=== PATIENT | male | born 1945 | race Caucasian/White ===

== ENCOUNTER 2020-09-19 06:24 | Day surgery (SDC) | payer OTHER ==
--- NOTE | 2020-09-18 16:39 | RAD REPORT ---
EXAM DESCRIPTION: Cody Womack (2 Views)09/18/2020 4:24 pm CLINICAL HISTORY: Preop for carotid surgery. Coronary artery disease COMPARISON: 2009 FINDINGS: The lungs appear clear of acute infiltrate. The heart is normal size. Lungs are hyperaera franklin. Pacemaker leads are in place. IMPRESSION: No acute abnormalities displayed
[2020-09-18 17:01] LABS: Protime INR 1.03
[2020-09-18 17:06] LABS: Absolute Lymphocytes (CBC) 1.6 K/uL (0.7-4.9); Basophils % 0.5 % (0-1.3); Hematocrit 44.7 % (39.6-49.0); Lymphocytes % 23.3 % (15.3-44.8); MPV 8.5 fL (7.6-11.3); RBC Red Blood Cell Count 4.91 M/uL (4.33-5.43)
[2020-09-18 17:29] LABS: Potassium 4.5 mmol/L (3.5-5.1)
[2020-09-19] MEDS ORDERED: LIDOCAINE 1% 20 ML MDV ONE (06:55)
[2020-09-19] MEDS ORDERED: HEPA 1000U/500MLS 1,000 UNIT/500 ML BAG IV ONE (06:55)
[2020-09-19] MEDS ORDERED: NA CHLORIDE 0.9% 500 ML ONE (06:58)
[2020-09-19] MEDS ORDERED: ATROPINE SULF 1 MG/10 ML SYR IV ONE (07:28)
[2020-09-19] MEDS ORDERED: MIDAZOLAM HCL 2 MG/2 ML INJ ONE (07:28)
[2020-09-19] MEDS ORDERED: FENTANYL CITR 100 MCG/2 ML ONE (07:28)
[2020-09-19] MEDS ORDERED: NITROGLYCERIN 100 MCG/ML SYR (for cath lab use only) IV ONE (07:29)
[2020-09-19] MEDS ORDERED: NITROGLYCERIN/D5W 0 MG/0 ML BTL IV ONE (07:29)
[2020-09-19] MEDS ORDERED: NA CHLORIDE 0.9% 0 ML ONE (07:29)
[2020-09-19 08:22] VITALS: TEMP 97.7
[2020-09-19 10:26] VITALS: BP 156/83; O2SAT 96
--- NOTE | 2020-09-19 11:27 | OP ---
Date of Procedure: 09/19/2020 Surgeon: Kevin Brantley MD Registered Respiratory Technician: Olivia Graham. StarClose was used to close the right groin site. The patient will remain at bedrest for 2 hours and go home with what we just did and he will follow up with Dr. Naik in the near future. Procedures: Left heart catheterization, selective coronary arteriogram, and selective bilateral crain tid angiograms. Indication: CAD, unstable angina, CVD, and positive carotid Doppler. Description Of Procedure: Mr. Wiggins is a 74-year-old. He was brought to the denture laboratory technician today as an o utpatient because of unstable angina, CAD, positive carotid Doppler, and CVD. He was prepped and dra mora in the routine sterile fashion. He was given Versed for sedation and fentanyl. Using the Seldin kirsty technique, we introduced a 6-Nepali sheath in the right common femoral artery after 10 cc of Xylo simon. A JR4 catheter was introduced and injection of the right coronary artery revealed small right coronary. It was nondominant and free of disease. We then used a JR4 to select the right common ca rotid and the left common carotid. He was found to have a 90% right internal carotid artery stenosis . He had a normal bilateral common carotid, external carotid. The left ICA was normal. A JL4 scot ter was used to cannulate the left main and inject the left main. He had a patent circumflex stent i n the proximal circumflex, had a 60% OM lesion. He had a 99% stenosis in the mid LAD within an old s tent with ADRIANA-2 flow. The patient tolerated the procedure well. There were no complications. Blood Loss: 5 mL. Anesthesia: Total conscious sedation was 45 minutes. Postoperative Diagnoses: Severe cardiovascular disease and severe coronary artery disease, 99% steno sis in the mid LAD within the stent with ADRIANA-2 flow, 90% stenosis of the right internal carotid shawn ry. I contacted Dr. Mamadou Naik, cardiovascular surgeon in [place]. The patient will undergo a ARAUZ to the LAD and a right at the same time. I did not want a stent in that the LAD and put him on Plavix and have the patient wait 6 months before his carotid surgery. I think the combination be ing of LAD and a right carotid endarterectomy is the way to go. BEN/AMITA Voice ID: [id number] Report ID: [id number]
== END 2020-09-19 10:19 | disposition home or self-care (01) ==
LOC: CCL 06:24
DX: I25.110 Atherosclerotic heart disease of native coronary artery with unstable angina pectoris (principal); T82.855A Stenosis of coronary artery stent, initial encounter; I65.21 Occlusion and stenosis of right carotid artery; I10 Essential (primary) hypertension; E78.5 Hyperlipidemia, unspecified; Z87.891 Personal history of nicotine dependence; Z20.828 Contact with and (suspected) exposure to other viral communicable diseases
CPT/HCPCS: 85025; 80048; 36415; 85610; 85730; 71046; 93454; 36222; U0002; C1893; J2250; J3010; J7040; J1644; J0583

== ENCOUNTER 2021-03-13 15:30 | Emergency (ER) | payer OTHER ==
--- OUTSIDE RECORDS SUMMARY | 2021-03-13 15:35 | XMS REPORT | Continuity of Care Document ---
:1945 Author Organization [facility] t Address [address] [place] [address] Care Team Providers Name Role Phone Lasha ALFONSO Attending Clinician James DODSON Attending Clinician Milton Naik MD Attending Clinician Linette Us DO Attending Clinician LINETTE US Attending Clinician Unavailable Jorje GARCIA Attending Clinician Lakhwinder GARCIA Attending Clinician Kaleb Laura MD Attending Clinician [place] Attending Clinician Unavailable MILTON NAIK Admitting Clinician Unavailable Payers Payer Name Policy Type Policy Effective Date Expiration Date Sour ce Number MEDICAREMEDICARE A [id number] LEE ANN Taylor [id number] 2008- 00:00:00 - Medical [facility] [id number] 2018 LEE ANN Mccabe SUPPLEMENT/INDIVIDUALG 00:00:00 - Medical ENERIC MEDICARE Center [id number] 11/2018-PresentMedigap Problems Condition Condition Condition Status Onset Resolution Last Treating Co mments Source Name Details Category Date Date Treatment Clinician Date Chest pain Chest pain Disease Active 2019-[address] [facility] Uncontroll Uncontroll Disease Active 2019-[address] ed ed 0-25 [facility] - hypertensi hypertensi 00:00: Me dical on on 00 [place] Hyperlipid Hyperlipid Disease Active 2019-[address] emia, emia, 0-25 [facility] - unspecifie unspecifie 00:00: Me dical d d 00 [place] hyperlipid hyperlipid emia type emia type ACB x2 ACB x2 Disease Active 2019-11 [facility] ( ( 0-25 [place] - Letsou Letsou 00:00: Medical 09/25) 09/25) 00 [place] Acute Acute Disease Active [facility] respirator respirator Lucie kes - y y Medical insufficie insufficie Ce nter ncy ncy Vasogenic Vasogenic Disease Active [facility] shock [facility] Hypovolemi Hypovolemi Disease Active [facility] c shock c shock 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 Lactic Lactic Disease Active [facility] acidosis acidosis [facility] Allergies, Adverse Reactions, Alerts This patient has no known allergies or adverse reactions. Social History Social Habit Start Date Stop Date Quantity Comments Source History of tobacco Current smoker I [facility] Sex Assigned At [facility] Tobacco use and 2020-10-17 2020-10-17 Former user [facility] - exposure 00:00:00 00:00:00 [facility] Smoking Status Start Date Stop Date Source Former smoker 2020-10-17 00:00:00 2020-10-17 00:00:00 [facility] Medications Ordered Filled Start Stop Current Ordering Indication Dosage Frequency Signature Comments Components Source Medication Medication Date Date Medication? Clinician (SIG) Name Name isosorbide 2019-11 Yes 120mg QD Take [address] mononitrate 1-03 mg by [facility] - (IMDUR) 120 14:46: mouth Medic al mg 24 hr 26 daily. Center tablet clopidogreL 2019-11 Yes 75mg QD Take [address] (PLAVIX) 75 12-02 by mouth Luke s - mg tablet 14:46: daily. Medica l 26 [place] atorvastati 2019-11 Yes 40mg QD Take [address] n (LIPITOR) 12-02 by mouth Luke s - 40 MG 14:46: daily. Medical tablet 26 [place] omeprazole 2019-11 Yes 20mg QD Take [address] (PriLOSEC 12-02 by mouth [facility] - OTC) 20 MG 14:46: daily. Medic al tablet 26 [place] ramipriL 2019-11 No 5mg QD Take [address] (ALTACE) 5 12-02 by mouth Luke s - MG capsule 11:46: 00:00 daily. Medi artem 09 :00 [place] lidocaine 2019-11- No 2{patch Q24H Place [address] (LIDODERM) 12-02 } patches [facility] - 5 % patch 00:00: 23:59 onto the Med ical 00 :00 skin daily Center for 30 days Remove & Discard patch within 12 hours or as directed by . lisinopriL 2019-11 No 2.5mg QD Take [address] (PRINIVIL,Z 12-02 tablet [facility] - ESTRIL) 2.5 00:00: 23:59 (2.5 mg Me dical MG tablet 00 :00 total) by Cente r mouth daily for 30 days. metoprolol 2019-11- No 25mg Q.5D Take [address] succinate 12-02 tablet (25 Gwen es - (TOPROL-XL) 00:00: 23:59 mg total) Medical 25 MG 24 hr 00 :00 by mouth 2 Ce nter tablet (two) times daily for 30 days. aspirin 81 2019-11- No 81mg QD Take [address] MG chewable 12-02 tablet (81 L ukes - tablet 00:00: 23:59 mg total) Medic al 00 :00 by mouth Center daily for 30 days. furosemide 2019-11- No 20mg QD Take [address] (LASIX) 20 12-02 tablet (20 Lucie kes - MG tablet 00:00: 23:59 mg total) Me dical 00 :00 by mouth Center daily for 30 days. HYDROcodone 2019-11- No 1{tbl} Take [address] -acetaminop 12-02 tablet by Lucie rodriguez ([place]endell) 00:00: 23:59 mouth Medi artem 5-325 mg 00 :00 every 6 Center per tablet (six) hours as needed for Pain for up to 10 days. Max Daily Amount: 4 tablets Vital Signs Vital Name Observation Time Observation Value Comments Source Systolic blood 2020-10-17 09:09:00 109 mm[Hg] [facility] Diastolic blood 2020-10-17 09:09:00 76 mm[Hg] [facility] Heart rate 2020-10-17 09:09:00 88 /min [facility] Respiratory rate 2020-10-17 09:09:00 16 /min [facility] Oxygen saturation in 2020-10-17 09:09:00 97 /min [facility] Arterial blood by Medical Ce nter Pulse oximetry Body temperature 2020-10-02 12:17:00 36.89 [place] [facility] Body weight 2020-09-30 04:27:00 79.788 kg [facility] BMI 2020-09-30 04:27:00 26.75 kg/m2 [facility] Body height 2020-09-23 12:10:00 172.7 cm [facility] Procedures Procedure Date / Time Performing Clinician Source Performed ARRYTHMIA IMPLANT REPORT - 2020-10-17 00:00:00 Provider, Shannan [facility] SCAN Scanning [facility] POCT-GLUCOSE METER 2020-10-02 12:17:00 Asa Naik [facility] POCT-GLUCOSE METER 2020-10-02 07:31:00 Asa Naik [facility] APTT 2020-10-02 05:08:00 Shellie Cabello [facility] BASIC METABOLIC PANEL (7) 2020-10-02 05:08:00 Shlelie Cabello [facility] MAGNESIUM 2020-10-02 05:08:00 Shellie Cabello [facility] PHOSPHORUS 2020-10-02 05:08:00 Destiney [facility] CBC W/PLT COUNT & AUTO 2020-10-02 05:08:00 Shellie Cabello [facility] XR CHEST 1 VIEW 2020-10-02 04:31:00 Torrey Lemus [facility] PORTABLE/BEDSIDE [facility] POCT-GLUCOSE METER 2020-10-01 22:42:00 Letsomateo [facility] POCT-GLUCOSE METER 2020-10-01 16:48:00 Heena [facility] XR CHEST 1 VIEW 2020-10-01 13:08:00 Heena [facility]/BEDSIDE [facility] HC EEG DURING NONINTRCRN SURG 2020-10-01 12:27:00 [facility] T[facility]UE EXAM 2020-10-01 11:57:00 [facility] ENDARTERECTOMY,CAROTID 2020-10-01 09:15:00 Heena [facility] APTT 2020-10-01 05:25:00 Destiney [facility] BASIC METABOLIC PANEL (7) 2020-10-01 05:25:00 Shellie Cabello I [facility] MAGNESIUM 2020-10-01 05:25:00 Destiney [facility] PHOSPHORUS 2020-10-01 05:25:00 Destiney [facility] CBC W/PLT COUNT & AUTO 2020-10-01 05:25:00 Shellie Cabello [facility] XR CHEST 1 VIEW 2020-10-01 04:53:00 Destiney [facility] - PORTABLE/BEDSIDE [facility] POCT-GLUCOSE METER 2020-09-30 21:51:00 [facility]SE MET[facility] 2020-09-30 17:16:00 [facility] TYPE AND SCREEN, AUTOMATED 2020-09-30 14:17:00 Torrey Lemus [facility] SARS-COV2/RT-PCR (SL[facility] & REF 2020-09-30 14:12:[address] [facility] POCT-GLUCOSE METER 2020-09-30 12:21:00 [facility] POCT-GLUCOSE METER 2020-09-30 07:43:00 [facility] AP[facility] 2020-09-30 04:22:00 Destiney [facility] BASIC METABOLIC PANEL (7) 2020-09-30 04:22:00 Shellie Cabello [facility] MAGNESIUM 2020-09-30 04:22:00 Shellie Cabello [facility] PHOSPHORUS 2020-09-30 04:22:00 Destiney [facility] CBC W/PLT COUNT & AUTO 2020-09-30 04:22:00 Shellie Cabello [facility] DIFFERENTIAL [facility] XR CHEST 1 VIEW 2020-09-30 03:44:00 Shellie Cabello [facility] - PORTABLE/BEDSIDE [facility] POCT-GLUCOSE METER 2020-09-29 21:35:00 [facility] POCT-GLUCOSE METER 2020-09-29 17:15:00 [facility] POCT-GLUCOSE METER 2020-09-29 12:09:00 [facility] POCT-GLUCOSE METER 2020-09-29 08:09:00 [facility] CHEST 1 VIEW 2020-09-29 04:33:00 Shellie Cabello [facility] - PORTABLE/BEDSIDE [facility] APTT 2020-09-29 04:03:00 Destiney [facility] BASIC METABOLIC PANEL (7) 2020-09-29 04:03:00 Destiney Shellie I [facility] MAGNESIUM 2020-09-29 04:03:00 Destiney [facility] PHOSPHORUS 2020-09-29 04:03:00 Destiney [facility] CBC W/PLT COUNT & AUTO 2020-09-29 04:03:00 Destiney [facility] DIFFERENTIAL [facility] POCT-GLUCOSE METER 2020-09-28 20:58:00 [facility] POCT-GLUCOSE METER 2020-09-28 17:28:00 [facility] XR CHEST 1 VIEW 2020-09-28 04:00:00 Destiney [facility] - PORTABLE/BEDSIDE [facility] APTT 2020-09-28 03:03:00 Destiney [facility] BASIC METABOLIC PANEL (7) 2020-09-28 03:03:00 Shellie Cabello [facility] MAGNESIUM 2020-09-28 03:03:00 Destiney [facility] PHOSPHORUS 2020-09-28 03:03:00 Destiney [facility] CBC W/PLT COUNT & AUTO 2020-09-28 03:03:00 Destiney [facility] S t [facility] DIFFERENTIAL [facility] (CELLAVISION MANUAL DIFF) 2020-09-28 03:03:00 Hayde Leborn [facility] POCT-GLUCOSE METER 2020-09-27 22:54:00 [facility] BASIC METABOLIC PANEL (7) 2020-09-27 14:00:00 Hayde Lebron [facility] CBC W/PLT COUNT & AUTO 2020-09-27 14:00:00 Shellie Cabello [facility] S t [facility] - DIFFERENTIAL [facility] MAGNESIUM 2020-09-27 14:00:00 Natasha Mayes [facility] PHOSPHORUS 2020-09-27 14:00:00 Natasha Mayes [facility] (CELLAVISION MANUAL DIFF) 2020-09-27 14:00:00 Shellie Cabello [facility] 2D ECHO W/ DOPPLER 2020-09-27 09:25:[address] [facility] (CW/PW/COLOR) [facility] POCT-GLUCOSE METER 2020-09-27 07:52:00 Heena [facility] ECG 12-LEAD 2020-09-27 06:07:06 Destiney [facility] CALCIUM, IONIZED 2020-09-27 03:49:[address] [facility] OXYGEN SATURATION, MEASURED 2020-09-27 03:49:[address] [facility] APTT 2020-09-27 03:25:00 Destiney [facility] BASIC METABOLIC PANEL (7) 2020-09-27 03:25:[address] [facility] MAGNESIUM 2020-09-27 03:25:00 Shellie Cabello [facility] PHOSPHORUS 2020-09-27 03:25:00 Bernardino [facility] CBC (HEMOGRAM ONLY) 2020-09-27 03:25:00 Bernardino [facility] XR CHEST 1 VIEW 2020-09-27 02:38:00 Shellie Cabello [facility] - PORTABLE/BEDSIDE [facility] POCT-GLUCOSE METER 2020 16:28:00 Heena [facility] ECG 12-LEAD 2020 10:17:37 Destiney [facility] POCT-GLUCOSE METER 2020 09:33:00 [facility] BLOOD GAS, ARTERIAL 2020 08:21:00 Destiney [facility] POCT-GLUCOSE METER 2020 07:52:00 Heena [facility] LACTIC ACID, ARTERIAL 2020 04:16:00 Destiney [facility] BLOOD GAS, ARTERIAL 2020 04:13:00 Destiney [facility] SODIUM NA-STAT LAB 2020 04:13:00 [facility] POTASSIUM-STAT LAB 2020 04:13:00 [facility] GLUCOSE-STAT LAB 2020 [facility]:13:00 [facility] - STAT LAB 2020 04:13:00 Heena [facility] BASIC METABOLIC PANEL (7) 2020 04:11:00 Shellie Cabello CH, I [facility] MAGNESIUM 2020 04:11:00 Shellie Cabello [facility] PHOSPHORUS 2020 04:11:00 Hayde Lebron [facility] CBC (HEMOGRAM ONLY) 2020 04:11:00 Hayde Lebron [facility] OXYGEN SATURATION, MEASURED 2020 04:11:00 Dawn Buitrago [facility] APTT 2020 04:10:00 Shellie Cabello [facility] PROTHROMBIN TIME/INR 2020 04:10:00 Shellie Cabello [facility] FIBRINOGEN 2020 04:10:00 Destiney [facility] XR CHEST 1 VIEW 2020 02:34:00 Destiney [facility] - PORTABLE/BEDSIDE [facility] POCT-GLUCOSE METER 2020 01:41:00 Heena [facility] OXYGEN SATURATION, MEASURED 2020 00:02:00 Dawn Buitrago [facility] BLOOD GAS, ARTERIAL 2020-09-25 23:36:00 Bernardino [facility] LACTIC ACID, ARTERIAL 2020-09-25 23:36:00 Bernardino [facility] LACTIC ACID, ARTERIAL 2020-09-25 20:15:00 Destiney [facility] BLOOD GAS, ARTERIAL 2020-09-25 20:15:00 Destiney [facility] SODIUM NA-STAT LAB 2020-09-25 20:15:00 [facility] POTASSIUM-STAT LAB 2020-09-25 20:15:00 [facility] GLUCOSE-STAT LAB 2020-09-25 20:15:00 [facility] (H&H) - STAT LAB 2020-09-25 20:15:00 Heena [facility] POCT-GLUCOSE METER 2020-09-25 18:48:00 [facility] BLOOD GAS, ARTERIAL 2020-09-25 18:46:00 Destiney [facility] LACTIC ACID, ARTERIAL 2020-09-25 18:46:00 Destiney [facility] POCT-GLUCOSE METER 2020-09-25 18:04:00 [facility] BLOOD GAS, ARTERIAL 2020-09-25 18:01:00 Destiney [facility] POCT-GLUCOSE METER 2020-09-25 17:31:00 [facility] BLOOD GAS, ARTERIAL 2020-09-25 17:12:00 Destiney [facility] LACTIC ACID, ARTERIAL 2020-09-25 17:12:00 Destiney [facility] HEMOGLOBIN AND HEMATOCRIT 2020-09-25 17:12:00 Errol Rodriguez CH I [facility] CALCIUM, IONIZED 2020-09-25 17:12:00 Destiney [facility] POCT-GLUCOSE METER 2020-09-25 16:00:00 Heena [facility] LACTIC ACID, ARTERIAL 2020-09-25 15:57:00 Destiney [facility] BLOOD GAS, ARTERIAL 2020-09-25 15:57:00 Destiney [facility] ECG 12-LEAD 2020-09-25 15:15:06 Bernardino [facility] XR CHEST 1 VIEW 2020-09-25 14:52:00 Destiney [facility]/BEDSIDE [facility] BASIC METABOLIC PANEL (7) 2020-09-25 14:46:00 Bernardino [facility] MAGNESIUM 2020-09-25 14:46:00 Bernardino [facility] BLOOD GAS, ARTERIAL 2020-09-25 14:46:00 Destiney [facility] CALCIUM, IONIZED 2020-09-25 14:46:00 Destiney [facility] PROTHROMBIN TIME/INR 2020-09-25 14:46:00 Destiney [facility] APTT 2020-09-25 14:46:00 Destiney [facility] FIBRINOGEN 2020-09-25 14:46:00 [facility] OXYGEN SATURATION, MEASURED 2020-09-25 14:46:00 [facility] LACTIC ACID, ARTERIAL 2020-09-25 14:46:00 [facility] CBC W/PLT COUNT & AUTO 2020-09-25 14:46:00 [facility] HEPATIC FUNCTION PANEL 2020-09-25 14:46:00 [facility] SODIUM NA-STAT LAB 2020-09-25 14:46:00 [facility] POTASSIUM-STAT LAB 2020-09-25 14:46:00 [facility] GLUCOSE-STAT LAB 2020-09-25 14:46:00 [facility] HGB/HCT (H&H) - STAT LAB 2020-09-25 14:46:00 [facility] (CELLAVISION MANUAL DIFF) 2020-09-25 14:46:00 eleanor [facility] POCT-ACT 2020-09-25 13:27:00 [facility] BLOOD GAS, ARTERIAL 2020-09-25 13:20:49 Andrea Laura [facility] APTT 2020-09-25 13:20:49 Andrea Laura [facility] FIBRINOGEN 2020-09-25 13:20:49 Andrea Laura [facility] PROTHROMBIN TIME/INR 2020-09-25 13:20:49 Andrea Laura [facility] THROMBOELASTOGRAPH (TEG) 2020-09-25 13:20:49 Andrea Laura [facility] PLATELET COUNT 2020-09-25 13:20:49 Andrea Laura [facility] SODIUM NA-STAT LAB 2020-09-25 13:20:49 Andrea Laura [facility] POTASSIUM-STAT LAB 2020-09-25 13:20:49 Andrea Laura [facility] GLUCOSE-STAT LAB 2020-09-25 13:20:49 Andrea Laura [facility] HGB/HCT (H&H) - STAT LAB 2020-09-25 13:20:49 Andrea Laura Isabel hines [facility] CBC W/PLT COUNT & AUTO 2020-09-25 13:20:00 Hayde Lebron [facility] POCT-ACT 2020-09-25 12:27:00 [facility] BLOOD GAS, ARTERIAL 2020-09-25 12:24:35 Destiney [facility] SODIUM NA-STAT LAB 2020-09-25 12:24:35 [facility] POTASSIUM-STAT LAB 2020-09-25 12:24:35 [facility] GLUCOSE-STAT LAB 2020-09-25 12:24:35 [facility] (H&H) - STAT LAB 2020-09-25 12:24:35 [facility] POCT-ACT 2020-09-25 11:59:00 [facility] BLOOD GAS, ARTERIAL 2020-09-25 11:57:33 Shellie Cabello [facility] SODIUM NA-STAT LAB 2020-09-25 11:57:33 [facility] POTASSIUM-STAT LAB 2020-09-25 11:57:33 [facility] GLUCOSE-STAT LAB 2020-09-25 11:57:33 [facility] - STAT LAB 2020-09-25 11:57:33 [facility] POCT-ACT 2020-09-25 11:32:00 [facility] BLOOD GAS, ARTERIAL 2020-09-25 11:29:09 [facility]IUM NA-STAT LAB 2020-09-25 11:29:09 [facility] POTASSIUM-STAT LAB 2020-09-25 11:29:09 [facility] GLUCOSE-STAT LAB 2020-09-25 11:29:09 [facility]&H) - STAT LAB 2020-09-25 11:29:09 [facility] POCT-ACT 2020-09-25 10:59:00 [facility]emimateoSt[facility] BLOOD GAS, ARTERIAL 2020-09-25 10:56:07 [facility] SODIUM NA-STAT LAB 2020-09-25 10:56:07 [facility] POTASSIUM-STAT LAB 2020-09-25 10:56:07 [facility] GLUCOSE-STAT LAB 2020-09-25 10:56:07 [facility]&H) - STAT LAB 2020-09-25 10:56:07 [facility] POCT-ACT 2020-09-25 10:30:00 [facility] POCT-ACT 2020-09-25 10:17:00 [facility] ANESTHESIA MIKE 2020-09-25 09:02:18 Andrea Laura [facility] BLOOD GAS, ARTERIAL 2020-09-25 08:42:23 Andrea Laura [facility] CALCIUM, IONIZED 2020-09-25 08:42:23 Andrea Laura [facility] SODIUM NA-STAT LAB 2020-09-25 08:42:23 Andrea Laura [facility] POTASSIUM-STAT LAB 2020-09-25 08:42:23 Andrea Laura [facility] GLUCOSE-STAT LAB 2020-09-25 08:42:23 Andrea Laura [facility] HGB/HCT (H&H) - STAT LAB 2020-09-25 08:42:23 Andrea Laura [facility] BYPASS,AORTO CORONARY ANA/SVG 2020-09-25 07:34:00 Heena [facility] ENDOSCOPIC HARVEST,VEIN 2020-09-25 07:34:00 Heena [facility] APTT 2020-09-25 04:34:00 Destiney [facility] BASIC METABOLIC PANEL (7) 2020-09-25 04:34:00 Shellie Cabello CH, I [facility] MAGNESIUM 2020-09-25 04:34:00 Destiney [facility] CBC (HEMOGRAM ONLY) 2020-09-25 04:34:00 Solomon Smith [facility] PHOSPHORUS 2020-09-25 04:34:00 Hayde Lebron [facility] APTT 2020-09-24 19:17:00 Destiney [facility] APTT 2020-09-24 12:47:00 Shellie Cabello [facility] CT BRAIN WITHOUT IV CONTRAST 2020-09-24 12:13:00 Kris Lebron [facility] PLATELET COUNT 2020-09-24 05:58:00 Solomon Smith [facility] APTT 2020-09-24 05:58:00 Luis [facility] LIPID PANEL 2020-09-24 05:58:00 Hayde Lebron [facility] HEMOGLOBIN A1C 2020-09-24 05:58:00 Bernardino [facility] PROTHROMBIN TIME/INR 2020-09-24 05:58:00 Bernardino [facility] BASIC METABOLIC PANEL (7) 2020-09-24 05:58:00 ChiShellie ceron [facility] MAGNESIUM 2020-09-24 05:58:00 Shellie Cabello [facility] CBC (HEMOGRAM ONLY) 2020-09-24 05:58:00 Luis [facility] APTT 2020-09-23 23:16:00 Luis [facility] HC VENOUS DOPPLER EXT WILLIAMS 2020-09-23 15:30:00 Bernardino [facility] ABORH, MANUAL 2020-09-23 13:42:00 Samira Castro [facility] TYPE AND SCREEN, AUTOMATED 2020-09-23 13:18:00 Bernardino [facility] 2D ECHO W/ DOPPLER 2020-09-23 11:00:43 Lebron [facility] (CW/PW/COLOR) [facility] ED ECG INTERPRETATION 2020-09-23 10:54:24 MagenMere [facility] SARS-COV2/RT-PCR (SLHS & REF 2020-09-23 09:20:00 MagenMere [facility] XR CHEST 1 VIEW 2020-09-23 09:15:00 MagenMere [facility] - PORTABLE/BEDSIDE Medical Center ECG 12-LEAD 2020-09-23 09:13:[address] [facility] CBC W/PLT COUNT & AUTO 2020-09-23 09:13:00 MagenMere [facility] BASIC METABOLIC PANEL (7) 2020-09-23 09:13:[address] [facility] B-TYPE NATRIURETIC FACTOR 2020-09-23 09:13:00 MagenMere Shagufta astudillo [facility] HEPATIC FUNCTION PANEL 2020-09-23 09:13:[address] [facility] Center TROPONIN I 2020-09-23 09:13:[address] [facility] PT/APTT 2020-09-23 09:13:00 Asa Naik [facility] [place] [facility] [facility] ARRYTHMIA IMPLANT REPORT - 2020-09-23 00:00:00 Provider, Default [facility] - SCAN Scanning [facility] REPORT OF PROCEDURE - 2020-09-23 00:00:00 Provider, Default [facility] - ENDOSCOPY SCAN Scanning [facility] Plan of Care Planned Activity Planned Date Details Comments Source Future Scheduled 2020-11-[address] [facility] - Test 00:00:00 (12+) [code = Medical Center DEPRESSION SCREENING (12+)] Future Scheduled 2020-07-31 INFLUENZA VACCINE (#1) [facility]00 [code = INFLUENZA Medical Ce nter VACCINE (#1)] Future Scheduled 2010-08-[address] [facility] Test 00:00:00 WELLNESS (YEAR 2 or Medical Center FIRST YEAR if no IPPE) [code = MEDICARE ANNUAL WELLNESS (YEAR 2 or FIRST YEAR if no IPPE)] Future Scheduled 2009 PNEUMOCOCCAL 65+ YRS [facility] - Test 00:00:00 (1 of 1 - Medical Center CXYU96_Bzcixzh PCV13) [code = PNEUMOCOCCAL 65+ YRS (1 of 1 - PTYK64_Axhthnv PCV13)] Future Scheduled 1994 SHINGLES VACCINES ([address] [facility] - Test 00:00:00 of 2) [code = SHINGLES Medic al Center VACCINES (1 of 2)] Future Scheduled 1963 DTAP/TDAP/TD [facility]ACCINES [facility] Test 00:00:00 (1 - Tdap) [code = Medical C enter DTAP/TDAP/TD VACCINES (1 - Tdap)] Future Scheduled 1962 HEPATITIS C [facility]CRE[facility]ING [facility] 00:00:00 [code = HEPATITIS C Medical Center SCREENING] Encounters Start End Encounter Admission Attending Care Care Encounter Source Date/Time Date/Time Type Type Clinicians Facility Department ID 2020-10-17 2020-10-17 Office MIGUEL Ramirez [id number] 10:00:51 10:40:51 Visit Ileana AMBULATOR [id number] Y [id number] Results Test Description Test Time Test Comments Results Result Sourc e Comments ARRYTHMIA IMPLANT 2020-11-02 Ordered by an [facility] REPORT - SCAN 11:48:53 unspecified - Medical provider. Center Tissue Exam 2020-10-08 13:34:00 Test Item Value Reference Range Interpretation Comme nts Case Report (test code = 104) Surgical Pathology Report Case: [id number] Authorizing Provider: Asa Naik, Collected: 10/01/2020 11:57 AM Ordering Location: [facility] Received: 10/01/2020 12:12 PM PERIOPERATIVE SERVICES Pathologist: Lopez Cade MD Specimen: Plaque, RIGHT CAROTID ARTERY PLAQUE DIAGNOSIS (test code = 3220) t6aroUHuKCWbm4aaKCJujQBmTkXpJaVwFjVuQi pc dWMxIHtccnRmMVxlcGljOTIwMFxhbnNpXHNwbHRw K9XgwzdkHEsvEB5vAC6cmFrptHGpmGAbBLKjZsNe y1nyf596bZVja4xiDRZJolzpnEg1rZjcL39yp9G0 UyofA41iwUEiFIppsKRbhzkcawQcZGYLXHCKGFar GslHFSKpQ3FWE7LRMLmiEF2UROLTJBHHP8RPVJg0 KSZsgeDKTOoADEDJQyUMLQdMPo0XZ4kDLe9XMTJw FPzKDDNRJMbeGNN2a7nwnHWxZIJyiZXlZNTlGMly mrBjWVTuYlatkytvSGRsXJG5ooLgYDIeDXzxQACi SUrdHl0wfOJjjMimOlDqXNSdb7owenCVxkjvrPj9 a0jrJDErYbD4nANpFXnzL8npdsLduGSqTRMdRPc5 mK23HBQapX5hdXPrUIesghGwCnG6NUeiDPUuFtM6 FYKkoGBfCEOfZ5ioLQFmPPacUDZxFXavmOBbUEG6 sDsns2K0rJSeiJHccPrzFxUcLcGbSuOQy7QmKXi5 eUhyI9QhRSUnMmD6gKIsLNDzYNveYNNeTUTiuvA2 bP41NRsbclO9vNEfa6Ant14mp996sB6bqAXhTSS5 NQYsMAUudHUsMKZnQNL7LFJmgWQcY8nmRWHlMM0g zdntFCqdERehANAnvLJ6JBQzsZOkD7IjDMKvQKlm UHNkfnq7MpOdOq4llGJxwUpgPCojk0gvf5cyjBEq Mss8ZIEhYrMsTeloMGytx3Uxb4zmOPYxww3iLTW0 cABlbEzwj4P3yPAcJQNsnTZhDBIuAS5bvQEcATKe jL2vyksoBABiRrLpdwsgBXUvuOaizcAvQn8eoBhb FHL4PNiuN0erjY9xNgN6DRlaK5houD7jWEo9DSmm HMFlzLR0klN2BBSriZHlW2QtbA6qWHDoFO8clth9 t5glWVX1BEapHKOcCnG0dfZ1LAIyyBElTOAunJkt PMlld822MNW9YtFcVNQor7GmD4NpiUqcR11wlUdr Q68eMLIgnGsbdH8rkEbziT9qPnOaMjCvDSoowIyg XE7hKMPmL7nlxXCoIHJxLIYhR6idFyBkcD2sqXic LZkoctNgRFQcTyt4VLAsrLBjSUGuYvf2VZYjCYIz N40pqeplQXI8tO6sh5gwm8QrDKmeJNT0DHNgc13k QGtmikN0ASlkUn5nZNGmWXm9BQlbBYE3cP== CPT Code(s) (test code = 3357) p0cxhOScNBEqeZT4PfCeKIWiy7qnx2IfyAZw cGFy TBzbbQZnytBxkr45kSA1uH42FF2vSXKuYwP8YCDj qaT0Obr6GPSyUICpcCHuH652l6fyr8jfbfBvxUX3 jXdgLEXdAGDrQSmiYZDcWfLgEWjfESW5COd2DzWr XHBhcn0= CLINICAL HISTORY (test code = 3356) p9etvWMbNYAhkEP0HeCeYQVcm8seh7M sdHBncGFy GIuhjRQpyzAyks45mVU4sZ83EC2cQFGiUuA3FAWb dcY5Kwz7JSBePWQssDFqT569x5whj1uzjcPpxME7 lWlmOPGxKHNsSRriFJCsEdUgYPHaa8FnNWxpO64y v5xgNsOil0Ofeo7ybFGuo9LjajgqxCCvD0Pwz9Tc ZCBhcnRlcnlccGFyfQ== SPECIMEN SOURCE (test code = 3377) k1cqbVPlERMatSN5YcRxCQCgq2tjl7Sa dHBncGFy CWfnnPKcpqKyye80qQG3jK53UA1yWYVcMbL6SNTw eoY2Aww0QNTnBDNrcZPkL330o6xxb1ceudLnnUB5 nUdiOMCdOIJsMRrnJFEbSwMxFB7hCAeulPWoZZTk cn0= GROSS DESCRIPTION (test code = 3366) o4iaxNBsJWQryDG7GvHzMOQvu9wcj1 BsdHBncGFy RYrkmWPnsxLrxi83cGH3eU28XU6kNYWmCtX1PXGj pwO1Dkx0SEDtFBFydAAbY600n2pee2babgTxiPT5 nJdzGQMoWOBzRCwbXVRqNvNxXhThUYq9PDDnyA7r Es7ptTQzvC2eoGCzJGzrOOL1pKLwGDErDSBhUDVg BF19G3ZqaqDcCDukCHNgKWGtcI6hPE86sWWaueCx zfJwZiRlL8m4XNMphv83yBNfNKX8HMM7IGRuZSO8 FJHrpONmNTKaVeBlZ76yhS8ujBVzX7EfZDjuMT64 GPEzHKfaXVTdVX5mbIKuUCBvdu27EZbvv4glaNOc xXqucvXycIIyGUUcQsLna6XclCr3HSLrjBPdPzpc XRTfzOWmcCVmYCQyNXLgoJFgwK9bzaDfmjHduyWp jdOzaGUncNVuuCE7JYHoyK1xCUElSj2hdO54eQ1z LFZiZ8EdW7vimALtuFdhgj8bGSAftIqvXQZylt0= MICROSCOPIC DESCRIPTION (test code = h6gskFGzRXWquEL7UhPsSBMit1juz5 BsdHBncGFy 3371) ELovqHOknuZpdv97zNV9bQ79LM6fTXXxNjW3XFNa yuC5Wae9LESgKZTbbOXxV855u3vpd8hzwcTauDQ1 mLsfFESqNXGaPHnqKDJoTwRoYRNtRz2gwLXjOVHd cn0= [facility] [id number] 13:34:00Surgical Pathology Report Case: [id number] Authorizing Provider: Asa Naik, Collected: 10/01/2020 11:57 AM OrderingLocation: [facility] Received: 10/01/2020 12:12 PM PERIOPERATIVE SERVICES Pathologist: Lopez Cade MD Specimen: Plaque, RIGHT CAROTID ARTERY PLAQUE ARTERY, RIGHT CAROTID, ENDARTERECTOMY:CALCIFIC ATHEROSCLEROTIC PLAQUE Signing Pathologist Direct Phone Line: [phone] signed by Lopez Cade MD on 10/08/2020 at 1:34 [id number]; [id number] diagnosis: stenosis of right carotid arteryA. PlaqueReceived in formalin labeled with the patient's name, accession number and "right carotid artery plaque" is a 2.5 cm in length x 0.4 cm in diameter nichols-yellow tubular piece of focally calcified plaque. The specimen is entirely submitted in A1 following decalcification. PA/pl PerformedSHORT-LATENCY SPE, ALL [id number] 17:32:00[facility]OM [facility] : 1945 Sex: MINTRAOPERATIVE MONITORING REPORT Patient Name: Gillian Wiggins [facility] Surgery Date: October 01, 2020 [place] [id number] Monitoring began at 09:41 and ended at 12:27 Surgeon: Asa Naik M.D. Examining Neurologist: Jared Rosa M.D. Monitoring Technologist: Aaron Connell, [facility] Procedure: Right Carotid Endarterectomy Stimulation Parameters: Median nerves individually stimulated at the wrist Rate 3.07Hz, Intensity 35-40 mA, Duration 0.3ms Posterior Tibial nerves individually stimulated at the ankle Rate 2.18Hz, Intensity 45 mA, Duration 0.3ms Filters 30-500Hz, Notch Off Motor strip stimulated anterior to C3 and C4 with alternating polarities Intensity 100-500V, Train Number 9, KARL 2-3ms Filters 30-2KHz, Notch Off Recording Parameters: C3 and C4, referenced to FPzFree-running EEG recorded with bipolar derivation, using modified International 10/20 placements: FP1-C3, C3-O1, FP1-T3, T3-O1, FP2-C4, C4-O2, FP2-T4, and T4-V7Oyroeheahxci electrical Motor Evoked Potentials recorded from Abductor Pollicis Brevis muscle groups, Tibialis Anterior referenced to Lateral Gastrocnemius, and the Adductor Hallucis muscle groups. Description: Intraoperative neurophysiological monitoring was performed using free-running EEG to document cortical profusion during the period of Carotid clamping. A real-time connection with the examining neurologist was established and maintained throughout the operative procedure by the monitoring technolog ist. Upper and lower extremity somatosensory evoked potentials were recorded at the subcortical and cortical levels following median nerve stimulation at the wrist and tibial nerve stimulation at the ankle. All SSEPs were well formed at baselines, and consistent with baselines throughout the case andat closing. There were no changes seen on clamping of the left Internal Carotid artery. While the anticipated changes in cortical amplitudes secondary to anesthetic agents were observed, no significantsurgically related changes in amplitude or latency of the median nerve somatosensory evoked potentials were noted throughout the surgical procedure. At closing, free-running EEG remained symmetrical and at baseline frequencies with no focal changes noted to occur throughout the operative procedure. Jared Howell, [facility]PITALttending NeurophysiologistCHI [facility] SHORT LATENCY SEP ALL [id number] 17:32:00Interface, External Ris In - 10/05/2020 5:32 PM CSTINTRAOPERATIVE MONITORING REPORT Patient Name: Gillian Wiggins [facility] Surgery Date: October 01, 2020 [place] Pro [id number] Monitoring began at 09:41 and ended at 12:27 Surgeon: Asa Naik M.D. Examining Neurologist: Jared Rosa M.D. Monitoring Technologist: Aaron Connell, [facility] Procedure: Right Carotid Endarterectomy Stimulation Parameters: Median nerves individually stimulated at the wrist Rate 3.07Hz, Intensity 35-40 mA, Duration 0.3ms Posterior Tibial nerves individually stimulated at the ankle Rate 2.18Hz, Intensity 45 mA, Duration 0.3ms Filters 30- 500Hz, Notch Off Motor strip stimulated anteriorto C3 and C4 with alternating polarities Intensity 100-500V, Train Number 9, KARL 2-3ms Filters 30-2KHz, Notch Off Recording Parameters: C3 and C4, referenced to FPzFree- running EEG recorded with bipolar derivation, using modified International 10/20 placements: FP1-C3, C3-O1, FP1-T3, T3-O1, FP2-C4, C4-O2, FP2-T4, and T4- Z7Gkqqceiopnqg electrical Motor Evoked Potentials recorded from Abductor Pollicis Brevis muscle groups, Tibialis Anterior referenced to Lateral Ga strocnemius, and the Adductor Hallucis muscle groups. Description: Intraoperative neurophysiological monitoring was performed using free-running EEG to document cortical profusion during the period of Carotid clamping. A real-time connection with the examining neurologist was established and maintained throughout the operative procedure by the monitoring technologist. Upper and lower extremity somatosensory evoked potentials were recorded at the subcortical and cortical levels following median nerve stimulation at the wrist and tibial nerve stimulation at the ankle. All SSEPs were well formed at baselines, and consistent with baselines throughout the case and at closing. There were no changes seen on clamping of the left Internal Carotid artery. While the anticipated changes in cortical amplitudes secondary to anesthetic agents were observed, no significant surgically related changes in amplitude or latency of the median nerve somatosensory evoked potentials were noted throughout the surgical procedure. At closing, free-running EEG remained symmetrical and at baseline frequencies with no focal changes noted to occur throughout the operative procedure. Jared Howell, [facility]OSPITALttatrium health university city NeurophysiologistCHI [facility] HospitalEK 12 [id number] 17:30:15Interface, External Ris In - 10/03/2020 5:30 PM CSTVentricular Rate 87 BPMAtrial Rate 87 BPMP-R Interval 142 msQRS Duration 86 msQ-T Interval 370 msQTC Calculation(Abdoulayezett) 445 msP [place] 17 degreesR [place] 18 degreesT [place] 2 degreesSinus rhythm with occasional Premature ventricular complexesimproved anterior t changesAbnormal ECGConfirmed by MD Larson Roberto ([id number]) on 10/03/2020 5:30:12 [facility] HospitalPOC-Glucose [id number] 12:30:00 Test Item Value Reference Range Interpretation Comments POC-Glucose Meter (test 110 mg/dL 70-110 : TE STED AT [facility] code = 1538) [address] [facility], 770 30: [employer]/Techni yessy ID = [id number] for Amber Asencio Lab Interpretation (test Normal code = 41406-9) [facility] HospitalPOMT-GLUCOSE [id number] 12:30:00 Test Item Value Reference Range Interpretation Comments POC-GLUCOSE METER 110 mg/dL 70-110 : TESTED A T [facility] 6720 (BEAKER) (test code = [facility], 1538) [address]: [employer]/Techni yessy ID = [id number] for Amber Ko POCT-GLUCOSE [id number] 07:43:00 Test Item Value Reference Range Interpretation Comments POC-GLUCOSE METER 129 mg/dL 70-110 H : [facility] ([facility] (test code = [facility], 1538) [address]294: [employer]/Techni yessy ID = [id number] for StefaniAmber rodriguez Basic Metabolic [id number] 06:21:00 Test Item Value Reference Range Interpretation Comments Sodium (test code = 138 meq/L 139-724 7769-2) Potassium (test code = 3.7 meq/L 3.5-5.1 2823-3) Chloride (test code = 104 meq/L 98-107 2075-0) CO2 (test code = 25 meq/L 22-29 8-9) BUN (test code = 10 mg/dL 7-21 3094-0) Creatinine (test code 0.73 mg/dL 0.57-1.25 = 2160-0) Glucose (test code = 137 mg/dL 70-105 H 2345-7) Calcium (test code = 7.9 mg/dL 8.4-10.2 L 22622-8) EGFR (test code = 104 mL/min/1.73 [place] [address]-1) NOT ACCURATE CREATININE CLEARANCE IN PREDICTING GLOMERULAR FILTRATION RATE . ESTIMATED GFR I S NOT APPLICABLE FOR DIALYSIS PATIENTS. DEMARCO (test code = DEMARCO) [employer] ID - ADMIN Lab Interpretation Abnormal (test code = 71610-4) [facility] HospitalMagnesium2020-11-03 06:21:00 Test Item Value Reference Range Interpretation Comments Magnesium (test code = 1.7 mg/dL 1.6-2.6 36923-8) DEMARCO (test code = DEMARCO) [employer] ID - ADMIN Lab Interpretation (test Normal code = 41027-2) [facility] HospitalPhosphorus2020-11-03 06:21:00 Test Item Value Reference Range Interpretation Comments Phosphorus (test code = 2.6 mg/dL 2.3-4.7 2777-1) DEMARCO (test code = DEMARCO) [employer] ID - ADMIN Lab Interpretation (test Normal code = 12197-9) [facility] HospitalMAGNESIUM2020-11-03 06:21:00 Test Item Value Reference Range Interpretation Comments MAGNESIUM (BEAKER) (test code = 1.7 mg/dL 1.6-2.6 627) [employer] ID - [id number] 06:21:00 Test Item Value Reference Range Interpretation Comments PHOSPHORUS (BEAKER) (test code = 2.6 mg/dL 2.3-4.7 604) [employer] ID - ADMINBASIC METABOLIC [id number] 06:21:00 Test Item Value Reference Range Interpretation Comments SODIUM (BEAKER) 138 meq/L 136-145 (test code = 381) POTASSIUM (BEAKER) 3.7 meq/L 3.5-5.1 (test code = 379) CHLORIDE (BEAKER) 104 meq/L 98-107 (test code = 382) CO2 (BEAKER) (test 25 meq/L 22-29 code = 355) BLOOD UREA NITROGEN 10 mg/dL 7-21 (BEAKER) (test code = 354) CREATININE (BEAKER) 0.73 mg/dL 0.57-1.25 (test code = 358) GLUCOSE RANDOM 137 mg/dL 70-105 H (BEAKER) (test code = 652) CALCIUM (BEAKER) 7.9 mg/dL 8.4-10.2 L (test code = 697) EGFR (BEAKER) (test 104 mL/min/1.73 ESTIM ATED GFR IS code = 1092) sq m NOT ACCURATE CREATININE CLEARANCE IN PREDICTING GLOMERULAR FILTRATION RATE . ESTIMATED GFR I S NOT APPLICABLE FOR DIALYSIS PATIEN TS. [employer] ID - [id number] 05:42:00 Test Item Value Reference Range Interpretation Comments PTT (test code = 10762-8) 28.9 See_Comment [ Automated message] The system Farfetch generated this result transmitted ref erence range: 22.5 - 3 6.0 seconds. The re ference range was not u sed to interpret this result as normal/abnor mal. Lab Interpretation (test Normal code = 78957-3) [facility] HospitalAPTT2020-11-03 05:42:00 Test Item Value Reference Range Interpretation Comments PARTIAL THROMBOPLASTIN TIME 28.9 seconds 22.5-36.0 (BEAKER) (test code = 760) CBC with platelet count + automated [id number] 05:37:00 Test Item Value Reference Range Interpretation Comments WBC (test code = 6690-2) 8.8 See_Comment [A utomated message] The system Farfetch generated this result transmitted ref erence range: 3.5 - 10 .5 K/L. The refe rence range was not u sed to interpret this result as normal/abnor mal. RBC (test code = 789-8) 2.93 See_Comment L [Au tomated message] The system Farfetch generated this result transmitted ref erence range: 4.63 - 6 .08 M/L. The refe rence range was not u sed to interpret this result as normal/abnor mal. MCHC (test code = 786-4) 33.0 See_Comment L [A utomated message] The system Farfetch generated this result transmitted ref erence range: 32.3 - 3 6.5 GM/DL. The refe rence range was not u sed to interpret this result as normal/abnor mal. Hematocrit (test code = 27.6 % 40.1-51 L 4544-3) MCV (test code = 787-2) 94.2 fL 79-92.2 H MCH (test code = 785-6) 31.1 pg 25.7-32.2 RDW (test code = 788-0) 12.4 % 11.6-14.4 Platelets (test code = 217 See_Comment [Aut omated message] 777-3) The system Farfetch generated this result transmitted ref erence range: 150 - 45 0 K/CU MM. The referen ce range was not u sed to interpret this result as normal/abnor mal. MPV (test code = 11.0 fL 9.4-12.4 77877-9) nRBC (test code = 413) 0 See_Comment [Aut omated message] The system Farfetch generated this result transmitted ref erence range: 0 - 0 /1 00 WBC. The refere nce range was not u sed to interpret this result as normal/abnor mal. % Neutros (test code = 73 % 429) % Lymphs (test code = 10 % 430) % Monos (test code = 15 % 431) % Eos (test code = 432) 1 % % Baso (test code = 437) 0 % # Neutros (test code = 6.43 See_Comment H [Aut omated message] 670) The system Farfetch generated this result transmitted ref erence range: 1.78 - 5 .38 K/L. The refe rence range was not u sed to interpret this result as normal/abnor mal. # Lymphs (test code = 0.89 See_Comment L [Auto mated message] 414) The system Farfetch generated this result transmitted ref erence range: 1.32 - 3 .57 K/L. The refe rence range was not u sed to interpret this result as normal/abnor mal. # Monos (test code = 1.34 See_Comment H [Autom ated message] 415) The system Farfetch generated this result transmitted ref erence range: 0.30 - 0 .82 K/L. The refe rence range was not u sed to interpret this result as normal/abnor mal. # Eos (test code = 416) 0.06 See_Comment [Au tomated message] The system Farfetch generated this result transmitted ref erence range: 0.04 - 0 .54 K/L. The refe rence range was not u sed to interpret this result as normal/abnor mal. # Baso (test code = 417) 0.01 See_Comment [A utomated message] The system Farfetch generated this result transmitted ref erence range: 0.01 - 0 .08 K/L. The refe rence range was not u sed to interpret this result as normal/abnor mal. Immature 1 % 0-1 Granulocytes-Relative (test code = 2801) Lab Interpretation (test Abnormal code = 14456-1) [facility] W/PLT COUNT & AUTO [id number] 05:37:00 Test Item Value Reference Range Interpretation Comments WHITE BLOOD CELL COUNT (BEAKER) 8.8 K/ L 3.5-10.5 (test code = 775) RED BLOOD CELL COUNT (BEAKER) 2.93 M/ L 4.63-6.08 L (test code = 761) HEMOGLOBIN (BEAKER) (test code = 9.1 GM/DL 13.7-17.5 L 410) HEMATOCRIT (BEAKER) (test code = 27.6 % 40.1-51.0 L 411) MEAN CORPUSCULAR VOLUME (BEAKER) 94.2 fL 79.0-92.2 H (test code = 753) MEAN CORPUSCULAR HEMOGLOBIN 31.1 pg 25.7-32.2 (BEAKER) (test code = 751) MEAN CORPUSCULAR HEMOGLOBIN CONC 33.0 GM/DL 32.3-36.5 (BEAKER) (test code = 752) RED CELL DISTRIBUTION WIDTH 12.4 % 11.6-14.4 (BEAKER) (test code = 412) PLATELET COUNT (BEAKER) (test 217 K/CU MM 150-450 code = 756) MEAN PLATELET VOLUME (BEAKER) 11.0 fL 9.4-12.4 (test code = 754) NUCLEATED RED BLOOD CELLS 0 /100 WBC 0-0 (BEAKER) (test code = 413) NEUTROPHILS RELATIVE PERCENT 73 % (BEAKER) (test code = 429) LYMPHOCYTES RELATIVE PERCENT 10 % (BEAKER) (test code = 430) MONOCYTES RELATIVE PERCENT 15 % (BEAKER) (test code = 431) EOSINOPHILS RELATIVE PERCENT 1 % (BEAKER) (test code = 432) BASOPHILS RELATIVE PERCENT 0 % (BEAKER) (test code = 437) NEUTROPHILS ABSOLUTE COUNT 6.43 K/ L 1.78-5.38 H (BEAKER) (test code = 670) LYMPHOCYTES ABSOLUTE COUNT 0.89 K/ L 1.32-3.57 L (BEAKER) (test code = 414) MONOCYTES ABSOLUTE COUNT (BEAKER) 1.34 K/ L 0.30-0.82 H (test code = 415) EOSINOPHILS ABSOLUTE COUNT 0.06 K/ L 0.04-0.54 (BEAKER) (test code = 416) BASOPHILS ABSOLUTE COUNT (BEAKER) 0.01 K/ L 0.01-0.08 (test code = 417) IMMATURE GRANULOCYTES-RELATIVE 1 % 0-1 PERCENT (BEAKER) (test code = 2801) RAD, CHEST, 1 VIEW, NON [id number] 04:40:00Reason for exam:->ptxShould this be performed at the bedside?->Yes [facility] 1945 Sex: MFINAL REPORT CLINICAL INDICATION: Pneumothorax Comparison: 10/01/2020 The cardiomediastinal contours are stable. Bibasilar parenchymal and bilateral pleural opacities are similar within variation of acquisition technique. A trace left apical pneumothorax appears slightly decreased on today's examination. Signed: Matthew Bryan MDReport Verified Date/Time: 10/02/2020 04:40:20 XR chest 1 view portable / [id number] 04:40:00Interface, External Ris In - 10/02/2020 4:42 AM CSTFINAL REPORT CLINICAL INDICATION: Pneumothorax Comparison: 10/01/2020 The cardiomediastinal contours are stable. Bibasilar parenchymal and bilateral pleural opacities are similar within variation of acquisition technique. A trace left apical pneumothorax appears slightly decreased on today's examination. Signed: Matthew Bryanort Verified Date/Time: 10/02/2020 04:40:20 [facility] [id number] 22:56:00 Test Item Value Reference Range Interpretation Comments POC-GLUCOSE METER 173 mg/dL 70-110 H : TESTED A T [facility] 6720 (BEAKER) (test code = [facility], 1538) [address]: [employer]/Techni yessy ID = [id number] for AG U, LING POCT-GLUCOSE [id number] 17:00:00 Test Item Value Reference Range Interpretation Comments POC-GLUCOSE METER 177 mg/dL 70-110 H : TESTED A T [facility] 6720 (BEAKER) (test code = [facility], 1538) 77915: [employer]/Techni yessy ID = [id number] for ROMIoRsaliaADAMSON MICHAEL POCT-GLUCOSE [id number] 14:40:00 Test Item Value Reference Range Interpretation Comments POC-GLUCOSE METER 92 mg/dL 70-110 : TESTED A T [facility] 6720 (BEAKER) (test code = [facility], 1538) 51297: [employer]/Techni yessy ID = [id number] for ARI S, YUMIKO RAD, CHEST, 1 VIEW, NON [id number] 14:04:00Reason for exam:- >PNEUMOTHORACShould this be performed at the bedside?->Yes [facility] : 1945 Sex: MFINAL REPORT CLINICAL HISTORY: PNEUMOTHORAX TECHNIQUE: 1 view of the chest. COMPARISON: 10/01/2020 IMPRESSION: There is a new ETT at the clavicles. The midline chest tube has retracted inferiorly. The left chest tube has been removed. There is new left lower chest wallsubcutaneous emphysema. A trace left apical pneumothorax appears slightly increased. Bilateral lung opacities are otherwise unchanged since earlier today. The cardiomediastinal silhouette is magnified by technique with sternotomy wires. Signed: Venita Quijano MDReport Verified Date/Time: 10/01/202014:04:37 Reading Location: [facility] Radiology Reading Room POCT-GLUCOSE [id number] 08:19:00 Test Item Value Reference Range Interpretation Comments POC-GLUCOSE METER 104 mg/dL 70-110 : TESTED A T [facility] 6720 (BEAKER) (test code = LUZ Tavares [facility], 1538) [address]: [employer]/Techni yessy ID = [id number] for FI TEMERE [id number] 07:08:00 Test Item Value Reference Range Interpretation Comments MAGNESIUM (BEAKER) 1.6 mg/dL 1.6-2.6 Specimen slightly (test code = 627) hemolyzed [employer] ID Rosalia VU [id number] 07:08:00 Test Item Value Reference Range Interpretation Comments PHOSPHORUS (BEAKER) 3.3 mg/dL 2.3-4.7 Specimen slightly (test code = 604) hemolyzed [employer] ID Rosalia VU FBASIC METABOLIC [id number] 07:08:00 Test Item Value Reference Range Interpretation Comments SODIUM (BEAKER) 136 meq/L 136-145 (test code = 381) POTASSIUM (BEAKER) 3.8 meq/L 3.5-5.1 Specimen slightly (test code = 379) hemolyzed CHLORIDE (BEAKER) 103 meq/L 98-107 (test code = 382) CO2 (BEAKER) (test 25 meq/L 22-29 code = 355) BLOOD UREA NITROGEN 9 mg/dL 7-21 (BEAKER) (test code = 354) CREATININE (BEAKER) 0.73 mg/dL 0.57-1.25 Specimen slightly (test code = 358) hemolyzed GLUCOSE RANDOM 100 mg/dL 70-105 (BEAKER) (test code = 652) CALCIUM (BEAKER) 8.2 mg/dL 8.4-10.2 L (test code = 697) EGFR (BEAKER) (test 104 mL/min/1.73 ESTIM ATED GFR IS code = 1092) sq m NOT ACCURATE CREATININE CLEARANCE IN PREDICTING GLOMERULAR FILTRATION RATE . ESTIMATED GFR I S NOT APPLICABLE FOR DIALYSIS PATIEN TS. [employer]ocker ID - MIRELLA FCBC W/PLT COUNT & AUTO [id number] 06:21:00 Test Item Value Reference Range Interpretation Comments WHITE BLOOD CELL COUNT (BEAKER) 7.3 K/ L 3.5-10.5 (test code = 775) RED BLOOD CELL COUNT (BEAKER) 3.27 M/ L 4.63-6.08 L (test code = 761) HEMOGLOBIN (BEAKER) (test code = 10.2 GM/DL 13.7-17.5 L 410) HEMATOCRIT (BEAKER) (test code = 30.4 % 40.1-51.0 L 411) MEAN CORPUSCULAR VOLUME (BEAKER) 93.0 fL 79.0-92.2 H (test code = 753) MEAN CORPUSCULAR HEMOGLOBIN 31.2 pg 25.7-32.2 (BEAKER) (test code = 751) MEAN CORPUSCULAR HEMOGLOBIN CONC 33.6 GM/DL 32.3-36.5 (BEAKER) (test code = 752) RED CELL DISTRIBUTION WIDTH 12.2 % 11.6-14.4 (BEAKER) (test code = 412) PLATELET COUNT (BEAKER) (test 185 K/CU MM 150-450 code = 756) MEAN PLATELET VOLUME (BEAKER) 10.8 fL 9.4-12.4 (test code = 754) NUCLEATED RED BLOOD CELLS 0 /100 WBC 0-0 (BEAKER) (test code = 413) NEUTROPHILS RELATIVE PERCENT 61 % (BEAKER) (test code = 429) LYMPHOCYTES RELATIVE PERCENT 15 % (BEAKER) (test code = 430) MONOCYTES RELATIVE PERCENT 18 % (BEAKER) (test code = 431) EOSINOPHILS RELATIVE PERCENT 5 % (BEAKER) (test code = 432) BASOPHILS RELATIVE PERCENT 0 % (BEAKER) (test code = 437) NEUTROPHILS ABSOLUTE COUNT 4.47 K/ L 1.78-5.38 (BEAKER) (test code = 670) LYMPHOCYTES ABSOLUTE COUNT 1.08 K/ L 1.32-3.57 L (BEAKER) (test code = 414) MONOCYTES ABSOLUTE COUNT (BEAKER) 1.31 K/ L 0.30-0.82 H (test code = 415) EOSINOPHILS ABSOLUTE COUNT 0.39 K/ L 0.04-0.54 (BEAKER) (test code = 416) BASOPHILS ABSOLUTE COUNT (BEAKER) 0.02 K/ L 0.01-0.08 (test code = 417) IMMATURE GRANULOCYTES-RELATIVE 1 % 0-1 PERCENT (BEAKER) (test code = 2801) [id number] 05:56:00 Test Item Value Reference Range Interpretation Comments PARTIAL THROMBOPLASTIN TIME 31.0 seconds 22.5-36.0 (BEAKER) (test code = 760) RAD, CHEST, 1 VIEW, NON [id number] 04:58:00Reason for exam:->chest tubesShould this be performed at the bedside?->Yes [facility] 1945 Sex: MFINAL REPORT Chest one view. Clinical history: chest tubes Comparis on: Chest radiograph 09/30/2020. Technique: A single frontal view of the chest was obtained. Findings: There is a left chest tube unchanged in position. There are mediastinal drains. There is a left-sided AICD with leads unchanged. There are median sternotomy wires. The cardiomediastinal contours are stable. There is a stable tiny left apical pneumothorax. There is a small right pleural effusion withassociated compressive atelectasis. There is pulmonary vascular congestion. Signed: Mikhail Ward MDReport Verified Date/Time: 10/01/2020 04:58:48 POCT- GLUCOSE [id number] 22:03:00 Test Item Value Reference Range Interpretation Comments POC-GLUCOSE METER 108 mg/dL 70-110 : TESTED A T [facility] 6720 (BEAKER) (test code = [place], 1538) [address]: [employer]ocker/Techni yessy ID = [id number] for Re yes, Sairy SARS-CoV2/RT-PCR (Asymptomatic ONLY)2020-09-30 20:08:00 Test Item Value Reference Range Interpretation Comments SARS-COV2/RT-PCR Negative Not Detected, (test code = Negative, See 37466-6) external report for linked test SARS-COV-2 [facility] PERFORMING LAB (test code = 70540-2) DEMARCO (test code = Negative result for this DEMARCO) test determines that SARS-CoV-2 RNA was not present in the specimen above the Limit of Detection (LOD). However, Negative results do not preclude SARS-CoV-2 infection and should not be used as the sole basis for treatment or patient management decisions. Negative results must be combined with clinical observations, patient history, and epidemiological information. A false negative result may occur if a specimen is improperly collected, transported or handled. A false negative result should be considered if patient's recent exposures or clinical presentation indicate that COVID-19 (SARS-CoV-2) is likely and diagnostic tests for other causes of illness are negative. Re-testing should be considered in cases of suspected false negatives. The limit of detection for this assay is 100 copies/mL. This SARS CoV-2 test is a real-time RT-PCR test intended for the qualitative detection of nucleic acid from SARS-CoV-2 in a nasopharyngeal swab specimen collected from individuals suspected of COVID-19 by their healthcare provider. This test has not been Food and Drug Administration (FDA) cleared or approved. This is a modified version of an approved Emergency Use Authorization (EUA) and is in the process of review by the FDA. Once authorized by the FDA, the issued EUA will be effective until the declaration that circumstances exist justifying the authorization of the emergency use of in vitro diagnostic tests for detection and/or diagnosis of COVID-19 is terminated under Section 564(b)(2) of the Act or the EUA is revoked under Section 564(g) of the Act. Testing was performed using the [employer] SARS-CoV-2 assay. Fact Sheet for Healthcare Providers:https://www.Gema Touch/jayda/RT_SA VA-QlM-6_NXK_Vdti_Pyvoz_ 51-671343.pdf Fact Sheet for Healthcare Patients:https://www.[employer] Estate/jayda/RT_SAR N-LuB-2_Mqaslva_Assa_Lst et_EN_51-784708N5.pdf Performing Laboratory:[facility], [place] [address] [place], [place] [address]ARS-COV2/RT-PCR ([facility])2020-09-30 20:08:00 Test Item Value Reference Range Interpretation Comments SARS-COV2/RT-PCR (test Negative Not Detected, Negative, code = 4605783) See external report for linked test SARS-COV-2 PERFORMING LAB [facility] (test code = 3367128) Negative result for this test determines that SARS-CoV-2 RNA was not present in the specimen above the Limit of Detection (LOD). However, Negative results do not preclude SARS-CoV-2 infection and should not be used as the sole basis for treatment or patient management decisions. Negative results mustbe combined with clinical observations, patient history, and epidemiological information. A false negative result may occur if a specimen is improperly collected, transported or handled. A false negative result should be considered if patient's recent exposures or clinical presentation indicate that COVID-19 (SARS-CoV-2) is likely and diagnostic tests for other causes of illness are negative. Re-testing should be considered in cases of suspected false negatives.The limit of detection for this assay is 100 copies/mL.This SARS CoV-2 test is a real-time RT-PCR test intended for the qualitative detection of nucleic acid from SARS-CoV-2 in a nasopharyngeal swab specimen collected from individuals susp ected of COVID-19 by their healthcare provider.This test has not been Food and Drug Administration (FDA) cleared or approved. This is a modified version of an approved Emergency Use Authorization (EUA) and is in the process of review by the FDA. Once authorized by the FDA, the issued EUA will be effective until the declaration that circumstances exist justifying the authorization of the emergency use of in vitro diagnostic tests for detection and/or diagnosis of COVID-19 is terminated under Section 564(b)(2) of the Act or the EUA is revoked under Section 564(g) of the Act.Testing was performed using the [employer] SARS-CoV-2 assay.Fact Sheet for Healthcare Providers:https://www.UXPin.sierra/jayda/ QE_BQXY-VdA-8_JYD_Efpl_Niobk_36-984380.pdfFact Sheet for Healthcare Patients:https://www.UXPin.Parclick.com evaristo/jayda/GS_EAFL-YpJ-3_Vhrhfad_Rvic_Qgdgc_BV_89-701654U6.pdfPerforming Laboratory:[address] [place] [address] POCT-GLUCOSE [id number] 17:28:00 Test Item Value Reference Range Interpretation Comments POC-GLUCOSE METER 109 mg/dL 70-110 : TESTED A T [facility] 6720 (BEAKER) (test code = [facility], 1538) [address]: [employer]ocker/Techni yessy ID = [id number] for MAXIME HN, CASTILLO Type and screen, [id number] 16:15:00 Test Item Value Reference Range Interpretation Comments ABO/RH AUTOMATED (BEAKER) (test A POSITIVE code = 2260) Ab Scrn (test code = 890-4) NEGATIVE [facility] [id number] 12:33:00 Test Item Value Reference Range Interpretation Comments POC-GLUCOSE METER 104 mg/dL 70-110 : TESTED A T [facility] 6720 (BEAKER) (test code = LUZ Tavares [facility], 1538) [address]: [employer]ocker/Techni yessy ID = [id number] for MAXIME HN, CASTILLO POCT-GLUCOSE [id number] 07:55:00 Test Item Value Reference Range Interpretation Comments POC-GLUCOSE METER 111 mg/dL 70-110 H : TESTED A T [facility] 6720 (BEAKER) (test code = LUZ Tavares [place], 1538) [address]: [employer]ocker/Techni yessy ID = [id number] for CASTILLO GUZMAN [id number] 05:36:00 Test Item Value Reference Range Interpretation Comments PARTIAL THROMBOPLASTIN TIME 33.4 seconds 22.5-36.0 (BEAKER) (test code = 760) BASIC METABOLIC [id number] 05:22:00 Test Item Value Reference Range Interpretation Comments SODIUM (BEAKER) 138 meq/L 136-145 (test code = 381) POTASSIUM (BEAKER) 3.3 meq/L 3.5-5.1 L (test code = 379) CHLORIDE (BEAKER) 101 meq/L 98-107 (test code = 382) CO2 (BEAKER) (test 30 meq/L 22-29 H code = 355) BLOOD UREA NITROGEN 11 mg/dL 7-21 (BEAKER) (test code = 354) CREATININE (BEAKER) 0.78 mg/dL 0.57-1.25 (test code = 358) GLUCOSE RANDOM 107 mg/dL 70-105 H (BEAKER) (test code = 652) CALCIUM (BEAKER) 8.2 mg/dL 8.4-10.2 L (test code = 697) EGFR (BEAKER) (test 97 mL/min/1.73 ESTIMA FRANKLIN GFR IS code = 1092) sq m NOT ACCURATE CREATININE CLEARANCE IN PREDICTING GLOMERULAR FILTRATION RATE . ESTIMATED GFR I S NOT APPLICABLE FOR DIALYSIS PATIEN TS. [employer]ocker ID - [id number] 05:22:00 Test Item Value Reference Range Interpretation Comments MAGNESIUM (BEAKER) (test code = 1.8 mg/dL 1.6-2.6 627) [employer] ID - [id number] 05:22:00 Test Item Value Reference Range Interpretation Comments PHOSPHORUS (BEAKER) (test code = 2.2 mg/dL 2.3-4.7 L 604) [employer] ID - DBCBC W/PLT COUNT & AUTO [id number] 04:58:00 Test Item Value Reference Range Interpretation Comments WHITE BLOOD CELL COUNT (BEAKER) 8.1 K/ L 3.5-10.5 (test code = 775) RED BLOOD CELL COUNT (BEAKER) 3.32 M/ L 4.63-6.08 L (test code = 761) HEMOGLOBIN (BEAKER) (test code = 10.2 GM/DL 13.7-17.5 L 410) HEMATOCRIT (BEAKER) (test code = 31.4 % 40.1-51.0 L 411) MEAN CORPUSCULAR VOLUME (BEAKER) 94.6 fL 79.0-92.2 H (test code = 753) MEAN CORPUSCULAR HEMOGLOBIN 30.7 pg 25.7-32.2 (BEAKER) (test code = 751) MEAN CORPUSCULAR HEMOGLOBIN CONC 32.5 GM/DL 32.3-36.5 (BEAKER) (test code = 752) RED CELL DISTRIBUTION WIDTH 12.3 % 11.6-14.4 (BEAKER) (test code = 412) PLATELET COUNT (BEAKER) (test 144 K/CU MM 150-450 L code = 756) MEAN PLATELET VOLUME (BEAKER) 10.7 fL 9.4-12.4 (test code = 754) NUCLEATED RED BLOOD CELLS 0 /100 WBC 0-0 (BEAKER) (test code = 413) NEUTROPHILS RELATIVE PERCENT 68 % (BEAKER) (test code = 429) LYMPHOCYTES RELATIVE PERCENT 14 % (BEAKER) (test code = 430) MONOCYTES RELATIVE PERCENT 15 % (BEAKER) (test code = 431) EOSINOPHILS RELATIVE PERCENT 4 % (BEAKER) (test code = 432) BASOPHILS RELATIVE PERCENT 0 % (BEAKER) (test code = 437) NEUTROPHILS ABSOLUTE COUNT 5.45 K/ L 1.78-5.38 H (BEAKER) (test code = 670) LYMPHOCYTES ABSOLUTE COUNT 1.10 K/ L 1.32-3.57 L (BEAKER) (test code = 414) MONOCYTES ABSOLUTE COUNT (BEAKER) 1.17 K/ L 0.30-0.82 H (test code = 415) EOSINOPHILS ABSOLUTE COUNT 0.28 K/ L 0.04-0.54 (BEAKER) (test code = 416) BASOPHILS ABSOLUTE COUNT (BEAKER) 0.02 K/ L 0.01-0.08 (test code = 417) IMMATURE GRANULOCYTES-RELATIVE 0 % 0-1 PERCENT (BEAKER) (test code = 2801) RAD, CHEST, 1 VIEW, NON [id number] 04:04:00Reason for exam:->chest tubesShould this be performed at the bedside?->Yes [facility] 1945 Sex: MFINAL REPORT CLINICAL INDICATION: Support lines. Comparison: 2019 The cardiomediastinal contours are stable. Central pulmonary vascular prominence and bilateral parenchymal and right pleural opacities are unchanged. A trace left apical pneumothorax is redemonstrated. A left chest tube and mediastinal drain remain in place. Signed: Matthew Bryan Verified Date/Time: 09/30/2020 04:04:28 POCT-GLUCOSE [id number] 18:35:00 Test Item Value Reference Range Interpretation Comments POC-GLUCOSE METER 123 mg/dL 70-110 H : TESTED A T [facility] 6720 ([employer]) (test code = [facility], 1538) [address]: [employer]ocker/Techni yessy ID = [id number] for KIZHAKEKATTIL, NILAM POCT-GLUCOSE [id number] 13:37:00 Test Item Value Reference Range Interpretation Comments POC-GLUCOSE METER 94 mg/dL 70-110 : TESTED A T [facility] 6720 (AmbricAKER) (test code = [facility], 1538) [address]: [employer] Blocker/Techni yessy ID = [id number] for KIZHAKEKATTIL, NILAM POCT-GLUCOSE [id number] 13:36:00 Test Item Value Reference Range Interpretation Comments POC-GLUCOSE METER 91 mg/dL 70-110 : TESTED A T [facility] 6720 (OSVALDOAKER) (test code = [place], 1538) [address]: [employer] Blocker/Techni yessy ID = [id number] for NILAM GILMORE, CHEST, 1 VIEW, NON [id number] 06:57:00Reason for exam:->chest tubesShould this be performed at the bedside?->Yes [facility] 1945 Sex: MFINAL REPORT Chest one view. Clinical history: chest tubes Comparis on: Chest radiograph 09/28/2020. Technique: A single frontal view of the chest was obtained. Findings:The patient is status post median sternotomy. There has been interval removal of left IJ central venous catheter. There is a left chest tube in place. There are mediastinal drains. There is a left-sided AICD with leads unchanged.The cardiomediastinal contours are stable. There is a small right pleural effusion with associated compressive atelectasis. There is mild left lower lobe discoid atelectasis. There is a stable small left apical pneumothorax. Signed: Mikhail Ward MDReport Verified Date/Time: 09/29/2020 06:57:57 [id number] 05:25:00 Test Item Value Reference Range Interpretation Comments PARTIAL THROMBOPLASTIN TIME 36.7 seconds 22.5-36.0 H (BEAKER) (test code = 760) BASIC METABOLIC [id number] 05:12:00 Test Item Value Reference Range Interpretation Comments SODIUM (BEAKER) 137 meq/L 136-145 (test code = 381) POTASSIUM (BEAKER) 3.4 meq/L 3.5-5.1 L (test code = 379) CHLORIDE (BEAKER) 101 meq/L 98-107 (test code = 382) CO2 (BEAKER) (test 29 meq/L 22-29 code = 355) BLOOD UREA NITROGEN 16 mg/dL 7-21 (BEAKER) (test code = 354) CREATININE (BEAKER) 0.72 mg/dL 0.57-1.25 (test code = 358) GLUCOSE RANDOM 98 mg/dL 70-105 (BEAKER) (test code = 652) CALCIUM (BEAKER) 8.2 mg/dL 8.4-10.2 L (test code = 697) EGFR (BEAKER) (test 106 mL/min/1.73 ESTIM ATED GFR IS code = 1092) sq m NOT ACCURATE CREATININE CLEARANCE IN PREDICTING GLOMERULAR FILTRATION RATE . ESTIMATED GFR I S NOT APPLICABLE FOR DIALYSIS PATIEN TS. [employer]ocker ID - FELTON [id number] 05:12:00 Test Item Value Reference Range Interpretation Comments MAGNESIUM (BEAKER) (test code = 1.9 mg/dL 1.6-2.6 627) [employer] ID - FELTON [id number] 05:12:00 Test Item Value Reference Range Interpretation Comments PHOSPHORUS (BEAKER) (test code = 2.1 mg/dL 2.3-4.7 L 604) [employer]ocker ID - FELTON MCBC W/PLT COUNT & AUTO [id number] 04:52:00 Test Item Value Reference Range Interpretation Comments WHITE BLOOD CELL COUNT (BEAKER) 10.1 K/ L 3.5-10.5 (test code = 775) RED BLOOD CELL COUNT (BEAKER) 3.14 M/ L 4.63-6.08 L (test code = 761) HEMOGLOBIN (BEAKER) (test code = 9.8 GM/DL 13.7-17.5 L 410) HEMATOCRIT (BEAKER) (test code = 30.0 % 40.1-51.0 L 411) MEAN CORPUSCULAR VOLUME (BEAKER) 95.5 fL 79.0-92.2 H (test code = 753) MEAN CORPUSCULAR HEMOGLOBIN 31.2 pg 25.7-32.2 (BEAKER) (test code = 751) MEAN CORPUSCULAR HEMOGLOBIN CONC 32.7 GM/DL 32.3-36.5 (BEAKER) (test code = 752) RED CELL DISTRIBUTION WIDTH 12.4 % 11.6-14.4 (BEAKER) (test code = 412) PLATELET COUNT (BEAKER) (test 108 K/CU MM 150-450 L code = 756) MEAN PLATELET VOLUME (BEAKER) 11.0 fL 9.4-12.4 (test code = 754) NUCLEATED RED BLOOD CELLS 0 /100 WBC 0-0 (BEAKER) (test code = 413) NEUTROPHILS RELATIVE PERCENT 74 % (BEAKER) (test code = 429) LYMPHOCYTES RELATIVE PERCENT 11 % (BEAKER) (test code = 430) MONOCYTES RELATIVE PERCENT 13 % (BEAKER) (test code = 431) EOSINOPHILS RELATIVE PERCENT 1 % (BEAKER) (test code = 432) BASOPHILS RELATIVE PERCENT 0 % (BEAKER) (test code = 437) NEUTROPHILS ABSOLUTE COUNT 7.44 K/ L 1.78-5.38 H (BEAKER) (test code = 670) LYMPHOCYTES ABSOLUTE COUNT 1.12 K/ L 1.32-3.57 L (BEAKER) (test code = 414) MONOCYTES ABSOLUTE COUNT (BEAKER) 1.29 K/ L 0.30-0.82 H (test code = 415) EOSINOPHILS ABSOLUTE COUNT 0.14 K/ L 0.04-0.54 (BEAKER) (test code = 416) BASOPHILS ABSOLUTE COUNT (BEAKER) 0.02 K/ L 0.01-0.08 (test code = 417) IMMATURE GRANULOCYTES-RELATIVE 0 % 0-1 PERCENT (BEAKER) (test code = 2801) POCT-GLUCOSE [id number] 17:40:00 Test Item Value Reference Range Interpretation Comments POC-GLUCOSE METER 158 mg/dL 70-110 H : TESTED A [facility] 6720 (BEAKER) (test code = [place]Z [place], 1538) [address]: [employer]ocker/Techni yessy ID = [id number] for Stefani, Amber RAD, CHEST, 1 VIEW, NON [id number] 05:46:00Reason for exam:->chest tubesShould this be performed at the bedside?->Yes [facility] 1945 Sex: MFINAL REPORT Chest one view. Clinical history: chest tubes Comparis on: Chest radiograph 09/27/2020. Technique: A single frontal view of the chest was obtained. Findings: The patient is status post median sternotomy. There is a left-sided AICD with leads unchanged.Support lines and tubes are in satisfactory positions.The cardiomediastinal contours are stable. There are small bilateral pleural effusions. There are bibasilar opacities which may represent atelectasis and/or pneumonia. There is pulmonary vascular congestion. There is a stable small left apical pneumothorax. Signed: Mikhail Ward MDReport Verified Date/Time: 09/28/2020 05:46:22 Manual [id number] 04:52:00 Test Item Value Reference Range Interpretation Comments % Neutros (test code 82 % = 2816) % Lymphs (test code = 13 % 2817) % Monos (test code = 4 % 2818) % Bands (test code = 1 % 0-10 2826) # Neutros (test code 10.74 K/ul 1.78-5.38 H = 2830) # Lymphs (test code = 1.70 K/ul 1.32-3.57 2831) # Monos (test code = 0.52 K/uL 0.3-0.82 2832) # Bands (test code = 0.13 K/uL 0-0.8 2840) Total Counted (test 100 code = 1351) Smudge Cells (test Present code = 1371) Giant Platelet (test Present code = 313) Anisocytosis (test 1+ few code = 961) Microcytes (test code 1+ few = 965) Artifact (test code = Present 3432) Platelet Conc (test Decreased code = 3438) DEMARCO (test code = DEMARCO) [employer]ocker ID - [id number] ID - Bismark EspañaZulmaeliza comments: Slide comments: Lab Interpretation Abnormal (test code = 25067-3) [facility] W/PLT COUNT & AUTO [id number] 04:52:00 Test Item Value Reference Range Interpretation Comments WHITE BLOOD CELL COUNT (BEAKER) 13.1 K/ L 3.5-10.5 H (test code = 775) RED BLOOD CELL COUNT (BEAKER) 3.24 M/ L 4.63-6.08 L (test code = 761) HEMOGLOBIN (BEAKER) (test code = 9.9 GM/DL 13.7-17.5 L 410) HEMATOCRIT (BEAKER) (test code = 31.1 % 40.1-51.0 L 411) MEAN CORPUSCULAR VOLUME (BEAKER) 96.0 fL 79.0-92.2 H (test code = 753) MEAN CORPUSCULAR HEMOGLOBIN 30.6 pg 25.7-32.2 (BEAKER) (test code = 751) MEAN CORPUSCULAR HEMOGLOBIN CONC 31.8 GM/DL 32.3-36.5 L (BEAKER) (test code = 752) RED CELL DISTRIBUTION WIDTH 12.7 % 11.6-14.4 (BEAKER) (test code = 412) PLATELET COUNT (BEAKER) (test code 88 K/CU MM 150-450 L = 756) MEAN PLATELET VOLUME (BEAKER) 11.1 fL 9.4-12.4 (test code = 754) NUCLEATED RED BLOOD CELLS (BEAKER) 0 /100 WBC 0-0 (test code = 413) (CELLAVISION MANUAL DIFF)2020-09-28 04:52:00 Test Item Value Reference Range Interpretation Comments NEUTROPHILS - REL 82 % (CELLAVISION)(BEAKER) (test code = 2816) LYMPHOCYTES - REL 13 % (CELLAVISION)(BEAKER) (test code = 2817) MONOCYTES - REL 4 % (CELLAVISION)(BEAKER) (test code = 2818) BANDS - REL (CELLAVISION)(BEAKER) 1 % 0-10 (test code = 2826) NEUTROPHILS - ABS 10.74 K/ul 1.78-5.38 H (CELLAVISION)(BEAKER) (test code = 2830) LYMPHOCYTES - ABS 1.70 K/ul 1.32-3.57 (CELLAVISION)(BEAKER) (test code = 2831) MONOCYTES - ABS 0.52 K/uL 0.30-0.82 (CELLAVISION)(BEAKER) (test code = 2832) BANDS - ABS (CELLAVISION)(BEAKER) 0.13 K/uL 0.00-0.80 (test code = 2840) TOTAL COUNTED (BEAKER) (test code 100 = 1351) SMUDGE CELLS (BEAKER) (test code = Present 1371) GIANT PLATELETS (BEAKER) (test Present code = 313) ANISOCYTOSIS (BEAKER) (test code = 1+ few 961) MICROCYTES (BEAKER) (test code = 1+ few 965) ARTIFACT (CELLAVISION)(BEAKER) Present (test code = 3432) PLATELET CONCENTRATION Decreased (CELLAVISION)(BEAKER) (test code = 3438) [employer] ID - [id number] ID - Bismark Barba comments: Slide comments:BASIC METABOLIC [id number] 03:50:00 Test Item Value Reference Range Interpretation Comments SODIUM (BEAKER) 139 meq/L 136-145 (test code = 381) POTASSIUM (BEAKER) 4.2 meq/L 3.5-5.1 (test code = 379) CHLORIDE (BEAKER) 105 meq/L 98-107 (test code = 382) CO2 (BEAKER) (test 23 meq/L 22-29 code = 355) BLOOD UREA NITROGEN 17 mg/dL 7-21 (BEAKER) (test code = 354) CREATININE (BEAKER) 0.74 mg/dL 0.57-1.25 (test code = 358) GLUCOSE RANDOM 105 mg/dL 70-105 (BEAKER) (test code = 652) CALCIUM (BEAKER) 8.5 mg/dL 8.4-10.2 (test code = 697) EGFR (BEAKER) (test 103 mL/min/1.73 ESTIM ATED GFR IS code = 1092) sq m NOT ACCURATE CREATININE CLEARANCE IN PREDICTING GLOMERULAR FILTRATION RATE . ESTIMATED GFR I S NOT APPLICABLE FOR DIALYSIS PATIEN TS. [employer] ID - [id number] 03:50:00 Test Item Value Reference Range Interpretation Comments MAGNESIUM (BEAKER) (test code = 2.1 mg/dL 1.6-2.6 627) [employer] ID - [id number] 03:50:00 Test Item Value Reference Range Interpretation Comments PHOSPHORUS (BEAKER) (test code = 2.4 mg/dL 2.3-4.7 604) [employer] ID - [id number] 03:42:00 Test Item Value Reference Range Interpretation Comments PARTIAL THROMBOPLASTIN TIME 34.9 seconds 22.5-36.0 (BEAKER) (test code = 760) POCT-GLUCOSE [id number] 00:07:00 Test Item Value Reference Range Interpretation Comments POC-GLUCOSE METER 102 mg/dL 70-110 : TESTED A T [facility] 6720 (BEAKER) (test code = FELECIADEVIN Tavares [facility], 1538) [address]: [employer]/Techni yessy ID = [id number] for MONICO RAMÓNDAPHNEGWEN CHELE (CELLAVISION MANUAL DIFF)2020-09-27 15:25:00 Test Item Value Reference Range Interpretation Comments NEUTROPHILS - REL 84 % (CELLAVISION)(BEAKER) (test code = 2816) LYMPHOCYTES - REL 12 % (CELLAVISION)(BEAKER) (test code = 2817) MONOCYTES - REL 4 % (CELLAVISION)(BEAKER) (test code = 2818) NEUTROPHILS - ABS 11.17 K/ul 1.78-5.38 H (CELLAVISION)(BEAKER) (test code = 2830) LYMPHOCYTES - ABS 1.60 K/ul 1.32-3.57 (CELLAVISION)(BEAKER) (test code = 2831) MONOCYTES - ABS 0.53 K/uL 0.30-0.82 (CELLAVISION)(BEAKER) (test code = 2832) TOTAL COUNTED (BEAKER) (test code 100 = 1351) RBC MORPHOLOGY (BEAKER) (test code Normal = 762) WBC MORPHOLOGY (BEAKER) (test code Normal = 487) LARGE PLT(BEAKER) (test code = Present 2156) ARTIFACT (CELLAVISION)(BEAKER) Present (test code = 3432) PLATELET CONCENTRATION Decreased (CELLAVISION)(BEAKER) (test code = 3438) [employer] ID - [id number] ID - Vidhya Juan comments: Slide comments: BASIC METABOLIC [id number] 15:07:00 Test Item Value Reference Range Interpretation Comments SODIUM (BEAKER) 139 meq/L 136-145 (test code = 381) POTASSIUM (BEAKER) 4.2 meq/L 3.5-5.1 (test code = 379) CHLORIDE (BEAKER) 107 meq/L 98-107 (test code = 382) CO2 (BEAKER) (test 23 meq/L 22-29 code = 355) BLOOD UREA NITROGEN 15 mg/dL 7-21 (BEAKER) (test code = 354) CREATININE (BEAKER) 0.78 mg/dL 0.57-1.25 (test code = 358) GLUCOSE RANDOM 125 mg/dL 70-105 H (BEAKER) (test code = 652) CALCIUM (BEAKER) 8.4 mg/dL 8.4-10.2 (test code = 697) EGFR (BEAKER) (test 97 mL/min/1.73 ESTIMA FRANKLIN GFR IS code = 1092) sq m NOT ACCURATE CREATININE CLEARANCE IN PREDICTING GLOMERULAR FILTRATION RATE . ESTIMATED GFR I S NOT APPLICABLE FOR DIALYSIS PATIEN TS. [employer] ID - MIRELLA [id number] 15:07:00 Test Item Value Reference Range Interpretation Comments MAGNESIUM (BEAKER) (test code = 2.1 mg/dL 1.6-2.6 627) [employer] ID - MIRELLA [id number] 15:07:00 Test Item Value Reference Range Interpretation Comments PHOSPHORUS (BEAKER) (test code = 2.2 mg/dL 2.3-4.7 L 604) [employer] ID - MIRELLA FCBC W/PLT COUNT & AUTO [id number] 14:56:00 Test Item Value Reference Range Interpretation Comments WHITE BLOOD CELL COUNT (BEAKER) 13.3 K/ L 3.5-10.5 H (test code = 775) RED BLOOD CELL COUNT (BEAKER) 3.04 M/ L 4.63-6.08 L (test code = 761) HEMOGLOBIN (BEAKER) (test code = 9.6 GM/DL 13.7-17.5 L 410) HEMATOCRIT (BEAKER) (test code = 29.4 % 40.1-51.0 L 411) MEAN CORPUSCULAR VOLUME (BEAKER) 96.7 fL 79.0-92.2 H (test code = 753) MEAN CORPUSCULAR HEMOGLOBIN 31.6 pg 25.7-32.2 (BEAKER) (test code = 751) MEAN CORPUSCULAR HEMOGLOBIN CONC 32.7 GM/DL 32.3-36.5 (BEAKER) (test code = 752) RED CELL DISTRIBUTION WIDTH 12.8 % 11.6-14.4 (BEAKER) (test code = 412) PLATELET COUNT (BEAKER) (test code 82 K/CU MM 150-450 L = 756) MEAN PLATELET VOLUME (BEAKER) 10.5 fL 9.4-12.4 (test code = 754) NUCLEATED RED BLOOD CELLS (BEAKER) 0 /100 WBC 0-0 (test code = 413) 2D Echo W/Doppler(CW/PW/Color)2020-09-27 12:18:44Ejection FractionSLEH ECHO HEARTLAB MKCKESSON CPACSInterface, External Ris In - 09/27/2020 12:18 PM C DTTransthoracic Echocardiography Report (TTE) Demographics Patient Name GILLIAN WIGGINS Date of Study 09/27/2020 [place] Gender Male Visit Number [id number] Race Room Number 2C27 Number Date of 1945 Referring Physician asa naik Age 75 year(s) 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 The left ventricle is chamber size (by vol index) is no rmal. No evidence of LV hypertrophy. Septal motion is abnormal, likely related to prior cardiac surgery. Mid-distal septum, apex, apical inferior are akinetic. LVEF by Hernandez's method of disk assessment is mildly reduced (45-49%) .Grade 1 diastolic dysfunction (impaired relaxation and low-normal LA pressure). LA size is normal (16-34 ml/m2) . 2. Global RV systolic function is normal . RV chamber size is normal . RA cavity size is normal .Unable to estimate peak systolic PA pressure; inadequate TR velocity signal. 3. No significant valvular abnormalities. 4. A small pericardial effusion is present. Pericardial tamponade physiology is not evident. Previous Study In comparison with the prior exam on 09/23/2020 there are no significant changes. Signature Findings TechnicalQuality: Technically adequate exam. Left Ventricle LV endocardium is partially visualized with IV ultrasound enhancing agent. The left ventricle ischamber size (by vol index) is normal (male - LVED vol - 34-74ml/m2). No evidence of LV hypertrophy. Septal motion is abnormal, likely related to prior cardiac surgery . The following segment(s) appear akinetic: mid-distal septum, apex, apical inferior . Global LV systolic function mildly reduced . LVEF by Hernandez's method of disk assessment is mildly reduced (45-49%) . The LVEF was measured using Hernandez's bi-plane method of disk . Grade 1 diastolic dysfunction (impaired relaxation and low-normal LA pressure). Left Atrium LA size is normal (16-34 ml/m2) . Right Ventricle Global RV systolic function is normal . RV chamber size is normal . Right Atrium RA pacing wire is visualized . RA cavity size is normal . Atrial Septum Normal interatrial septum by available views. Aortic Valve Mild AoV cusp thickening. Mild AoV cusp calcification. AoV cusp mobility is normal . There is no aortic regurgitation. Mitral Valve Mild MV leaflet thickening. Mild mitral annular calcification. Trace mitral regurgitation.Tricuspid Valve Unable to estimate peak systolic PA pressure; inadequate TR velocity signal. The tricuspid valve is not well visualized. Pulmonic Valve Normal PV structure and function. Aorta Aortic root size (SInus of Valsalva diameter) is normal . Pericardium A small pericardial effusion is present . Pericardial tamponade physiology is not evident . IVC/SVC/PA/PV/Pleural The estimated RA pressure by IVC dynamics 5-10mmHg . Chambers/Structures Left Atrium LA Volume: 48.98 ml LA Area: 18.84 cm^2 LA Vol. Index: 26 ml/m^2 Left Ventricle LVIDd: 3.06 cm LV Septum Diastolic: 1.05 cm LV PW Diastolic: 0.99 cm LVEDV Hernandez's:98.16 ml LVESV Hernandez's:52.26 ml LVEF Hernandez's: 46.8 % LVEDVI: 51 ml/m^2 LVESVI: 27 ml/m^2 LVOT Diameter: 2.19 cm Right Ventricle RVOT VTI: 15.94 cm Aorta Ao Root S of Jody.: 3.09 cm Doppler/Quantitative Measurements Mitral Valve MV Peak E-Wave: 1.01 m/s MV Peak A-Wave: 0.7 m/s P1/2t: 50.6 msec E/A Ratio: 1.43 Peak Gradient: 4.07 mmHg Deceleration Time: 188.2 msec MV Area (PHT): 4.35 cm^2 MV Abner. Peak: Aortic Valve Peak Velocity: 1.52 m/s Mean Velocity: 1.01 m/s Peak Gradient: 9.29 mmHg Mean Gr adient: 4.75 mmHg AV Area (continuity): 3.14 cm^2 AV VTI: 28.09 cm AV DVI: 0.83 LVOT Peak Velocity: 1.29 m/s Peak Gradient: 6.63 mmHg Mean Velocity: 0.83 m/s Mean Gradient: 3.23 mmHg LVOT Diameter: 2.19 cm LVOT VTI: 23.43 cm LVOT Area: 3.77 cm^2 LVOT SV:88.21 ml LVOT CO: 7.32 l/min LVOT CI: 3.83 l/min/m^2 RVOT RVOT VTI (PW): 13.54 [facility] [id number] 08:04:00 Test Item Value Reference Range Interpretation Comments POC-GLUCOSE METER 156 mg/dL 70-110 H : TESTED A T [facility] 6720 (BEAKER) (test code = LUZ [place]NDE[place], 1538) [address]: [employer]/Techni yessy ID = [id number] for MARLY JONES CBC (Hemogram only)2020-09-27 04:34:00 Test Item Value Reference Range Interpretation Comments WBC (test code = 6690-2) 19.0 See_Comment H [A utomated message] The system [employer] generated this result transmitted ref erence range: 3.5 - 10 .5 K/L. The refe rence range was not u sed to interpret this result as normal/abnor mal. RBC (test code = 789-8) 3.04 See_Comment L [Au tomated message] The system [employer] generated this result transmitted ref erence range: 4.63 - 6 .08 M/L. The refe rence range was not u sed to interpret this result as normal/abnor mal. MCHC (test code = 786-4) 32.2 See_Comment L [A utomated message] The system [employer] generated this result transmitted ref erence range: 32.3 - 3 6.5 GM/DL. The refe rence range was not u sed to interpret this result as normal/abnor mal. Hematocrit (test code = 29.5 % 40.1-51 L 4544-3) MCV (test code = 787-2) 97.0 fL 79-92.2 H Disc ordant MCV result compared to pre vious result; clinica l correlation req uired. MCH (test code = 785-6) 31.3 pg 25.7-32.2 RDW (test code = 788-0) 12.6 % 11.6-14.4 Platelets (test code = 98 See_Comment L [Aut omated message] 777-3) The system [employer] generated this result transmitted ref erence range: 150 - 45 0 K/CU MM. The referen ce range was not u sed to interpret this result as normal/abnor mal. MPV (test code = 10.5 fL 9.4-12.4 00634-2) nRBC (test code = 413) 0 See_Comment [Aut omated message] The system [employer] generated this result transmitted ref erence range: 0 - 0 /1 00 WBC. The refere nce range was not u sed to interpret this result as normal/abnor mal. Lab Interpretation (test Abnormal code = 73086-2) [facility] (HEMOGRAM ONLY)2020-09-27 04:34:00 Test Item Value Reference Range Interpretation Comments WHITE BLOOD CELL COUNT 19.0 K/ L 3.5-10.5 H (BEAKER) (test code = 775) RED BLOOD CELL COUNT 3.04 M/ L 4.63-6.08 L (BEAKER) (test code = 761) HEMOGLOBIN (BEAKER) 9.5 GM/DL 13.7-17.5 L Discorda nt HGB result (test code = 410) compared t o previous result; clinica l correlation required.Post s urgery specimen b.no.3 21315 HEMATOCRIT (BEAKER) 29.5 % 40.1-51.0 L (test code = 411) MEAN CORPUSCULAR 97.0 fL 79.0-92.2 H Discordant MCV result VOLUME (BEAKER) (test compar ed to previous code = 753) result; clinica l correlation req uired. MEAN CORPUSCULAR 31.3 pg 25.7-32.2 HEMOGLOBIN (BEAKER) (test code = 751) MEAN CORPUSCULAR 32.2 GM/DL 32.3-36.5 L HEMOGLOBIN CONC (BEAKER) (test code = 752) RED CELL DISTRIBUTION 12.6 % 11.6-14.4 WIDTH (BEAKER) (test code = 412) PLATELET COUNT 98 K/CU MM 150-450 L (BEAKER) (test code = 756) MEAN PLATELET VOLUME 10.5 fL 9.4-12.4 (BEAKER) (test code = 754) NUCLEATED RED BLOOD 0 /100 WBC 0-0 CELLS (BEAKER) (test code = 413) BASIC METABOLIC [id number] 04:19:00 Test Item Value Reference Range Interpretation Comments SODIUM (BEAKER) 140 meq/L 136-145 (test code = 381) POTASSIUM (BEAKER) 4.1 meq/L 3.5-5.1 (test code = 379) CHLORIDE (BEAKER) 110 meq/L 98-107 H (test code = 382) CO2 (BEAKER) (test 21 meq/L 22-29 L code = 355) BLOOD UREA NITROGEN 15 mg/dL 7-21 (BEAKER) (test code = 354) CREATININE (BEAKER) 0.78 mg/dL 0.57-1.25 (test code = 358) GLUCOSE RANDOM 152 mg/dL 70-105 H (BEAKER) (test code = 652) CALCIUM (BEAKER) 8.1 mg/dL 8.4-10.2 L (test code = 697) EGFR (BEAKER) (test 97 mL/min/1.73 ESTIMA FRANKLIN GFR IS code = 1092) sq m NOT ACCURATE CREATININE CLEARANCE IN PREDICTING GLOMERULAR FILTRATION RATE . ESTIMATED GFR I S NOT APPLICABLE FOR DIALYSIS PATIEN TS. [employer] ID - FELTON [id number] 04:19:00 Test Item Value Reference Range Interpretation Comments MAGNESIUM (BEAKER) (test code = 2.0 mg/dL 1.6-2.6 627) [employer] ID - FELTON [id number] 04:19:00 Test Item Value Reference Range Interpretation Comments PHOSPHORUS (BEAKER) (test code = 2.9 mg/dL 2.3-4.7 604) [employer] ID - FELTON MCalcium, [id number] 04:08:00 Test Item Value Reference Range Interpretation Comments Calcium, Ion (test code = 1.10 mmol/L 1.12-1.27 L 1994-01) pH, Blood (test code = 7.36 52411-5) DEMARCO (test code = DEMARCO) Check serum Ionized Calcium level after 4 hours after IV Calcium replacement. Lab Interpretation (test Abnormal code = 19454-3) [facility], [id number] 04:08:00 Test Item Value Reference Range Interpretation Comments CALCIUM IONIZED (BEAKER) (test 1.10 mmol/L 1.12-1.27 L code = 698) PH, BLOOD (BEAKER) (test code = 7.36 1810) Check serum Ionized Calcium level after 4 hours after IV Calcium replacement. Oxygen saturation, [id number] 04:04:00 Test Item Value Reference Range Interpretation Comments O2 Saturation (Measured) (test code = 67.1 % 03928-4) [facility] HospitalOXYGEN SATURATION, [id number] 04:04:00 Test Item Value Reference Range Interpretation Comments O2 SATURATION (MEASURED) (BEAKER) 67.1 % (test code = 1455) [id number] 04:00:00 Test Item Value Reference Range Interpretation Comments PARTIAL THROMBOPLASTIN TIME 35.6 seconds 22.5-36.0 (BEAKER) (test code = 760) RAD, CHEST, 1 VIEW, NON [id number] 03:09:00Reason for exam:->chest tubesShould this be performed at the bedside?->Yes [facility] 1945 Sex: MFINAL REPORT CLINICAL INDICATION: Support lines. Comparison: 2019 The cardiomediastinal contours are stable. The lung volumes are low but grossly stable after extubation. Infrahilar opacities may reflect atelectasis but pneumonitis should be excluded clinically. There is a small left apical pneumothorax. Remaining support lines, including left-sided chest tubes, are stable. Signed: Matthew Bryan MDReport Verified Date/Time: 09/27/2020 03:09:53 POCT- GLUCOSE [id number] 16:40:00 Test Item Value Reference Range Interpretation Comments POC-GLUCOSE METER 142 mg/dL 70-110 H : TESTED A T [facility] 6720 (BEAKER) (test code = [facility], 1538) [address]: [employer]/Techni yessy ID = [id number] for PH ILIP, BLANCA POCT-GLUCOSE [id number] 09:44:00 Test Item Value Reference Range Interpretation Comments POC-GLUCOSE METER 99 mg/dL 70-110 : TESTED A T [facility] 6720 (BEAKER) (test code = [facility] [place] [facility], 1538) [address]: [employer]/Techni yessy ID = [id number] for ARCHIE IP, BLANCA Blood gas, [id number] 08:26:00 Test Item Value Reference Range Interpretation Comments pH, Arterial (test code 7.41 7.35-7.45 = 2744-1) pCO2, Arterial (test 40 See_Comment [Autom ated message] code = 2019-8) The system [employer] generated this result transmit franklin reference range : 35 - 45 mm Hg. The reference range was not used to interpret this result as normal/abnormal . pO2, Arterial (test 118 See_Comment H [Automa franklin message] code = 2703-7) The system [employer] generated this result transmit franklin reference range : 80 - 90 mm Hg. The reference range was not used to interpret this result as normal/abnormal . O2 Sat, Arterial (test 98.2 % 96-97 H code = 2708-6) HCO3, Arterial (test 25 mmol/L 21-29 code = 1960-4) Base Excess, Arterial 0.5 mmol/L -2-3 (test code = 1925-7) Patient Temperature 37.7 (test code = 8310-5) FIO2 (test code = 1819) 40 Lab Interpretation Abnormal (test code = 30927-3) [facility] HospitalBLOOD GAS, [id number] 08:26:00 Test Item Value Reference Range Interpretation Comments PH ARTERIAL (BEAKER) (test code = 7.41 7.35-7.45 383) PCO2 ARTERIAL (BEAKER) (test code 40 mm Hg 35-45 = 384) PO2 ARTERIAL (BEAKER) (test code = 118 mm Hg 80-90 H 385) O2 SATURATION ARTERIAL (BEAKER) 98.2 % 96.0-97.0 H (test code = 386) HCO3 ARTERIAL (BEAKER) (test code 25 mmol/L 21-29 = 388) BASE EXCESS ARTERIAL (BEAKER) 0.5 mmol/L -2.0-3.0 (test code = 387) PATIENT TEMPERATURE (BEAKER) (test 37.7 code = 1818) FIO2 (BEAKER) (test code = 1819) 40.0 POCT-GLUCOSE [id number] 08:04:00 Test Item Value Reference Range Interpretation Comments POC-GLUCOSE METER 73 mg/dL 70-110 : [facility] ([facility]ER) (test code = LUZ Tavares [facility], 1538) [address]: [employer] Blocker/Techni yessy ID = [id number] for BLANCA LANE OXYGEN SATURATION, [id number] 05:03:00 Test Item Value Reference Range Interpretation Comments O2 SATURATION (MEASURED) (BEAKER) 75.7 % (test code = 1455) BASIC METABOLIC [id number] 05:03:00 Test Item Value Reference Range Interpretation Comments SODIUM (BEAKER) 141 meq/L 136-145 (test code = 381) POTASSIUM (BEAKER) 4.4 meq/L 3.5-5.1 (test code = 379) CHLORIDE (BEAKER) 111 meq/L 98-107 H (test code = 382) CO2 (BEAKER) (test 21 meq/L 22-29 L code = 355) BLOOD UREA NITROGEN 13 mg/dL 7-21 (BEAKER) (test code = 354) CREATININE (BEAKER) 0.76 mg/dL 0.57-1.25 (test code = 358) GLUCOSE RANDOM 148 mg/dL 70-105 H (BEAKER) (test code = 652) CALCIUM (BEAKER) 8.0 mg/dL 8.4-10.2 L (test code = 697) EGFR (BEAKER) (test 100 mL/min/1.73 ESTIM ATED GFR IS code = 1092) sq m NOT ACCURATE CREATININE CLEARANCE IN PREDICTING GLOMERULAR FILTRATION RATE . ESTIMATED GFR I S NOT APPLICABLE FOR DIALYSIS PATIEN TS. [employer] ID - [id number] 05:03:00 Test Item Value Reference Range Interpretation Comments MAGNESIUM (BEAKER) (test code = 1.8 mg/dL 1.6-2.6 627) [employer] ID - [id number] 05:03:00 Test Item Value Reference Range Interpretation Comments PHOSPHORUS (BEAKER) (test code = 3.5 mg/dL 2.3-4.7 604) [employer] ID - EDASIHGB/HCT (H&H)-Stat [id number] 05:00:00 Test Item Value Reference Range Interpretation Comments Hemoglobin (test code = 12.7 See_Comment L [Au tomated message] 786-4) The system [employer] generated this result transmitted ref erence range: 13.0 - 1 6.8 GM/DL. The refe rence range was not u sed to interpret this result as normal/abnor mal. Hematocrit (test code = 37.0 % 40-50 L 4544-3) Lab Interpretation (test Abnormal code = 72314-2) [facility] HospitalGlucose-Stat [id number] 05:00:00 Test Item Value Reference Range Interpretation Comments Glucose (test code = 2345-7) 147 mg/dL 70-110 H Lab Interpretation (test code = Abnormal 27160-6) [facility] HospitalBLOOD GAS, [id number] 05:00:00 Test Item Value Reference Range Interpretation Comments PH ARTERIAL (BEAKER) (test code = 7.39 7.35-7.45 383) PCO2 ARTERIAL (BEAKER) (test code 39 mm Hg 35-45 = 384) PO2 ARTERIAL (BEAKER) (test code 114 mm Hg 80-90 H = 385) O2 SATURATION ARTERIAL (BEAKER) 98.1 % 96.0-97.0 H (test code = 386) HCO3 ARTERIAL (BEAKER) (test code 23 mmol/L 21-29 = 388) BASE EXCESS ARTERIAL (BEAKER) -1.8 mmol/L -2.0-3.0 (test code = 387) PATIENT TEMPERATURE (BEAKER) 37.3 (test code = 1818) FIO2 (BEAKER) (test code = 1819) 40.0 GLUCOSE-STAT [id number] 05:00:00 Test Item Value Reference Range Interpretation Comments GLUCOSE RANDOM (BEAKER) (test code 147 mg/dL 70-110 H = 652) HGB/HCT (H&H) - STAT [id number] 05:00:00 Test Item Value Reference Range Interpretation Comments HEMOGLOBIN (BEAKER) (test code = 12.7 GM/DL 13.0-16.8 L 410) HEMATOCRIT (BEAKER) (test code = 37.0 % 40.0-50.0 L 411) Sodium Na-Stat [id number] 04:59:00 Test Item Value Reference Range Interpretation Comments Sodium (test code = 2951-2) 140 meq/L 136-145 Lab Interpretation (test code = Normal 16329-3) [facility]Potassium-Stat [id number] 04:59:00 Test Item Value Reference Range Interpretation Comments Potassium (test code = 2823-3) 4.3 meq/L 3.6-5.5 Lab Interpretation (test code = Normal 04746-9) [facility] [id number] 04:59:00 Test Item Value Reference Range Interpretation Comments SODIUM (BEAKER) (test code = 381) 140 meq/L 136-145 POTASSIUM-STAT [id number] 04:59:00 Test Item Value Reference Range Interpretation Comments POTASSIUM (BEAKER) (test code = 4.3 meq/L 3.6-5.5 379) Lactic Acid, [id number] 04:53:00 Test Item Value Reference Range Interpretation Comments Lactate, Art (test 1.7 mmol/L 0.5-2.2 Specimen code = 2874) slightly hemolyzed DEMARCO (test code = DEMARCO) [employer] ID - EDASI Lab Interpretation Normal (test code = 05955-8) [facility] HospitalLACTIC ACID, [id number] 04:53:00 Test Item Value Reference Range Interpretation Comments LACTATE BLOOD 1.7 mmol/L 0.5-2.2 Specimen sligh tly ARTERIAL (2) (BEAKER) hemoly zed (test code = 2874) [employer] ID - [id number] 04:50:00 Test Item Value Reference Range Interpretation Comments Fibrinogen (test code = 3255-7) 212 mg/dl 225-434 L Lab Interpretation (test code = Abnormal 19175-2) [facility] HospitalPT/[id number] 04:50:00 Test Item Value Reference Interpretation Comments Range Protime (test code = 17.1 See_Comment H [Autom ated 5902-2) message] The system which generated this result transmitted reference range : 11.9 - 14.2 seconds. The reference range was not used to interpret this result as normal/abnormal . INR (test code = 1.43 See_Comment [Automated 1301-6) message] The system which generated this result transmitted reference range : <=5.90. The reference range was not used to interpret this result as normal/abnormal . PTT (test code = 33.9 See_Comment [Automated 66165-3) message] The system which generated this result transmitted reference range : 22.5 - 36.0 seconds. The reference range was not used to interpret this result as normal/abnormal . DEMARCO (test code = Effective 04/27/2019: DEMARCO) PT Reference Range ChangeNew: 11.9-14.2 Previous: 11.7-14.7 RECOMMENDED COUMADIN/WARFARIN INR THERAPY RANGESSTANDARD DOSE: 2.0-3.0 Includes: PROPHYLAXIS for venous thrombosis, systemic embolization; TREATMENT for venous thrombosis and/or pulmonary embolus.HIGH RISK: Target INR is 2.5-3.5 for patients wiht mechanical heart valves. Lab Interpretation Abnormal (test code = 80298-5) [facility] [id number] 04:50:00 Test Item Value Reference Range Interpretation Comments FIBRINOGEN LEVEL (BEAKER) (test 212 mg/dl 225-434 L code = 658) [id number] 04:50:00 Test Item Value Reference Range Interpretation Comments PARTIAL THROMBOPLASTIN TIME 33.9 seconds 22.5-36.0 (BEAKER) (test code = 760) [id number] 04:50:00 Test Item Value Reference Range Interpretation Comments PROTIME (BEAKER) (test code = 17.1 seconds 11.9-14.2 H 759) INR (BEAKER) (test code = 370) 1.43 <=5.90 PARTIAL THROMBOPLASTIN TIME 33.9 seconds 22.5-36.0 (BEAKER) (test code = 760) Effective 04/27/2019: PT Reference Range ChangeNew: 11.9-14.2 Previous: 11.7- 14.7RECOMMENDED COUMADIN/WARFARIN INR THERAPY RANGESSTANDARD DOSE: 2.0-3.0 Includes: PROPHYLAXIS for venous thrombosis, systemic embolization; TREATMENT for venous thrombosis and/or pulmonary embolus.HIGH RISK: Target INR is2.5-3.5 for patients wiht mechanical heart valves.Prothrombin time/[id number] 04:49:00 Test Item Value Reference Interpretation Comments Range Protime (test code = 17.1 See_Comment H [Autom ated 5982-2) message] The system which generated this result transmitted reference range : 11.9 - 14.2 seconds. The reference range was not used to interpret this result as normal/abnormal . INR (test code = 1.43 See_Comment [Automated 7911-6) message] The system which generated this result transmitted reference range : <=5.90. The reference range was not used to interpret this result as normal/abnormal . DEMARCO (test code = Effective 04/27/2019: DEMARCO) PT Reference Range ChangeNew: 11.9-14.2 Previous: 11.7-14.7 RECOMMENDED COUMADIN/WARFARIN INR THERAPY RANGESSTANDARD DOSE: 2.0-3.0 Includes: PROPHYLAXIS for venous thrombosis, systemic embolization; TREATMENT for venous thrombosis and/or pulmonary embolus.HIGH RISK: Target INR is 2.5-3.5 for patients wiht mechanical heart valves. Lab Interpretation Abnormal (test code = 08589-4) [facility] HospitalPROTHROMBIN TIME/[id number] 04:49:00 Test Item Value Reference Range Interpretation Comments PROTIME (BEAKER) (test code = 17.1 seconds 11.9-14.2 H 759) INR (BEAKER) (test code = 370) 1.43 <=5.90 Effective 04/27/2019: PT Reference Range ChangeNew: 11.9-14.2 Previous: 11.7- 14.7RECOMMENDED COUMADIN/WARFARIN INR THERAPY RANGESSTANDARD DOSE: 2.0-3.0 Includes: PROPHYLAXIS for venous thrombosis, systemic embolization; TREATMENT for venous thrombosis and/or pulmonary embolus.HIGH RISK: Target INR is2.5-3.5 for patients wiht mechanical heart valves.CBC (HEMOGRAM ONLY)2020 04:48:00 Test Item Value Reference Range Interpretation Comments WHITE BLOOD CELL COUNT (BEAKER) 17.7 K/ L 3.5-10.5 H (test code = 775) RED BLOOD CELL COUNT (BEAKER) 3.90 M/ L 4.63-6.08 L (test code = 761) HEMOGLOBIN (BEAKER) (test code = 11.9 GM/DL 13.7-17.5 L 410) HEMATOCRIT (BEAKER) (test code = 36.2 % 40.1-51.0 L 411) MEAN CORPUSCULAR VOLUME (BEAKER) 92.8 fL 79.0-92.2 H (test code = 753) MEAN CORPUSCULAR HEMOGLOBIN 30.5 pg 25.7-32.2 (BEAKER) (test code = 751) MEAN CORPUSCULAR HEMOGLOBIN CONC 32.9 GM/DL 32.3-36.5 (BEAKER) (test code = 752) RED CELL DISTRIBUTION WIDTH 11.9 % 11.6-14.4 (BEAKER) (test code = 412) PLATELET COUNT (BEAKER) (test 125 K/CU MM 150-450 L code = 756) MEAN PLATELET VOLUME (BEAKER) 10.4 fL 9.4-12.4 (test code = 754) NUCLEATED RED BLOOD CELLS 0 /100 WBC 0-0 (BEAKER) (test code = 413) RAD, CHEST, 1 VIEW, NON [id number] 02:55:00Reason for exam:->chest tubesShould this be performed at the bedside?->Yes [facility] 1945 Sex: MFINAL REPORT CLINICAL INDICATION: Support lines. Comparison: 2019 The cardiomediastinal contours are stable. The lung volumes remain low. Bilateral parenchymal opacities are unchanged. There is no pneumothorax. Support lines are stable. Signed: Matthew Bryanepjarad Verified Date/Time: 2020 02:55:19 POCT-GLUCOSE [id number] 01:53:00 Test Item Value Reference Range Interpretation Comments POC-GLUCOSE METER 112 mg/dL 70-110 H : TESTED A T [facility] 6720 (BEAKER) (test code = LUZ Tavares FERNANDEZ [place], 1538) [id number]: [employer]/Techni yessy ID = [id number] for Abraham Floyd LACTIC ACID, [id number] 00:13:00 Test Item Value Reference Range Interpretation Comments LACTATE BLOOD ARTERIAL (2) 2.8 mmol/L 0.5-2.2 H (BEAKER) (test code = 2874) [employer] ID - PIAYA LOXYGEN SATURATION, [id number] 00:08:00 Test Item Value Reference Range Interpretation Comments O2 SATURATION (MEASURED) (BEAKER) 77.4 % (test code = 1455) BLOOD GAS, [id number] 00:08:00 Test Item Value Reference Range Interpretation Comments PH ARTERIAL (BEAKER) (test code = 7.42 7.35-7.45 383) PCO2 ARTERIAL (BEAKER) (test code 38 mm Hg 35-45 = 384) PO2 ARTERIAL (BEAKER) (test code 125 mm Hg 80-90 H = 385) O2 SATURATION ARTERIAL (BEAKER) 98.6 % 96.0-97.0 H (test code = 386) HCO3 ARTERIAL (BEAKER) (test code 24 mmol/L 21-29 = 388) BASE EXCESS ARTERIAL (BEAKER) -0.2 mmol/L -2.0-3.0 (test code = 387) PATIENT TEMPERATURE (BEAKER) 36.8 (test code = 1818) FIO2 (BEAKER) (test code = 1819) 40.0 LACTIC ACID, [id number] 21:16:00 Test Item Value Reference Range Interpretation Comments LACTATE BLOOD ARTERIAL (2) 4.2 mmol/L 0.5-2.2 HH (BEAKER) (test code = 2874) [employer] ID - ADMINBLOOD GAS, [id number] 20:45:00 Test Item Value Reference Range Interpretation Comments PH ARTERIAL (BEAKER) (test code = 7.41 7.35-7.45 383) PCO2 ARTERIAL (BEAKER) (test code 37 mm Hg 35-45 = 384) PO2 ARTERIAL (BEAKER) (test code 106 mm Hg 80-90 H = 385) O2 SATURATION ARTERIAL (BEAKER) 98.1 % 96.0-97.0 H (test code = 386) HCO3 ARTERIAL (BEAKER) (test code 23 mmol/L 21-29 = 388) BASE EXCESS ARTERIAL (BEAKER) -1.5 mmol/L -2.0-3.0 (test code = 387) PATIENT TEMPERATURE (BEAKER) 36.2 (test code = 1818) FIO2 (BEAKER) (test code = 1819) 40.0 POTASSIUM-STAT [id number] 20:45:00 Test Item Value Reference Range Interpretation Comments POTASSIUM (BEAKER) (test code = 3.2 meq/L 3.6-5.5 L 379) GLUCOSE-STAT [id number] 20:45:00 Test Item Value Reference Range Interpretation Comments GLUCOSE RANDOM (BEAKER) (test code 127 mg/dL 70-110 H = 652) HGB/HCT (H&H) - STAT [id number] 20:45:00 Test Item Value Reference Range Interpretation Comments HEMOGLOBIN (BEAKER) (test code = 13.0 GM/DL 13.0-16.8 410) HEMATOCRIT (BEAKER) (test code = 38.0 % 40.0-50.0 L 411) SODIUM NA-STAT [id number] 20:39:00 Test Item Value Reference Range Interpretation Comments SODIUM (BEAKER) (test code = 381) 140 meq/L 136-145 LACTIC ACID, [id number] 19:30:00 Test Item Value Reference Range Interpretation Comments LACTATE BLOOD ARTERIAL (2) 5.7 mmol/L 0.5-2.2 HH (BEAKER) (test code = 2874) [employer] ID - BSBLOOD GAS, [id number] 19:05:00 Test Item Value Reference Range Interpretation Comments PH ARTERIAL (BEAKER) (test code = 7.39 7.35-7.45 383) PCO2 ARTERIAL (BEAKER) (test code 37 mm Hg 35-45 = 384) PO2 ARTERIAL (BEAKER) (test code 163 mm Hg 80-90 H = 385) O2 SATURATION ARTERIAL (BEAKER) 99.1 % 96.0-97.0 H (test code = 386) HCO3 ARTERIAL (BEAKER) (test code 22 mmol/L 21-29 = 388) BASE EXCESS ARTERIAL (BEAKER) -3.2 mmol/L -2.0-3.0 L (test code = 387) PATIENT TEMPERATURE (BEAKER) 36.1 (test code = 1818) FIO2 (BEAKER) (test code = 1819) 40.0 POCT-GLUCOSE [id number] 19:02:00 Test Item Value Reference Range Interpretation Comments POC-GLUCOSE METER 156 mg/dL 70-110 H : TESTED A [facility] 6720 (BEAKER) (test code = LUZ F[place]NANDEZ [place], 1538) [id number]: [employer]/Techni yessy ID = [id number] for MIGUEL WALSH BLOOD GAS, [id number] 18:19:00 Test Item Value Reference Range Interpretation Comments PH ARTERIAL (BEAKER) (test code = 7.39 7.35-7.45 383) PCO2 ARTERIAL (BEAKER) (test code 36 mm Hg 35-45 = 384) PO2 ARTERIAL (BEAKER) (test code 195 mm Hg 80-90 H = 385) O2 SATURATION ARTERIAL (BEAKER) 99.4 % 96.0-97.0 H (test code = 386) HCO3 ARTERIAL (BEAKER) (test code 22 mmol/L 21-29 = 388) BASE EXCESS ARTERIAL (BEAKER) -2.9 mmol/L -2.0-3.0 L (test code = 387) PATIENT TEMPERATURE (BEAKER) 36.1 (test code = 1818) FIO2 (BEAKER) (test code = 1819) 60.0 POCT-GLUCOSE [id number] 18:17:00 Test Item Value Reference Range Interpretation Comments POC-GLUCOSE METER 146 mg/dL 70-110 H : TESTED A T [facility] 6720 (BEAKER) (test code = [facility], 1538) 12320: [employer]/Techni yessy ID = [id number] for MIGUEL WALSH LACTIC ACID, [id number] 18:14:00 Test Item Value Reference Range Interpretation Comments LACTATE BLOOD ARTERIAL (2) 7.5 mmol/L 0.5-2.2 HH (BEAKER) (test code = 2874) [employer] ID - BSPOCT-GLUCOSE [id number] 18:12:00 Test Item Value Reference Range Interpretation Comments POC-GLUCOSE METER 152 mg/dL 70-110 H : TESTED A T [facility] 6720 (BEAKER) (test code = [facility], 153) 53545: [employer]/Techni yessy ID = [id number] for RONAL MICHELE, MIGUEL Hemoglobin and [id number] 17:44:00 Test Item Value Reference Range Interpretation Comments Hemoglobin (test code 13.1 See_Comment L [Auto mated = 786-4) message] The system which generated this result transmit franklin reference range : 13.7 - 17.5 GM/ DL. The reference range was not u sed to interpret th is result as normal/abnormal . Hematocrit (test code 39.3 % 40.1-51 L = 4544-3) DEMARCO (test code = DEMARCO) [employer] ID - [id number] Lab Interpretation Abnormal (test code = 22409-4) [facility] HospitalHEMOGLOBIN AND [id number] 17:44:00 Test Item Value Reference Range Interpretation Comments HEMOGLOBIN (BEAKER) (test code = 13.1 GM/DL 13.7-17.5 L 410) HEMATOCRIT (BEAKER) (test code = 39.3 % 40.1-51.0 L 411) [employer] ID - 6000POCT-GLUCOSE [id number] 17:40:00 Test Item Value Reference Range Interpretation Comments POC-GLUCOSE METER 144 mg/dL 70-110 H : TESTED A T [facility] 6720 (BEAKER) (test code = [facility], 1538) 39810: [employer]/Techni yessy ID = [id number] for MIGUEL WALSH BLOOD GAS, [id number] 17:39:00 Test Item Value Reference Range Interpretation Comments PH ARTERIAL (BEAKER) (test code = 7.39 7.35-7.45 383) PCO2 ARTERIAL (BEAKER) (test code 36 mm Hg 35-45 = 384) PO2 ARTERIAL (BEAKER) (test code 145 mm Hg 80-90 H = 385) O2 SATURATION ARTERIAL (BEAKER) 98.9 % 96.0-97.0 H (test code = 386) HCO3 ARTERIAL (BEAKER) (test code 21 mmol/L 21-29 = 388) BASE EXCESS ARTERIAL (BEAKER) -3.6 mmol/L -2.0-3.0 L (test code = 387) PATIENT TEMPERATURE (BEAKER) 36.1 (test code = 1818) FIO2 (BEAKER) (test code = 1819) 60.0 CALCIUM, [id number] 17:39:00 Test Item Value Reference Range Interpretation Comments CALCIUM IONIZED (BEAKER) (test 1.09 mmol/L 1.12-1.27 L code = 698) PH, BLOOD (BEAKER) (test code = 7.37 1810) Check serum Ionized Calcium level after 4 hours after IV Calcium replacement. LACTIC ACID, [id number] 16:36:00 Test Item Value Reference Range Interpretation Comments LACTATE BLOOD 6.1 mmol/L 0.5-2.2 HH Specimen sligh tly ARTERIAL (2) (BEAKER) hemoly zed (test code = 2874) [employer] ID - BSBLOOD GAS, [id number] 16:08:00 Test Item Value Reference Range Interpretation Comments PH ARTERIAL (BEAKER) (test code = 7.38 7.35-7.45 383) PCO2 ARTERIAL (BEAKER) (test code 37 mm Hg 35-45 = 384) PO2 ARTERIAL (BEAKER) (test code 141 mm Hg 80-90 H = 385) O2 SATURATION ARTERIAL (BEAKER) 98.9 % 96.0-97.0 H (test code = 386) HCO3 ARTERIAL (BEAKER) (test code 22 mmol/L 21-29 = 388) BASE EXCESS ARTERIAL (BEAKER) -3.2 mmol/L -2.0-3.0 L (test code = 387) PATIENT TEMPERATURE (BEAKER) 35.6 (test code = 1818) FIO2 (BEAKER) (test code = 1819) 60.0 CBC W/PLT COUNT & AUTO [id number] 15:36:00 Test Item Value Reference Range Interpretation Comments WHITE BLOOD CELL COUNT (BEAKER) 21.3 K/ L 3.5-10.5 H (test code = 775) RED BLOOD CELL COUNT (BEAKER) 3.03 M/ L 4.63-6.08 L (test code = 761) HEMOGLOBIN (BEAKER) (test code = 9.6 GM/DL 13.7-17.5 L 410) HEMATOCRIT (BEAKER) (test code = 29.3 % 40.1-51.0 L 411) MEAN CORPUSCULAR VOLUME (BEAKER) 96.7 fL 79.0-92.2 H (test code = 753) MEAN CORPUSCULAR HEMOGLOBIN 31.7 pg 25.7-32.2 (BEAKER) (test code = 751) MEAN CORPUSCULAR HEMOGLOBIN CONC 32.8 GM/DL 32.3-36.5 (BEAKER) (test code = 752) RED CELL DISTRIBUTION WIDTH 12.2 % 11.6-14.4 (BEAKER) (test code = 412) PLATELET COUNT (BEAKER) (test 139 K/CU MM 150-450 L code = 756) MEAN PLATELET VOLUME (BEAKER) 11.0 fL 9.4-12.4 (test code = 754) NUCLEATED RED BLOOD CELLS 0 /100 WBC 0-0 (BEAKER) (test code = 413) NEUTROPHILS RELATIVE PERCENT 77 % (BEAKER) (test code = 429) LYMPHOCYTES RELATIVE PERCENT 19 % (BEAKER) (test code = 430) MONOCYTES RELATIVE PERCENT 3 % (BEAKER) (test code = 431) EOSINOPHILS RELATIVE PERCENT 0 % (BEAKER) (test code = 432) BASOPHILS RELATIVE PERCENT 0 % (BEAKER) (test code = 437) NEUTROPHILS ABSOLUTE COUNT 16.28 K/ L 1.78-5.38 H (BEAKER) (test code = 670) LYMPHOCYTES ABSOLUTE COUNT 4.05 K/ L 1.32-3.57 H (BEAKER) (test code = 414) MONOCYTES ABSOLUTE COUNT (BEAKER) 0.59 K/ L 0.30-0.82 (test code = 415) EOSINOPHILS ABSOLUTE COUNT 0.09 K/ L 0.04-0.54 (BEAKER) (test code = 416) BASOPHILS ABSOLUTE COUNT (BEAKER) 0.04 K/ L 0.01-0.08 (test code = 417) IMMATURE GRANULOCYTES-RELATIVE 1 % 0-1 PERCENT (BEAKER) (test code = 2801) Hepatic function [id number] 15:33:00 Test Item Value Reference Range Interpretation Comments Protein, Total (test 4.9 See_Comment L Specime n slightly code = 2885-2) hemolyzed [Automated message] The system which generated this result transmit franklin reference range : 6.0 - 8.3 gm/dL . The reference range was not u sed to interpret th is result as normal/abnormal . Albumin (test code = 2.6 g/dL 3.5-5 L Specime n slightly 60989-0) hemolyzed Total Bilirubin (test 1.0 mg/dL 0.2-1.2 Specim en slightly code = 1975-2) hemolyzed Bilirubin, Direct 0.5 mg/dL 0.1-0.5 Specimen s lightly (test code = 1968-7) hemolyz ed Alkaline Phosphatase 36 U/L 40-150 L (test code = 6768-6) AST (test code = 34 U/L 5-34 Specimen sl ightly 1920-8) hemolyzed ALT (test code = 13 U/L 6-55 Specimen sl ightly 1742-6) hemolyzed DEMARCO (test code = DEMARCO) [employer] ID - BS Lab Interpretation Abnormal (test code = 48307-1) [facility] Hospital[facility] MET[facility]OLIC [id number] 15:33:00 Test Item Value Reference Range Interpretation Comments SODIUM (BEAKER) 140 meq/L 136-145 (test code = 381) POTASSIUM (BEAKER) 4.2 meq/L 3.5-5.1 Specimen slightly (test code = 379) hemolyzed CHLORIDE (BEAKER) 115 meq/L 98-107 H (test code = 382) CO2 (BEAKER) (test 20 meq/L 22-29 L code = 355) BLOOD UREA NITROGEN 12 mg/dL 7-21 (BEAKER) (test code = 354) CREATININE (BEAKER) 0.76 mg/dL 0.57-1.25 Specimen slightly (test code = 358) hemolyzed GLUCOSE RANDOM 186 mg/dL 70-105 H (BEAKER) (test code = 652) CALCIUM (BEAKER) 7.2 mg/dL 8.4-10.2 L (test code = 697) EGFR (BEAKER) (test 100 mL/min/1.73 ESTIM ATED GFR IS code = 1092) sq m NOT ACCURATE CREATININE CLEARANCE IN PREDICTING GLOMERULAR FILTRATION RATE . ESTIMATED GFR I S NOT APPLICABLE FOR DIALYSIS PATIEN TS. [employer] ID - BSHEPATIC FUNCTION [id number] 15:33:00 Test Item Value Reference Range Interpretation Comments TOTAL PROTEIN (BEAKER) 4.9 gm/dL 6.0-8.3 L Speci men slightly (test code = 770) hemolyzed ALBUMIN (BEAKER) (test 2.6 g/dL 3.5-5.0 L Speci men slightly code = 1145) hemolyzed BILIRUBIN TOTAL 1.0 mg/dL 0.2-1.2 Specimen sli ghtly (BEAKER) (test code = hemoly zed 377) BILIRUBIN DIRECT 0.5 mg/dL 0.1-0.5 Specimen sl ightly (BEAKER) (test code = hemoly zed 706) ALKALINE PHOSPHATASE 36 U/L 40-150 L (BEAKER) (test code = 346) AST (SGOT) (BEAKER) 34 U/L 5-34 Specimen slightly (test code = 353) hemolyzed ALT (SGPT) (BEAKER) 13 U/L 6-55 Specimen slightly (test code = 347) hemolyzed [employer] ID - [id number] 15:31:00 Test Item Value Reference Range Interpretation Comments MAGNESIUM (BEAKER) 2.2 mg/dL 1.6-2.6 Specimen slightly (test code = 627) hemolyzed [employer] ID - BS(CELLAVISION MANUAL DIFF)2020-09-25 15:30:00 Test Item Value Reference Range Interpretation Comments NEUTROPHILS - REL 80 % (CELLAVISION)(BEAKER) (test code = 2816) LYMPHOCYTES - REL 6 % (CELLAVISION)(BEAKER) (test code = 2817) MONOCYTES - REL 5 % (CELLAVISION)(BEAKER) (test code = 2818) EOSINOPHILS - REL 2 % (CELLAVISION)(BEAKER) (test code = 2819) BASOPHILS - REL 1 % (CELLAVISION)(BEAKER) (test code = 2820) METAMYELOCYTES - REL 1 % 0-0 H (CELLAVISION)(BEAKER) (test code = 2821) BANDS - REL (CELLAVISION)(BEAKER) 4 % 0-10 (test code = 2826) ATYPICAL LYMPHOCYTES - REL 1 % 0-0 H (CELLAVISION)(BEAKER) (test code = 2829) NEUTROPHILS - ABS 25.60 K/ul 1.78-5.38 H (CELLAVISION)(BEAKER) (test code = 2830) LYMPHOCYTES - ABS 1.92 K/ul 1.32-3.57 (CELLAVISION)(BEAKER) (test code = 2831) MONOCYTES - ABS 1.60 K/uL 0.30-0.82 H (CELLAVISION)(BEAKER) (test code = 2832) EOSINOPHILS - ABS 0.64 K/uL 0.04-0.54 H (CELLAVISION)(BEAKER) (test code = 2834) BASOPHILS - ABS 0.32 K/uL 0.01-0.08 H (CELLAVISION)(BEAKER) (test code = 2835) METAMYELOCYTES - ABS 0.32 K/uL 0.00-0.00 H (CELLAVISION)(BEAKER) (test code = 2836) BANDS - ABS (CELLAVISION)(BEAKER) 1.28 K/uL 0.00-0.80 H (test code = 2840) ATYPICAL LYMPHOCYTES - ABS 0.32 K/uL 0.00-0.00 H (CELLAVISION)(BEAKER) (test code = 2858) TOTAL COUNTED (BEAKER) (test code 100 = 1351) WBC MORPHOLOGY (BEAKER) (test code Normal = 487) PLT MORPHOLOGY (BEAKER) (test code Normal = 486) POIKILOCYTES (BEAKER) (test code = 1+ few 966) SPHEROCYTES (BEAKER) (test code = 1+ few 768) ELLIPTOCYTES (BEAKER) (test code = 1+ few 962) ARTIFACT (CELLAVISION)(BEAKER) Present (test code = 3432) PLATELET CONCENTRATION Adequate (CELLAVISION)(BEAKER) (test code = 3438) [employer] ID - [id number] ID - mary Fontanez comments: Slide comments: [id number] 15:20:00 Test Item Value Reference Range Interpretation Comments FIBRINOGEN LEVEL (BEAKER) (test 164 mg/dl 225-434 L code = 658) LACTIC ACID, [id number] 15:12:00 Test Item Value Reference Range Interpretation Comments LACTATE BLOOD 2.6 mmol/L 0.5-2.2 H Specimen sligh tly ARTERIAL (2) (BEAKER) hemoly zed (test code = 2874) [employer] ID - [id number] 15:11:00 Test Item Value Reference Range Interpretation Comments PARTIAL THROMBOPLASTIN TIME 36.0 seconds 22.5-36.0 (BEAKER) (test code = 760) PROTHROMBIN TIME/[id number] 15:10:00 Test Item Value Reference Range Interpretation Comments PROTIME (BEAKER) (test code = 20.7 seconds 11.9-14.2 H 759) INR (BEAKER) (test code = 370) 1.83 <=5.90 Effective 04/27/2019: PT Reference Range ChangeNew: 11.9-14.2 Previous: 11.7- 14.7RECOMMENDED COUMADIN/WARFARIN INR THERAPY RANGESSTANDARD DOSE: 2.0-3.0 Includes: PROPHYLAXIS for venous thrombosis, systemic embolization; TREATMENT for venous thrombosis and/or pulmonary embolus.HIGH RISK: Target INR is2.5-3.5 for patients wiht mechanical heart valves.GLUCOSE-STAT [id number] 15:08:00 Test Item Value Reference Range Interpretation Comments GLUCOSE RANDOM (BEAKER) (test code 156 mg/dL 70-110 H = 652) BLOOD GAS, [id number] 15:08:00 Test Item Value Reference Range Interpretation Comments PH ARTERIAL (BEAKER) (test code = 7.26 7.35-7.45 L 383) PCO2 ARTERIAL (BEAKER) (test code 44 mm Hg 35-45 = 384) PO2 ARTERIAL (BEAKER) (test code 163 mm Hg 80-90 H = 385) O2 SATURATION ARTERIAL (BEAKER) 98.8 % 96.0-97.0 H (test code = 386) HCO3 ARTERIAL (BEAKER) (test code 19 mmol/L 21-29 L = 388) BASE EXCESS ARTERIAL (BEAKER) -7.8 mmol/L -2.0-3.0 L (test code = 387) PATIENT TEMPERATURE (BEAKER) 36.4 (test code = 1818) FIO2 (BEAKER) (test code = 1819) 60.0 CALCIUM, [id number] 15:08:00 Test Item Value Reference Range Interpretation Comments CALCIUM IONIZED (BEAKER) (test 1.07 mmol/L 1.12-1.27 L code = 698) PH, BLOOD (BEAKER) (test code = 7.25 1810) OXYGEN SATURATION, [id number] 15:06:00 Test Item Value Reference Range Interpretation Comments O2 SATURATION (MEASURED) (BEAKER) 72.4 % (test code = 1455) SODIUM NA-STAT [id number] 15:06:00 Test Item Value Reference Range Interpretation Comments SODIUM (BEAKER) (test code = 381) 137 meq/L 136-145 POTASSIUM-STAT [id number] 15:06:00 Test Item Value Reference Range Interpretation Comments POTASSIUM (BEAKER) (test code = 3.9 meq/L 3.6-5.5 379) HGB/HCT (H&H) - STAT [id number] 15:06:00 Test Item Value Reference Range Interpretation Comments HEMOGLOBIN (BEAKER) (test code = 14.8 GM/DL 13.0-16.8 410) HEMATOCRIT (BEAKER) (test code = 44.0 % 40.0-50.0 411) CBC W/PLT COUNT & AUTO [id number] 15:05:00 Test Item Value Reference Range Interpretation Comments WHITE BLOOD CELL COUNT (BEAKER) 32.0 K/ L 3.5-10.5 H (test code = 775) RED BLOOD CELL COUNT (BEAKER) 4.51 M/ L 4.63-6.08 L (test code = 761) HEMOGLOBIN (BEAKER) (test code = 14.0 GM/DL 13.7-17.5 410) HEMATOCRIT (BEAKER) (test code = 42.6 % 40.1-51.0 411) MEAN CORPUSCULAR VOLUME (BEAKER) 94.5 fL 79.0-92.2 H (test code = 753) MEAN CORPUSCULAR HEMOGLOBIN 31.0 pg 25.7-32.2 (BEAKER) (test code = 751) MEAN CORPUSCULAR HEMOGLOBIN CONC 32.9 GM/DL 32.3-36.5 (BEAKER) (test code = 752) RED CELL DISTRIBUTION WIDTH 12.0 % 11.6-14.4 (BEAKER) (test code = 412) PLATELET COUNT (BEAKER) (test 134 K/CU MM 150-450 L code = 756) MEAN PLATELET VOLUME (BEAKER) 9.8 fL 9.4-12.4 (test code = 754) NUCLEATED RED BLOOD CELLS 0 /100 WBC 0-0 (BEAKER) (test code = 413) RAD, CHEST, 1 VIEW, NON [id number] 15:02:00Reason for exam:->post opShould this be performed at the bedside?->Yes [facility] : 1945 Sex: MFINAL REPORT RAD, CHEST, 1 VIEW, NON DEPT INDICATION: post op COMPAR LATANYA: Prior day's exam FINDINGS: Portable frontal view of the chest. IMPRESSION: Support Lines: NG tube descends below the diaphragm. ET tube tip is 3-4 cm superior to the chey. Left-sided chest tube. Lungs and pleura: Unchanged airspace and pleural opacities. No pneumothorax.Heart and mediastinum: Stable contours. Stable surgical changes.Additional findings: None. Signed: Florencia Scott MDReport Verified Date/Time: 09/25/2020 15:02:20 Reading Location: [facility] Radiology Reading Room [id number] 14:50:00 Test Item Value Reference Range Interpretation Comments PHOSPHORUS (BEAKER) (test code = 3.9 mg/dL 2.3-4.7 604) [employer] ID - BSThromboelastograph (TEG)2020-09-25 14:28:00 Test Item Value Reference Range Interpretation Comments TEG Activated Clotting 4.0 See_Comment [Aut omated message] Time (test code = The system which 96905-1) generated this result transmitted ref erence range: 4.0 - 7. 0 minutes. The reference range was not used to int erpret this result as normal/abnormal . TEG Fibrinogen Activity 68.7 See_Comment [Au tomated message] (test code = 71988-5) The sy stem which generated this result transmitted ref erence range: 61.0 - 7 3.0 degrees. The reference range was not used to int erpret this result as normal/abnormal . TEG Platelet Aggregation 58.4 See_Comment [A utomated message] (test code = 26099-0) The sy stem which generated this result transmitted ref erence range: 55.0 - 6 5.0 MM. The referen ce range was not u sed to interpret this result as normal/abnor mal. TEG-H Activated Clotting 3.7 See_Comment L [A utomated message] Time (test code = 1411) The system which generated this result transmitted ref erence range: 4.0 - 7. 0 minutes. The reference range was not used to int erpret this result as normal/abnormal . TEG-H Fibrinogen 68.6 See_Comment [Automated message] Activity (test code = The sy stem which 1412) generated this result transmitted ref erence range: 61.0 - 7 3.0 degrees. The reference range was not used to int erpret this result as normal/abnormal . TEG-H Platelet 59.4 See_Comment [Automated m essage] Aggregation (test code = The system which 1413) generated this result transmitted ref erence range: 55.0 - 6 5.0 MM. The referen ce range was not u sed to interpret this result as normal/abnor mal. Lab Interpretation (test Abnormal code = 05988-6) [facility] HospitalTHROMBOELASTOGRAPH (TEG)2020-09-25 14:28:00 Test Item Value Reference Range Interpretation Comments TEG ACTIVATED CLOTTING TIME 4.0 minutes 4.0-7.0 (BEAKER) (test code = 1407) TEG FIBRINOGEN ACTIVITY (BEAKER) 68.7 degrees 61.0-73.0 (test code = 1408) TEG PLT. AGGREGATION (BEAKER) 58.4 MM 55.0-65.0 (test code = 1409) [facility] ACTIVATED CLOTTING TIME 3.7 minutes 4.0-7.0 L (BEAKER) (test code = 1411) [facility] FIBRINOGEN ACTIVITY (BEAKER) 68.6 degrees 61.0-73.0 (test code = 1412) [facility] PLT. AGGREGATION (BEAKER) 59.4 MM 55.0-65.0 (test code = 1413) Platelet [id number] 14:15:00 Test Item Value Reference Range Interpretation Comments Platelets (test code 134 See_Comment L [Autom ated = 777-3) message] The system which generated this result transmit franklin reference range : 150 - 450 K/CU MM. The reference range was not u sed to interpret th is result as normal/abnormal . DEMARCO (test code = DEMARCO) [employer] ID - [id number] ID - [id number] Lab Interpretation Abnormal (test code = 15528-1) [facility] HospitalPLATELET [id number] 14:15:00 Test Item Value Reference Range Interpretation Comments PLATELET COUNT (BEAKER) (test 134 K/CU MM 150-450 L code = 756) [employer] ID - 6000Operator ID - [id number] 14:14:00 Test Item Value Reference Range Interpretation Comments FIBRINOGEN LEVEL (BEAKER) (test 159 mg/dl 225-434 L code = 658) [id number] 14:10:00 Test Item Value Reference Range Interpretation Comments PARTIAL THROMBOPLASTIN TIME 26.8 seconds 22.5-36.0 (BEAKER) (test code = 760) PROTHROMBIN TIME/[id number] 14:09:00 Test Item Value Reference Range Interpretation Comments PROTIME (BEAKER) (test code = 21.7 seconds 11.9-14.2 H 759) INR (BEAKER) (test code = 370) 1.95 <=5.90 Effective 04/27/2019: PT Reference Range ChangeNew: 11.9-14.2 Previous: 11.7- 14.7RECOMMENDED COUMADIN/WARFARIN INR THERAPY RANGESSTANDARD DOSE: 2.0-3.0 Includes: PROPHYLAXIS for venous thrombosis, systemic embolization; TREATMENT for venous thrombosis and/or pulmonary embolus.HIGH RISK: Target INR is2.5-3.5 for patients wiht mechanical heart valves.POC ACTIVATED CLOTTING [id number] 14:04:00 Test Item Value Reference Range Interpretation Comments Activated Clotting Time 87 sec : 74 -137 seconds, (test code = 441) Baseline: TESTED AT [address], [facility] 30: [employer]/Techni yessy ID = [id number] for HERNANDEZ Y, SAUNDRA [facility]-[id number] 14:04:00 Test Item Value Reference Range Interpretation Comments ACTIVATED CLOTTING TIME 87 sec : 74 -137 seconds, (BEAKER) (test code = Baseli ne: TESTED AT 441) [address], [address]: [employer]/Techni yessy ID = [id number] for HERNANDEZ Y, SAUNDRA [id number] 14:04:00 Test Item Value Reference Range Interpretation Comments ACTIVATED CLOTTING TIME 455 sec : 74 -137 seconds, (BEAKER) (test code = Baseli ne: TESTED AT 441) [address], [address]: [employer]/Techni yessy ID = [id number] for HERNANDEZ Y, SAUNDRA [id number] 14:04:00 Test Item Value Reference Range Interpretation Comments ACTIVATED CLOTTING TIME 439 sec : 74 -137 seconds, (BEAKER) (test code = Baseli ne: TESTED AT 441) [address], [facility] 30: [employer]/Techni yessy ID = [id number] for HERNANDEZ Y, SAUNDRA [id number] 14:04:00 Test Item Value Reference Range Interpretation Comments ACTIVATED CLOTTING TIME 505 sec : 74 -137 seconds, (BEAKER) (test code = Baseli ne: TESTED AT 441) [address], [address]: [employer]/Techni yessy ID = [id number] for HERNANDEZ Y, SAUNDRA [id number] 14:04:00 Test Item Value Reference Range Interpretation Comments ACTIVATED CLOTTING TIME 428 sec : 74 -137 seconds, (BEAKER) (test code = Baseli ne: TESTED AT 441) [facility] [id number] [facility], [address]: [employer]/Techni yessy ID = [id number] for SAUNDRA MARIN [id number] 14:04:00 Test Item Value Reference Range Interpretation Comments ACTIVATED CLOTTING TIME 362 sec : 74 -137 seconds, (BEAKER) (test code = Henny ne: TESTED AT 441) [facility] [address] [facility], [address]: [employer] Blocker/Techni yessy ID = [id number] for DAVID Stewart, SAUNDRA [id number] 14:03:00 Test Item Value Reference Range Interpretation Comments ACTIVATED CLOTTING TIME 543 sec : 74 -137 seconds, (BEAKER) (test code = Henny ne: TESTED AT 441) [facility] [address] [facility], [address]: [employer]ocker/Techni yessy ID = [id number] for SAUNDRA MARIN BLOOD GAS, [id number] 13:42:00 Test Item Value Reference Range Interpretation Comments PH ARTERIAL (BEAKER) (test code = 7.28 7.35-7.45 L 383) PCO2 ARTERIAL (BEAKER) (test code 51 mm Hg 35-45 H = 384) PO2 ARTERIAL (BEAKER) (test code 385 mm Hg 80-90 H = 385) O2 SATURATION ARTERIAL (BEAKER) 99.8 % 96.0-97.0 H (test code = 386) HCO3 ARTERIAL (BEAKER) (test code 23 mmol/L 21-29 = 388) BASE EXCESS ARTERIAL (BEAKER) -4.0 mmol/L -2.0-3.0 L (test code = 387) PATIENT TEMPERATURE (BEAKER) 36.4 (test code = 1818) FIO2 (BEAKER) (test code = 1819) 100.0 GLUCOSE-STAT [id number] 13:42:00 Test Item Value Reference Range Interpretation Comments GLUCOSE RANDOM (BEAKER) (test code 239 mg/dL 70-110 H = 652) HGB/HCT (H&H) - STAT [id number] 13:42:00 Test Item Value Reference Range Interpretation Comments HEMOGLOBIN (BEAKER) (test code = 10.6 GM/DL 13.0-16.8 L 410) HEMATOCRIT (BEAKER) (test code = 31.0 % 40.0-50.0 L 411) SODIUM NA-STAT [id number] 13:41:00 Test Item Value Reference Range Interpretation Comments SODIUM (BEAKER) (test code = 381) 135 meq/L 136-145 L POTASSIUM-STAT [id number] 13:41:00 Test Item Value Reference Range Interpretation Comments POTASSIUM (BEAKER) (test code = 4.4 meq/L 3.6-5.5 379) BLOOD GAS, [id number] 12:43:00 Test Item Value Reference Range Interpretation Comments PH ARTERIAL (BEAKER) (test code = 7.34 7.35-7.45 L 383) PCO2 ARTERIAL (BEAKER) (test code 46 mm Hg 35-45 H = 384) PO2 ARTERIAL (BEAKER) (test code 335 mm Hg 80-90 H = 385) O2 SATURATION ARTERIAL (BEAKER) 99.7 % 96.0-97.0 H (test code = 386) HCO3 ARTERIAL (BEAKER) (test code 24 mmol/L 21-29 = 388) BASE EXCESS ARTERIAL (BEAKER) -1.4 mmol/L -2.0-3.0 (test code = 387) PATIENT TEMPERATURE (BEAKER) 37.1 (test code = 1818) FIO2 (BEAKER) (test code = 1819) 80.0 SODIUM NA-STAT [id number] 12:43:00 Test Item Value Reference Range Interpretation Comments SODIUM (BEAKER) (test code = 381) 134 meq/L 136-145 L GLUCOSE-STAT [id number] 12:43:00 Test Item Value Reference Range Interpretation Comments GLUCOSE RANDOM (BEAKER) (test code 153 mg/dL 70-110 H = 652) HGB/HCT (H&H) - STAT [id number] 12:43:00 Test Item Value Reference Range Interpretation Comments HEMOGLOBIN (BEAKER) (test code = 10.3 GM/DL 13.0-16.8 L 410) HEMATOCRIT (BEAKER) (test code = 30.0 % 40.0-50.0 L 411) POTASSIUM-STAT [id number] 12:43:00 Test Item Value Reference Range Interpretation Comments POTASSIUM (BEAKER) (test code = 6.0 meq/L 3.6-5.5 HH 379) POTASSIUM-STAT [id number] 12:09:00 Test Item Value Reference Range Interpretation Comments POTASSIUM (BEAKER) (test code = 6.3 meq/L 3.6-5.5 HH 379) GLUCOSE-STAT [id number] 12:08:00 Test Item Value Reference Range Interpretation Comments GLUCOSE RANDOM (BEAKER) (test code 156 mg/dL 70-110 H = 652) BLOOD GAS, [id number] 12:08:00 Test Item Value Reference Range Interpretation Comments PH ARTERIAL (BEAKER) (test code = 7.37 7.35-7.45 383) PCO2 ARTERIAL (BEAKER) (test code 44 mm Hg 35-45 = 384) PO2 ARTERIAL (BEAKER) (test code 357 mm Hg 80-90 H = 385) O2 SATURATION ARTERIAL (BEAKER) 99.8 % 96.0-97.0 H (test code = 386) HCO3 ARTERIAL (BEAKER) (test code 25 mmol/L 21-29 = 388) BASE EXCESS ARTERIAL (BEAKER) -0.4 mmol/L -2.0-3.0 (test code = 387) PATIENT TEMPERATURE (BEAKER) 36.1 (test code = 1818) FIO2 (BEAKER) (test code = 1819) 80.0 HGB/HCT (H&H) - STAT [id number] 12:08:00 Test Item Value Reference Range Interpretation Comments HEMOGLOBIN (BEAKER) (test code = 9.9 GM/DL 13.0-16.8 L 410) HEMATOCRIT (BEAKER) (test code = 29.0 % 40.0-50.0 L 411) SODIUM NA-STAT [id number] 12:07:00 Test Item Value Reference Range Interpretation Comments SODIUM (BEAKER) (test code = 381) 135 meq/L 136-145 L BLOOD GAS, [id number] 11:40:00 Test Item Value Reference Range Interpretation Comments PH ARTERIAL (BEAKER) (test code = 7.52 7.35-7.45 H 383) PCO2 ARTERIAL (BEAKER) (test code 29 mm Hg 35-45 L = 384) PO2 ARTERIAL (BEAKER) (test code = 428 mm Hg 80-90 H 385) O2 SATURATION ARTERIAL (BEAKER) 99.9 % 96.0-97.0 H (test code = 386) HCO3 ARTERIAL (BEAKER) (test code 24 mmol/L 21-29 = 388) BASE EXCESS ARTERIAL (BEAKER) 0.0 mmol/L -2.0-3.0 (test code = 387) PATIENT TEMPERATURE (BEAKER) (test 30.5 code = 1818) FIO2 (BEAKER) (test code = 1819) 80.0 SODIUM NA-STAT [id number] 11:40:00 Test Item Value Reference Range Interpretation Comments SODIUM (BEAKER) (test code = 381) 132 meq/L 136-145 L POTASSIUM-STAT [id number] 11:40:00 Test Item Value Reference Range Interpretation Comments POTASSIUM (BEAKER) (test code = 5.8 meq/L 3.6-5.5 H 379) GLUCOSE-STAT [id number] 11:40:00 Test Item Value Reference Range Interpretation Comments GLUCOSE RANDOM (BEAKER) (test code 137 mg/dL 70-110 H = 652) HGB/HCT (H&H) - STAT [id number] 11:40:00 Test Item Value Reference Range Interpretation Comments HEMOGLOBIN (BEAKER) (test code = 9.7 GM/DL 13.0-16.8 L 410) HEMATOCRIT (BEAKER) (test code = 29.0 % 40.0-50.0 L 411) POTASSIUM-STAT [id number] 11:12:00 Test Item Value Reference Range Interpretation Comments POTASSIUM (BEAKER) (test code = 4.2 meq/L 3.6-5.5 379) BLOOD GAS, [id number] 11:12:00 Test Item Value Reference Range Interpretation Comments PH ARTERIAL (BEAKER) (test code = 7.35 7.35-7.45 383) PCO2 ARTERIAL (BEAKER) (test code 42 mm Hg 35-45 = 384) PO2 ARTERIAL (BEAKER) (test code 363 mm Hg 80-90 H = 385) O2 SATURATION ARTERIAL (BEAKER) 99.8 % 96.0-97.0 H (test code = 386) HCO3 ARTERIAL (BEAKER) (test code 23 mmol/L 21-29 = 388) BASE EXCESS ARTERIAL (BEAKER) -2.9 mmol/L -2.0-3.0 L (test code = 387) PATIENT TEMPERATURE (BEAKER) 35.0 (test code = 1818) FIO2 (BEAKER) (test code = 1819) 80.0 SODIUM NA-STAT [id number] 11:12:00 Test Item Value Reference Range Interpretation Comments SODIUM (BEAKER) (test code = 381) 134 meq/L 136-145 L GLUCOSE-STAT [id number] 11:12:00 Test Item Value Reference Range Interpretation Comments GLUCOSE RANDOM (BEAKER) (test code 141 mg/dL 70-110 H = 652) HGB/HCT (H&H) - STAT [id number] 11:12:00 Test Item Value Reference Range Interpretation Comments HEMOGLOBIN (BEAKER) (test code = 10.6 GM/DL 13.0-16.8 L 410) HEMATOCRIT (BEAKER) (test code = 31.0 % 40.0-50.0 L 411) [id number] 09:02:18Andrea Laura MD 09/25/2020 2:11 PMTEE Date: 09/25/2020 9:02 AM Examiner: Andrea Laura MDKwass, William Kyle Intubated Sedated Insertion: easy Pre Intervention Summary: Aorta: No aneurysm, no dissection, no mobile plaquesAV: trileaflet morphology, no aortic stenosis,no aortic regurgitationLV: normal chamber size, no LVH, reduced global systolic function (EF 52% by Hernandez's assessment, 30-35% w/ full volume), hypokinesis of inferior septal and septal galeas, dyskinesis of anterior septal wall, no thrombusMV: normal morphology, trace mitral regurgitation, no mitral stenosisLA: no DECLAN thrombus, normal size and functionPV: limited visualizationRV: normal sized chamber, normal function, no thrombusTV: normal morphology, no tricuspid regurgitationRA: no thrombus no PFO by color dopper flow All findings communicated to surgical team. Post Intervention Summary: S/p ACB x 2 epi @ 4, milrinone @ 0.5 Aorta: No aneurysm, no dissection, no mobile plaquesAV: trileaflet morphology, no aortic stenosis, no aortic regurgitationLV: normal chamber size, no LVH, improved systolic function (EF 50% by Hernandez's assessment), hypokinesis of inferior septal and septal galeas im proved, hypokinesis of anterior septal wall unchanged from pre-opMV: normal morphology, trace mitralregurgitation, no mitral stenosis, no ML RV: normal sized chamber, normal function, no thrombusTV: normal morphology, no tricuspid regurgitationRA: no thrombus All findings communicated to surgical team.[facility] HospitalGLUCOSE-STAT [id number] 08:51:00 Test Item Value Reference Range Interpretation Comments GLUCOSE RANDOM (BEAKER) (test code 105 mg/dL 70-110 = 652) SODIUM NA-STAT [id number] 08:51:00 Test Item Value Reference Range Interpretation Comments SODIUM (BEAKER) (test code = 381) 138 meq/L 136-145 POTASSIUM-STAT [id number] 08:51:00 Test Item Value Reference Range Interpretation Comments POTASSIUM (BEAKER) (test code = 3.5 meq/L 3.6-5.5 L 379) HGB/HCT (H&H) - STAT [id number] 08:51:00 Test Item Value Reference Range Interpretation Comments HEMOGLOBIN (BEAKER) (test code = 13.7 GM/DL 13.0-16.8 410) HEMATOCRIT (BEAKER) (test code = 40.0 % 40.0-50.0 411) BLOOD GAS, [id number] 08:51:00 Test Item Value Reference Range Interpretation Comments PH ARTERIAL (BEAKER) (test code = 7.40 7.35-7.45 383) PCO2 ARTERIAL (BEAKER) (test code 42 mm Hg 35-45 = 384) PO2 ARTERIAL (BEAKER) (test code = 424 mm Hg 80-90 H 385) O2 SATURATION ARTERIAL (BEAKER) 99.8 % 96.0-97.0 H (test code = 386) HCO3 ARTERIAL (BEAKER) (test code 26 mmol/L 21-29 = 388) BASE EXCESS ARTERIAL (BEAKER) 0.5 mmol/L -2.0-3.0 (test code = 387) PATIENT TEMPERATURE (BEAKER) (test 35.4 code = 1818) FIO2 (BEAKER) (test code = 1819) 100.0 CALCIUM, [id number] 08:51:00 Test Item Value Reference Range Interpretation Comments CALCIUM IONIZED (BEAKER) (test 1.17 mmol/L 1.12-1.27 code = 698) PH, BLOOD (BEAKER) (test code = 7.38 1810) BASIC METABOLIC [id number] 05:24:00 Test Item Value Reference Range Interpretation Comments SODIUM (BEAKER) 140 meq/L 136-145 (test code = 381) POTASSIUM (BEAKER) 3.6 meq/L 3.5-5.1 (test code = 379) CHLORIDE (BEAKER) 106 meq/L 98-107 (test code = 382) CO2 (BEAKER) (test 27 meq/L 22-29 code = 355) BLOOD UREA NITROGEN 15 mg/dL 7-21 (BEAKER) (test code = 354) CREATININE (BEAKER) 0.80 mg/dL 0.57-1.25 (test code = 358) GLUCOSE RANDOM 98 mg/dL 70-105 (BEAKER) (test code = 652) CALCIUM (BEAKER) 8.9 mg/dL 8.4-10.2 (test code = 697) EGFR (BEAKER) (test 94 mL/min/1.73 ESTIMA FRANKLIN GFR IS code = 1092) sq m NOT ACCURATE CREATININE CLEARANCE IN PREDICTING GLOMERULAR FILTRATION RATE . ESTIMATED GFR I S NOT APPLICABLE FOR DIALYSIS PATIEN TS. [employer] ID - [id number] 05:24:00 Test Item Value Reference Range Interpretation Comments MAGNESIUM (BEAKER) (test code = 1.8 mg/dL 1.6-2.6 627) [employer] ID - [id number] 05:06:00 Test Item Value Reference Range Interpretation Comments PARTIAL THROMBOPLASTIN TIME 83.1 seconds 22.5-36.0 H (BEAKER) (test code = 760) CBC (HEMOGRAM ONLY)2020-09-25 04:53:00 Test Item Value Reference Range Interpretation Comments WHITE BLOOD CELL COUNT (BEAKER) 5.4 K/ L 3.5-10.5 (test code = 775) RED BLOOD CELL COUNT (BEAKER) 4.30 M/ L 4.63-6.08 L (test code = 761) HEMOGLOBIN (BEAKER) (test code = 13.4 GM/DL 13.7-17.5 L 410) HEMATOCRIT (BEAKER) (test code = 40.2 % 40.1-51.0 411) MEAN CORPUSCULAR VOLUME (BEAKER) 93.5 fL 79.0-92.2 H (test code = 753) MEAN CORPUSCULAR HEMOGLOBIN 31.2 pg 25.7-32.2 (BEAKER) (test code = 751) MEAN CORPUSCULAR HEMOGLOBIN CONC 33.3 GM/DL 32.3-36.5 (BEAKER) (test code = 752) RED CELL DISTRIBUTION WIDTH 12.2 % 11.6-14.4 (BEAKER) (test code = 412) PLATELET COUNT (BEAKER) (test 167 K/CU MM 150-450 code = 756) MEAN PLATELET VOLUME (BEAKER) 9.8 fL 9.4-12.4 (test code = 754) NUCLEATED RED BLOOD CELLS 0 /100 WBC 0-0 (BEAKER) (test code = 413) [id number] 19:35:00 Test Item Value Reference Range Interpretation Comments PARTIAL THROMBOPLASTIN TIME 72.9 seconds 22.5-36.0 H (BEAKER) (test code = 760) CT, BRAIN, WITHOUT [id number] 13:16:00Unlisted Reason for Exam - Click Yes and Enter Reason Below->YesUnlisted Reason for Exam->Ruleout CVA, R carotid stenosisLOS ANGELES COUNTY H[facility]ITALName: [facility] : 1945 Sex: MFINAL REPORT CT, BRAIN, WITHOUT CONTRAST INDICATION: Unlisted Reason for ExamRule out CVA, R carotid stenosis TECHNIQUE: Noncontrast axial imaging was obtained from thevertex to the skull base. Axial images were reconstructed using a bone algorithm. DOSE REDUCTION: Dose modulation, iterative reconstruction, and/or weight-based adjustment of the mA/kV was utilized to r educe the radiation dose to as low as reasonably achievable. COMPARISON: None. FINDINGS: Cerebral parenchyma: Diffuse parenchymal volume loss. Appearance of the white matter suggests chronic microvascular disease.Midline structures: Normally positioned.Cerebellum and brainstem: Commensurate volume loss .Ventricles: Normal volume.Extra-axial spaces: Unremarkable. Calvarium and skull base: Intact.Paranasal sinuses and mastoid air cells: Visible chambers are clear.Orbital contents: Included portions unremarkable. Additional findings: None. IMPRESSION: Chronic involutional changes without acute intracranial abnormality. If there is persistent clinical concern for intracranial pathology, MR examination is recommended for further characterization. Signed: JR Parra Robert MDReport Verified Date/Time: 09/24/2020 13:16:36 Reading Location: [address] Neuro Reading Room CT brain without IV contrast 2020-09-24 13:16:00Interface, External Ris In - 09/24/2020 1:[address], BRAIN, WITHOUT CONTRAST INDICATION: Unlisted Reason for ExamRule out CVA, R carotid stenosis TECHNIQUE: Noncontrast axial imaging was obtained from the vertex to the skull base. Axial images were reconstructed using a bone algorithm. DOSE REDUCTION: Dose modulation, iterative reconstruction, and/or weight-based adjustment of the mA/kV was utilized to reduce the radiation dose to as low as reasonably achievable. COMPARISON: None. FINDINGS: Cerebral parenchyma: Diffuse parenchymal volume loss. Appearance of the white matter suggests chronic microvascular disease.Midline structures: Normally positioned.Cerebellum and brainstem: Commensurate volume loss.Ventricles: Normal volume.Extra-axial spaces: Unremarkable. Calvarium and skull base: Intact.Paranasal sinuses and mastoid air cells: Visible chambers are clear.Orbital contents: Included portions unremarkable. Additional findings: None. IMPRESSION: Chronicinvolutional changes without acute intracranial abnormality. If there is persistent clinical concernfor intracranial pathology, MR examination is recommended for further characterization. Signed: Kallie leonard JR, Robert MDReport Verified Date/Time: 09/24/2020 13:16:36 Reading Location: [facility] [id number] Reading Room [facility] 13:11:00 Test Item Value Reference Range Interpretation Comments PARTIAL THROMBOPLASTIN TIME 71.8 seconds 22.5-36.0 H (BEAKER) (test code = 760) Hemoglobin [id number] 08:50:00 Test Item Value Reference Range Interpretation Comments Hemoglobin A1C (test code = 4548-4) 5.6 % 4.3-6.1 Lab Interpretation (test code = Normal 51237-9) [facility] HospitalHEMOGLOBIN [id number] 08:50:00 Test Item Value Reference Range Interpretation Comments HEMOGLOBIN A1C (BEAKER) (test code = 5.6 % 4.3-6.1 368) [id number] 07:00:00 Test Item Value Reference Range Interpretation Comments PARTIAL THROMBOPLASTIN TIME 63.8 seconds 22.5-36.0 H (BEAKER) (test code = 760) Prior to initiating heparinPROTHROMBIN TIME/[id number] 06:59:00 Test Item Value Reference Range Interpretation Comments PROTIME (BEAKER) (test code = 14.8 seconds 11.9-14.2 H 759) INR (BEAKER) (test code = 370) 1.19 <=5.90 Effective 04/27/2019: PT Reference Range ChangeNew: 11.9-14.2 Previous: 11.7- 14.7RECOMMENDED COUMADIN/WARFARIN INR THERAPY RANGESSTANDARD DOSE: 2.0-3.0 Includes: PROPHYLAXIS for venous thrombosis, systemic embolization; TREATMENT for venous thrombosis and/or pulmonary embolus.HIGH RISK: Target INR is2.5-3.5 for patients wiht mechanical heart valves.Prior to initiating heparinLipid panel 2020-09-24 06:43:00 Test Item Value Reference Range Interpretation Comments Triglycerides (test 83 mg/dL code = 2571-8) Cholesterol (test code 120 mg/dL = 2093-3) HDL (test code = 43 mg/dL 5-9) LDL Calculated (test 60 mg/dL code = 15833-0) DEMARCO (test code = DEMARCO) Triglyceride Reference Range: Low Risk <150 Borderline 150-199 High Risk 200-499 Very High Risk >=500 Cholesterol Reference Range: Low Risk <200 Borderline 200-239 High Risk >240 HDL Cholesterol Reference Range: Low Risk >=60 High Risk <40 LDL Cholesterol Reference Range: Optimal <100 Near Optimal 100-129 Borderline 130-159 High 160-189 Very High >=190 [employer] ID - SAMMY Hines [facility] METABOLIC [id number] 06:43:00 Test Item Value Reference Range Interpretation Comments SODIUM (BEAKER) 141 meq/L 136-145 (test code = 381) POTASSIUM (BEAKER) 3.6 meq/L 3.5-5.1 (test code = 379) CHLORIDE (BEAKER) 106 meq/L 98-107 (test code = 382) CO2 (BEAKER) (test 28 meq/L 22-29 code = 355) BLOOD UREA NITROGEN 14 mg/dL 7-21 (BEAKER) (test code = 354) CREATININE (BEAKER) 0.82 mg/dL 0.57-1.25 (test code = 358) GLUCOSE RANDOM 97 mg/dL 70-105 (BEAKER) (test code = 652) CALCIUM (BEAKER) 9.0 mg/dL 8.4-10.2 (test code = 697) EGFR (BEAKER) (test 92 mL/min/1.73 ESTIMA FRANKLIN GFR IS code = 1092) sq m NOT ACCURATE CREATININE CLEARANCE IN PREDICTING GLOMERULAR FILTRATION RATE . ESTIMATED GFR I S NOT APPLICABLE FOR DIALYSIS PATIEN TS. [employer] ID - SAMMY [id number] 06:43:00 Test Item Value Reference Range Interpretation Comments MAGNESIUM (BEAKER) (test code = 1.7 mg/dL 1.6-2.6 627) [employer] ID Rosalia CHRISTIANSON LLIPID [id number] 06:43:00 Test Item Value Reference Range Interpretation Comments TRIGLYCERIDES (BEAKER) (test code = 83 mg/dL 540) CHOLESTEROL (BEAKER) (test code = 120 mg/dL 631) HDL CHOLESTEROL (BEAKER) (test code 43 mg/dL = 976) LDL CHOLESTEROL CALCULATED (BEAKER) 60 mg/dL (test code = 633) Triglyceride Reference Range: Low Risk <150 Borderline 150-199 High Risk 200-499 Very High Risk >=500Cholesterol Reference Range: Low Risk <200 Borderline 200-239 High Risk >240HDL Cholesterol Reference Range: Low Risk >=60 High Risk <40LDL Cholesterol Reference Range: Optimal <100 Near Optimal 100-129 Borderline 130-159 High 160-189 Very High >=190 [employer] ID - [id number] (HEMOGRAM ONLY)2020-09-24 06:26:00 Test Item Value Reference Range Interpretation Comments WHITE BLOOD CELL COUNT (BEAKER) 5.6 K/ L 3.5-10.5 (test code = 775) RED BLOOD CELL COUNT (BEAKER) 4.51 M/ L 4.63-6.08 L (test code = 761) HEMOGLOBIN (BEAKER) (test code = 13.7 GM/DL 13.7-17.5 410) HEMATOCRIT (BEAKER) (test code = 42.0 % 40.1-51.0 411) MEAN CORPUSCULAR VOLUME (BEAKER) 93.1 fL 79.0-92.2 H (test code = 753) MEAN CORPUSCULAR HEMOGLOBIN 30.4 pg 25.7-32.2 (BEAKER) (test code = 751) MEAN CORPUSCULAR HEMOGLOBIN CONC 32.6 GM/DL 32.3-36.5 (BEAKER) (test code = 752) RED CELL DISTRIBUTION WIDTH 12.1 % 11.6-14.4 (BEAKER) (test code = 412) PLATELET COUNT (BEAKER) (test 165 K/CU MM 150-450 code = 756) MEAN PLATELET VOLUME (BEAKER) 9.9 fL 9.4-12.4 (test code = 754) NUCLEATED RED BLOOD CELLS 0 /100 WBC 0-0 (BEAKER) (test code = 413) PLATELET [id number] 06:26:00 Test Item Value Reference Range Interpretation Comments PLATELET COUNT (BEAKER) (test 165 K/CU MM 150-450 code = 756) [id number] 23:33:00 Test Item Value Reference Range Interpretation Comments PARTIAL THROMBOPLASTIN TIME 72.8 seconds 22.5-36.0 H (BEAKER) (test code = 760) Vein Mapping Legs [id number] 18:09:55Ejection FractionSLEH ECHO HEARTLAB MKCKESSON CPACSRight Impression1. There is no deep venous venous obstruction in the common femoral,profunda femoral, femoral, popliteal, posterior tibial or peronealveins.2. There is no superficial venous obstruction in the great saphenous vein.Left Impression1. There is no deep venous obstruction in the common femoral, profundafemoral, femoral, popliteal, posterio r tibial or peroneal veins.2. There is no superficial venous obstruction in the great saphenous vein. Conclusions Summary Venous duplex imaging and compression of the bilateral lower extremities wasperformed. The veins were adequately visualized. The bilateral venous systems were patent and compressible with no evidence of thrombus. Superficial venous measurements are documented below. Signature Velocities are measured in cm/s ; Diameters are measured in cm LE Vein MappingSuperficial - Great Saphenous Vein Right Left + + + + + + + + !Location ! !Diameter !Depth ! !Diameter !Depth ! + + + + + + + + !GSV High Thigh ! !0.51 ! ! !0.55 ! ! + + + + + + + +!GSV Mid Thigh ! !0.45 ! ! !0.48 ! ! + + + + + + + + !GSV Low Thigh ! !0.44 ! ! !0.47 ! ! + + + + + + + + !GSV High Calf ! !0.32 ! ! !0.34 ! ! + + + + + +----- + + !GSV Mid Calf ! !0.31 ! ! !0.28 ! ! + + + + + + + + !GSV Low Calf ! !0.4 ! ! + + + + + Interface, External Ris In - 09/23/2020 6:10 PM CDTPV LAB - Lower Extremities Vein Mapping Demographics Patient Name GILLIAN WIGGINS Date of Study 09/23/2020 VALENTINO Age 74 Visit Number [id number] Gender Male Accession Number [id number] Date of 1945 Referring Hayde Lebron Room Number 1147 Physician Veterinary Technologist Perfecto Boyce Interpreting Ileana Parks, T Physician ProcedureType of Study: Veins: Lower Extremity Vein Mapping, VEIN MAPPING, LOWER EXTREMITY, BILATERAL. Indications for Study:Pre ACB Evaluation.Patient Status:TODAY.Study Location:Portable.Technical Quality:Adequ ate visualization.ImpressionsRight Impression1. There is no deep venous venous obstruction in the common femoral,profunda femoral, femoral, popliteal, posterior tibial or peroneal veins.2. There is no superficial venous obstruction in the great saphenous vein.Left Impression1. There is no deep venous o bstruction in the common femoral, profundafemoral, femoral, popliteal, posterior tibial or peroneal veins.2. There is no superficial venous obstruction in the great saphenous vein. Conclusions Summary Venous duplex imaging and compression of the bilateral lower extremities was performed. The veins were adequately visualized. The bilateral venous systems were patent and compressible with no evidenceof thrombus. Superficial venous measurements are documented below. Signature Velocities are measured in cm/s ; Diameters are measured in cmLE Vein Mapping Superficial - Great Saphenous Vein Right Left + + + + + + + + !Location ! !Diameter!Depth ! !Diameter !Depth ! +--- + + + + + + + !GSV High Thigh ! !0.51 ! ! !0.55 ! ! + + + + + + + + !GSV Mid Thigh ! !0.45 ! ! !0.48 ! ! + + + + + +-- + + !GSV Low Thigh ! !0.44 ! ! !0.47 ! ! + + + + + + + + !GSV High Calf ! !0.32 ! ! !0.34 ! ! + + + + + + + + !GSV Mid Calf ! !0.31 ! ! !0.28 ! ! + + + + + + + + !GSV Low Calf ! !0.4 ! ! 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 The left ventricle is chamber size (by vol index) is normal. Mild septal hypertrophy is present. The following segment(s) appear akinetic: mid-distal septum, apex, apical inferior . LVEF by Hernandez's method of disk assessment is mildly reduced (45-49%). Grade 1 diastolic dysfunction (impaired relaxation and low-normal LA pressure). LA size is mildly enlarged (35-41 ml/m2) . 2. Global RV systolic function is normal. RV chamber size is normal. Unable to estimate peak systolic PA pressure; inadequate TR velocity signal. 3. No significant valvular abnormalities. Previous Study No prior exam available for comparison. Signature Findings Technical Quality: Technically difficult exam. Left Ventricle The left ventricle is chamber size (by vol index) is normal (male - LVED vol - 34-74ml/m2). Mild septal hypertrophy is present. The following segment(s) appear akinetic: mid-distal septum, apex, apical inferior . Global LV systolic function mildly reduced . LVEF by Hernandez's method of disk assessment is mildly reduced (45-49%) . The LVEF was measured using Hernandez's bi-plane method of disk . Grade 1 diastolic dysfunction (impaired relaxation and low-normal LA pressure). Left Atrium LA size is mildly enlarged (35-41 ml/m2) . Right Ventricle RV pacing wire is visualized . Global RV systolic function is normal . RV chamber size isnormal . Right Atrium RA pacing wire is visualized . RA cavity size is normal . Aortic Valve Mild AoV cusp thickening. Mild AoV cusp calcification. AoV cusp mobility is normal . There is no aortic regurgitation. Mitral Valve Mild MV leaflet thickening. Mild mitral annular calcification. Trace mitral regurgitation. Tricuspid Valve Unable to estimate peak systolic PA pressure; inadequate TR velocity signal. The tricuspid valve is not well visualized. Pulmonic Valve Normal PV structure and function. Aorta Aortic root size (SInus of Valsalva diameter) is normal . Proximal ascending aorta size is normal . Pericardium No significant pericardial effusion is visualized. IVC/SVC/PA/PV/Pleural The right upper pulmonary vein (RUPV) is normal . The estimated RA pressure by IVC dynamics 5-10mmHg . Chambers/Structures Left Atrium LA Volume: 69.83 ml LA Area: 16.79 cm^2 LA Vol. Index: 37 ml/m^2 Left Ventricle LVIDd: 3.94 cm LV Septum Diastolic: 1.26 cm LV PW Diastolic: 0.87 cm LVEDV Hernandez's:96.87 ml LVESV Hernandez's:50.7 ml LVEF Hernandez's: 47.7 % LVEDVI: 51 ml/m^2 LVESVI: 27 ml/m^2 LVOT Diameter: 2 cm Right Ventricle TAPSE: 1.91 cm Aorta Ao Root S of Jody.: 3.14 cm Ascending Aorta: 2.96 cm Doppler/Quantitative Measurements Mitral Valve MV Peak E-Wave: 0.79 m/s MV Peak A-Wave: 1.1 m/s E/A Ratio: 0.72 Peak Gradient: 2.49 mmHg Deceleration Time: 251.2msec MV Abner. Peak: Tissue Doppler E' Septal Velocity: 0.06 m/s E' Lateral Velocity: 0.07 m/s Aortic Valve Peak Velocity: 1.21 m/s Mean Velocity: 0.86 m/s Peak Gradient: 5.89 mmHg Mean Gradient: 3.32 mmHg AV Area (continuity): 2.77 cm^2 AV VTI: 26.96 cm AV DVI: 0.88 LVOT Peak Velocity: 1.11 m/s Peak Gradient: 4.93 mmHg Mean Velocity: 0.75 m/s Mean Gradient: 2.55 mmHg LVOT Diameter: 2 cm LVOT VTI: 23.75 cm LVOT Area: 3.14cm^2 LVOT SV:74.58 ml LVOT CO: 4.92 l/min LVOT CI: 2.58 l/min/m^2[facility])2020-09-23 15:40:00 Test Item Value Reference Range Interpretation Comments SARS-COV2/RT-PCR (test Negative Not Detected, Negative, code = 9425773) See external report for linked test SARS-COV-2 PERFORMING LAB [facility] (test code = 4548157) Negative result for this test determines that SARS-CoV-2 RNA was not present in the specimen above the Limit of Detection (LOD). However, Negative results do not preclude SARS-CoV-2 infection and should not be used as the sole basis for treatment or patient management decisions. Negative results mustbe combined with clinical observations, patient history, and epidemiological information. A false negative result may occur if a specimen is improperly collected, transported or handled. A false negative result should be considered if patient's recent exposures or clinical presentation indicate that COVID-19 (SARS-CoV-2) is likely and diagnostic tests for other causes of illness are negative. Re-testing should be considered in cases of suspected false negatives.The limit of detection for this assay is 800 copies/mL.This SARS CoV-2 test is a real-time RT-PCR test intended for the qualitative detection of nucleic acid from SARS-CoV-2 in a nasopharyngeal swab specimen collected from individuals susp ected of COVID-19 by their healthcare provider.This test has not been Food and Drug Administration (FDA) cleared or approved. This is a modified version of an approved Emergency Use Authorization (EUA) and is in the process of review by the FDA. Once authorized by the FDA, the issued EUA will be effective until the declaration that circumstances exist justifying the authorization of the emergency use of in vitro diagnostic tests for detection and/or diagnosis of COVID-19 is terminated under Section 564(b)(2) of the Act or the EUA is revoked under Section 564(g) of the Act.Fact Sheet for Healthcare Providers:https://www.[employer]/sites/default/files/product/documents/Fact_Shee s_LS_Lapnpmjsc_Cxjt_PMJF-VbT-0.pdfFact Sheet for Healthcare Patients:https://www.[employer]/sites/default/files/product/ documents/Szpi_Iuekx_Ngbaklhi_Zsbe_BKMO-QaA-7.pdfPerforming Laboratory:[facility], [place] [address]DOFZQ, manual 2020-09-23 14:06:00 Test Item Value Reference Range Interpretation Comments ABO Grouping (test code = 2588) A Rh Factor (test code = 2589) [facility] HospitalEC[facility]/EKG [id number] 10:54:24Mere Us DO 09/23/2020 11:03 AMECG/EKG Interpretation Date/Time: 09/23/2020 11:03 AMPerformed by: Mere Us DOAuthorized by: Asa Naik MD The ECG was interpreted by ED physician. This ECG was not compared with previous ECG(s).The ECG is interpreted as sinus rhythm. Rate is normal rate. Conduction: conduction normal. ST segments abnormal. T waves abnormal. [place] is normal. Other findings: no other findings. Right sided lead use: right-sided leads not used. Left sided lead use: Posterior leads were not used. Clinical Impression: non-specific ECGECG reviewed and does not meet STEMI criteria.[facility] HospitalRAD, CHEST, 1 VIEW, NON [id number] 09:56:00Reason for exam:->aobShould this be performed at the bedside?->Yes [facility] : 1945 Sex: MFINAL REPORT TECHNIQUE: Frontal view of the chest. INDICATION: 74-ye ar-old man with shortness of breath. COMPARISON: None. FINDINGS: LINES/TUBES/DEVICES: Implanted cardiac device projects over the left chest with intact leads which project over the expected regions ofthe right atrium and right ventricle. LUNGS: Lungs are well inflated. No consolidation or pulmonary e ramez. Mild curvilinear opacities in both lung bases, likely atelectasis/scarring. Apparent 5 mm nodular density projects over the lateral right lower lung zone and the right anterior sixth rib. PLEURA:No pneumothorax or significant pleural effusion. HEART AND MEDIASTINUM: Cardiac silhouette is mildlyprominent. BONES AND SOFT TISSUES: Unremarkable. IMPRESSION:No acute cardiopulmonary abnormalities.Apparent 5 mm nodular density projects over the right lower lung zone. Differential considerations include overlapping vessels, pulmonary nodule, and bone island in the overlying rib. Follow-up chest ra diographs may be obtained in 6 months for reassessment; alternatively, nonemergent chest CT may be obtained. Signed: Marry Mercado MDReport Verified Date/Time: 09/23/2020 09:56:24 Reading Location: [facility] C013Y CT Body Reading Room 09:56 AM B-type Natriuretic Factor (BNP)2020-09-23 09:55:00 Test Item Value Reference Range Interpretation Comments BNP (test code = 80200-7) 88 pg/mL 0-100 DEMARCO (test code = DEMARCO) [employer] ID - YANIQUE C Lab Interpretation (test Normal code = 13471-8) [facility] [id number] 09:55:00 Test Item Value Reference Range Interpretation Comments Troponin I (test code = 0.02 ng/mL 0-0.03 52399-6) DEMARCO (test code = DEMARCO) Troponin I (TnI) levels must be interpreted in the context of the presenting symptoms and the clinical findings. Elevated TnI levels indicate myocardial damage, but are not specific for ischemic heart disease. Elevated TnI levels are seen in patients with other cardiac conditions (including myocarditis and congestive heart failure), and slight TnI elevations occur in patients with other conditions, including sepsis, renal failure, acidosis, acute neurological disease, and persistent tachyarrhythmia.Opera tor ID - YANIQUE C Lab Interpretation (test Normal code = 71873-1) [facility] [id number] 09:55:00 Test Item Value Reference Range Interpretation Comments TROPONIN I (BEAKER) (test code = 0.02 ng/mL 0.00-0.03 397) Troponin I (TnI) levels must be interpreted in the context of the presenting symptoms and the clinical findings. Elevated TnI levels indicate myocardial damage, but are not specific for ischemic heart disease. Elevated TnI levels are seen in patients with other cardiac conditions (including myocarditis and congestive heart failure), and slight TnI elevations occur in patients with other conditions, including sepsis, renal failure, acidosis, acute neurological disease, and persistent tachyarrhythmia.[employer] ID - YANIQUE CB-TYPE NATRIURETIC FACTOR (BNP)2020-09-23 09:55:00 Test Item Value Reference Range Interpretation Comments B-TYPE NATRIURETIC PEPTIDE (BEAKER) 88 pg/mL 0-100 (test code = 700) [employer] ID - YANIQUE CPT/[id number] 09:52:00 Test Item Value Reference Range Interpretation Comments PROTIME (BEAKER) (test code = 14.4 seconds 11.9-14.2 H 759) INR (BEAKER) (test code = 370) 1.15 <=5.90 PARTIAL THROMBOPLASTIN TIME 26.9 seconds 22.5-36.0 (BEAKER) (test code = 760) Effective 04/27/2019: PT Reference Range ChangeNew: 11.9-14.2 Previous: 11.7- 14.7RECOMMENDED COUMADIN/WARFARIN INR THERAPY RANGESSTANDARD DOSE: 2.0-3.0 Includes: PROPHYLAXIS for venous thrombosis, systemic embolization; TREATMENT for venous thrombosis and/or pulmonary embolus.HIGH RISK: Target INR is2.5-3.5 for patients wiht mechanical heart valves.BASIC METABOLIC [id number] 09:49:00 Test Item Value Reference Range Interpretation Comments SODIUM (BEAKER) 139 meq/L 136-145 (test code = 381) POTASSIUM (BEAKER) 3.9 meq/L 3.5-5.1 (test code = 379) CHLORIDE (BEAKER) 104 meq/L 98-107 (test code = 382) CO2 (BEAKER) (test 26 meq/L 22-29 code = 355) BLOOD UREA NITROGEN 13 mg/dL 7-21 (BEAKER) (test code = 354) CREATININE (BEAKER) 0.87 mg/dL 0.57-1.25 (test code = 358) GLUCOSE RANDOM 98 mg/dL 70-105 (BEAKER) (test code = 652) CALCIUM (BEAKER) 9.1 mg/dL 8.4-10.2 (test code = 697) EGFR (BEAKER) (test 86 mL/min/1.73 ESTIMA FRANKLIN GFR IS code = 1092) sq m NOT ACCURATE CREATININE CLEARANCE IN PREDICTING GLOMERULAR FILTRATION RATE . ESTIMATED GFR I S NOT APPLICABLE FOR DIALYSIS PATIEN TS. [employer] ID - [facility]CTION [id number] 09:49:00 Test Item Value Reference Range Interpretation Comments TOTAL PROTEIN (BEAKER) (test code = 7.4 gm/dL 6.0-8.3 770) ALBUMIN (BEAKER) (test code = 1145) 3.9 g/dL 3.5-5.0 BILIRUBIN TOTAL (BEAKER) (test code 0.9 mg/dL 0.2-1.2 = 377) BILIRUBIN DIRECT (BEAKER) (test 0.4 mg/dL 0.1-0.5 code = 706) ALKALINE PHOSPHATASE (BEAKER) (test 52 U/L 40-150 code = 346) AST (SGOT) (BEAKER) (test code = 20 U/L 5-34 353) ALT (SGPT) (BEAKER) (test code = 14 U/L 6-55 347) [employer] ID - YANIQUE CCBC W/PLT COUNT & AUTO [id number] 09:22:00 Test Item Value Reference Range Interpretation Comments WHITE BLOOD CELL COUNT (BEAKER) 5.5 K/ L 3.5-10.5 (test code = 775) RED BLOOD CELL COUNT (BEAKER) 4.61 M/ L 4.63-6.08 L (test code = 761) HEMOGLOBIN (BEAKER) (test code = 14.2 GM/DL 13.7-17.5 410) HEMATOCRIT (BEAKER) (test code = 42.7 % 40.1-51.0 411) MEAN CORPUSCULAR VOLUME (BEAKER) 92.6 fL 79.0-92.2 H (test code = 753) MEAN CORPUSCULAR HEMOGLOBIN 30.8 pg 25.7-32.2 (BEAKER) (test code = 751) MEAN CORPUSCULAR HEMOGLOBIN CONC 33.3 GM/DL 32.3-36.5 (BEAKER) (test code = 752) RED CELL DISTRIBUTION WIDTH 12.0 % 11.6-14.4 (BEAKER) (test code = 412) PLATELET COUNT (BEAKER) (test 185 K/CU MM 150-450 code = 756) MEAN PLATELET VOLUME (BEAKER) 9.6 fL 9.4-12.4 (test code = 754) NUCLEATED RED BLOOD CELLS 0 /100 WBC 0-0 (BEAKER) (test code = 413) NEUTROPHILS RELATIVE PERCENT 59 % (BEAKER) (test code = 429) LYMPHOCYTES RELATIVE PERCENT 25 % (BEAKER) (test code = 430) MONOCYTES RELATIVE PERCENT 13 % (BEAKER) (test code = 431) EOSINOPHILS RELATIVE PERCENT 3 % (BEAKER) (test code = 432) BASOPHILS RELATIVE PERCENT 1 % (BEAKER) (test code = 437) NEUTROPHILS ABSOLUTE COUNT 3.23 K/ L 1.78-5.38 (BEAKER) (test code = 670) LYMPHOCYTES ABSOLUTE COUNT 1.35 K/ L 1.32-3.57 (BEAKER) (test code = 414) MONOCYTES ABSOLUTE COUNT (BEAKER) 0.68 K/ L 0.30-0.82 (test code = 415) EOSINOPHILS ABSOLUTE COUNT 0.15 K/ L 0.04-0.54 (BEAKER) (test code = 416) BASOPHILS ABSOLUTE COUNT (BEAKER) 0.03 K/ L 0.01-0.08 (test code = 417) IMMATURE GRANULOCYTES-RELATIVE 0 % 0-1 PERCENT (BEAKER) (test code = 2801) [id number] 00:00:00Ordered by an unspecified provider.[facility]
[2021-03-13 19:13] LABS: Absolute Lymphocytes (CBC) 0.7 K/uL (0.7-4.9); Basophils % 0.3 % (0-1.3); Hematocrit 42.5 % (39.6-49.0); Lymphocytes % 15.5 % (15.3-44.8); MPV 8.7 fL (7.6-11.3)
--- NOTE | 2021-03-13 20:31 | EDPHYS ---
Physician Documentation [facility] Name: Sharath Wiggins Age: 75 yrs Sex: Male : 1945 Arrival Date: 03/13/2021 Time: 15:33 Bed 18 Private MD: [facility] ED Physician David Madden HPI: 03/13 20:01 This 75 yrs old Male presents to ER via Wheelchair with complaints of kb Pneumonia. 20:01 The patient or guardian reports cough, difficulty breathing, flu symptoms. Onset: The kb symptoms/episode began/occurred 10 day(s) ago. Severity of symptoms: At their worst the symptoms were moderate, in the emergency department the symptoms have improved, mildly. Modifying factors: The symptoms are alleviated by nothing, the symptoms are aggravated by nothing. Associated signs and symptoms: Pertinent positives: fever. The patient has not experienced similar symptoms in the past. The patient has been recently seen by a physician:. Pt reports he was exposed to covid at the beginning of the month so he got tested on the and was negative. They suggested he get the J\\T\\J vaccine so he did on the . That evening he started having severe flu-like symptoms. States those lasted for a few days then went away, but pt was still having fever and cough so he followed up with Dr Lebron. Dr Lebron ordered a CXR and covid test. CXR showed pneumonia and covid test was positive so pt was sent to ER for eval. Historical: - Allergies: 16:00 No Known Allergies; ll1 - PMHx: 16:00 Hypertension; High Cholesterol; heart disease; ll1 - PSHx: 16:00 CABG; open heart sx/carotid sx-August; Pacemaker with stent placement; ll1 - Immunization history:: Client reports receiving the 1st dose of the Covid vaccine, J\\T\\J 03/04/21 Flu vaccine is up to date. - Social history:: Smoking status: Patient/guardian denies using tobacco, the patient reports quitting approximately 25 years ago. ROS: 20:00 Cardiovascular: Negative for chest pain, palpitations, and edema, Abdomen/GI: Negative kb for abdominal pain, nausea, vomiting, diarrhea, and constipation, MS/Extremity: Negative for injury and deformity, Skin: Negative for injury, rash, and discoloration, Neuro: Negative for headache, weakness, numbness, tingling, and seizure. 20:00 Constitutional: Positive for body aches, chills, fatigue, fever, malaise. 20:00 Respiratory: Positive for cough. Exam: 20:00 Constitutional: This is a well developed, well nourished patient who is awake, alert, kb and in no acute distress. Head/Face: Normocephalic, atraumatic. Chest/axilla: Normal chest wall appearance and motion. Cardiovascular: Regular rate and rhythm with a normal S1 and S2. No gallops, murmurs, or rubs. No pulse deficits. Respiratory: Respirations even and unlabored. No increased work of breathing, no retractions or nasal flaring. Abdomen/GI: Soft, non-tender. No distention Skin: Warm, dry with normal turgor. Normal color. MS/ Extremity: Pulses equal, no cyanosis. Neurovascular intact. Full, normal range of motion. Neuro: Awake and alert, GCS 15, oriented to person, place, time, and situation. Moves all extremities. Normal gait. Vital Signs: 15:57 BP 129 / 73; Pulse 98; Resp 18; Temp 99.1; Pulse Ox 95% on R/A; Weight 74.84 kg; Height ll1 5 ft. 8 in. (172.72 cm); Pain 2/10; 21:14 BP 131 / 74; Pulse 83; Resp 17; Pulse Ox 96% on R/A; ll1 15:57 Body Mass Index 25.09 (74.84 kg, 172.72 cm) ll1 MDM: 18:43 Patient medically screened. kb 19:59 Data reviewed: vital signs, nurses notes. Data interpreted: Pulse oximetry: on room air kb is 95 %. Interpretation: normal. Counseling: I had a detailed discussion with the patient and/or guardian regarding: the historical points, exam findings, and any diagnostic results supporting the discharge/admit diagnosis, lab results, radiology results, the need for outpatient follow up, a family practitioner, to return to the emergency department if symptoms worsen or persist or if there are any questions or concerns that arise at home. 20:43 ED course: Pt upset about being discharged. Pt states Dr Lebron sent him here to be kb admitted for antibiotics and steroids. Informed pt there was no indication for admission at this time. x-ray shows mild viral pneumonia, oxygen sat 97-98% on room air, no elevation in wbc, positive COVID test. Pt educated that his symptoms should get better with time, but if they get worse or he feels like he needs oxygen he should return. "I've spent most of the day here and now I'm being told that I have COVID and can go home. I guess I will just go." Pt again states he is supposed to get steroids and antibiotics. Prescriptions written for both and pt educated that they may not help his symptoms at all. Educated that there is no treatment for COVID. Pt upset that there isn't a medication to get rid of virus. Pt nontoxic appearing, no resp distress. . 03/13 18:47 Order name: CBC with Diff kb 03/13 18:47 Order name: Basic Metabolic Panel kb 03/13 18:47 Order name: Lactate kb 03/13 18:47 Order name: Procalcitonin kb 03/13 18:47 Order name: Blood Culture Adult (2) kb 03/13 18:47 Order name: CBC with Automated Diff; Complete Time: 21:08 EDMS 03/13 18:47 Order name: Basic Metabolic Panel; Complete Time: 19:44 EDMS 03/13 18:47 Order name: Lactate; Complete Time: 20:05 EDMS 03/13 18:47 Order name: Procalcitonin; Complete Time: 21:08 EDMS 03/13 20:53 Order name: CBC Smear Scan; Complete Time: 21:08 EDMS 03/13 18:47 Order name: IV Start; Complete Time: 19:09 kb Administered Medications: 20:30 Drug: NS 0.9% 500 ml Route: IV; Rate: bolus; Site: right antecubital; ll1 21:15 Follow up: Response: No adverse reaction; RASS: Alert and Calm (0); IV Status: ll1 Completed infusion; IV Intake: 500ml 21:02 Drug: Zithromax (azithromycin) 500 mg Route: PO; ll1 21:16 Follow up: Response: No adverse reaction; RASS: Alert and Calm (0) ll1 21:03 Drug: predniSONE 40 mg Route: PO; ll1 21:16 Follow up: Response: No adverse reaction; RASS: Alert and Calm (0) ll1 Disposition: 03/14 07:26 Co-signature as Attending Physician, David Madden MD I agree with the assessment and kdr plan of care. Disposition: 03/13/21 20:31 Discharged to Home. Impression: Coronavirus infection, unspecified, Viral pneumonia, not elsewhere classified. - Condition is Stable. - Discharge Instructions: Viral Respiratory Infection, Bwzq-Gz-Tbnl, COVID-19. - Prescriptions for Prednisone 20 mg Oral Tablet - take 1 tablet by ORAL route once daily for 5 days; 5 tablet. Albuterol Sulfate 90 mcg/actuation - inhale 1-2 puff by INHALATION route every 4-6 hours; 1 Inhaler. Zithromax 500 mg Oral Tablet - take 1 tablet by ORAL route once daily for 5 days; 5 tablet. Zofran 4 mg Oral Tablet - take 1 tablet by ORAL route every 6 hours As needed; 20 tablet. - Medication Reconciliation Form, Thank You Letter, Antibiotic Education, Prescription Opioid Use form. - Follow up: Emergency Department; When: As needed; Reason: Worsening of condition. Follow up: Private Physician; When: 2 - 3 days; Reason: Recheck today's complaints, Continuance of care, Re-evaluation by your physician. Signatures: Dispatcher [employer] [facility] Dulce Rivero, TRANSCRIPTION TYPIST-C TRANSCRIPTION TYPIST-David Warner MD MD kdr Brett Kemp RN RN ll1 Corrections: (The following items were deleted from the chart) 03/13 18:03 17:04 Chest Pa And Lat (2 Views)+[email or web address] ordered. [facility] 20:49 20:43 ED course: Pt upset about being discharged. Pt states Dr Lebron sent him here to kb be admitted for antibiotics and steroids. Informed pt there was no indication for admission at this time. x-ray shows mild viral pneumonia, oxygen sat 97-98% on room air, no elevation in wbc, positive COVID test. Pt educated that his symptoms should get better with time, but if they get worse or he feels like he needs oxygen he should return. "I've spent most of the day here and now I'm being told that I have COVID and can go home. I guess I will just go." Pt again states he is supposed to get steroids and antibiotics. Prescriptions written for both and pt educated that they may not help his symptoms at all. Educated that there is no treatment for COVID. Pt upset that there isn't a medication to get rid of virus. . kb 21:16 20:31 03/13/2021 20:31 Discharged to Home. Impression: Coronavirus infection, ll1 unspecified; Viral pneumonia, not elsewhere classified. Condition is Stable. Forms are Medication Reconciliation Form, Thank You Letter, Antibiotic Education, Prescription Opioid Use. Follow up: Emergency Department; When: As needed; Reason: Worsening of condition. Follow up: Private Physician; When: 2 - 3 days; Reason: Recheck today's complaints, Continuance of care, Re-evaluation by your physician. kb
--- NOTE | 2021-03-13 20:31 | ER ---
Nurse's Notes [facility] Name: Sharath Wiggins Age: 75 yrs Sex: Male : 1945 Arrival Date: 03/13/2021 Time: 15:33 Bed 18 Private MD: Yassine Lebron Diagnosis: Coronavirus infection, unspecified;Viral pneumonia, not elsewhere classified Presentation: 03/13 15:57 Chief complaint: Patient states: Diagnosed with pneumonia today. Sent by Dr. Bill Lebron ll1 for eval. + SOB, cough, weak, fatigue since 03/04, the day he got his J\T\J covid vaccine. Covid Positive. Coronavirus screen: Client denies travel out of the [place] in the last 14 days. congestion, cough unrelated to allergies, difficulty breathing, fatigue, shortness of breath, Client presents with at least one sign or symptom that may indicate coronavirus-19. Standard/surgical mask placed on the client. Ebola Screen: Patient denies travel to an Ebola-affected area in the 21 days before illness onset. Initial Sepsis Screen: Does the patient meet any 2 criteria? HR > 90 bpm. No. Patient's initial sepsis screen is negative. Does the patient have a suspected source of infection? Yes: Productive cough/pneumonia. Risk Assessment: Do you want to hurt yourself or someone else? Patient reports no desire to harm self or others. Onset of symptoms was March 04, 2021. 15:57 Method Of Arrival: Wheelchair 1 15:57 Acuity: LEANDER 3 ll1 Historical: - Allergies: 16:00 No Known Allergies; ll1 - PMHx: 16:00 Hypertension; High Cholesterol; heart disease; ll1 - PSHx: 16:00 CABG; open heart sx/carotid sx-August; Pacemaker with stent placement; ll1 - Immunization history:: Client reports receiving the 1st dose of the Covid vaccine, J\T\J 03/04/21 Flu vaccine is up to date. - Social history:: Smoking status: Patient/guardian denies using tobacco, the patient reports quitting approximately 25 years ago. Screenin:21 Abuse screen: Denies threats or abuse. Nutritional screening: No deficits noted. ll1 Tuberculosis screening: No symptoms or risk factors identified. Fall Risk None identified. IV access (20 points). Total Small Fall Scale indicates No Risk (0-24 pts). Assessment: 19:19 General: Appears ill, Behavior is calm, cooperative, appropriate for age. Pain: ll1 Complains of pain in chest Quality of pain is described as aching, Aggravated by cough/deep breath. Neuro: No deficits noted. Cardiovascular: Reports chest pain, fatigue, shortness of breath, Heart tones S1 S2 Capillary refill < 3 seconds Clubbing of nail beds is absent JVD is absent Patient's skin is warm and dry. Respiratory: Reports shortness of breath cough that is pain with cough Airway is patent Trachea midline Respiratory effort is even, unlabored, Respiratory pattern is regular, symmetrical, Breath sounds are coarse bilaterally. Onset: The symptoms/episode began/occurred 4/5, the patient has mild shortness of breath. GI: No deficits noted. Vital Signs: 15:57 BP 129 / 73; Pulse 98; Resp 18; Temp 99.1; Pulse Ox 95% on R/A; Weight 74.84 kg; Height ll1 5 ft. 8 in. (172.72 cm); Pain 2/10; 21:14 BP 131 / 74; Pulse 83; Resp 17; Pulse Ox 96% on R/A; ll1 15:57 Body Mass Index 25.09 (74.84 kg, 172.72 cm) ll1 ED Course: 15:33 Patient arrived in ED. mr 15:34 Yassine Lebron DO is Private Physician. mr 15:59 Triage completed. ll1 16:01 Arm band placed on. ll1 18:43 Dulce Rivero FNP-C is [facility]. kb 18:43 David Madden MD is Attending Physician. kb 18:44 Genny Emmanuel, NATY is Primary Nurse. ca1 19:06 Inserted saline lock: 20 gauge in right antecubital area, using aseptic technique. ca1 Blood collected. 19:11 Report given to NATY Jameson. ca1 19:21 Patient has correct armband on for positive identification. Bed in low position. Call ll1 light in reach. Side rails up X 1. Pulse ox on. NIBP on. 21:15 No provider procedures requiring assistance completed. IV discontinued, intact, ll1 bleeding controlled, No redness/swelling at site. Pressure dressing applied. Administered Medications: 20:30 Drug: NS 0.9% 500 ml Route: IV; Rate: bolus; Site: right antecubital; 1 21:15 Follow up: Response: No adverse reaction; RASS: Alert and Calm (0); IV Status: ll1 Completed infusion; IV Intake: 500ml 21:02 Drug: Zithromax (azithromycin) 500 mg Route: PO; ll1 21:16 Follow up: Response: No adverse reaction; RASS: Alert and Calm (0) ll1 21:03 Drug: predniSONE 40 mg Route: PO; ll1 21:16 Follow up: Response: No adverse reaction; RASS: Alert and Calm (0) [facility] Intake: 21:15 IV: 500ml; Total: 500ml. [facility] Outcome: 20:31 Discharge ordered by . flores 21:15 Discharged to home via wheelchair. ll1 21:15 Condition: stable 21:15 Discharge instructions given to patient, Instructed on discharge instructions, follow up and referral plans. medication usage, Demonstrated understanding of instructions, follow-up care, medications, Prescriptions given X 4. 21:16 Patient left the ED. [facility] Signatures: Dulce Rivero, YARN SPINNER-C YARN SPINNER-Ckb Quin Chaparro mr Genny Emmanuel, RN RN ca1 Brett Kemp RN RN [facility] Corrections: (The following items were deleted from the chart) 17:18 15:57 Chief complaint: Patient states: Diagnosed with pneumonia today. Sent by Dr. Khan [facility] [place] for eval. + SOB, cough, weak, fatigue since 03/04, the day he got his J\T\J covid vaccine. [facility]
[2021-03-13] MEDS ORDERED: NA CHLORIDE 0.9% 500 ML ONE (20:47)
[2021-03-13 20:53] LABS: White Blood Cell Scan OK (OK)
[2021-03-13 20:54] LABS: Blood Morphology Comment NOT SEEN (NOT SEEN); Platelet Estimate ADEQ
[2021-03-13] MEDS ORDERED: predniSONE 20 MG TAB ONE (21:18)
[2021-03-13] MEDS ORDERED: AZITHROMYCIN 250 MG TAB ONE (21:18)
[2021-03-13 21:43] VITALS: TEMP 99.1
[2021-03-13 21:45] VITALS: BP 131/74; O2SAT 96
== END 2021-03-13 21:16 | disposition home or self-care (01) ==
LOC: ER 15:30
DX: U07.1 COVID-19 (principal); J12.9 Viral pneumonia, unspecified; I10 Essential (primary) hypertension; I51.9 Heart disease, unspecified; Z95.1 Presence of aortocoronary bypass graft; Z95.0 Presence of cardiac pacemaker
CPT/HCPCS: 87040 ×2; 85025; 80048; 36415; 83605; 84145; 96360; 99284; J7040; J7512

== ENCOUNTER 2022-02-10 07:40 | Day surgery (SDC) | payer OTHER ==
[2022-02-06 10:15] VITALS: BMI 27.0
--- NOTE | 2022-02-06 10:45 | RAD REPORT ---
EXAM DESCRIPTION: RAD - Chest Pa And Lat (2 Views) - 02/06/2022 10:27 am CLINICAL HISTORY: PRE PROCEDURE Chest pain. COMPARISON: Chest Pa And Lat (2 Views) dated 03/13/2021; Chest Pa And Lat (2 Views) dated 09/18/2020; CHEST PA AND LAT 2 VIEW dated 06/25/2010; CHEST SINGLE VIEW dated 06/24/2010 TECHNIQUE: PA and lateral views of the chest were obtained. FINDINGS: The lungs are hyperexpanded compatible with COPD. The heart is upper limit of normal in si ze. No fracture or aggressive bony process. Dual lead pacer/defibrillator device. Sternotomy wires pr esent. IMPRESSION: COPD without acute process identified. The USPSTF recommends annual screening for lung cancer with low-dose CT (LDCT) in adults aged 50 to 8 0 years who have a 20 pack-year smoking history and currently smoke or have quit within the past 15 y ears.
[2022-02-06 11:08] LABS: Absolute Lymphocytes (CBC) 2.1 K/uL (0.7-4.9); Hematocrit 42.5 % (39.6-49.0); Lymphocytes % 28.6 % (15.3-44.8); MPV 7.7 fL (7.6-11.3); RBC Red Blood Cell Count 4.97 M/uL (4.33-5.43)
[2022-02-06 11:09] LABS: Protime INR 1.05
[2022-02-06 11:23] LABS: Potassium 4.2 mmol/L (3.5-5.1)
[2022-02-10] MEDS ORDERED: NA CHLORIDE 0.9% 500 ML ONE (08:00)
[2022-02-10] MEDS ORDERED: FENTANYL CITR 100 MCG/2 ML ONE (08:11)
[2022-02-10] MEDS ORDERED: HEPA 1000U/500MLS 2,000 UNIT/1,000 ML BAG IV ONE (08:11)
[2022-02-10] MEDS ORDERED: NA CHLORIDE 0.9% 0 ML ONE (08:12)
[2022-02-10] MEDS ORDERED: MIDAZOLAM HCL 2 MG/2 ML INJ ONE (08:12)
[2022-02-10] MEDS ORDERED: ATROPINE SULF 1 MG/10 ML SYR IV ONE (08:12)
[2022-02-10 14:45] VITALS: BP 111/68; O2SAT 96
--- NOTE | 2022-02-10 20:09 | OP ---
Surgeon: Kevin Brantley MD Title One Reading Teacher: Ms. Florencia Gray. Reason For Admission: For him to undergo left heart catheterization, selective coronary arteriogram, and vein graft, injection to the diagonal and the ARAUZ injection. Indication: Unstable angina, chest pain, coronary artery disease. History Of Present Illness: Mr. Wiggins was brought to the livestock laborer as an outpatient, prepped and hu ped in the routine sterile fashion. Given Versed and fentanyl for sedation. A 6-Scottish sheath intro duced in the right common femoral artery successfully. Angiography there was not done. We held pres sure for hemostasis. Kamar catheter left and right were used to cannulate the coronaries. The lef t main was normal. He had a patent circumflex stent. He had 100% occlusion of the proximal LAD. Th e JR4 catheter cannulated the RCA, which had a 90% ostial stenosis, but it was small, nondominant ves laurie. The JR4 was then used to cannulate the vein graft to the diagonal which was patent. A very lar ge vessel with slow flow, but no stenosis. We then went up to subclavian artery and cannulated the L ANA and ARAUZ injection showed a patent mammary to the LAD. A 6-Scottish sheath and catheters were used . The patient tolerated the procedure well. There were no complications. Blood Loss: 5 mL. Postoperative Diagnosis: Severe coronary artery disease, patent ARAUZ to the LAD, patent circumflex s tent, nondominant RCA. Plan: To continue medical therapy . Anesthesia: Total conscious sedation was 45 minutes. BEN/AMITA Voice ID: [id number] Report ID: [id number]
== END 2022-02-10 15:20 | disposition home or self-care (01) ==
LOC: CCL 07:40
DX: I25.110 Atherosclerotic heart disease of native coronary artery with unstable angina pectoris (principal); I25.82 Chronic total occlusion of coronary artery; I11.0 Hypertensive heart disease with heart failure; I50.22 Chronic systolic (congestive) heart failure; I47.2 Ventricular tachycardia; I70.213 Atherosclerosis of native arteries of extremities with intermittent claudication, bilateral legs; I65.23 Occlusion and stenosis of bilateral carotid arteries; E78.2 Mixed hyperlipidemia; Z95.1 Presence of aortocoronary bypass graft; Z95.5 Presence of coronary angioplasty implant and graft; Z95.0 Presence of cardiac pacemaker; Z87.891 Personal history of nicotine dependence; Z20.822 Contact with and (suspected) exposure to COVID-19
CPT/HCPCS: 85025; 80048; 36415; 85610; 85730; 71046; 93459; U0003; C1893; J2250; J3010; J7040; J1644; J0583

== ENCOUNTER 2022-02-10 16:06 | Emergency (ER) | payer OTHER ==
--- OUTSIDE RECORDS SUMMARY | 2022-02-10 16:12 | XMS REPORT | Continuity of Care Document ---
:1945 Author Organization [facility] t Address [address] [place] [address] Care Team Providers Name Role Phone WYATT MCKEON Attending Clinician Unavailable James DODSON Attending Clinician SANJUANITA DIEGO Attending Clinician Unavailable WYATT MCKEON Admitting Clinician Unavailable Payers Payer Name Policy Type Policy Number Effective Date Expiration Date Lea brock MEDICARE A B [id number] 2009 00:00:00 GENERIC MEDICARE [id number] 2020 SUPPLEMENT 00:00:00 Problems Condition Condition Condition Status Onset Resolution Last Treating Co mments Source Name Details Category Date Date Treatment Clinician Date HTN HTN Disease Active 2019-11 [facility] (hypertens (hypertens 1-18 Co llege ion) ion) 00:00: of 00 Medicin e HLD HLD Disease Active 2019-11 [facility] (hyperlipi (hyperlipi 1-18 Co llege demia) demia) 00:00: of 00 Medicin e 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 [facility] r cardiomyop cardiomyop -18 Co llege athy athy 00:00: of 00 Medicin e CAD CAD Disease Active 2019-11 [facility] (coronary (coronary 12-17 [facility] artery artery 00:00: of disease) disease) 00 Medici n e Stenosis Stenosis Disease Active 2019-11 [facility] r of right of right 12-17 Colleg e carotid carotid 00:00: of artery s/p artery s/p 00 Me dicin CEA CEA e Pacemaker Pacemaker Disease Active 2019-11 [facility] 12-17 College 00:00: of 00 Medicin e Allergies, Adverse Reactions, Alerts Allergy Allergy Status Severity Reaction(s) Onset Inactive Treating Comm ents Source Name Type Date Date Clinician NO KNOWN Allergy Active [facility] ALL[facility] S Social History Social Habit Start Date Stop Date Quantity Comments Source Tobacco use and 2020-10-17 2020-10-17 Never used Prieto Co llege exposure 00:00:00 00:00:00 of Medicine Alcohol intake 2020-10-17 2020-10-17 Current drinker [facility] 00:00:00 00:00:00 of alcohol of Medicine (finding) Sex Ass[birth year] [facility] Co llege 00:00:00 00:00:00 of Medicine Smoking Status Start Date Stop Date Source Former smoker 2020-10-17 00:00:00 2020-10-17 00:00:00 [facility] ollege of Medicine Medications Ordered Filled Start Stop Current Ordering Indication Dosage Frequency Signature Comments Components Source Medication Medication Date Date Medication? Clinician (SIG) Name Name atorvastati 2019-11 Yes 40mg Take 40 mg [facility] n (LIPITOR) 1-18 by mouth [facility] 40 MG 16:12: daily. of tablet 25 Medicin e clopidogrel 2019-11 Yes 75mg Take 75 mg [facility] (PLAVIX) 75 18 by mouth [facility] MG Tablet 16:12: daily. of 25 Medicin e isosorbide 2019-11 Yes 120mg Take 120 [facility] mononitrate 1-18 mg by [place] (IMDUR) 120 16:12: mouth of MG CR 25 daily. Medicin tablet e omeprazole 2019-11 Yes 20mg Take 20 mg [facility] (PRILOSEC 1-18 by mouth Colleg e OTC) 20 MG 16:12: daily. of tablet 25 Medicin e ketoconazol 2019-11 Yes APPLY [facility] r e (NIZORAL) 12-10 CREAM [place] 2 % cream 00:00: TOPICALLY of 00 TO Medicin AFFECTED e AREA TWICE DAILY FOR RASH FOR FACE AND EARS IF NEEDED FOR FLAKY RASH SAFE TO USE DAILY IF NEEDED hydrocodone 2019-11 Yes as needed. Prieto -acetaminop 12-02 [place] hen (NORCO) 00:00: of 5-325 mg 00 Medicin tablet e aspirin EC 2019-11 2020- No 81mg Take 81 mg Prieto 81 MG 12-02 by mouth College tablet 00:00: 05:59 daily. of 00 :00 Medicin e furosemide 2019-11- No 20mg Take 20 mg [facility] (LASIX) 20 12-02 by mouth [facility] MG tablet 00:00: 05:59 daily. of 00 :00 Medicin e metoprolol 2019-11- No 25mg Take 25 mg [facility] (TOPROL-XL) 12-02 by mouth Col lege 25 MG XL 00:00: 05:59 two times of tablet 00 :00 daily. Medicin e lisinopril 2019-11- No 2.5mg Take 2.5 [facility] (PRINIVIL, 12-02 mg by [place] ZESTRIL) 00:00: 05:59 mouth of 2.5 MG 00 :00 daily. Medicin tablet e lidocaine 2019-11 No 2{patch Place 2 [facility] (LIDODERM) 12-02 } Patches [facility] 5 % patch 00:00: 00:00 onto the of 00 :00 skin. Medicin e Vital Signs Vital Name Observation Time Observation Value Comments Source Systolic blood 2020-10-17 16:10:00 128 mm[Hg] [facility] pressure Medicine Diastolic blood 2020-10-17 16:10:00 81 mm[Hg] [facility] pressure Medicine Heart rate 2020-10-17 16:10:00 83 /min [facility] Respiratory rate 2020-10-17 16:10:00 16 /min [facility] Body height 2020-10-17 16:10:00 172.7 cm [facility] Body weight 2020-10-17 16:10:00 73.483 kg [facility] BMI 2020-10-17 16:10:00 24.63 kg/m2 [facility] Oxygen saturation in 2020-10-17 16:10:00 98 /min [facility] Arterial blood by [facility] Pulse oximetry Systolic blood 2020-10-17 16:10:00 128 mm[Hg] [facility] pressure Medicine Diastolic blood 2020-10-17 16:10:00 81 mm[Hg] [facility] pressure Medicine Heart rate 2020-10-17 16:10:00 83 /min [facility] Respiratory rate 2020-10-17 16:10:00 16 /min [facility] Body height 2020-10-17 16:10:00 172.7 cm [facility] Body weight 2020-10-17 16:10:00 73.483 kg [facility] BMI 2020-10-17 16:10:00 24.63 kg/m2 [facility] Oxygen saturation in 2020-10-17 16:10:00 98 /min [facility] Arterial blood by [facility] Pulse oximetry WEIGHT 2020-09-30 04:27:00 79.788 kg WEIGHT 2020-09-29 04:00:00 81.874 kg WEIGHT 2020-09-25 04:04:00 75.524 kg HEIGHT 2020-09-23 12:10:00 172.7 cm WEIGHT 2020-09-23 12:10:00 78.518 kg HEIGHT 2020-09-23 08:42:00 172.7 cm WEIGHT 2020-09-23 08:42:00 77.111 kg WEIGHT 2020-09-30 04:27:00 79.788 kg WEIGHT 2020-09-29 04:00:00 81.874 kg WEIGHT 2020-09-25 04:04:00 75.524 kg HEIGHT 2020-09-23 12:10:00 172.7 cm WEIGHT 2020-09-23 12:10:00 78.518 kg HEIGHT 2020-09-23 08:42:00 172.7 cm WEIGHT 2020-09-23 08:42:00 77.111 kg Procedures This patient has no known procedures. Plan of Care Planned Activity Planned Date Details Comments Source Future Scheduled Test TETANUS SHOT (ADULT) [facility] [code = TETANUS SHOT Medicin e (ADULT)] Future Scheduled Test HEPATITIS C SCREENING [facility] [code = HEPATITIS C Medicine SCREENING] Future Scheduled Test ZOSTER VACCINE (1 of [facility] 2) [code = ZOSTER Medicine VACCINE (1 of 2)] Future Scheduled Test MEDICARE AWV [facility] (Initial) [code = Medicine MEDICARE AWV (Initial)] Future Scheduled Test FALL SCREEN [code = [facility] FALL SCREEN] Medicine Future Scheduled Test PNEUMOVAX >=65 [facility] (PPSV23) [code = Medicine PNEUMOVAX >=65 (PPSV23)] Future Scheduled Test FLU VACCINE > 6 [facility] of MONTHS [code = FLU Medicine VACCINE > 6 MONTHS] Encounters Start End Encounter Admission Attending Care Care Encounter Source Date/Time Date/Time Type Type Clinicians Facility Department ID 2021-09-04 Inpatient [facility] [id number] [facility] 11:47:01 [facility] 2020-10-17 2020-10-17 Office James, RAO [id number] [facility] 10:00:51 10:40:51 Visit Ileana AMBULATOR [id number] Y [id number] 2020-10-17 2020-10-17 Office James, [facility] [id number] [facility] 10:00:51 10:40:51 Visit Ileana AMBULATOR [id number] College Y [id number] of [id number] [facility] 370 e 2020-10-17 2020-10-17 Outpatient [facility] [id number] [facility] 00:00:00 00:00:00 KATELYN 2020-09-23 2020-09-23 Emergency ER [facility] Emergency [id number] [facility] 08:23:00 08:23:00 Results Test Description Test Time Test Comments Results Result [facility] e Comments TISSUE EXAM 2020-10-08 Surgical Pathology Report 13:34:00 Case: [id number] Authorizing Provider: Katelyn Mckeon, Collected: 10/01/2020 11:57 AM Ordering Location: [facility] Received: 10/01/2020 12:12 PM PERIOPERATIVE SERVICES Pathologist: Lopez Cade MD Specimen: Plaque, RIGHT CAROTID ARTERY PLAQUE ARTERY, RIGHT CAROTID, ENDARTERECTOMY:CALCIFIC ATHEROSCLEROTIC PLAQUE Signing Pathologist Direct Phone Line: [phone] y signed by Lopez Cade MD on 10/08/2020 at 1:34 [id number]; [id number] diagnosis: stenosis of right carotid arteryA. PlaqueReceived in formalin labeled with the patient's name, accession number and "right carotid artery plaque" is a 2.5 cm in length x 0.4 cm in diameter nichols-yellow tubular piece of focally calcified plaque. The specimen is entirely submitted in A1 following decalcification. PA/pl Performed SHORT-LATENCY 2020-10-05 IOM SPE, ALL LIMBS 17:32:00 [facility] 1945 Sex: M INTRAOPERATIVE MONITORING REPORT Patient Name: Gillian Segal [facility] Surgery Date: October 01, 2020 [facility] [id number] Monitoring began at 09:41 and ended at 12:27 Surgeon: Katelyn Mckeon M.D. Examining Neurologist: Jared Rosa M.D. Monitoring Technologist: Aaron Connell, [facility] Procedure: Right Carotid Endarterectomy Stimulation Parameters: Median [...] C3-O1, FP1-T3, T3-O1, FP2-C4, C4-O2, FP2-T4, and T4-G7Ymkyvpemuacl electrical Motor Evoked Potentials recorded from Abductor [...] to occur throughout the operative procedure. Jared Howell [facility] [place] [facility] 2020-10-02 12:30:00 Test Item Value Reference Range Interpretation Comme nts POC-GLUCOSE METER (BEAKER) 110 mg/dL 70-110 : TESTED AT [address] (test code = 1538) [facility], [address]: Dry End Operator/Techni yessy ID = [id number] for Luis MAmber dawson POCT-GLUCOSE [id number] 07:43:00 Test Item Value Reference Range Interpretation Comments POC-GLUCOSE METER 129 mg/dL 70-110 H : [facility]ER[facility] (test code = LUZ Tavares [facility], 1538) [address]: Dry End Operator/Techni yessy ID = [id number] for StefaniAmber [id number] 06:21:00 Test Item Value Reference Range Interpretation Comments MAGNESIUM (BEAKER) (test code = 1.7 mg/dL 1.6-2.6 627) Dry End Operator ID - [id number] 06:21:00 Test Item Value Reference Range Interpretation Comments PHOSPHORUS (BEAKER) (test code = 2.6 mg/dL 2.3-4.7 604) Dry End Operator ID - ADMINBASIC METABOLIC [id number] 06:21:00 Test Item Value Reference Range Interpretation [...] S NOT APPLICABLE FOR DIALYSIS PATIEN TS. Dry End Operator ID - [id number] 05:42:00 Test Item Value Reference Range Interpretation Comments PARTIAL THROMBOPLASTIN TIME 28.9 seconds 22.5-36.0 (BEAKER) (test code = 760) CBC W/PLT COUNT & AUTO [id number] 05:37:00 Test Item Value Reference Range Interpretation [...] = 2801) RAD, CHEST, 1 VIEW, NON [id number] 04:40:00Reason for exam:->ptxShould this be performed at the bedside?->Yes [facility] 1945 Sex: MFINAL REPORT CLINICAL INDICATION: Pneumothorax Comparison: 10/01/2020 The cardiomediastinal contours are stable. Bibasilar parenchymal and bilateral pleural opacities are similar within variation of acquisition technique. A trace left apical pneumothorax appears slightly decreased on today's examination. Signed: Matthew Bryan Verified Date/Time: 10/02/2020 04:40:20 POCT- GLUCOSE [id number] 22:56:00 Test Item Value Reference Range Interpretation Comments POC-GLUCOSE METER 173 mg/dL 70-110 H : TESTED A T [facility] 6720 (xAd) (test code = [facility], 1538) [address]: Dry End Operator/Techni yessy ID = [id number] for AG U, LING POCT-GLUCOSE [id number] 17:00:00 Test Item Value Reference Range Interpretation Comments POC-GLUCOSE METER 177 mg/dL 70-110 H : TESTED A T [facility] 6720 (BEAKER) (test code = [facility], 1538) 572[address]: Dry End Operator/Techni yessy ID = [id number] for MICHAEL AMAYA POCT-GLUCOSE [id number] 14:40:00 Test Item Value Reference Range Interpretation Comments POC-GLUCOSE METER 92 mg/dL 70-110 : TESTED A T [facility] 6720 (xAd) (test code = [facility], 1538) [address]: Dry End Operator/Techni yessy ID = [id number] for ARI SFRANKLINYUMIKO RAD, CHEST, 1 VIEW, NON [id number] 14:04:00Reason for exam:- >PNEUMOTHORACShould this be performed at the bedside?->Yes [facility] 1945 Sex: MFINAL REPORT CLINICAL HISTORY: [...] by technique with sternotomy wires. Signed: Venita Hicks MDReport Verified Date/Time: 10/01/202014:04:37 Reading Location: [facility] Radiology Reading Room POCT-GLUCOSE [id number] 08:19:00 Test Item Value Reference Range Interpretation Comments POC-GLUCOSE METER 104 mg/dL 70-110 : TESTED A T [facility] 6720 (BEAKER) (test code = [facility] T[facility], 1538) [address]: Dry End Operator/Techni yessy ID = [id number] for ELÍAS KAUR [id number] 07:08:00 Test Item Value Reference Range Interpretation Comments MAGNESIUM (BEAKER) 1.6 mg/dL 1.6-2.6 Specimen slightly (test code = 627) hemolyzed Dry End Operator ID Rosalia MIRELLA [id number] 07:08:00 Test Item Value Reference Range Interpretation Comments PHOSPHORUS (BEAKER) 3.3 mg/dL 2.3-4.7 Specimen slightly (test code = 604) hemolyzed Dry End Operator ID Rosalia MIRELLA FBASIC METABOLIC [id number] 07:08:00 Test Item Value Reference Range Interpretation [...] S NOT APPLICABLE FOR DIALYSIS PATIEN TS. Dry End Operator ID - [place] FCBC W/PLT COUNT & AUTO [id number] 06:21:00 Test Item Value Reference Range Interpretation [...] 0-1 PERCENT (BEAKER) (test code = 2801) [id number] 05:56:00 Test Item Value Reference Range Interpretation Comments PARTIAL THROMBOPLASTIN TIME 31.0 seconds 22.5-36.0 (BEAKER) (test code = 760) RAD, CHEST, 1 VIEW, NON [id number] 04:58:00Reason for exam:->chest tubesShould this be performed at the bedside?->Yes [facility] 1945 Sex: MFINAL REPORT Chest one [...] There is pulmonary vascular congestion. Signed: Mikhail Keeneport Verified Date/Time: 10/01/2020 04:58:48 POCT- GLUCOSE [id number] 22:03:00 Test Item Value Reference Range Interpretation Comments POC-GLUCOSE METER 108 mg/dL 70-110 : TESTED A T [facility] 6720 (GRIS) (test code = [place] [place], 1538) [address]: Dry End Operator/Techni yessy ID = [id number] for Re yes, Sairy SARS-COV2/RT-PCR ([facility])2020-09-30 20:08:00 Test Item Value Reference Range Interpretation Comments SARS-COV2/RT-PCR (test Negative Not Detected, Negative, code = 2704237) See external report for linked test SARS-COV-2 PERFORMING LAB [facility] (test code = 7468566) Negative result for this test determines that [...] the Sierra SARS-CoV-2 assay.Fact Sheet for Healthcare Providers:https://www.[employer].sierra/jayda/ YG_ANVG-KhX-3_QTC_Zuot_Fpuai_45-264705.pdfFact Sheet for Healthcare Patients:https://www.[employer].Mercantec evaristo/jayda/PO_IZLG-FpO-5_Hxmlcxv_Migl_Vorut_KB_71-094681P3.pdfPerforming Laboratory:[address] [place] [address] POCT-GLUCOSE [id number] 17:28:00 Test Item Value Reference Range Interpretation Comments POC-GLUCOSE METER 109 mg/dL 70-110 : TESTED A T [facility] 6720 (BEAKER) (test code = [facility], 1538) [address]: Dry End Operator/Techni yessy ID = [id number] for MAXIME MASON, CASTILLO POCT-GLUCOSE [id number] 12:33:00 Test Item Value Reference Range Interpretation Comments POC-GLUCOSE METER 104 mg/dL 70-110 : TESTED A T [facility] 6720 (BEAKER) (test code = [facility], 1538) [address]: Dry End Operator/Techni yessy ID = [id number] for MAXIME HN, CASTILLO POCT-GLUCOSE [id number] 07:55:00 Test Item Value Reference Range Interpretation Comments POC-GLUCOSE METER 111 mg/dL 70-110 H : TESTED A T [facility] 6720 (BEAKER) (test code = [facility], 1538) [address]18[address]: Dry End Operator/Techni yessy ID = [id number] for MAXIME HN, CASTILLO [id number] 05:36:00 Test Item Value Reference Range Interpretation Comments PARTIAL THROMBOPLASTIN TIME 33.4 seconds 22.5-36.0 (BEAKER) (test code = 760) BASIC METABOLIC [id number] 05:22:00 Test Item Value Reference Range Interpretation [...] 697) EGFR (BEAKER) (test 97 mL/min/1.73 ESTIMA JEF GFR IS code = 1092) sq m NOT ACCURATE CREATININE CLEARANCE IN PREDICTING GLOMERULAR FILTRATION RATE . ESTIMATED GFR I S NOT APPLICABLE FOR DIALYSIS PATIEN TS. Dry End Operator ID - [id number] 05:22:00 Test Item Value Reference Range Interpretation Comments MAGNESIUM (BEAKER) (test code = 1.8 mg/dL 1.6-2.6 627) Dry End Operator ID - [id number] 05:22:00 Test Item Value Reference Range Interpretation Comments PHOSPHORUS (BEAKER) (test code = 2.2 mg/dL 2.3-4.7 L 604) Dry End Operator ID - DBCBC W/PLT COUNT & AUTO [id number] 04:58:00 Test Item Value Reference Range Interpretation [...] = 2801) RAD, CHEST, 1 VIEW, NON [id number] 04:04:00Reason for exam:->chest tubesShould this be performed at the bedside?->Yes [facility] 1945 Sex: MFINAL REPORT CLINICAL INDICATION: Support lines. Comparison: 2019 The cardiomediastinal contours are stable. Central pulmonary vascular prominence and bilateral parenchymal and right pleural opacities are unchanged. A trace left apical pneumothorax is redemonstrated. A left chest tube and mediastinal drain remain in place. Signed: Matthew Bryan Verified Date/Time: 09/30/2020 04:04:28 POCT-GLUCOSE [id number] 18:35:00 Test Item Value Reference Range Interpretation Comments POC-GLUCOSE METER 123 mg/dL 70-110 H : TESTED A T [facility] 6720 (BEAKER) (test code = [facility], 153) [address]: Dry End Operator/Techni yessy ID = [id number] for KIZHAKEKATTIL, NILAM POCT-GLUCOSE [id number] 13:37:00 Test Item Value Reference Range Interpretation Comments POC-GLUCOSE METER 94 mg/dL 70-110 : TESTED A T [facility] 6720 (BEAKER) (test code = [facility], 1538) 52360: Dry End Operator/Techni yessy ID = [id number] for KIZHAKEKATTIL, NILAM POCT-GLUCOSE [id number] 13:36:00 Test Item Value Reference Range Interpretation Comments POC-GLUCOSE METER 91 mg/dL 70-110 : TESTED A T [facility] 6720 (BEAKER) (test code = [facility], 153) 73447: Dry End Operator/Techni yessy ID = [id number] for KIZHAKEKATTIL, NILAM RAD, CHEST, 1 VIEW, NON [id number] 06:57:00Reason for exam:->chest tubesShould this be performed at the bedside?->Yes [facility] : 1945 Sex: MFINAL REPORT Chest one [...] stable small left apical pneumothorax. Signed: Mikhail Keen MDReport Verified Date/Time: 09/29/2020 06:57:57 [id number] 05:25:00 Test Item Value Reference Range Interpretation Comments PARTIAL THROMBOPLASTIN TIME 36.7 seconds 22.5-36.0 H (BEAKER) (test code = 760) BASIC METABOLIC [id number] 05:12:00 Test Item Value Reference Range Interpretation [...] S NOT APPLICABLE FOR DIALYSIS PATIEN TS. Dry End Operator ID - FELTON [id number] 05:12:00 Test Item Value Reference Range Interpretation Comments MAGNESIUM (BEAKER) (test code = 1.9 mg/dL 1.6-2.6 627) Dry End Operator ID - FELTON [id number] 05:12:00 Test Item Value Reference Range Interpretation Comments PHOSPHORUS (BEAKER) (test code = 2.1 mg/dL 2.3-4.7 L 604) Dry End Operator ID - FELTON MCBC W/PLT COUNT & AUTO [id number] 04:52:00 Test Item Value Reference Range Interpretation [...] PERCENT (BEAKER) (test code = 2801) POCT-GLUCOSE [id number] 17:40:00 Test Item Value Reference Range Interpretation Comments POC-GLUCOSE METER 158 mg/dL 70-110 H : TESTED A T [facility] 6720 (BEAKER) (test code = [place] [place] [place], 1538) [address]: Dry End Operator/Techni yessy ID = [id number] for Stefani, Amber RAD, CHEST, 1 VIEW, NON [id number] 05:46:00Reason for exam:->chest tubesShould this be performed at the bedside?->Yes [facility] 1945 Sex: MFINAL REPORT Chest one [...] stable small left apical pneumothorax. Signed: Mikhail Keen MDRepnorth [facility] city hospital Verified Date/Time: 09/28/2020 05:46:22 CBC W/PLT COUNT & AUTO DIFFERENTIAL 2020-09-28 04:52:00 Test Item Value Reference Range Interpretation [...] CONCENTRATION Decreased (CELLAVISION)(BEAKER) (test code = 3438) Dry End Operator ID - [id number] ID - Bismark Barba comments: Slide comments:BASIC METABOLIC [id number] 03:50:00 Test Item Value Reference Range Interpretation [...] S NOT APPLICABLE FOR DIALYSIS PATIEN TS. Dry End Operator ID - [id number] 03:50:00 Test Item Value Reference Range Interpretation Comments MAGNESIUM (BEAKER) (test code = 2.1 mg/dL 1.6-2.6 627) Dry End Operator ID - [id number] 03:50:00 Test Item Value Reference Range Interpretation Comments PHOSPHORUS (BEAKER) (test code = 2.4 mg/dL 2.3-4.7 604) Dry End Operator ID - [id number] 03:42:00 Test Item Value Reference Range Interpretation Comments PARTIAL THROMBOPLASTIN TIME 34.9 seconds 22.5-36.0 (BEAKER) (test code = 760) POCT-GLUCOSE [id number] 00:07:00 Test Item Value Reference Range Interpretation Comments POC-GLUCOSE METER 102 mg/dL 70-110 : TESTED A T [facility] 6720 (BEAKER) (test code = [place], 1538) [address]: Dry End Operator/Techni yessy ID = [id number] for CHELE MEYER (CELLAVISION MANUAL DIFF)2020-09-27 15:25:00 Test Item Value [...] CONCENTRATION Decreased (CELLAVISION)(BEAKER) (test code = 3438) Dry End Operator ID - ShaylaOperator ID - Vidhya Martinez comments: Slide comments: BASIC METABOLIC [id number] 15:07:00 Test Item Value Reference Range Interpretation [...] 697) EGFR (BEAKER) (test 97 mL/min/1.73 ESTIMA JEF GFR IS code = 1092) sq m NOT ACCURATE CREATININE CLEARANCE IN PREDICTING GLOMERULAR FILTRATION RATE . ESTIMATED GFR I S NOT APPLICABLE FOR DIALYSIS PATIEN TS. Dry End Operator ID - MIRELLA [id number] 15:07:00 Test Item Value Reference Range Interpretation Comments MAGNESIUM (BEAKER) (test code = 2.1 mg/dL 1.6-2.6 627) Dry End Operator ID - MIRELLA [id number] 15:07:00 Test Item Value Reference Range Interpretation Comments PHOSPHORUS (BEAKER) (test code = 2.2 mg/dL 2.3-4.7 L 604) Dry End Operator ID - MIRELLA FCBC W/PLT COUNT & AUTO [id number] 14:56:00 Test Item Value Reference Range Interpretation [...] /100 WBC 0-0 (test code = 413) POCT-GLUCOSE [id number] 08:04:00 Test Item Value Reference Range Interpretation Comments POC-GLUCOSE METER 156 mg/dL 70-110 H : TESTED A T [facility] 6720 (BEAKER) (test code = [facility] [place] [place], 1538) [address]: Dry End Operator/Techni yessy ID = [id number] for MARLY JONES CBC (HEMOGRAM ONLY)2020-09-27 04:34:00 Test Item Value Reference [...] l correlation required.Post s urgery specimen b.no.3 72827 HEMATOCRIT (BEAKER) 29.5 % 40.1-51.0 L (test [...] (BEAKER) (test code = 413) BASIC METABOLIC [id number] 04:19:00 Test Item Value Reference Range Interpretation [...] 697) EGFR (BEAKER) (test 97 mL/min/1.73 ESTIMA JEF GFR IS code = 1092) sq m NOT ACCURATE CREATININE CLEARANCE IN PREDICTING GLOMERULAR FILTRATION RATE . ESTIMATED GFR I S NOT APPLICABLE FOR DIALYSIS PATIEN TS. Dry End Operator ID - FELTON [id number] 04:19:00 Test Item Value Reference Range Interpretation Comments MAGNESIUM (BEAKER) (test code = 2.0 mg/dL 1.6-2.6 627) Dry End Operator ID - FELTON [id number] 04:19:00 Test Item Value Reference Range Interpretation Comments PHOSPHORUS (BEAKER) (test code = 2.9 mg/dL 2.3-4.7 604) Dry End Operator ID - FELTON MCALCIUM, [id number] 04:08:00 Test Item Value Reference Range Interpretation Comments CALCIUM IONIZED (BEAKER) (test 1.10 mmol/L 1.12-1.27 L code = 698) PH, BLOOD (BEAKER) (test code = 7.36 1810) Check serum Ionized Calcium level after 4 hours after IV Calcium replacement. OXYGEN SATURATION, [id number] 04:04:00 Test Item Value Reference Range Interpretation Comments O2 SATURATION (MEASURED) (BEAKER) 67.1 % (test code = 1455) [id number] 04:00:00 Test Item Value Reference Range Interpretation Comments PARTIAL THROMBOPLASTIN TIME 35.6 seconds 22.5-36.0 (BEAKER) (test code = 760) RAD, CHEST, 1 VIEW, NON [id number] 03:09:00Reason for exam:->chest tubesShould this be performed at the bedside?->Yes [facility] 1945 Sex: MFINAL REPORT CLINICAL INDICATION: Support lines. Comparison: 2019 The cardiomediastinal contours are stable. The lung volumes are low but grossly stable after extubation. Infrahilar opacities may reflect atelectasis but pneumonitis should be excluded clinically. There is a small left apical pneumothorax. Remaining support lines, including left-sided chest tubes, are stable. Signed: Matthew Bryanort Verified Date/Time: 09/27/2020 03:09:53 POCT- GLUCOSE [id number] 16:40:00 Test Item Value Reference Range Interpretation Comments POC-GLUCOSE METER 142 mg/dL 70-110 H : TESTED A T [facility] 6720 (BEAKER) (test code = [facility], 1538) [address]: Dry End Operator/Techni yessy ID = [id number] for PH ILIP, BLANCA POCT-GLUCOSE [id number] 09:44:00 Test Item Value Reference Range Interpretation Comments POC-GLUCOSE METER 99 mg/dL 70-110 : TESTED A T [facility] 6720 (BEAKER) (test code = [facility], 1538) 318[address]: Dry End Operator/Techni yessy ID = [id number] for ARCHIE IP, BLANCA BLOOD GAS, [id number] 08:26:00 Test Item Value Reference Range Interpretation [...] (BEAKER) (test code = 1819) 40.0 POCT-GLUCOSE [id number] 08:04:00 Test Item Value Reference Range Interpretation Comments POC-GLUCOSE METER 73 mg/dL 70-110 : TESTED A T [facility] 6720 (BEAKER) (test code = [place], 1538) [address]: Dry End Operator/Techni yessy ID = [id number] for BLANCA LANE OXYGEN SATURATION, [id number] 05:03:00 Test Item Value Reference Range Interpretation Comments O2 SATURATION (MEASURED) (BEAKER) 75.7 % (test code = 1455) BASIC METABOLIC [id number] 05:03:00 Test Item Value Reference Range Interpretation [...] S NOT APPLICABLE FOR DIALYSIS PATIEN TS. Dry End Operator ID - [id number] 05:03:00 Test Item Value Reference Range Interpretation Comments MAGNESIUM (BEAKER) (test code = 1.8 mg/dL 1.6-2.6 627) Dry End Operator ID - [id number] 05:03:00 Test Item Value Reference Range Interpretation Comments PHOSPHORUS (BEAKER) (test code = 3.5 mg/dL 2.3-4.7 604) Dry End Operator ID - EDASIBLOOD GAS, [id number] 05:00:00 Test Item Value Reference Range Interpretation [...] (BEAKER) (test code = 1819) 40.0 GLUCOSE-STAT [id number] 05:00:00 Test Item Value Reference Range Interpretation Comments GLUCOSE RANDOM (BEAKER) (test code 147 mg/dL 70-110 H = 652) HGB/HCT (H&H) - STAT [id number] 05:00:00 Test Item Value Reference Range Interpretation Comments HEMOGLOBIN (BEAKER) (test code = 12.7 GM/DL 13.0-16.8 L 410) HEMATOCRIT (BEAKER) (test code = 37.0 % 40.0-50.0 L 411) SODIUM NA-STAT [id number] 04:59:00 Test Item Value Reference Range Interpretation Comments SODIUM (BEAKER) (test code = 381) 140 meq/L 136-145 POTASSIUM-STAT [id number] 04:59:00 Test Item Value Reference Range Interpretation Comments POTASSIUM (BEAKER) (test code = 4.3 meq/L 3.6-5.5 379) LACTIC ACID, [id number] 04:53:00 Test Item Value Reference Range Interpretation Comments LACTATE BLOOD 1.7 mmol/L 0.5-2.2 Specimen sligh tly ARTERIAL (2) (BEAKER) hemoly zed (test code = 2874) Dry End Operator ID - [id number] 04:50:00 Test Item Value Reference Range Interpretation Comments FIBRINOGEN LEVEL (BEAKER) (test 212 mg/dl 225-434 L code = 658) [id number] 04:50:00 Test Item Value Reference Range Interpretation Comments PARTIAL THROMBOPLASTIN TIME 33.9 seconds 22.5-36.0 (BEAKER) (test code = 760) [id number] 04:50:00 Test Item Value Reference Range Interpretation [...] INR is2.5-3.5 for patients wiht mechanical heart valves.PROTHROMBIN TIME/[id number] 04:49:00 Test Item Value Reference Range Interpretation [...] = 413) RAD, CHEST, 1 VIEW, NON [id number] 02:55:00Reason for exam:->chest tubesShould this be performed at the bedside?->Yes [facility] 1945 Sex: MFINAL REPORT CLINICAL INDICATION: Support lines. Comparison: 2019 The cardiomediastinal contours are stable. The lung volumes remain low. Bilateral parenchymal opacities are unchanged. There is no pneumothorax. Support lines are stable. Signed: Matthew Bryan MDReport Verified Date/Time: 2020 02:55:19 POCT-GLUCOSE [id number] 01:53:00 Test Item Value Reference Range Interpretation Comments POC-GLUCOSE METER 112 mg/dL 70-110 H : TESTED A T [facility] 6720 (BEAKER) (test code = [place], 1538) [address]: Dry End Operator/Techni yessy ID = [id number] for Abraham Floyd LACTIC ACID, [id number] 00:13:00 Test Item Value Reference Range Interpretation Comments LACTATE BLOOD ARTERIAL (2) 2.8 mmol/L 0.5-2.2 H (BEAKER) (test code = 2874) Dry End Operator ID - YANELYFAUZIA LOXYGEN SATURATION, [id number] 00:08:00 Test Item Value Reference Range Interpretation Comments O2 SATURATION (MEASURED) (BEAKER) 77.4 % (test code = 1455) BLOOD GAS, [id number] 00:08:00 Test Item Value Reference Range Interpretation [...] (test code = 1819) 40.0 LACTIC ACID, [id number] 21:16:00 Test Item Value Reference Range Interpretation Comments LACTATE BLOOD ARTERIAL (2) 4.2 mmol/L 0.5-2.2 HH (BEAKER) (test code = 2874) Dry End Operator ID - ADMINBLOOD GAS, [id number] 20:45:00 Test Item Value Reference Range Interpretation [...] (BEAKER) (test code = 1819) 40.0 POTASSIUM-STAT [id number] 20:45:00 Test Item Value Reference Range Interpretation Comments POTASSIUM (BEAKER) (test code = 3.2 meq/L 3.6-5.5 L 379) GLUCOSE-STAT [id number] 20:45:00 Test Item Value Reference Range Interpretation Comments GLUCOSE RANDOM (BEAKER) (test code 127 mg/dL 70-110 H = 652) HGB/HCT (H&H) - STAT [id number] 20:45:00 Test Item Value Reference Range Interpretation Comments HEMOGLOBIN (BEAKER) (test code = 13.0 GM/DL 13.0-16.8 410) HEMATOCRIT (BEAKER) (test code = 38.0 % 40.0-50.0 L 411) SODIUM NA-STAT [id number] 20:39:00 Test Item Value Reference Range Interpretation Comments SODIUM (BEAKER) (test code = 381) 140 meq/L 136-145 LACTIC ACID, [id number] 19:30:00 Test Item Value Reference Range Interpretation Comments LACTATE BLOOD ARTERIAL (2) 5.7 mmol/L 0.5-2.2 HH (BEAKER) (test code = 2874) Dry End Operator ID - BSBLOOD GAS, [id number] 19:05:00 Test Item Value Reference Range Interpretation [...] (BEAKER) (test code = 1819) 40.0 POCT-GLUCOSE [id number] 19:02:00 Test Item Value Reference Range Interpretation Comments POC-GLUCOSE METER 156 mg/dL 70-110 H : TESTED A T [facility] 6720 (BEAKER) (test code = [facility], 1538) 249[address]: Dry End Operator/Techni yessy ID = [id number] for MIGUEL WALSH BLOOD GAS, [id number] 18:19:00 Test Item Value Reference Range Interpretation [...] (BEAKER) (test code = 1819) 60.0 POCT-GLUCOSE [id number] 18:17:00 Test Item Value Reference Range Interpretation Comments POC-GLUCOSE METER 146 mg/dL 70-110 H : TESTED A T [facility] 6720 (BEAKER) (test code = [facility], 1538) 67547: Dry End Operator/Techni yessy ID = [id number] for RONAL LDROP, MIGUEL LACTIC ACID, [id number] 18:14:00 Test Item Value Reference Range Interpretation Comments LACTATE BLOOD ARTERIAL (2) 7.5 mmol/L 0.5-2.2 HH (BEAKER) (test code = 2874) Dry End Operator ID - BSPOCT-GLUCOSE [id number] 18:12:00 Test Item Value Reference Range Interpretation Comments POC-GLUCOSE METER 152 mg/dL 70-110 H : TESTED A T [facility] 6720 (BEAKER) (test code = [facility], 1538) 422[address]: Dry End Operator/Techni yessy ID = [id number] for MIGUEL WALSH HEMOGLOBIN AND [id number] 17:44:00 Test Item Value Reference Range Interpretation Comments HEMOGLOBIN (BEAKER) (test code = 13.1 GM/DL 13.7-17.5 L 410) HEMATOCRIT (BEAKER) (test code = 39.3 % 40.1-51.0 L 411) Dry End Operator ID - [id number]-GLUCOSE [id number] 17:40:00 Test Item Value Reference Range Interpretation Comments POC-GLUCOSE METER 144 mg/dL 70-110 H : TESTED A T [facility] 6720 (BEAKER) (test code = [facility], 1538) 844[address]: Dry End Operator/Techni yessy ID = [id number] for MIGUEL WALSH BLOOD GAS, [id number] 17:39:00 Test Item Value Reference Range Interpretation [...] (BEAKER) (test code = 1819) 60.0 CALCIUM, [id number] 17:39:00 Test Item Value Reference Range Interpretation Comments CALCIUM IONIZED (BEAKER) (test 1.09 mmol/L 1.12-1.27 L code = 698) PH, BLOOD (BEAKER) (test code = 7.37 1810) Check serum Ionized Calcium level after 4 hours after IV Calcium replacement. LACTIC ACID, [id number] 16:36:00 Test Item Value Reference Range Interpretation Comments LACTATE BLOOD 6.1 mmol/L 0.5-2.2 HH Specimen sligh tly ARTERIAL (2) (BEAKER) hemoly zed (test code = 2874) Dry End Operator ID - BSBLOOD GAS, [id number] 16:08:00 Test Item Value Reference Range Interpretation [...] 1819) 60.0 CBC W/PLT COUNT & AUTO [id number] 15:36:00 Test Item Value Reference Range Interpretation [...] 0-1 PERCENT (BEAKER) (test code = 2801) BASIC METABOLIC [id number] 15:33:00 Test Item Value Reference Range Interpretation [...] S NOT APPLICABLE FOR DIALYSIS PATIEN TS. Dry End Operator ID - BSHEPATIC FUNCTION [id number] 15:33:00 Test Item Value Reference Range Interpretation [...] Specimen slightly (test code = 347) hemolyzed Dry End Operator ID - [id number] 15:31:00 Test Item Value Reference Range Interpretation Comments MAGNESIUM (BEAKER) 2.2 mg/dL 1.6-2.6 Specimen slightly (test code = 627) hemolyzed Dry End Operator ID - BS(CELLAVISION MANUAL DIFF)2020-09-25 15:30:00 Test [...] CONCENTRATION Adequate (CELLAVISION)(BEAKER) (test code = 3438) Dry End Operator ID - [id number] ID - mary Fontanez comments: Slide comments: [id number] 15:20:00 Test Item Value Reference Range Interpretation Comments FIBRINOGEN LEVEL (BEAKER) (test 164 mg/dl 225-434 L code = 658) LACTIC ACID, [id number] 15:12:00 Test Item Value Reference Range Interpretation Comments LACTATE BLOOD 2.6 mmol/L 0.5-2.2 H Specimen sligh tly ARTERIAL (2) (BEAKER) hemoly zed (test code = 2874) Dry End Operator ID - [id number] 15:11:00 Test Item Value Reference Range Interpretation Comments PARTIAL THROMBOPLASTIN TIME 36.0 seconds 22.5-36.0 (BEAKER) (test code = 760) PROTHROMBIN TIME/[id number] 15:10:00 Test Item Value Reference Range Interpretation [...] is2.5-3.5 for patients wiht mechanical heart valves.GLUCOSE-STAT [id number] 15:08:00 Test Item Value Reference Range Interpretation Comments GLUCOSE RANDOM (BEAKER) (test code 156 mg/dL 70-110 H = 652) BLOOD GAS, [id number] 15:08:00 Test Item Value Reference Range Interpretation [...] (BEAKER) (test code = 1819) 60.0 CALCIUM, [id number] 15:08:00 Test Item Value Reference Range Interpretation Comments CALCIUM IONIZED (BEAKER) (test 1.07 mmol/L 1.12-1.27 L code = 698) PH, BLOOD (BEAKER) (test code = 7.25 1810) OXYGEN SATURATION, [id number] 15:06:00 Test Item Value Reference Range Interpretation Comments O2 SATURATION (MEASURED) (BEAKER) 72.4 % (test code = 1455) SODIUM NA-STAT [id number] 15:06:00 Test Item Value Reference Range Interpretation Comments SODIUM (BEAKER) (test code = 381) 137 meq/L 136-145 POTASSIUM-STAT [id number] 15:06:00 Test Item Value Reference Range Interpretation Comments POTASSIUM (BEAKER) (test code = 3.9 meq/L 3.6-5.5 379) HGB/HCT (H&H) - STAT [id number] 15:06:00 Test Item Value Reference Range Interpretation Comments HEMOGLOBIN (BEAKER) (test code = 14.8 GM/DL 13.0-16.8 410) HEMATOCRIT (BEAKER) (test code = 44.0 % 40.0-50.0 411) CBC W/PLT COUNT & AUTO [id number] 15:05:00 Test Item Value Reference Range Interpretation [...] = 413) RAD, CHEST, 1 VIEW, NON [id number] 15:02:00Reason for exam:->post opShould this be performed at the bedside?->Yes [facility] 1945 Sex: MFINAL REPORT RAD, CHEST, [...] Stable surgical changes.Additional findings: None. Signed: Florencia Gtz MDReport Verified Date/Time: 09/25/2020 15:02:20 Reading Location: [facility] Radiology Reading Room [id number] 14:50:00 Test Item Value Reference Range Interpretation Comments PHOSPHORUS (BEAKER) (test code = 3.9 mg/dL 2.3-4.7 604) Dry End Operator ID - BSTHROMBOELASTOGRAPH (TEG)2020-09-25 14:28:00 Test Item Value Reference Range [...] 59.4 MM 55.0-65.0 (test code = 1413) PLATELET [id number] 14:15:00 Test Item Value Reference Range Interpretation Comments PLATELET COUNT (BEAKER) (test 134 K/CU MM 150-450 L code = 756) Dry End Operator ID - [id number] ID - [id number] 14:14:00 Test Item Value Reference Range Interpretation Comments FIBRINOGEN LEVEL (BEAKER) (test 159 mg/dl 225-434 L code = 658) [id number] 14:10:00 Test Item Value Reference Range Interpretation Comments PARTIAL THROMBOPLASTIN TIME 26.8 seconds 22.5-36.0 (BEAKER) (test code = 760) PROTHROMBIN TIME/[id number] 14:09:00 Test Item Value Reference Range Interpretation [...] INR is2.5-3.5 for patients wiht mechanical heart valves.[id number] 14:04:00 Test Item Value Reference Range Interpretation Comments ACTIVATED CLOTTING TIME 87 sec : 74 -137 seconds, (BEAKER) (test code = Baseli ne: TESTED AT 441) [address], [facility] 30: Dry End Operator/Techni yessy ID = [id number] for HERNANDEZ Y, SAUNDRA [id number] 14:04:00 Test Item Value Reference Range Interpretation Comments ACTIVATED CLOTTING TIME 455 sec : 74 -137 seconds, (BEAKER) (test code = Baseli ne: TESTED AT 441) [address], [facility] 30: Dry End Operator/Techni yessy ID = [id number] for HERNANDEZ Y, SAUNDRA [id number] 14:04:00 Test Item Value Reference Range Interpretation Comments ACTIVATED CLOTTING TIME 439 sec : 74 -137 seconds, (BEAKER) (test code = Baseli ne: TESTED AT [facility]) [address], [facility] 30: Dry End Operator/Techni yessy ID = [id number] for HERNANDEZ Y, SAUNDRA [id number] 14:04:00 Test Item Value Reference Range Interpretation Comments ACTIVATED CLOTTING TIME 505 sec : 74 -137 seconds, (BEAKER) (test code = Baseli ne: TESTED AT [facility]) [address], [facility] 30: Dry End Operator/Techni yessy ID = [id number] for HERNANDEZ Y, SAUNDRA [id number] 14:04:00 Test Item Value Reference Range Interpretation Comments ACTIVATED CLOTTING TIME 428 sec : 74 -137 seconds, (BEAKER) (test code = Baseli ne: TESTED AT [facility]) [address], [facility] 30: Dry End Operator/Techni yessy ID = [id number] for HERNANDEZ Y, SAUNDRA [id number] 14:04:00 Test Item Value Reference Range Interpretation Comments ACTIVATED CLOTTING TIME 362 sec : 74 -137 seconds, (BEAKER) (test code = Baseli ne: TESTED AT [facility]) [address], [facility] 30: Dry End Operator/Techni yessy ID = [id number] for HERNANDEZ Y, SAUNDRA [id number] 14:03:00 Test Item Value Reference Range Interpretation Comments ACTIVATED CLOTTING TIME 543 sec : 74 -137 seconds, (BEAKER) (test code = Baseli ne: TESTED AT 441) [facility] [address] [place], [address] 30: Dry End Operator/Techni yessy ID = [id number] for SAUNDRA MARIN BLOOD GAS, [id number] 13:42:00 Test Item Value Reference Range Interpretation [...] (BEAKER) (test code = 1819) 100.0 GLUCOSE-STAT [id number] 13:42:00 Test Item Value Reference Range Interpretation Comments GLUCOSE RANDOM (BEAKER) (test code 239 mg/dL 70-110 H = 652) HGB/HCT (H&H) - STAT [id number] 13:42:00 Test Item Value Reference Range Interpretation Comments HEMOGLOBIN (BEAKER) (test code = 10.6 GM/DL 13.0-16.8 L 410) HEMATOCRIT (BEAKER) (test code = 31.0 % 40.0-50.0 L 411) SODIUM NA-STAT [id number] 13:41:00 Test Item Value Reference Range Interpretation Comments SODIUM (BEAKER) (test code = 381) 135 meq/L 136-145 L POTASSIUM-STAT [id number] 13:41:00 Test Item Value Reference Range Interpretation Comments POTASSIUM (BEAKER) (test code = 4.4 meq/L 3.6-5.5 379) BLOOD GAS, [id number] 12:43:00 Test Item Value Reference Range Interpretation [...] (test code = 1819) 80.0 SODIUM NA-STAT [id number] 12:43:00 Test Item Value Reference Range Interpretation Comments SODIUM (BEAKER) (test code = 381) 134 meq/L 136-145 L GLUCOSE-STAT [id number] 12:43:00 Test Item Value Reference Range Interpretation Comments GLUCOSE RANDOM (BEAKER) (test code 153 mg/dL 70-110 H = 652) HGB/HCT (H&H) - STAT [id number] 12:43:00 Test Item Value Reference Range Interpretation Comments HEMOGLOBIN (BEAKER) (test code = 10.3 GM/DL 13.0-16.8 L 410) HEMATOCRIT (BEAKER) (test code = 30.0 % 40.0-50.0 L 411) POTASSIUM-STAT [id number] 12:43:00 Test Item Value Reference Range Interpretation Comments POTASSIUM (BEAKER) (test code = 6.0 meq/L 3.6-5.5 HH 379) POTASSIUM-STAT [id number] 12:09:00 Test Item Value Reference Range Interpretation Comments POTASSIUM (BEAKER) (test code = 6.3 meq/L 3.6-5.5 HH 379) GLUCOSE-STAT [id number] 12:08:00 Test Item Value Reference Range Interpretation Comments GLUCOSE RANDOM (BEAKER) (test code 156 mg/dL 70-110 H = 652) BLOOD GAS, [id number] 12:08:00 Test Item Value Reference Range Interpretation [...] = 1819) 80.0 HGB/HCT (H&H) - STAT [id number] 12:08:00 Test Item Value Reference Range Interpretation Comments HEMOGLOBIN (BEAKER) (test code = 9.9 GM/DL 13.0-16.8 L 410) HEMATOCRIT (BEAKER) (test code = 29.0 % 40.0-50.0 L 411) SODIUM NA-STAT [id number] 12:07:00 Test Item Value Reference Range Interpretation Comments SODIUM (BEAKER) (test code = 381) 135 meq/L 136-145 L BLOOD GAS, [id number] 11:40:00 Test Item Value Reference Range Interpretation [...] (test code = 1819) 80.0 SODIUM NA-STAT [id number] 11:40:00 Test Item Value Reference Range Interpretation Comments SODIUM (BEAKER) (test code = 381) 132 meq/L 136-145 L POTASSIUM-STAT [id number] 11:40:00 Test Item Value Reference Range Interpretation Comments POTASSIUM (BEAKER) (test code = 5.8 meq/L 3.6-5.5 H 379) GLUCOSE-STAT [id number] 11:40:00 Test Item Value Reference Range Interpretation Comments GLUCOSE RANDOM (BEAKER) (test code 137 mg/dL 70-110 H = 652) HGB/HCT (H&H) - STAT [id number] 11:40:00 Test Item Value Reference Range Interpretation Comments HEMOGLOBIN (BEAKER) (test code = 9.7 GM/DL 13.0-16.8 L 410) HEMATOCRIT (BEAKER) (test code = 29.0 % 40.0-50.0 L 411) BLOOD GAS, [id number] 11:12:00 Test Item Value Reference Range Interpretation [...] (test code = 1819) 80.0 SODIUM NA-STAT [id number] 11:12:00 Test Item Value Reference Range Interpretation Comments SODIUM (BEAKER) (test code = 381) 134 meq/L 136-145 L GLUCOSE-STAT [id number] 11:12:00 Test Item Value Reference Range Interpretation Comments GLUCOSE RANDOM (BEAKER) (test code 141 mg/dL 70-110 H = 652) HGB/HCT (H&H) - STAT [id number] 11:12:00 Test Item Value Reference Range Interpretation Comments HEMOGLOBIN (BEAKER) (test code = 10.6 GM/DL 13.0-16.8 L 410) HEMATOCRIT (BEAKER) (test code = 31.0 % 40.0-50.0 L 411) POTASSIUM-STAT [id number] 11:12:00 Test Item Value Reference Range Interpretation Comments POTASSIUM (BEAKER) (test code = 4.2 meq/L 3.6-5.5 379) GLUCOSE-STAT [id number] 08:51:00 Test Item Value Reference Range Interpretation Comments GLUCOSE RANDOM (BEAKER) (test code 105 mg/dL 70-110 = 652) SODIUM NA-STAT [id number] 08:51:00 Test Item Value Reference Range Interpretation Comments SODIUM (BEAKER) (test code = 381) 138 meq/L 136-145 POTASSIUM-STAT [id number] 08:51:00 Test Item Value Reference Range Interpretation Comments POTASSIUM (BEAKER) (test code = 3.5 meq/L 3.6-5.5 L 379) HGB/HCT (H&H) - STAT [id number] 08:51:00 Test Item Value Reference Range Interpretation Comments HEMOGLOBIN (BEAKER) (test code = 13.7 GM/DL 13.0-16.8 410) HEMATOCRIT (BEAKER) (test code = 40.0 % 40.0-50.0 411) BLOOD GAS, [id number] 08:51:00 Test Item Value Reference Range Interpretation [...] (BEAKER) (test code = 1819) 100.0 CALCIUM, [id number] 08:51:00 Test Item Value Reference Range Interpretation Comments CALCIUM IONIZED (BEAKER) (test 1.17 mmol/L 1.12-1.27 code = 698) PH, BLOOD (BEAKER) (test code = 7.38 1810) BASIC METABOLIC [id number] 05:24:00 Test Item Value Reference Range Interpretation [...] 697) EGFR (BEAKER) (test 94 mL/min/1.73 ESTIMA JEF GFR IS code = 1092) sq m NOT ACCURATE CREATININE CLEARANCE IN PREDICTING GLOMERULAR FILTRATION RATE . ESTIMATED GFR I S NOT APPLICABLE FOR DIALYSIS PATIEN TS. Dry End Operator ID - [id number] 05:24:00 Test Item Value Reference Range Interpretation Comments MAGNESIUM (BEAKER) (test code = 1.8 mg/dL 1.6-2.6 627) Dry End Operator ID - [id number] 05:06:00 Test Item Value Reference Range Interpretation [...] WBC 0-0 (BEAKER) (test code = 413) [id number] 19:35:00 Test Item Value Reference Range Interpretation Comments PARTIAL THROMBOPLASTIN TIME 72.9 seconds 22.5-36.0 H (BEAKER) (test code = 760) CT, BRAIN, WITHOUT [id number] 13:16:00Unlisted Reason for Exam - Click Yes and Enter Reason Below->YesUnlisted Reason for Exam->Ruleout CVA, R carotid stenosisMISSION BAY [facility]Name: [facility] : 1945 Sex: MFINAL REPORT CT, BRAIN, [...] MDReport Verified Date/Time: 09/24/2020 13:16:36 Reading Location: [facility] C013V Neuro Reading Room [id number] 13:11:00 Test Item Value Reference Range Interpretation Comments PARTIAL THROMBOPLASTIN TIME 71.8 seconds 22.5-36.0 H (BEAKER) (test code = 760) HEMOGLOBIN [id number] 08:50:00 Test Item Value Reference Range Interpretation Comments HEMOGLOBIN A1C (BEAKER) (test code = 5.6 % 4.3-6.1 368) [id number] 07:00:00 Test Item Value Reference Range Interpretation Comments PARTIAL THROMBOPLASTIN TIME 63.8 seconds 22.5-36.0 H (BEAKER) (test code = 760) Prior to initiating heparinPROTHROMBIN TIME/[id number] 06:59:00 Test Item Value Reference Range Interpretation [...] patients wiht mechanical heart valves.Prior to initiating heparinBASIC METABOLIC [id number] 06:43:00 Test Item Value Reference Range Interpretation [...] 697) EGFR (BEAKER) (test 92 mL/min/1.73 ESTIMA JEF GFR IS code = 1092) sq m NOT ACCURATE CREATININE CLEARANCE IN PREDICTING GLOMERULAR FILTRATION RATE . ESTIMATED GFR I S NOT APPLICABLE FOR DIALYSIS PATIEN TS. Dry End Operator ID - SAMMY [id number] 06:43:00 Test Item Value Reference Range Interpretation Comments MAGNESIUM (BEAKER) (test code = 1.7 mg/dL 1.6-2.6 627) Dry End Operator ID - SAMMY LLIPID [id number] 06:43:00 Test Item Value Reference Range Interpretation [...] Borderline 130-159 High 160-189 Very High >=190 Dry End Operator ID Rosalia CHRISTIANSONLCBC (HEMOGRAM ONLY)2020-09-24 06:26:00 Test Item Value Reference [...] 0-0 (BEAKER) (test code = 413) PLATELET [id number] 06:26:00 Test Item Value Reference Range Interpretation Comments PLATELET COUNT (BEAKER) (test 165 K/CU MM 150-450 code = 756) [id number] 23:33:00 Test Item Value Reference Range Interpretation Comments PARTIAL THROMBOPLASTIN TIME 72.8 seconds 22.5-36.0 H (BEAKER) (test code = 760) SARS-COV2/RT-PCR ([facility])2020-09-23 15:40:00 Test Item Value Reference Range Interpretation Comments SARS-COV2/RT-PCR (test Negative Not Detected, Negative, code = 5862409) See external report for linked test SARS-COV-2 PERFORMING LAB [facility] (test code = 5653910) Negative result for this test determines that [...] 564(g) of the Act.Fact Sheet for Healthcare Providers:https://www.[employer].OptTown/sites/default/files/product/documents/Fact_Shee n_BM_Gzeaqvedi_Lyih_ZEJB-KdD-9.pdfFact Sheet for Healthcare Patients:https://www.[employer].com/sites/default/files/product/ documents/Fsiz_Batfv_Gwqetnyy_Cuzy_WPZI-AdN-2.pdfPerforming Laboratory:[facility], [place] [address]XEG, CHEST, 1 VIEW, NON [id number] 09:56:00Reason for exam:->aobShould this be performed at the bedside?->Yes [facility] 1945 Sex: MFINAL REPORT TECHNIQUE: Frontal [...] MDReport Verified Date/Time: 09/23/2020 09:56:24 Reading Location: [address] Body Reading Room 09:56 AM TROPONIN [id number] 09:55:00 Test Item Value Reference Range Interpretation [...] failure, acidosis, acute neurological disease, and persistent tachyarrhythmia.Dry End Operator ID - NOV CB-TYPE NATRIURETIC FACTOR (BNP)2020-09-23 09:55:00 Test Item Value Reference Range Interpretation Comments B-TYPE NATRIURETIC PEPTIDE (BEAKER) 88 pg/mL 0-100 (test code = 700) Dry End Operator ID - YANIQUE CPT/[id number] 09:52:00 Test Item Value Reference Range Interpretation [...] for patients wiht mechanical heart valves.BASIC METABOLIC [id number] 09:49:00 Test Item Value Reference Range Interpretation [...] 697) EGFR (BEAKER) (test 86 mL/min/1.73 ESTIMA JEF GFR IS code = 1092) sq m NOT ACCURATE CREATININE CLEARANCE IN PREDICTING GLOMERULAR FILTRATION RATE . ESTIMATED GFR I S NOT APPLICABLE FOR DIALYSIS PATIEN TS. Dry End Operator ID - YANIQUE CHEPATIC FUNCTION [id number] 09:49:00 Test Item Value Reference Range Interpretation [...] (test code = 14 U/L 6-55 347) Dry End Operator - YANIQUE CCBC W/PLT COUNT & AUTO [id number] 09:22:00 Test Item Value Reference Range Interpretation [...] % 0-1 PERCENT (BEAKER) (test code = 4036)
[2022-02-10 17:21] LABS: Absolute Lymphocytes (CBC) 1.3 K/uL (0.7-4.9); Hematocrit 41.4 % (39.6-49.0); Lymphocytes % 17.8 % (15.3-44.8); MPV 7.9 fL (7.6-11.3); RBC Red Blood Cell Count 4.81 M/uL (4.33-5.43)
[2022-02-10 17:31] LABS: Protime INR 1.09
[2022-02-10 17:36] LABS: Potassium 3.8 mmol/L (3.5-5.1)
--- NOTE | 2022-02-10 18:09 | RAD REPORT ---
EXAM DESCRIPTION: US - Extremity Nonvascular Limited - 02/10/2022 6:00 pm CLINICAL HISTORY: Right groin hematoma COMPARISON: None FINDINGS: Right groin hematoma is not seen No pseudoaneurysm. Right common femoral vein is patent IMPRESSION: Right groin hematoma is not seen
--- NOTE | 2022-02-10 18:20 | ER ---
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 ap3 Patient reports being released from the facility at approx 1515. When the patient arrived home, he states that he felt "moisture between his legs", and looked down and saw blood at the catheter insertion site. Patient then drove himself to the ED for further evaluation. Coronavirus screen: At this time, the client does not indicate any symptoms associated with coronavirus-19. Ebola Screen: No symptoms or risks identified at this time. Initial Sepsis Screen: Does the patient meet any 2 criteria? No. Patient's initial sepsis screen is negative. Does the patient have a suspected source of infection? No. Patient's initial sepsis screen is negative. Risk Assessment: Do you want to hurt yourself or someone else? Patient reports no desire to harm self or others. Onset of symptoms was February 10, 2022. 16:16 Method Of Arrival: Ambulatory ap3 16:16 Acuity: LEANDER 3 ap3 Triage Assessment: 16:18 General: Appears in no apparent distress. comfortable, Behavior is calm, cooperative. ap3 Pain: Denies pain. Neuro: Level of Consciousness is awake, alert, obeys commands, Oriented to person, place, time, situation, Speech is normal. Respiratory: Airway is patent Respiratory effort is even, unlabored. Derm: Wound noted right inner thigh with blood soaked gauze with Tegaderm noted. Historical: - Allergies: 16:18 No Known Allergies; ap3 - Home Meds: 16:18 Imdur Oral [Active]; Altace Oral [Active]; Lipitor Oral [Active]; Plavix Oral [Active]; ap3 - PMHx: 16:18 heart disease; High Cholesterol; Hypertension; Myocardial infarction; ap3 - Immunization history:: Client reports receiving the 2nd dose of the Covid vaccine, Pneumococcal vaccine is up to date, Flu vaccine is up to date. - Social history:: Smoking status: Patient denies any tobacco usage or history of. Screenin:21 Abuse screen: Denies threats or abuse. Nutritional screening: No deficits noted. ap3 Tuberculosis screening: No symptoms or risk factors identified. 16:30 Fall Risk None identified. jg9 Assessment: 16:21 Reassessment: biology laboratory assistant nurse, Radha RN came to evaluated insertion site from the heart ap3 cath this morning. Radha reports feeling no hematoma at this time. Vital Signs: 16:16 BP 115 / 68; Pulse 87; Resp 17; Temp 98.7; Pulse Ox 98% ; Weight 79.38 kg; Height 5 ft. ap3 8 in. (172.72 cm); 16:30 BP 117 / 64; Pulse 82; Resp 16 S; Pulse Ox 98% on R/A; jg9 17:55 BP 96 / 57; Pulse 81; Resp 16; Pulse Ox 98% on R/A; ab2 18:00 BP 113 / 78; Pulse 85; Resp 14 S; Pulse Ox 98% on R/A; jg9 16:16 Body Mass Index 26.61 (79.38 kg, 172.72 cm) ap3 ED Course: 16:10 Patient arrived in ED. ja2 16:18 Triage completed. ap3 16:21 Arm band placed on left wrist. ap3 16:27 David Madden MD is Attending Physician. kdr 16:30 Patient has correct armband on for positive identification. Bed in low position. Call jg9 light in reach. 18:00 Extrmty Nonvasular Limited In Process Unspecified. EDMS 18:24 No provider procedures requiring assistance completed. jg9 18:24 IV discontinued. jg9 18:26 Ileana Huizar, RN is Primary Nurse. jg9 Administered Medications: No medications were administered Outcome: 18:20 Discharge ordered by . kdr 18:24 Discharged to home ambulatory. jg9 18:24 Condition: stable 18:24 Discharge instructions given to patient, Instructed on discharge instructions, follow up and referral plans. Demonstrated understanding of instructions, follow-up care. 18:32 Patient left the ED. jg9 Signatures: Dispatcher [employer] EDMS David Madden MD MD kdr Luly Jacobson RN RN ap3 Angelica Hernandez ja Ileana Huizar, RN RN jg9 Vince Maloney ab2
--- NOTE | 2022-02-10 18:21 | EDPHYS ---
Physician Documentation [facility] Name: Sharath Wiggins Age: 76 yrs Sex: Male : 1945 Arrival Date: 02/10/2022 Time: 16:10 Bed 8 Private MD: ED Physician David Madden HPI: 02/10 19:34 This 76 yrs old Male presents to ER via Ambulatory with complaints of Post Surgical kdr Bleeding. 19:34 Patient had a coronary angiogram this morning. The procedure was uneventful. After kdr discharge, the patient noted that there was some bleeding in his right groin and return to the hospital for evaluation.. Onset: The symptoms/episode began/occurred suddenly, just prior to arrival. Severity of symptoms: At their worst the symptoms were very mild in the emergency department the symptoms have resolved. The patient has not experienced similar symptoms in the past. The patient has been recently seen by a physician: Dr. Jennings performed a coronary angiogram earlier today . Historical: - Allergies: 16:18 No Known Allergies; ap3 - Home Meds: 16:18 Imdur Oral [Active]; Altace Oral [Active]; Lipitor Oral [Active]; Plavix Oral [Active]; ap3 - PMHx: 16:18 heart disease; High Cholesterol; Hypertension; Myocardial infarction; ap3 - Immunization history:: Client reports receiving the 2nd dose of the Covid vaccine, Pneumococcal vaccine is up to date, Flu vaccine is up to date. - Social history:: Smoking status: Patient denies any tobacco usage or history of. ROS: 19:34 Constitutional: Negative for fever, chills, and weight loss, Eyes: Negative for injury, kdr pain, redness, and discharge. 19:34 Skin: Positive for Is a dressing on a puncture wound to the right groin. There is no bleeding at this time. The original dressing has been removed and so I was unable to ascertain the amount of blood that had been expressed. Patient did not have any pain in the right groin. Exam: 19:34 Constitutional: This is a well developed, well nourished patient who is awake, alert, kdr and in no acute distress. 19:34 Skin: Single puncture wound to the right groin. There is not any active bleeding at this time. There is no palpable hematoma or thrill in the groin.. Vital Signs: 16:16 BP 115 / 68; Pulse 87; Resp 17; Temp 98.7; Pulse Ox 98% ; Weight 79.38 kg; Height 5 ft. ap3 8 in. (172.72 cm); 16:30 BP 117 / 64; Pulse 82; Resp 16 S; Pulse Ox 98% on R/A; jg9 17:55 BP 96 / 57; Pulse 81; Resp 16; Pulse Ox 98% on R/A; ab2 18:00 BP 113 / 78; Pulse 85; Resp 14 S; Pulse Ox 98% on R/A; jg9 16:16 Body Mass Index 26.61 (79.38 kg, 172.72 cm) ap3 MDM: 18:20 Patient medically screened. kdr 19:34 Data reviewed: vital signs, nurses notes, lab test result(s), radiologic studies. kdr Counseling: I had a detailed discussion with the patient and/or guardian regarding: the historical points, exam findings, and any diagnostic results supporting the discharge/admit diagnosis, lab results, radiology results, the need for outpatient follow up. 02/10 16:46 Order name: CBC with Diff; Complete Time: 17:41 kdr 02/10 16:46 Order name: Chem 7; Complete Time: 17:41 kdr 02/10 16:29 Order name: US Extrmty Nonvasular Limited; Complete Time: 18:14 jl7 02/10 16:46 Order name: Type And Screen kdr 02/10 16:46 Order name: PT-INR; Complete Time: 17:41 kdr 02/10 18:20 Order name: Misc. Order: Redress right groin wound; Complete Time: 18:25 kdr Administered Medications: No medications were administered Disposition Summary: 02/10/22 18:20 Discharge Ordered Location: Home kdr Problem: new kdr Symptoms: are resolved kdr Condition: Stable kdr Diagnosis - Right groin bleeding s/p heart cath today kdr Followup: kdr - With: Private Physician - When: 2 - 3 days - Reason: If symptoms return, Further diagnostic work-up, Recheck today's complaints, Continuance of care, Re-evaluation by your physician Discharge Instructions: - Discharge Summary Sheet kdr - Coronary Angiogram kdr - Coronary Angiogram, Care After kdr Forms: - Medication Reconciliation Form kdr - Thank You Letter kdr Signatures: Dispatcher [employer] EDMS Rittger, David, MD MD kdr Luly Jacobson, RN RN ap3
[2022-02-10 18:48] VITALS: TEMP 98.7; O2SAT 98
[2022-02-10 18:52] VITALS: BP 113/78
== END 2022-02-10 18:32 | disposition home or self-care (01) ==
LOC: ER 16:06
DX: I97.610 Postprocedural hemorrhage of a circulatory system organ or structure following a cardiac catheterization (principal); I10 Essential (primary) hypertension; I25.2 Old myocardial infarction; I51.9 Heart disease, unspecified; E78.00 Pure hypercholesterolemia, unspecified
CPT/HCPCS: 36415; 76882; 80048; 85025; 85610; 86850; 86900; 86901; 99283

== ENCOUNTER 2023-04-19 17:03 | Emergency (ER) | payer OTHER ==
--- OUTSIDE RECORDS SUMMARY | 2023-04-19 17:09 | XMS REPORT | Continuity of Care Document ---
:1945 Author Organization [facility] t Address [address] [place] [address] [place] [id number] Care Team Providers Name Role Phone Brooke Erwin Attending Clinician Unavailable KATELYN MCKEON Attending Clinician Unavailable Ileana Gann Attending Clinician [phone] ELÍAS ALEJO Attending Clinician Unavailable KATELYN MCKEON Admitting Clinician Unavailable Payers Payer Name Policy Type Policy Number Effective Date Expiration Date Lea brock MEDICARE A B [id number] 2009 00:00:00 GENERIC MEDICARE [id number] 2020 SUPPLEMENT 00:00:00 Problems Condition Condition Condition Status Onset Resolution Last Treating Co mments Source Name Details Category Date Date Treatment Clinician Date HLD HLD Disease Active 2019-11 [facility] (hyperlipi (hyperlipi 1-18 Co llege demia) demia) 00:00: of 00 Medicin e 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 [facility] r cardiomyop cardiomyop 1-18 Co llege athy athy 00:00: of 00 Medicin e Pacemaker Pacemaker Disease Active 2019-11 [facility] 1-18 College 00:00: of 00 Medicin e Chest pain Chest pain Disease Active 2019-[address] [facility] Uncontroll Uncontroll Disease Active 2019-[address] ed ed [facility] hypertensi hypertensi 00:00: Me dical on on Center Hyperlipid Hyperlipid Disease Active 2019-[address] emia, emia, 0-25 [facility] unspecifie unspecifie 00:00: Me dical d d 00 Center hyperlipid hyperlipid emia type emia type ACB x2 ACB x2 Disease Recurre 2019-11 [facility] ( (Dr. lezama 0-25 [facility] Letsou Letsou 00:00: Medical 09/25) 09/25) 00 Center Mixed Mixed Problem Active Common hyperlipid hyperlipid Sp sussy emia emia - [facility] Stented Stented Problem Active Common coronary coronary Spirit artery artery - [facility] Malignant Melanoma Problem Active Comm on melanoma Spirit of skin - [facility] Hypovolemi Hypovolemi Disease Recurre [facility] St c shock c shock [facility] Coronary Coronary Disease Recurre [facility] artery artery [facility] disease of disease of [place] dical [facility] artery of artery of [place] heart 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 Thrombocyt Thrombocyt Disease Recurre [facility] St openia openia [facility] Acute Acute Disease Active [facility] respirator respirator Lucie kes y y Medical insufficie insufficie Ce nter wiy [facility] Acute Acute Disease Active [facility] St post-opera post-opera Lucie kes tive pain tive pain [facility] Stenosis Stenosis Disease Active [facility] S t of right of right [facility] carotid carotid Medical artery artery [place] Acute Acute Disease Active [facility] St blood loss blood loss Lucie kes anemia anemia [facility] Lactic Lactic Disease Active [facility] acidosis acidosis [facility] Vasogenic Vasogenic Disease Recurre [facility] shock shock [facility] Allergies, Adverse Reactions, Alerts Allergy Allergy Status Severity Reaction(s) Onset Inactive Treating Comm ents Source Name Type Date Date Clinician NO KNOWN Allergy Active [facility] Social History Social Habit Start Date Stop Date Quantity Comments Source History of [facility] - Tobacco Use [facility] Tobacco use and 2020-10-17 2020-10-17 Never used [employer] llege exposure 00:00:00 00:00:00 of Medicine Alcohol intake 2020-10-17 2020-10-17 Current drinker [facility] 00:00:00 00:00:00 of alcohol of Medicine (finding) Sex Assigned At [address] [facility] 00[facility] Smoking Status Start Date Stop Date Source Former Smoker 2022-06-16 00:00:00 2022-06-16 00:00:00 Common S [facility] - [facility] Never Smoker [facility] Medications Ordered Filled Start Stop Current Ordering Indication Dosage Frequency Signature Comments Components Source Medication Medication Date Date Medication? Clinician (SIG) Name Name atorvastati 2019-11 Yes 40mg Take 40 mg Prieto n (LIPITOR) 1-18 by mouth Pauly ege 40 MG 16:12: daily. of tablet 25 Medicin e clopidogrel 2019-11 Yes 75mg Take 75 mg Prieto (PLAVIX) 75 1-18 by mouth Pauly ege MG Tablet 16:12: daily. of 25 Medicin e isosorbide 2019-11 Yes 120mg Take 120 [facility] mononitrate 1-18 mg by [place] (IMDUR) 120 16:12: mouth of MG CR 25 daily. Medicin tablet e omeprazole 2019-11 Yes 20mg Take 20 mg [facility] (PRILOSEC 1-18 by mouth Colleg e OTC) 20 MG 16:12: daily. of tablet 25 Medicin e ketoconazol 2019-11 Yes APPLY [facility] (NIZORAL) -11 CREAM [place] 2 % cream 00:00: TOPICALLY of 00 TO Medicin AFFECTED e AREA TWICE DAILY FOR RASH FOR FACE AND EARS IF NEEDED FOR FLAKY RASH SAFE TO USE DAILY IF NEEDED isosorbide 2019-11 Yes 120mg QD Take [address] mononitrate 1-03 mg by [facility] (IMDUR) 120 14:46: mouth Medic al mg 24 hr 26 daily. Center tablet clopidogreL 2019-11 Yes 75mg QD Take [address] (PLAVIX) 75 1-03 by mouth Luke s mg tablet 14:46: daily. Medica l 26 [place] atorvastati 2019-11 Yes 40mg QD Take [address] n (LIPITOR) 1-03 by mouth Luke s 40 MG 14:46: daily. Medical tablet 26 [place] omeprazole 2019-11 Yes 20mg QD Take [address] (PriLOSEC 1-03 by mouth [facility] OTC) 20 MG 14:46: daily. Medic al tablet 26 Center hydrocodone 2019-11 Yes as needed. [facility] -acetaminop 12-02 College hen (NORCO) 00:00: of 5-325 mg 00 Medicin tablet e aspirin EC 2019-11- No 81mg Take 81 mg [facility] 81 MG 12-02 by mouth College tablet 00:00: 05:59 daily. of 00 :00 Medicin e furosemide 2019-11- No 20mg Take 20 mg Prieto (LASIX) 20 12-02 by mouth Pauly ege MG tablet 00:00: 05:59 daily. of 00 :00 Medicin e metoprolol 2019-11- No 25mg Take 25 mg [facility] (TOPROL-XL) 12-02 by mouth Col lege 25 MG XL 00:00: 05:59 two times of tablet 00 :00 daily. Medicin e lisinopril 2019-11- No 2.5mg Take 2.5 [facility] (PRINIVIL, 12-02 mg by [place] ZESTRIL) 00:00: 05:59 mouth of 2.5 MG 00 :00 daily. Medicin tablet e lidocaine 2019-11- No 2{patch Place 2 [facility] (LIDODERM) 12-02 } Patches Colle ge 5 % patch 00:00: 00:00 onto the of 00 :00 skin. Medicin e Isosorbide Isosorbide No 1{table QD Isosorbide Mononitrate Mononitrate t_in_th Mononitrat ER 120 MG ER 120 MG e_morni e ER 120 ng} MG Clopidogrel Clopidogrel No 1{table QD Clopidogre Bisulfate Bisulfate t} l 75 MG 75 MG Bisulfate 75 MG Atorvastati Atorvastati No 1{table QD Atorvastat n Calcium n Calcium t} in Calcium 40 MG 40 MG 40 MG Ramipril 5 Ramipril 5 No 1{capsu QD Ramipril 5 MG MG le} MG Clopidogrel Clopidogrel No 1{table QD Clopidogre Bisulfate Bisulfate t} l 75 MG 75 MG Bisulfate 75 MG Ramipril 5 Ramipril 5 No 1{capsu QD Ramipril 5 MG MG le} MG Isosorbide Isosorbide No 1{table QD Isosorbide Mononitrate Mononitrate t_in_th Mononitrat ER 120 MG ER 120 MG e_morni e ER 120 ng} MG Atorvastati Atorvastati No 1{table QD Atorvastat n Calcium n Calcium t} in Calcium 40 MG 40 MG 40 MG Clopidogrel Clopidogrel No 1{table QD Clopidogre Bisulfate Bisulfate t} l 75 MG 75 MG Bisulfate 75 MG Ramipril 5 Ramipril 5 No 1{capsu QD Ramipril 5 MG MG le} MG Isosorbide Isosorbide No 1{table QD Isosorbide Mononitrate Mononitrate t_in_th Mononitrat ER 120 MG ER 120 MG e_morni e ER 120 ng} MG Atorvastati Atorvastati No 1{table QD Atorvastat n Calcium n Calcium t} in Calcium 40 MG 40 MG 40 MG Clopidogrel Clopidogrel No 1{table QD Clopidogre Bisulfate Bisulfate t} l 75 MG 75 MG Bisulfate 75 MG Ramipril 5 Ramipril 5 No 1{capsu QD Ramipril 5 MG MG le} MG Isosorbide Isosorbide No 1{table QD Isosorbide Mononitrate Mononitrate t_in_th Mononitrat ER 120 MG ER 120 MG e_morni e ER 120 ng} MG Atorvastati Atorvastati No 1{table QD Atorvastat n Calcium n Calcium t} in Calcium 40 MG 40 MG 40 MG Immunizations Ordered Immunization Filled Immunization Date Status Commen ts Source Name Name FLUZONE HIGH DOSE FLUZONE HIGH DOSE 2021-03-13 Completed [facility] OVER 65 OVER 65 09:04:00 - [facility] FLUZONE HIGH DOSE FLUZONE HIGH DOSE 2021-03-13 Completed [facility] OVER 65 OVER 65 09:04:00 - [facility] FLUZONE HIGH DOSE FLUZONE HIGH DOSE 2021-03-13 Completed [facility] OVER 65 OVER 65 09:04:00 - [facility] FLUZONE HIGH DOSE FLUZONE HIGH DOSE 2021-03-13 Completed [facility] OVER 65 OVER 65 09:04:00 - [facility] Prevnar 13 (PCV13) Prevnar 13 (PCV13) 2018-11-29 Completed [facility] 09:05:00 - [facility] Prevnar 13 (PCV13) Prevnar 13 (PCV13) 2018-11-29 Completed [facility] 09:05:00 - [facility] Prevnar 13 (PCV13) Prevnar 13 (PCV13) 2018-11-29 Completed [facility] 09:05:00 - [facility] Prevnar 13 (PCV13) Prevnar 13 (PCV13) 2018-11-29 Completed [facility] 09:05:00 [facility] Vital Signs Vital Name Observation Time Observation Value Comments Source oximetry 2022-05-16 10:00:00 95 % [facility] respiratory rate 2022-05-16 10:00:00 16 /min Comm on [facility] blood pressure 2022-05-16 10:00:00 121 mm[Hg] [facility] systolic [facility] blood pressure 2022-05-16 10:00:00 63 mm[Hg] [facility] diastolic [facility] height 2022-05-16 10:00:00 70 [in_i] [facility] weight 2022-05-16 10:00:00 173.8 [lb_av] [facility] temperature 2022-05-16 10:00:00 97.6 [degF] [facility] bmi 2022-05-16 10:00:00 24.93 kg/m2 [facility] height 2022-05-16 10:00:00 70 [in_i] [facility] weight 2022-05-16 10:00:00 173.8 [lb_av] [facility] temperature 2022-05-16 10:00:00 97.6 [degF] [facility] bmi 2022-05-16 10:00:00 24.93 kg/m2 [facility] oximetry 2022-05-16 10:00:00 95 % [facility] respiratory rate 2022-05-16 10:00:00 16 /min Comm on [facility] blood pressure 2022-05-16 10:00:00 121 mm[Hg] Common [facility] - systolic [facility] blood pressure 2022-05-16 10:00:00 63 mm[Hg] Common [facility] - diastolic [facility] height 2022-04-15 11:20:00 70 [in_i] [facility] weight 2022-04-15 11:20:00 174.6 [lb_av] Common [facility] temperature 2022-04-15 11:20:00 97.9 [degF] [facility] bmi 2022-04-15 11:20:00 25.05 kg/m2 [facility] oximetry 2022-04-15 11:20:00 98 % [facility] respiratory rate 2022-04-15 11:20:00 16 /min Comm on [facility] blood pressure 2022-04-15 11:20:00 138 mm[Hg] Common [facility] - systolic [facility] blood pressure 2022-04-15 11:20:00 84 mm[Hg] Common [facility] - diastolic [facility] Systolic blood 2020-10-17 16:10:00 128 mm[Hg] [facility] pressure Medicine Diastolic blood 2020-10-17 16:10:00 81 mm[Hg] [facility] Medicine Heart rate 2020-10-17 16:10:00 83 /min [facility] Respiratory rate 2020-10-17 16:10:00 16 /min [facility] Body height 2020-10-17 16:10:00 172.7 cm [facility] Body weight 2020-10-17 16:10:00 73.483 kg [facility] BMI 2020-10-17 16:10:00 24.63 kg/m2 [facility] Oxygen saturation in 2020-10-17 16:10:00 98 /min [facility] blood by Medicine Pulse oximetry Systolic blood 2020-10-17 16:10:00 128 mm[Hg] [facility] pressure Medicine Diastolic blood 2020-10-17 16:10:00 81 mm[Hg] [facility] pressure Medicine Heart rate 2020-10-17 16:10:00 83 /min [facility] Respiratory rate 2020-10-17 16:10:00 16 /min [facility] Body height 2020-10-17 16:10:00 172.7 cm [facility] Body weight 2020-10-17 16:10:00 73.483 kg [facility] BMI 2020-10-17 16:10:00 24.63 kg/m2 [facility] Oxygen saturation in 2020-10-17 16:10:00 98 /min [facility] Arterial blood by [facility] Pulse oximetry WEIGHT 2020-09-30 04:27:00 79.788 kg [...] Planned Date Details Comments Source Future Scheduled 2023-07-[address] [facility] Test 00:00:00 (Season Ended) [code = [facility] INFLUENZA VACCINE (Season Ended)] Future Scheduled 2022-11-[address] [facility] Test 00:00:00 (12+) [code = Medical Center DEPRESSION SCREENING (12+)] Future Scheduled 2022-11-30 FALLS RISK SCREENING [facility] Test 00:00:00 [code = FALLS RISK Medical C enter SCREENING] Future Scheduled 2021-10-[address] [facility] Test 00:00:00 Counseling and Medical Cente r Screening (12+) [code = Tobacco Cessation Counseling and Screening (12+)] Future Scheduled 2010-08-[address] [facility] Test 00:00:00 WELLNESS (YEAR 2 or Medical Center FIRST YEAR if no IPPE) [code = MEDICARE ANNUAL WELLNESS (YEAR 2 or FIRST YEAR if no IPPE)] Future Scheduled 1994 SHINGLES VACCINES ([address] [facility] Test 00:00:00 of 2) [code = SHINGLES Medic al Center VACCINES (1 of 2)] Future Scheduled 1963 DTAP/TDAP/TD VACCINES [facility] 00:00:00 (1 - Tdap) [code = Medical C enter DTAP/TDAP/TD VACCINES (1 - Tdap)] Future Scheduled 1962 HEPATITIS C SCREENING [facility] 00:00:00 [code = HEPATITIS C Medical Center SCREENING] Future Scheduled 1950 PNEUMOCOCCAL 65+ YRS [facility] Test 00:00:00 (1 - PCV) [code = Medical Ce nter PNEUMOCOCCAL 65+ YRS (1 - PCV)] Future Scheduled 1945-03-27 COVID-19 VACCINE (#1) [facility] 00:00:00 [code = COVID-[address] VACCINE (#1)] Future Scheduled TETANUS SHOT (ADULT) [facility] Test [code = TETANUS SHOT Medicin e (ADULT)] Future Scheduled HEPATITIS C SCREENING [facility] Test [code = HEPATITIS C Medicine SCREENING] Future Scheduled ZOSTER VACCINE (1 of [facility] Test 2) [code = ZOSTER Medicine VACCINE (1 of 2)] Future Scheduled MEDICARE AWV (Initial) [facility] Test [code = MEDICARE AWV Medicin e (Initial)] Future Scheduled FALL SCREEN [code = [facility] Test FALL SCREEN] Medicine Future Scheduled PNEUMOVAX >=65 [facility] llege of Test (PPSV23) [code = Medicine PNEUMOVAX >=65 (PPSV23)] Future Scheduled FLU VACCINE > 6 MONTHS [facility] Test [code = FLU VACCINE > Medici ne 6 MONTHS] Encounters Start End Encounter Admission Attending Care Care Encounter Source Date/Time Date/Time Type Type Clinicians Facility Department ID 2022-05-16 Outpatient Rip STJOSE STLC [id number] Common 10:44:03 Avnee [facility] - [facility] 2022-04-15 Outpatient Rip STJOSE STLMLC [id number] Common 11:02:[address] [facility] 2021-09-04 Inpatient MIKE, [facility] Surgery [id number] [facility] 11[facility] 2022-06-19 2022-06-19 (TEL) STLMLC STLC [id number] Co mmon 00:00:00 00:00:00 Spirit - [facility] 2022-05-16 2022-05-16 SUB ANNUAL STLC STLC [id number] Common 00:00:00 00:00:00 MCR Spirit WELLNESS - [facility] VISIT [facility] 2022-05-16 2022-05-16 OFFICE STLC STLC [id number] Co mmon 00:00:00 00:00:00 VISIT EST Spir it PT LEVEL 3 - [facility] 2022-04-15 2022-04-15 OFFICE STLC STLC [id number] Co mmon 00:00:00 00:00:00 VISIT Spirit ESTAB PT - CHI LEVEL 4 [facility] 2020-10-17 2020-10-17 Office Ramirez, RAO [id number] [facility] 10:00:51 10:40:51 Visit Ileana AMBULATOR [id number] Y [id number] 2020-10-17 2020-10-17 Office Ramirez, BC [id number] [facility] 10:00:51 10:40:51 Visit Ileana AMBULATOR [id number] College Y [id number] of [id number] Medi ruby 370 e 2020-10-17 2020-10-17 Outpatient EL ОЛЬГАU, SLE SLE [id number] [facility] 00:00:00 00:00:00 KATELYN 2020-09-23 2020-09-23 Emergency ER [facility] Emergency [id number] [facility] 08:23:00 08:23:00 Results Test Description Test Time Test Comments Results Result Alma Delia e Comments Jp 2022-06-12 result 00:00:00 TISSUE EXAM 2020-10-08 Surgical Pathology Report 13:34:00 Case: [id number] Authorizing Provider: Katelyn Mckeon, Collected: 10/01/2020 11:57 AM Ordering Location: [facility] Received: 10/01/2020 12:12 PM PERIOPERATIVE SERVICES Pathologist: Lopez Cade MD Specimen: Plaque, RIGHT CAROTID ARTERY PLAQUE ARTERY, RIGHT CAROTID, ENDARTERECTOMY:CALCIFIC ATHEROSCLEROTIC PLAQUE Signing Pathologist Direct Phone Line: [phone] y signed by Lopez Cade MD on 10/08/2020 at 1:34 [id number]; [id number] diagnosis: stenosis of right carotid arteryA. PlaqueReceived in formalin labeled with the patient's name, accession number and "right carotid artery plaque" is a 2.5 cm in length x 0.4 cm in diameter nichols-yellow tubular piece of focally calcified plaque. The specimen is entirely submitted in A1 following decalcification. PA/pl Performed SHORT-LATENCY 2020-10-05 IOM SPE, ALL LIMBS 17:32:00 [facility] 1945 Sex: M INTRAOPERATIVE MONITORING REPORT Patient Name: Gillian Segal [facility] Surgery Date: October 01, 2020 [place] [id number] Monitoring began at 09:41 and ended at 12:27 Surgeon: Katelyn Mckeon M.D. Examining Neurologist: Jared Rosa M.D. Monitoring Technologist: Aaron Connell, [facility] Procedure: Right Carotid Endarterectomy Stimulation [...] C3-O1, FP1-T3, T3-O1, FP2-C4, C4-O2, FP2-T4, and T4-G7Zsjdqjglygwx electrical Motor Evoked Potentials recorded from Abductor [...] occur throughout the operative procedure. Jared Howell, [facility] NeurophysiologistCHI [facility] -GLUCOSE METER 2020-10-02 12:30:00 Test Item Value Reference Range Interpretation Comme nts POC-GLUCOSE METER (GRIS) 110 mg/dL 70-110 : TESTED AT [facility] [address] [facility] (test code = 1538) [place]ER[place]NDEZ T X, [address]: Grape Crusher/Techni yessy ID = [id number] for Amber Asencio POCT-GLUCOSE [id number] 07:43:00 Test Item Value Reference Range Interpretation Comments POC-GLUCOSE METER 129 mg/dL 70-110 H : TESTED A T [facility] 6720 (BEAKER) (test code = LUZ FERNANDEZ [place], 1538) 38626: Grape Crusher/Techni yessy ID = [id number] for Amber Ko [id number] 06:21:00 Test Item Value Reference Range Interpretation Comments MAGNESIUM (BEAKER) (test code = 1.7 mg/dL 1.6-2.6 627) Grape Crusher ID - [id number] 06:21:00 Test Item Value Reference Range Interpretation Comments PHOSPHORUS (BEAKER) (test code = 2.6 mg/dL 2.3-4.7 604) Grape Crusher ID - ADMINBASIC METABOLIC [id number] 06:21:00 Test Item Value Reference Range Interpretation [...] S NOT APPLICABLE FOR DIALYSIS PATIEN TS. Grape Crusher ID - [id number] 05:42:00 Test Item Value Reference Range Interpretation Comments PARTIAL THROMBOPLASTIN TIME 28.9 seconds 22.5-36.0 (BEAKER) (test code = 760) CBC W/PLT COUNT & AUTO [id number] 05:37:00 Test Item Value Reference Range Interpretation [...] = 2801) RAD, CHEST, 1 VIEW, NON [id number] 04:40:00Reason for exam:->ptxShould this be performed at the bedside?->Yes [facility] 1945 Sex: MFINAL REPORT CLINICAL INDICATION: Pneumothorax Comparison: 10/01/2020 The cardiomediastinal contours are stable. Bibasilar parenchymal and bilateral pleural opacities are similar within variation of acquisition technique. A trace left apical pneumothorax appears slightly decreased on today's examination. Signed: Matthew Bryan Verified Date/Time: 10/02/2020 04:40:20 POCT- GLUCOSE [id number] 22:56:00 Test Item Value Reference Range Interpretation Comments POC-GLUCOSE METER 173 mg/dL 70-110 H : TESTED A T [facility] 6720 ([employer]) (test code = LUZ FERNANDEZ [place], 1538) 92247: Grape Crusher/Techni yessy ID = [id number] for AG U, LING POCT-GLUCOSE [id number] 17:00:00 Test Item Value Reference Range Interpretation Comments POC-GLUCOSE METER 177 mg/dL 70-110 H : TESTED A T [facility] 6720 (GRIS) (test code = LUZ Tavares [facility], 1538) 12338: Grape Crusher/Techni yessy ID = [id number] for MICHAEL AMAYA POCT-GLUCOSE [id number] 14:40:00 Test Item Value Reference Range Interpretation Comments POC-GLUCOSE METER 92 mg/dL 70-110 : TESTED A T [facility] 6720 (GRIS) (test code = LUZ Tavares [facility], 1538) [id number]: Grape Crusher/Techni yessy ID = [id number] for ARI SYUMIKO RAD, CHEST, 1 VIEW, NON [id number] 14:04:00Reason for exam:- >PNEUMOTHORACShould this be performed at the bedside?->Yes [facility] : 1945 Sex: MFINAL REPORT CLINICAL HISTORY: PNEUMOTHORAX TECHNIQUE: 1 view of the chest. COMPARISON: 10/01/2020 IMPRESSION: There is a new ETT at the clavicles. The midline chest tube has retracted inferiorly. The left chest tube has been removed. There is new left lower chest wall subcutaneous emphysema. A trace left apical pneumothorax appears slightly increased. Bilateral lung opacities are otherwise unchanged since earlier today. The cardiomediastinal silhouette is magnified by technique withsternotomy wires. Signed: Venita Hicks Verified Date/Time: 10/01/2020 14:04:37 Reading Location: [facility] Radiology Reading Room POCT-GLUCOSE [id number] 08:19:00 Test Item Value Reference Range Interpretation Comments POC-GLUCOSE METER 104 mg/dL 70-110 : TESTED A T [facility] 6720 (BEAKER) (test code = LUZ Tavares [place], 1538) 12766: Grape Crusher/Techni yessy ID = [id number] for ELÍAS KAUR [id number] 07:08:00 Test Item Value Reference Range Interpretation Comments MAGNESIUM (BEAKER) 1.6 mg/dL 1.6-2.6 Specimen slightly (test code = 627) hemolyzed Grape Crusher ID Rosalia VU [id number] 07:08:00 Test Item Value Reference Range Interpretation Comments PHOSPHORUS (BEAKER) 3.3 mg/dL 2.3-4.7 Specimen slightly (test code = 604) hemolyzed Grape Crusher ID Rosalia VU FBASIC METABOLIC [id number] 07:08:00 Test Item Value Reference Range Interpretation [...] S NOT APPLICABLE FOR DIALYSIS PATIEN TS. Grape Crusher ID Rosalia VU FCBC W/PLT COUNT & AUTO [id number] 06:21:00 Test Item Value Reference Range Interpretation [...] 0-1 PERCENT (BEAKER) (test code = 2801) [id number] 05:56:00 Test Item Value Reference Range Interpretation Comments PARTIAL THROMBOPLASTIN TIME 31.0 seconds 22.5-36.0 (GRIS) (test code = 760) RAD, CHEST, 1 VIEW, NON [id number] 04:58:00Reason for exam:->chest tubesShould this be performed at the bedside?->Yes [facility] 1945 Sex: MFINAL REPORT Chest one view. Clinical history: chest tubes Comparison: Chest radiograph 09/30/2020. Technique: A single frontal view of the chest was obtained. Findings: There is a leftchest tube unchanged in position. There are mediastinal drains. There is a left-sided AICD with leads unchanged. There are median sternotomy wires. The cardiomediastinal contours are stable. There is a stable tiny left apical pneumothorax. There is a small right pleural effusion with associated compressive atelectasis. There is pulmonary vascular congestion. Signed: Mikhail Keen [facility] Verified Date/Time: 10/01/2020 04:58:48 POCT- GLUCOSE [id number] 22:03:00 Test Item Value Reference Range Interpretation Comments POC-GLUCOSE METER 108 mg/dL 70-110 : TESTED A T [facility] 6720 (GRIS) (test code = LUZ Tavares [place], 1538) 65382: Grape Crusher/Techni yessy ID = [id number] for Re yes, Sairy SARS-COV2/RT-PCR ([facility])2020-09-30 20:08:00 Test Item Value Reference Range Interpretation Comments SARS-COV2/RT-PCR (test Negative Not Detected, Negative, code = 5094773) See external report for linked test SARS-COV-2 PERFORMING LAB [facility] SONU (test code = 1407380) Negative result for this test determines that [...] individuals suspected of COVID-19 by their healthcare provider.This test [...] justifying the authorization of the emergency use ofin vitro diagnostic tests for detection and/or diagnosis of COVID-19 is terminated under Section 564(b)(2) of the Act or the EUA is revoked under Section 564(g) of the Act.Testing was performed using the Sierra SARS-CoV-2 assay.Fact Sheet for Healthcare Providers:https://www.molecular.sierra/jayda/RT_SAR F-BjO-0_KHT_Mgnb_Xmbkt_11-512443.pdfFact Sheet for Healthcare Patients:https://www.molecular.sierra/s al/DM_LMAS-CeD-5_Ntqccry_Mqiw_Iukvt_GT_67-245062F7.pdfPerforming Laboratory:[place] [address] [place] [address] POCT-GLUCOSE [id number] 17:28:00 Test Item Value Reference Range Interpretation Comments POC-GLUCOSE METER 109 mg/dL 70-110 : TESTED A T [facility] 6720 (BEAKER) (test code = [facility], 1538) 17321: Grape Crusher/Techni yessy ID = [id number] for CASTILLO GUZMAN POCT-GLUCOSE [id number] 12:33:00 Test Item Value Reference Range Interpretation Comments POC-GLUCOSE METER 104 mg/dL 70-110 : TESTED A T [facility] 6720 (BEAKER) (test code = [facility], 1538) 16879: Grape Crusher/Techni yessy ID = [id number] for CASTILLO GUZMAN POCT-GLUCOSE [id number] 07:55:00 Test Item Value Reference Range Interpretation Comments POC-GLUCOSE METER 111 mg/dL 70-110 H : TESTED A T [facility] 6720 (BEAKER) (test code = [facility], 1538) 11366: Grape Crusher/Techni yessy ID = [id number] for CASTILLO GUZMAN [id number] 05:36:00 Test Item Value Reference Range Interpretation Comments PARTIAL THROMBOPLASTIN TIME 33.4 seconds 22.5-36.0 (BEAKER) (test code = 760) BASIC METABOLIC [id number] 05:22:00 Test Item Value Reference Range Interpretation [...] S NOT APPLICABLE FOR DIALYSIS PATIEN TS. Grape Crusher ID - [id number] 05:22:00 Test Item Value Reference Range Interpretation Comments MAGNESIUM (BEAKER) (test code = 1.8 mg/dL 1.6-2.6 627) Grape Crusher ID - [id number] 05:22:00 Test Item Value Reference Range Interpretation Comments PHOSPHORUS (BEAKER) (test code = 2.2 mg/dL 2.3-4.7 L 604) Grape Crusher ID - DBCBC W/PLT COUNT & AUTO [id number] 04:58:00 Test Item Value Reference Range Interpretation [...] = 2801) RAD, CHEST, 1 VIEW, NON [id number] 04:04:00Reason for exam:->chest tubesShould this be performed at the bedside?->Yes [facility] 1945 Sex: MFINAL REPORT CLINICAL INDICATION: Support lines. Comparison: 09/29/2020 The cardiomediastinal contours are stable. Central pulmonary vascular prominence and bilateral parenchymal and right pleural opacities are unchanged. A trace left apical pneumothorax is redemonstrated. A left chest tube and mediastinal drain remain in place. Signed: Matthew Bryan MDReport Verified Date/Time: 09/30 04:04:28 POCT-GLUCOSE [id number] 18:35:00 Test Item Value Reference Range Interpretation Comments POC-GLUCOSE METER 123 mg/dL 70-110 H : TESTED A T [facility] 6720 (BEAKER) (test code = [facility], 1538) 30851: Grape Crusher/Techni yessy ID = [id number] for NILAM GILMORE POCT-GLUCOSE [id number] 13:37:00 Test Item Value Reference Range Interpretation Comments POC-GLUCOSE METER 94 mg/dL 70-110 : TESTED A T [facility] 6720 (BEAKER) (test code = [facility] Anusha [facility], 1538) 99881: Grape Crusher/Techni yessy ID = [id number] for NILAM GILMORE POCT-GLUCOSE [id number] 13:36:00 Test Item Value Reference Range Interpretation Comments POC-GLUCOSE METER 91 mg/dL 70-110 : TESTED A T [facility] 6720 (BEAKER) (test code = [facility] Anusha [facility], 1538) 90556: Grape Crusher/Techni yessy ID = [id number] for NILAM GILMORE RAD, CHEST, 1 VIEW, NON [id number] 06:57:00Reason for exam:->chest tubesShould this be performed at the bedside?->Yes [facility] : 1945 Sex: MFINAL REPORT Chest one view. Clinical history: chest tubes Comparison: Chest radiograph 09/28/2020. Technique: A single frontal view of the chest was obtained. Findings:The patient isstatus post median sternotomy. There has been interval [...] Signed: Mikhail Keen MDReport Verified Date/Time: 09/29/2020 06:5 7:57 [id number] 05:25:00 Test Item Value Reference Range Interpretation Comments PARTIAL THROMBOPLASTIN TIME 36.7 seconds 22.5-36.0 H (BEAKER) (test code = 760) BASIC METABOLIC [id number] 05:12:00 Test Item Value Reference Range Interpretation [...] S NOT APPLICABLE FOR DIALYSIS PATIEN TS. Grape Crusher ID - FELTON [id number] 05:12:00 Test Item Value Reference Range Interpretation Comments MAGNESIUM (BEAKER) (test code = 1.9 mg/dL 1.6-2.6 627) Grape Crusher ID - FELTON [id number] 05:12:00 Test Item Value Reference Range Interpretation Comments PHOSPHORUS (BEAKER) (test code = 2.1 mg/dL 2.3-4.7 L 604) Grape Crusher ID - FELTON MCBC W/PLT COUNT & AUTO [id number] 04:52:00 Test Item Value Reference Range Interpretation [...] PERCENT (BEAKER) (test code = 2801) POCT-GLUCOSE [id number] 17:40:00 Test Item Value Reference Range Interpretation Comments POC-GLUCOSE METER 158 mg/dL 70-110 H : TESTED A T [facility] 6720 (GRIS) (test code = LUZ Tavares [facility], 1538) 65372: Grape Crusher/Techni yessy ID = [id number] for Amber Ko RAD, CHEST, 1 VIEW, NON [id number] 05:46:00Reason for exam:->chest tubesShould this be performed at the bedside?->Yes [facility] : 1945 Sex: MFINAL REPORT Chest one view. Clinical history: chest tubes Comparison: Chest radiograph 09/27/2020. Technique: A single frontal view of the chest was obtained. Findings: The patient isstatus post median sternotomy. There is a left-sided AICD with leads unchanged.Support lines and tubes are in satisfactory positions.The cardiomediastinal contours are stable. There are small bilateral pleural effusions. There are bibasilar opacities which may represent atelectasis and/or pneumonia. There is pulmonary vascular congestion. There is a stable small left apical pneumothorax. Signed: Mikhail Keen MDReport Verified Date/Time: 09/28/2020 05:46:22 CBC W/PLT COUNT & AUTO [id number] 04:52:00 Test Item Value Reference Range Interpretation [...] CONCENTRATION Decreased (CELLAVISION)(BEAKER) (test code = 3438) Grape Crusher ID - [id number] ID - Bismark Barba comments: Slide comments:BASIC METABOLIC [id number] 03:50:00 Test Item Value Reference Range Interpretation [...] S NOT APPLICABLE FOR DIALYSIS PATIEN TS. Grape Crusher ID - [id number] 03:50:00 Test Item Value Reference Range Interpretation Comments MAGNESIUM (BEAKER) (test code = 2.1 mg/dL 1.6-2.6 627) Grape Crusher ID - [id number] 03:50:00 Test Item Value Reference Range Interpretation Comments PHOSPHORUS (BEAKER) (test code = 2.4 mg/dL 2.3-4.7 604) Grape Crusher ID - [id number] 03:42:00 Test Item Value Reference Range Interpretation Comments PARTIAL THROMBOPLASTIN TIME 34.9 seconds 22.5-36.0 (BEAKER) (test code = 760) POCT-GLUCOSE [id number] 00:07:00 Test Item Value Reference Range Interpretation Comments POC-GLUCOSE METER 102 mg/dL 70-110 : TESTED A T [facility] 6720 (BEAKER) (test code = LUZ FERNANDEZ [place], 1538) 17297: Grape Crusher/Techni yessy ID = [id number] for CHELE MEYER (CELLAVISION MANUAL DIFF)2020-09-27 15:25:00 [...] CONCENTRATION Decreased (CELLAVISION)(BEAKER) (test code = 3438) Grape Crusher ID - [id number] ID - Vidhya Martinez comments: Slide comments: BASIC METABOLIC [id number] 15:07:00 Test Item Value Reference Range Interpretation [...] S NOT APPLICABLE FOR DIALYSIS PATIEN TS. Grape Crusher ID Rosalia VU [id number] 15:07:00 Test Item Value Reference Range Interpretation Comments MAGNESIUM (BEAKER) (test code = 2.1 mg/dL 1.6-2.6 627) Grape Crusher ID Rosalia VU [id number] 15:07:00 Test Item Value Reference Range Interpretation Comments PHOSPHORUS (BEAKER) (test code = 2.2 mg/dL 2.3-4.7 L 604) Grape Crusher ID Rosalia VU FCBC W/PLT COUNT & AUTO [id number] 14:56:00 Test Item Value Reference Range Interpretation [...] WBC 0-0 (test code = 413) POCT-GLUCOSE [id number] 08:04:00 Test Item Value Reference Range Interpretation Comments POC-GLUCOSE METER 156 mg/dL 70-110 H : TESTED A T [facility] 6720 (BEAKER) (test code = [facility] [place], 1538) 59982: Grape Crusher/Techni yessy ID = [id number] for MARLY JONES CBC (HEMOGRAM ONLY)2020-09-27 04:34:00 [...] l correlation required.Post s urgery specimen b.no.3 26596 HEMATOCRIT (BEAKER) 29.5 % 40.1-51.0 L (test [...] (BEAKER) (test code = 413) BASIC METABOLIC [id number] 04:19:00 Test Item Value Reference Range Interpretation [...] S NOT APPLICABLE FOR DIALYSIS PATIEN TS. Grape Crusher ID - FELTON [id number] 04:19:00 Test Item Value Reference Range Interpretation Comments MAGNESIUM (BEAKER) (test code = 2.0 mg/dL 1.6-2.6 627) Grape Crusher ID - FELTON [id number] 04:19:00 Test Item Value Reference Range Interpretation Comments PHOSPHORUS (BEAKER) (test code = 2.9 mg/dL 2.3-4.7 604) Grape Crusher ID - FELTON MCALCIUM, [id number] 04:08:00 Test Item Value Reference Range Interpretation Comments CALCIUM IONIZED (BEAKER) (test 1.10 mmol/L 1.12-1.27 L code = 698) PH, BLOOD (BEAKER) (test code = 7.36 1810) Check serum Ionized Calcium level after 4 hours after IV Calcium replacement. OXYGEN SATURATION, [id number] 04:04:00 Test Item Value Reference Range Interpretation Comments O2 SATURATION (MEASURED) (BEAKER) 67.1 % (test code = 1455) [id number] 04:00:00 Test Item Value Reference Range Interpretation Comments PARTIAL THROMBOPLASTIN TIME 35.6 seconds 22.5-36.0 (BEAKER) (test code = 760) RAD, CHEST, 1 VIEW, NON [id number] 03:09:00Reason for exam:->chest tubesShould this be performed at the bedside?->Yes [facility] 1945 Sex: MFINAL REPORT CLINICAL INDICATION: Support lines. Comparison: 2020 The cardiomediastinal contours are stable. The lung volumes are low but grossly stable after extubation. Infrahilar opacities may reflect atelectasis but pneumonitis should be excluded clinically. There is a smallleft apical pneumothorax. Remaining support lines, including left-sided chest tubes, are stable. Signed: Matthew Bryan Verified Date/Time: 09/27/2020 03:09:53 POCT- GLUCOSE [id number] 16:40:00 Test Item Value Reference Range Interpretation Comments POC-GLUCOSE METER 142 mg/dL 70-110 H : TESTED A T [facility] 6720 ([employer]) (test code = [facility], 1538) 27895: Grape Crusher/Techni yessy ID = [id number] for PH ILIP, BLANCA POCT-GLUCOSE [id number] 09:44:00 Test Item Value Reference Range Interpretation Comments POC-GLUCOSE METER 99 mg/dL 70-110 : TESTED A T [facility] 6720 (BEAKER) (test code = [facility], 1538) 41425: Grape Crusher/Techni yessy ID = [id number] for ARCHIE IP, BLANCA BLOOD GAS, [id number] 08:26:00 Test Item Value Reference Range Interpretation [...] (BEAKER) (test code = 1819) 40.0 POCT-GLUCOSE [id number] 08:04:00 Test Item Value Reference Range Interpretation Comments POC-GLUCOSE METER 73 mg/dL 70-110 : TESTED A T [facility] 6720 (BEAKER) (test code = [facility], 1538) 70692: Grape Crusher/Techni yessy ID = [id number] for ARCHIE JON COLONA OXYGEN SATURATION, [id number] 05:03:00 Test Item Value Reference Range Interpretation Comments O2 SATURATION (MEASURED) (BEAKER) 75.7 % (test code = 1455) BASIC METABOLIC [id number] 05:03:00 Test Item Value Reference Range Interpretation [...] S NOT APPLICABLE FOR DIALYSIS PATIEN TS. Grape Crusher ID - [id number] 05:03:00 Test Item Value Reference Range Interpretation Comments MAGNESIUM (BEAKER) (test code = 1.8 mg/dL 1.6-2.6 627) Grape Crusher ID - [id number] 05:03:00 Test Item Value Reference Range Interpretation Comments PHOSPHORUS (BEAKER) (test code = 3.5 mg/dL 2.3-4.7 604) Grape Crusher ID - EDASIBLOOD GAS, [id number] 05:00:00 Test Item Value Reference Range Interpretation [...] (BEAKER) (test code = 1819) 40.0 GLUCOSE-STAT [id number] 05:00:00 Test Item Value Reference Range Interpretation Comments GLUCOSE RANDOM (BEAKER) (test code 147 mg/dL 70-110 H = 652) HGB/HCT (H&H) - STAT [id number] 05:00:00 Test Item Value Reference Range Interpretation Comments HEMOGLOBIN (BEAKER) (test code = 12.7 GM/DL 13.0-16.8 L 410) HEMATOCRIT (BEAKER) (test code = 37.0 % 40.0-50.0 L 411) SODIUM NA-STAT [id number] 04:59:00 Test Item Value Reference Range Interpretation Comments SODIUM (BEAKER) (test code = 381) 140 meq/L 136-145 POTASSIUM-STAT [id number] 04:59:00 Test Item Value Reference Range Interpretation Comments POTASSIUM (BEAKER) (test code = 4.3 meq/L 3.6-5.5 379) LACTIC ACID, [id number] 04:53:00 Test Item Value Reference Range Interpretation Comments LACTATE BLOOD 1.7 mmol/L 0.5-2.2 Specimen sligh tly ARTERIAL (2) (BEAKER) hemoly zed (test code = 2874) Grape Crusher ID - [id number] 04:50:00 Test Item Value Reference Range Interpretation Comments FIBRINOGEN LEVEL (BEAKER) (test 212 mg/dl 225-434 L code = 658) [id number] 04:50:00 Test Item Value Reference Range Interpretation Comments PARTIAL THROMBOPLASTIN TIME 33.9 seconds 22.5-36.0 (BEAKER) (test code = 760) [id number] 04:50:00 Test Item Value Reference Range Interpretation [...] is 2.5-3.5 for patients wiht mechanical heart valves.PROTHROMBIN TIME/[id number] 04:49:00 Test Item Value Reference Range Interpretation [...] is 2.5-3.5 for patients wiht mechanical heart valves.CBC (HEMOGRAM [...] = 413) RAD, CHEST, 1 VIEW, NON [id number] 02:55:00Reason for exam:->chest tubesShould this be performed at the bedside?->Yes [facility] 1945 Sex: MFINAL REPORT CLINICAL INDICATION: Support lines. Comparison: 09/25/2020 The cardiomediastinal contours are stable. The lung volumes remain low. Bilateral parenchymal opacities are unchanged. There is no pneumothorax. Support lines are stable. Signed: Matthew [facility]connecticut [facility] Verified Date/Time: 2020 02:55:19 -GLUCOSE [id number] 01:53:00 Test Item Value Reference Range Interpretation Comments POC-GLUCOSE METER 112 mg/dL 70-110 H : TESTED A T [facility] 6720 (BEAKER) (test code = LUZ Tavares [facility], 1538) 85548: Grape Crusher/Techni yessy ID = [id number] for Abraham Floyd LACTIC ACID, [id number] 00:13:00 Test Item Value Reference Range Interpretation Comments LACTATE BLOOD ARTERIAL (2) 2.8 mmol/L 0.5-2.2 H (BEAKER) (test code = 2874) Grape Crusher ID - PIAYA LOXYGEN SATURATION, [id number] 00:08:00 Test Item Value Reference Range Interpretation Comments O2 SATURATION (MEASURED) (BEAKER) 77.4 % (test code = 1455) BLOOD GAS, [id number] 00:08:00 Test Item Value Reference Range Interpretation [...] (test code = 1819) 40.0 LACTIC ACID, [id number] 21:16:00 Test Item Value Reference Range Interpretation Comments LACTATE BLOOD ARTERIAL (2) 4.2 mmol/L 0.5-2.2 HH (BEAKER) (test code = 2874) Grape Crusher ID - ADMINBLOOD GAS, [id number] 20:45:00 Test Item Value Reference Range Interpretation [...] (BEAKER) (test code = 1819) 40.0 POTASSIUM-STAT [id number] 20:45:00 Test Item Value Reference Range Interpretation Comments POTASSIUM (BEAKER) (test code = 3.2 meq/L 3.6-5.5 L 379) GLUCOSE-STAT [id number] 20:45:00 Test Item Value Reference Range Interpretation Comments GLUCOSE RANDOM (BEAKER) (test code 127 mg/dL 70-110 H = 652) HGB/HCT (H&H) - STAT [id number] 20:45:00 Test Item Value Reference Range Interpretation Comments HEMOGLOBIN (BEAKER) (test code = 13.0 GM/DL 13.0-16.8 410) HEMATOCRIT (BEAKER) (test code = 38.0 % 40.0-50.0 L 411) SODIUM NA-STAT [id number] 20:39:00 Test Item Value Reference Range Interpretation Comments SODIUM (BEAKER) (test code = 381) 140 meq/L 136-145 LACTIC ACID, [id number] 19:30:00 Test Item Value Reference Range Interpretation Comments LACTATE BLOOD ARTERIAL (2) 5.7 mmol/L 0.5-2.2 HH (BEAKER) (test code = 2874) Grape Crusher ID - BSBLOOD GAS, [id number] 19:05:00 Test Item Value Reference Range Interpretation [...] (BEAKER) (test code = 1819) 40.0 POCT-GLUCOSE [id number] 19:02:00 Test Item Value Reference Range Interpretation Comments POC-GLUCOSE METER 156 mg/dL 70-110 H : TESTED A T [facility] 6720 (BEAKER) (test code = LUZ Tavares [facility], 1538) 83388: Grape Crusher/Techni yessy ID = [id number] for MIGUEL WALSH BLOOD GAS, [id number] 18:19:00 Test Item Value Reference Range Interpretation [...] (BEAKER) (test code = 1819) 60.0 POCT-GLUCOSE [id number] 18:17:00 Test Item Value Reference Range Interpretation Comments POC-GLUCOSE METER 146 mg/dL 70-110 H : TESTED A T [facility] 6720 (BEAKER) (test code = [facility], 1538) 69885: Grape Crusher/Techni yessy ID = [id number] for RONAL LDROP, MIGUEL LACTIC ACID, [id number] 18:14:00 Test Item Value Reference Range Interpretation Comments LACTATE BLOOD ARTERIAL (2) 7.5 mmol/L 0.5-2.2 HH (BEAKER) (test code = 2874) Grape Crusher ID - BSPOCT-GLUCOSE [id number] 18:12:00 Test Item Value Reference Range Interpretation Comments POC-GLUCOSE METER 152 mg/dL 70-110 H : TESTED A T [facility] 6720 (BEAKER) (test code = [facility], 1538) 86713: Grape Crusher/Techni yessy ID = [id number] for [place] LDROP, MIGUEL HEMOGLOBIN AND [id number] 17:44:00 Test Item Value Reference Range Interpretation Comments HEMOGLOBIN (BEAKER) (test code = 13.1 GM/DL 13.7-17.5 L 410) HEMATOCRIT (BEAKER) (test code = 39.3 % 40.1-51.0 L 411) Grape Crusher ID - [id number]-GLUCOSE [id number] 17:40:00 Test Item Value Reference Range Interpretation Comments POC-GLUCOSE METER 144 mg/dL 70-110 H : TESTED A T [facility] 6720 (BEAKER) (test code = [facility], 1538) 27654: Grape Crusher/Techni yessy ID = [id number] for RONAL LDROP, MIGUEL BLOOD GAS, [id number] 17:39:00 Test Item Value Reference Range Interpretation [...] (BEAKER) (test code = 1819) 60.0 CALCIUM, [id number] 17:39:00 Test Item Value Reference Range Interpretation Comments CALCIUM IONIZED (BEAKER) (test 1.09 mmol/L 1.12-1.27 L code = 698) PH, BLOOD (BEAKER) (test code = 7.37 1810) Check serum Ionized Calcium level after 4 hours after IV Calcium replacement. LACTIC ACID, [id number] 16:36:00 Test Item Value Reference Range Interpretation Comments LACTATE BLOOD 6.1 mmol/L 0.5-2.2 HH Specimen sligh tly ARTERIAL (2) (BEAKER) hemoly zed (test code = 2874) Grape Crusher ID - BSBLOOD GAS, [id number] 16:08:00 Test Item Value Reference Range Interpretation [...] 1819) 60.0 CBC W/PLT COUNT & AUTO [id number] 15:36:00 Test Item Value Reference Range Interpretation [...] (BEAKER) (test code = 2801) BASIC METABOLIC [id number] 15:33:00 Test Item Value Reference Range Interpretation [...] S NOT APPLICABLE FOR DIALYSIS PATIEN TS. Grape Crusher ID - BSHEPATIC FUNCTION [id number] 15:33:00 Test Item Value Reference Range Interpretation [...] Specimen slightly (test code = 347) hemolyzed Grape Crusher ID - [id number] 15:31:00 Test Item Value Reference Range Interpretation Comments MAGNESIUM (BEAKER) 2.2 mg/dL 1.6-2.6 Specimen slightly (test code = 627) hemolyzed Grape Crusher ID - BS(CELLAVISION MANUAL DIFF)2020-09-25 15:30:00 Test [...] CONCENTRATION Adequate (CELLAVISION)(BEAKER) (test code = 3438) Grape Crusher ID - [id number] ID - mary Fontanez comments: Slide comments: [id number] 15:20:00 Test Item Value Reference Range Interpretation Comments FIBRINOGEN LEVEL (BEAKER) (test 164 mg/dl 225-434 L code = 658) LACTIC ACID, [id number] 15:12:00 Test Item Value Reference Range Interpretation Comments LACTATE BLOOD 2.6 mmol/L 0.5-2.2 H Specimen sligh tly ARTERIAL (2) (BEAKER) hemoly zed (test code = 2874) Grape Crusher ID - [id number] 15:11:00 Test Item Value Reference Range Interpretation Comments PARTIAL THROMBOPLASTIN TIME 36.0 seconds 22.5-36.0 (BEAKER) (test code = 760) PROTHROMBIN [id number] 15:10:00 Test Item Value Reference Range Interpretation [...] is 2.5-3.5 for patients wiht mechanical heart valves.GLUCOSE-STAT [id number] 15:08:00 Test Item Value Reference Range Interpretation Comments GLUCOSE RANDOM (BEAKER) (test code 156 mg/dL 70-110 H = 652) BLOOD GAS, [id number] 15:08:00 Test Item Value Reference Range Interpretation [...] (BEAKER) (test code = 1819) 60.0 CALCIUM, [id number] 15:08:00 Test Item Value Reference Range Interpretation Comments CALCIUM IONIZED (BEAKER) (test 1.07 mmol/L 1.12-1.27 L code = 698) PH, BLOOD (BEAKER) (test code = 7.25 1810) OXYGEN SATURATION, [id number] 15:06:00 Test Item Value Reference Range Interpretation Comments O2 SATURATION (MEASURED) (BEAKER) 72.4 % (test code = 1455) SODIUM NA-STAT [id number] 15:06:00 Test Item Value Reference Range Interpretation Comments SODIUM (BEAKER) (test code = 381) 137 meq/L 136-145 POTASSIUM-STAT [id number] 15:06:00 Test Item Value Reference Range Interpretation Comments POTASSIUM (BEAKER) (test code = 3.9 meq/L 3.6-5.5 379) HGB/HCT (H&H) - STAT [id number] 15:06:00 Test Item Value Reference Range Interpretation Comments HEMOGLOBIN (BEAKER) (test code = 14.8 GM/DL 13.0-16.8 410) HEMATOCRIT (BEAKER) (test code = 44.0 % 40.0-50.0 411) CBC W/PLT COUNT & AUTO [id number] 15:05:00 Test Item Value Reference Range Interpretation [...] = 413) RAD, CHEST, 1 VIEW, NON [id number] 15:02:00Reason for exam:->post opShould this be performed at the bedside?->Yes [facility] 1945 Sex: MFINAL REPORT RAD, CHEST, 1 VIEW, NON DEPT INDICATION: post op COMPARISON: Prior day's exam FINDINGS: Portable frontal view of the chest. IMPRESSION: Support Lines: NG tube descends below the diaphragm. ET tube tip is 3-4 cm superior to the chey. Left-sided chest tube. Lungs and pleura: Unchanged airspace and pleural opacities. No pneumothorax.Heart and mediastinum: Stable contours.Stable surgical changes.Additional findings: None. Signed: Florencia Gtz MDReport Verified Date/Time: 09/25/2020 15:02:20 Reading Location: [facility] Radiology Reading Room [id number] 14:50:00 Test Item Value Reference Range Interpretation Comments PHOSPHORUS (BEAKER) (test code = 3.9 mg/dL 2.3-4.7 604) Grape Crusher ID - BSTHROMBOELASTOGRAPH (TEG)2020-09-25 14:28:00 Test Item [...] MM 55.0-65.0 (test code = 1413) PLATELET [id number] 14:15:00 Test Item Value Reference Range Interpretation Comments PLATELET COUNT (BEAKER) (test 134 K/CU MM 150-450 L code = 756) Grape Crusher ID - [id number] ID - [id number] 14:14:00 Test Item Value Reference Range Interpretation Comments FIBRINOGEN LEVEL (BEAKER) (test 159 mg/dl 225-434 L code = 658) [id number] 14:10:00 Test Item Value Reference Range Interpretation Comments PARTIAL THROMBOPLASTIN TIME 26.8 seconds 22.5-36.0 (BEAKER) (test code = 760) PROTHROMBIN TIME/[id number] 14:09:00 Test Item Value Reference Range Interpretation [...] is 2.5-3.5 for patients wiht mechanical heart valves.[id number] 14:04:00 Test Item Value Reference Range Interpretation Comments ACTIVATED CLOTTING TIME 87 sec : 74 -137 seconds, (BEAKER) (test code = Baseli ne: TESTED AT 441) [address], [facility] 30: Grape Crusher/Techni yessy ID = [id number] for HERNANDEZ Y, SAUNDRA [id number] 14:04:00 Test Item Value Reference Range Interpretation Comments ACTIVATED CLOTTING TIME 455 sec : 74 -137 seconds, (BEAKER) (test code = Baseli ne: TESTED AT 441) [address], [facility] 30: Grape Crusher/Techni yessy ID = [id number] for HERNANDEZ Y, SAUNDRA [id number] 14:04:00 Test Item Value Reference Range Interpretation Comments ACTIVATED CLOTTING TIME 439 sec : 74 -137 seconds, (BEAKER) (test code = Baseli ne: TESTED AT 441) [address], [facility] 30: Grape Crusher/Techni yessy ID = [id number] for HERNANDEZ Y, SAUNDRA [id number] 14:04:00 Test Item Value Reference Range Interpretation Comments ACTIVATED CLOTTING TIME 505 sec : 74 -137 seconds, (BEAKER) (test code = Baseli ne: TESTED AT 441) [address], [facility] 30: Grape Crusher/Techni yessy ID = [id number] for HERNANDEZ Y, SAUNDRA [id number] 14:04:00 Test Item Value Reference Range Interpretation Comments ACTIVATED CLOTTING TIME 428 sec : 74 -137 seconds, (BEAKER) (test code = Baseli ne: TESTED AT 441) [address], 770 30: Grape Crusher/Techni yessy ID = [id number] for HERNANDEZ Y, SAUNDRA [id number] 14:04:00 Test Item Value Reference Range Interpretation Comments ACTIVATED CLOTTING TIME 362 sec : 74 -137 seconds, (BEAKER) (test code = Baseli ne: TESTED AT 441) [address], [facility] 30: Grape Crusher/Techni yessy ID = [id number] for HERNANDEZ Y, SAUNDRA [id number] 14:03:00 Test Item Value Reference Range Interpretation Comments ACTIVATED CLOTTING TIME 543 sec : 74 -137 seconds, (BEAKER) (test code = Tobyi ne: TESTED AT [facility]) [address], [facility] 30: Grape Crusher/Techni yessy ID = [id number] for HERNANDEZ Y, SAUNDRA BLOOD GAS, [id number] 13:42:00 Test Item Value Reference Range Interpretation [...] (BEAKER) (test code = 1819) 100.0 GLUCOSE-STAT [id number] 13:42:00 Test Item Value Reference Range Interpretation Comments GLUCOSE RANDOM (BEAKER) (test code 239 mg/dL 70-110 H = 652) HGB/HCT (H&H) - STAT [id number] 13:42:00 Test Item Value Reference Range Interpretation Comments HEMOGLOBIN (BEAKER) (test code = 10.6 GM/DL 13.0-16.8 L 410) HEMATOCRIT (BEAKER) (test code = 31.0 % 40.0-50.0 L 411) SODIUM NA-STAT [id number] 13:41:00 Test Item Value Reference Range Interpretation Comments SODIUM (BEAKER) (test code = 381) 135 meq/L 136-145 L POTASSIUM-STAT [id number] 13:41:00 Test Item Value Reference Range Interpretation Comments POTASSIUM (BEAKER) (test code = 4.4 meq/L 3.6-5.5 379) BLOOD GAS, [id number] 12:43:00 Test Item Value Reference Range Interpretation [...] (test code = 1819) 80.0 SODIUM NA-STAT [id number] 12:43:00 Test Item Value Reference Range Interpretation Comments SODIUM (BEAKER) (test code = 381) 134 meq/L 136-145 L GLUCOSE-STAT [id number] 12:43:00 Test Item Value Reference Range Interpretation Comments GLUCOSE RANDOM (BEAKER) (test code 153 mg/dL 70-110 H = 652) HGB/HCT (H&H) - STAT [id number] 12:43:00 Test Item Value Reference Range Interpretation Comments HEMOGLOBIN (BEAKER) (test code = 10.3 GM/DL 13.0-16.8 L 410) HEMATOCRIT (BEAKER) (test code = 30.0 % 40.0-50.0 L 411) POTASSIUM-STAT [id number] 12:43:00 Test Item Value Reference Range Interpretation Comments POTASSIUM (BEAKER) (test code = 6.0 meq/L 3.6-5.5 HH 379) POTASSIUM-STAT [id number] 12:09:00 Test Item Value Reference Range Interpretation Comments POTASSIUM (BEAKER) (test code = 6.3 meq/L 3.6-5.5 HH 379) GLUCOSE-STAT [id number] 12:08:00 Test Item Value Reference Range Interpretation Comments GLUCOSE RANDOM (BEAKER) (test code 156 mg/dL 70-110 H = 652) BLOOD GAS, [id number] 12:08:00 Test Item Value Reference Range Interpretation [...] = 1819) 80.0 HGB/HCT (H&H) - STAT [id number] 12:08:00 Test Item Value Reference Range Interpretation Comments HEMOGLOBIN (BEAKER) (test code = 9.9 GM/DL 13.0-16.8 L 410) HEMATOCRIT (BEAKER) (test code = 29.0 % 40.0-50.0 L 411) SODIUM NA-STAT [id number] 12:07:00 Test Item Value Reference Range Interpretation Comments SODIUM (BEAKER) (test code = 381) 135 meq/L 136-145 L BLOOD GAS, [id number] 11:40:00 Test Item Value Reference Range Interpretation [...] (test code = 1819) 80.0 SODIUM NA-STAT [id number] 11:40:00 Test Item Value Reference Range Interpretation Comments SODIUM (BEAKER) (test code = 381) 132 meq/L 136-145 L POTASSIUM-STAT [id number] 11:40:00 Test Item Value Reference Range Interpretation Comments POTASSIUM (BEAKER) (test code = 5.8 meq/L 3.6-5.5 H 379) GLUCOSE-STAT [id number] 11:40:00 Test Item Value Reference Range Interpretation Comments GLUCOSE RANDOM (BEAKER) (test code 137 mg/dL 70-110 H = 652) HGB/HCT (H&H) - STAT [id number] 11:40:00 Test Item Value Reference Range Interpretation Comments HEMOGLOBIN (BEAKER) (test code = 9.7 GM/DL 13.0-16.8 L 410) HEMATOCRIT (BEAKER) (test code = 29.0 % 40.0-50.0 L 411) POTASSIUM-STAT [id number] 11:12:00 Test Item Value Reference Range Interpretation Comments POTASSIUM (BEAKER) (test code = 4.2 meq/L 3.6-5.5 379) BLOOD GAS, [id number] 11:12:00 Test Item Value Reference Range Interpretation [...] (test code = 1819) 80.0 SODIUM NA-STAT [id number] 11:12:00 Test Item Value Reference Range Interpretation Comments SODIUM (BEAKER) (test code = 381) 134 meq/L 136-145 L GLUCOSE-STAT [id number] 11:12:00 Test Item Value Reference Range Interpretation Comments GLUCOSE RANDOM (BEAKER) (test code 141 mg/dL 70-110 H = 652) HGB/HCT (H&H) - STAT [id number] 11:12:00 Test Item Value Reference Range Interpretation Comments HEMOGLOBIN (BEAKER) (test code = 10.6 GM/DL 13.0-16.8 L 410) HEMATOCRIT (BEAKER) (test code = 31.0 % 40.0-50.0 L 411) GLUCOSE-STAT [id number] 08:51:00 Test Item Value Reference Range Interpretation Comments GLUCOSE RANDOM (BEAKER) (test code 105 mg/dL 70-110 = 652) SODIUM NA-STAT [id number] 08:51:00 Test Item Value Reference Range Interpretation Comments SODIUM (BEAKER) (test code = 381) 138 meq/L 136-145 POTASSIUM-STAT [id number] 08:51:00 Test Item Value Reference Range Interpretation Comments POTASSIUM (BEAKER) (test code = 3.5 meq/L 3.6-5.5 L 379) HGB/HCT (H&H) - STAT [id number] 08:51:00 Test Item Value Reference Range Interpretation Comments HEMOGLOBIN (BEAKER) (test code = 13.7 GM/DL 13.0-16.8 410) HEMATOCRIT (BEAKER) (test code = 40.0 % 40.0-50.0 411) BLOOD GAS, [id number] 08:51:00 Test Item Value Reference Range Interpretation [...] (BEAKER) (test code = 1819) 100.0 CALCIUM, [id number] 08:51:00 Test Item Value Reference Range Interpretation Comments CALCIUM IONIZED (BEAKER) (test 1.17 mmol/L 1.12-1.27 code = 698) PH, BLOOD (BEAKER) (test code = 7.38 1810) BASIC METABOLIC [id number] 05:24:00 Test Item Value Reference Range Interpretation [...] S NOT APPLICABLE FOR DIALYSIS PATIEN TS. Grape Crusher ID - [id number] 05:24:00 Test Item Value Reference Range Interpretation Comments MAGNESIUM (BEAKER) (test code = 1.8 mg/dL 1.6-2.6 627) Grape Crusher ID - [id number] 05:06:00 Test Item Value Reference Range Interpretation [...] WBC 0-0 (BEAKER) (test code = 413) [id number] 19:35:00 Test Item Value Reference Range Interpretation Comments PARTIAL THROMBOPLASTIN TIME 72.9 seconds 22.5-36.0 H (BEAKER) (test code = 760) CT, BRAIN, WITHOUT [id number] 13:16:00Unlisted Reason for Exam - Click Yes and Enter Reason Below->YesUnlisted Reason for Exam->Ruleout CVA, R carotid stenosisCOMMUNITY REGIONAL MEDICAL CENTERName: GILLIAN SEGAL : 1945 Sex: [...] Signed: JR Parra Robert MDReport Verified Date/Time: 09/24/202013:16:36 Reading Location: [address] Neuro Reading Room [id number] 13:11:00 Test Item Value Reference Range Interpretation Comments PARTIAL THROMBOPLASTIN TIME 71.8 seconds 22.5-36.0 H (BEAKER) (test code = 760) HEMOGLOBIN [id number] 08:50:00 Test Item Value Reference Range Interpretation Comments HEMOGLOBIN A1C (BEAKER) (test code = 5.6 % 4.3-6.1 368) [id number] 07:00:00 Test Item Value Reference Range Interpretation Comments PARTIAL THROMBOPLASTIN TIME 63.8 seconds 22.5-36.0 H (BEAKER) (test code = 760) Prior to initiating heparinPROTHROMBIN TIME/[id number] 06:59:00 Test Item Value Reference Range Interpretation [...] is 2.5-3.5 for patients wiht mechanical heart valves.Prior to initiating heparinBASIC METABOLIC [id number] 06:43:00 Test Item Value Reference Range Interpretation [...] S NOT APPLICABLE FOR DIALYSIS PATIEN TS. Grape Crusher ID Rosalia CHRISTIANSON [id number] 06:43:00 Test Item Value Reference Range Interpretation Comments MAGNESIUM (BEAKER) (test code = 1.7 mg/dL 1.6-2.6 627) Grape Crusher JENNA CHRISTIANSON LLIPID [id number] 06:43:00 Test Item Value Reference Range Interpretation Comments TRIGLYCERIDES (BEAKER) (test code = 83 mg/dL 540) CHOLESTEROL (BEAKER) (test code = 120 mg/dL 631) HDL CHOLESTEROL (BEAKER) (test code 43 mg/dL = 976) LDL CHOLESTEROL CALCULATED (BEAKER) 60 mg/dL (test code = 633) Triglyceride Reference Range: Low Risk <150 Borderline 150-199 High Risk 200- 499 Very High Risk >=500Cholesterol Reference Range: Low Risk <200 Borderline 200-239 High Risk >240HDL Cholesterol Reference Range: Low Risk >=60 High Risk <40LDL Cholesterol Reference Range: Optimal <100 Near Optimal 100-129 Borderline 130-159 High 160-189 Very High >=190 Grape Crusher JENNA CHRISTIANSON LCBC (HEMOGRAM ONLY)2020-09-24 06:26:00 Test Item Value Reference [...] 0-0 (BEAKER) (test code = 413) PLATELET [id number] 06:26:00 Test Item Value Reference Range Interpretation Comments PLATELET COUNT (BEAKER) (test 165 K/CU MM 150-450 code = 756) [id number] 23:33:00 Test Item Value Reference Range Interpretation Comments PARTIAL THROMBOPLASTIN TIME 72.8 seconds 22.5-36.0 H (BEAKER) (test code = 760) SARS-COV2/RT-PCR ([facility])2020-09-23 15:40:00 Test Item Value Reference Range Interpretation Comments SARS-COV2/RT-PCR (test Negative Not Detected, Negative, code = 3545586) See external report for linked test SARS-COV-2 PERFORMING LAB [facility] (test code = 1374074) Negative result for this test determines that [...] individuals suspected of COVID-19 by their healthcare provider.This test [...] justifying the authorization of the emergency use ofin vitro diagnostic tests for detection and/or diagnosis of COVID-19 is terminated under Section 564(b)(2) of the Act or the EUA is revoked under Section 564(g) of the Act.Fact Sheet for Healthcare Prov iders:https://www.[employer]/sites/default/files/product/documents/Fact_Sheet_HC _Wqqfxgvlr_Bcqv_AJDY-GoQ-3.pdfFact Sheet for Healthcare Patients:https://www.[employer]/sites/default/files/product/docume nts/Nwuk_Egqce_Mdshpffv_Mzut_WHHV-OdI-7.pdfPerforming Laboratory:[facility].[place], [place] [address]OSI, CHEST, 1 VIEW, NON [id number] 09:56:00Reason for exam:->aobShould this be performed at the bedside?->YesCOMMUNITY REGIONAL MEDICAL CENTERName: GILLIAN SEGAL : 1945 Sex: MFINAL REPORT TECHNIQUE: Frontal view of the chest. INDICATION: 74-year-old man withshortness of breath. COMPARISON: None. FINDINGS: LINES/TUBES/DEVICES: Implanted cardiac device projects over the left chest with intact leads which project over the expected regions of the right atriumand right ventricle. LUNGS: Lungs are well inflated. No consolidation or pulmonary edema. Mild curvilinear opacities in both lung bases, likely atelectasis/scarring. Apparent 5 mm nodular density projects over the lateral right lower lung zone and the right anterior sixth rib. PLEURA: No pneumothorax or significant pleural effusion. HEART AND MEDIASTINUM: Cardiac silhouette is mildly prominent. BONESAND SOFT TISSUES: Unremarkable. IMPRESSION:No acute cardiopulmonary abnormalities. Apparent 5 mm nodular density projects over the right lower lung zone. Differential considerations include overlappingvessels, pulmonary nodule, and bone island in the overlying rib. Follow-up chest radiographs may be obtained in 6 months for reassessment; alternatively, nonemergent chest CT may be obtained. Signed: Marry Mercado Verified Date/Time: 09/23/2020 09:56:24 Reading Location: [facility] B1 C013Y CT Body Reading Room ONIN [id number] 09:55:00 Test Item Value Reference Range Interpretation [...] failure, acidosis, acute neurological disease, and persistent tachyarrhythmia.Grape Crusher ID - YANIQUE CB-TYPE NATRIURETIC FACTOR (BNP)2020-09-23 09:55:00 Test Item Value Reference Range Interpretation Comments B-TYPE NATRIURETIC PEPTIDE (BEAKER) 88 pg/mL 0-100 (test code = 700) Grape Crusher ID - YANIQUE CPT/[id number] 09:52:00 Test Item Value Reference Range Interpretation [...] is 2.5-3.5 for patients wiht mechanical heart valves.BASIC METABOLIC [id number] 09:49:00 Test Item Value Reference Range Interpretation [...] S NOT APPLICABLE FOR DIALYSIS PATIEN TS. Grape Crusher ID - NOV CHEPATIC FUNCTION [id number] 09:49:00 Test Item Value Reference Range Interpretation [...] (test code = 14 U/L 6-55 347) Grape Crusher ID - YANIQUE CCBC W/PLT COUNT & AUTO [id number] 09:22:00 Test Item Value Reference Range Interpretation [...] 0-1 PERCENT (BEAKER) (test code = 2801) Notes Date/Time Note Provider Source 2020-10-01 13:24:22-00:00 KATELYN MCKEON [facility] OPERATIVE/PROCEDURE REPORT GILLIAN SEGAL FACILITY: [facility] Billing #: [id number] Room: [facility] MR #: [id number] : 1945 DATE OF PROCEDURE: 10/01/2020 SURGEON: Katelyn Mckeon MD PREOPERATIVE DIAGNOSES: Right internal carotid a rtery stenosis, coronary artery disease, status post c oronary artery bypass grafting. History of a pacemaker or nic cardia, history of smoking. POSTOPERATIVE DIAGNOSES: Right internal carotid artery stenosis, coronary artery disease, status post c oronary artery bypass grafting. History of a pacemaker or nic cardia, history of smoking. OPERATIVE PROCEDURE: Right carotid endarterectom y with EEG monitoring and prosthetic patch repair. ASSISTANTS: 1. Torrey Lemus MD (PGY-7). 2. Tyrell Sun (ASP). ANESTHESIA: General endotracheal with EEG monito ring. INDICATIONS: This is a 75-year-old man who prese nted with coronary artery disease and a tight right caroti d stenosis. He was having active chest pain and underwent coron tracey artery bypass grafting. He has recovered well and now, right carotid endarterectomy is planned. Prior to surgery, I d escribed the operation to the patient and his family. I told them that the risks of surgery would include , bleeding, infection, heart attack and stroke, pneumonia, prolonged IC U stay, mechanical ventilation, tracheostomy, etc. I dis cussed the risk of stroke in detail. I told him that the ri sk of a stroke that might be major or lethal during the operati on or in the first several days of would be in the order of 3 % to 4%. I told them that after surgery, the risk of stroke would fall to approximately 0.5% per year, but not to 0. I jose d him that without surgery, the risk of stroke might be as high as 5% to 6% per year, given the tightness of the lesion a nd this might be a major or lethal stroke as well. I told him the only reason to proceed with surgery was to lessen the risk of stroke over the prison and that the operation would not be expected to improve neurologic function. The patient and his family stated that they understood, no further question s, and wanted to proceed. FINDINGS: Uneventful right carotid endarterectom y. There was a very tight 98% to 99% stenosis of the right in ternal carotid artery. Endarterectomy uneventful. EEG remained unchanged throughout. The patient emerged from anesthesia neurologically intact. DESCRIPTION OF PROCEDURE: The patient was taken to the operating room on October 01, 2020, and placed s upine upon the operating room table. General endotracheal anest hesia was smoothly induced. The right anterior neck and ch est were sterilely prepped and draped in the usual fashio n using alcohol prewash and Betadine scrub and solution. Time-ou t was performed appropriately. Incision was made anter ior to the sternocleidomastoid. Dissection carried down to the carotid sheath. The common carotid artery was identified . The hypoglossal nerve was identified and meticulousl y kept out of the dissection field. The internal carotid, exte rnal, and common carotid arteries were isolated and contro lled as well as the superior thyroid artery. The patient was sys temically heparinized. The internal carotid artery was occ luded followed by common and external carotid arteries. A later al arteriotomy was created starting on the distal common caroti d artery and extending onto the internal carotid artery to be on the area of plaque formation. Endarterectomy of the common a nd internal carotid artery was then carried out. A nicely fe athered plaque was removed from the distal internal carotid art elvira. The common carotid artery plaque was divided in an a priyanka of minimal involvement. Endarterectomy was also carried out at the base of the external carotid artery. All particulate matter was meticulously removed. A 7-0 tacking sutures were used proximally and distally. Dacron patch was sewn i nto place using two running 7-0 Prolene suture. Prior to c ompleting the patch repair, another inspection of the internal common carotid arteries did not reveal any particulate matter. The external carotid artery was allowed to back bleed and the repair de-aired. The patch repair was completed. The co mmon carotid artery was opened into the external carotid shawn ry for 12 beats. The internal carotid artery was then open ed as well. The EEG remained unchanged. There was excellent hemostasis. There was an excellent palpable pulse and a stro ng Doppler signal in the distal internal carotid artery. A half dose of protamine was administered to reverse the hepari n that had been given at a dose of 1 mg/kg intravenously prior t o occluding any of the vascular structures. There was excellent hemostasis. The wound was closed in layers using absorbable sutures. Local anesthetic was infiltrated. Sterile dressings we re applied. Sponge, instrument, and needle counts were corre ct both prior to and after the closure. Independent search of the operative field by both operating surgeons and nurse isela led no retained instruments or sponges. The patient tolerated th e procedure well, was extubated in the operating room, and t aken to the recovery area in stable condition. GVL/MODL /[id number] 2020-09-25 16:03:45-00:00 KATELYN MCKEON [facility] OPERATIVE/PROCEDURE REPORT GILLIAN SEGAL FACILITY: [facility] Billing #: [id number] Room: [place] [address] MR #: [id number] : 1945 DATE OF PROCEDURE: 09/25/2020 SURGEON: Katelyn Mckeon MD PREOPERATIVE DIAGNOSES: Coronary artery disease, unstable angina, right carotid artery stenosis, hypertens ion, history of myocardial infarction, hyperlipidemia. POSTOPERATIVE DIAGNOSES: Coronary artery disease , unstable angina, right carotid artery stenosis, hypertens ion, history of myocardial infarction, hyperlipidemia. OPERATIVE PROCEDURE: 1. Coronary artery bypass grafting x2 using left internal mammary artery and saphenous vein graft. a. Left internal mammary artery to left anterior descending artery. b. Saphenous vein graft to diagonal artery. 2. Endoscopic harvest of right greater saphenous vein. LUMBER STRAIGHTENED: Luz Pimentel M.D. SECOND WATCH CASE POLISHER: Fox Lebron M.D., (PGY 6). THIRD WATCH CASE POLISHER: Kelsie Trejo (ASP). ANESTHESIA: General endotracheal. INDICATIONS: This is a 74-year-old man with a hi story of a large myocardial infarction about 15 years ago. He had coronary artery stenting at that time. He also h ad symptomatic bradycardia with implantation of an ICD, which w as then later changed to a permanent pacer. He developed chest pain. Cardiac catheterization and carotid angiography were performed by Dr. Brantley. This revealed a very tight in-st ent restenosis of his LAD proximally as well as a tight right c arotid artery stenosis. The diagonal vessel also had a tight p roximal lesion. Surgical revascularization was recommend ed. After discussion, it was elected to perform staged pro cedures performing symptomatic coronary artery lesion fi rst. The plan is for a staged right carotid endarterectomy. Th is was reviewed with the Cardiology and Cardiac Surgery teams. It was discussed with the family including the patient, his significant other, and his son. I told him the r isks of cardiac surgery would suggest bleeding, infectio n, heart attack, stroke, pneumonia, prolonged ICU stay, m echanical ventilation, tracheostomy, renal failure, etc. W e discussed the risk of stroke in detail. I told him that gi lakshmi the carotid lesion, it would be a higher incidence o f stroke that might be major or lethal. I told him that since the lesion was not symptomatic, recommendation was for a st aged procedure. The patient, his significant other and his son all stated that they understood, no further questions, and wante d to proceed. MYOCARDIAL PROTECTION: Antegrade and retrograde [place] cardioplegia given as a bolus initially. Myocard ial temperature monitored . Mean arterial pressure was kept at 70. Systemic cooling to 32 degrees centi grade with active rewarming to 36.5 degrees centigrade. Rn Admissions ss-clamp time 48 minutes with cardiopulmonary bypass time 122 minutes. No blood transfusion was necessary. FINDINGS: The LAD was a 1.5 mm diffusely disease d vessel, was grafted using the ARAUZ. The diagonal vessel was a 1.5 mm vessel was grafted using saphenous vein. The pat ient was weaned from cardiopulmonary bypass using low-dos e epinephrine at 3 and Milrinone at 0.5. Transesophageal echo showed improved anterior wall function. EF was 45% to 4 9%, both prior to and at completion of the procedure. DESCRIPTION OF PROCEDURE: The patient was taken to the operating room on September 25, 2020, and placed s upine upon the operating room table. General endotracheal anest hesia was smoothly induced. The anterior chest and both lo wer extremities were sterilely prepped and draped in the usual fashion using alcohol prewash and Betadine scrub and solution. Endoscopic harvest of the right greater saphenou s vein was uneventful. The vein was of good caliber and lita lity. The sternum was opened uneventfully. Left internal m ammary artery was harvested in the anterior chest wall, dividi ng branches between hemoclips. The patient was systemically heparinized. Tranexamic acid was used for this case. The ARAUZ was divided distally and had excellent flow. Pericardium was opened. The heart was of normal size. The ascending aorta was not dilated and did not have any palpable atherosclerotic plaques. The aorta was cannulate d at the base of the artery, cardioplegia cannula was placed i n the ascending aorta, single venous cannula was placed in the r ight atrium, and a retrograde cardioplegia cannula was placed via the right atrium into the coronary sinus. ACT was confirme d to be above 450. Cardiopulmonary bypass was smoothly initiat ed. A good diastolic hypothermic cardiac arrest was achieve d using the above-mentioned techniques. The heart cooled pro mptly as monitored by myocardial temperature probe. Atten tion was turned to the diagonal vessel. It was opened [place] gitudinally. This was a 1.5 mm vessel. An end-to-side anastom osis of vein to artery was performed using a running 7-0 Prol queta. Prior to completing the anastomosis, a 1.5 mm dilator pas sed easily proximally and distally. The anastomosis was com pleted. Cardioplegia was given down the vein graft. Appr oximately 120 mL were administered. There was no anastomotic l eak. The flow was excellent. Attention was turned to the LAD. It was opened i n its mid portion. It was a more diseased vessel than pred icted by the angiogram. A 1.5 mm dilator passed easily to the apex. Only a 1.0 mm dilator would pass proximally. End-to-binta e anastomosis of ARAUZ to LAD was then performed using a runnin g 7-0 Prolene. Prior to completing the anastomosis, a 1.5 mm di lator passed easily distally and a 1.0 mm dilator passed prox imally. The anastomosis was completed. The ARAUZ was opened i nto the LAD. There was excellent hemostasis. The heart was de -aired and the aortic cross-clamp was removed. The patient rega ined the paced rhythm spontaneously. A single proximal anastomo sis of the vein to the ascending aorta was performed using the Heartstring device. After removing the Heartstring device an d completing the anastomosis, there was excellent hemostasis. The patient was then weaned from cardiopulmonary bypass. Mil rinone at 0.5 and epinephrine at 3 were necessary as well as r eprogramming the patient to DDD. After weaning, protamine was administered. There was excellent hemostasis. Af ter ensuring good hemostasis, two mediastinal tubes and one l eft pleural tube were placed as well as a temporary ventricu lar pacing wire. There was excellent hemostasis. The chest was closed using double #7 steel wires. Subcutaneous tissue s and muscle were closed with absorbable suture. Sterile dres sings were applied. NIRS monitoring was carried out throughout the c ase and there were no indications of abnormal cerebral functio n. The patient had been on Plavix as an outpatient, but because of the tight nature of the lesions, there was not possible to wait for Plavix to wear off. Sponge, instrument, and needle counts were corre ct both prior to and after wound closure. Independent search o f the operative field by both operating surgeons and jan brooks revealed no retained instruments or sponges. The patient tolerated the procedure well, was taken to the ICU in stable c ondition. Because of the combined carotid and coronary art elvira lesions, Dr. Luz Pimentel was the first leveler in order to assure patient's safety and safe conduct of the operati on. Proper performance of the procedure would not have been possible without his assistance. JP/AMITA /[id number] cc: MD Kelsie Sesay
[2023-04-19 17:43] LABS: Absolute Lymphocytes (CBC) 0.7 K/uL (0.7-4.9); Hematocrit 41.6 % (39.6-49.0); Lymphocytes % 6.2 % (15.3-44.8); MCV 93.7 fL (80-100); RBC Red Blood Cell Count 4.44 M/uL (4.33-5.43)
[2023-04-19 18:02] LABS: Albumin 3.5 g/dL (3.4-5.0); Bilirubin Direct 0.2 mg/dL (0-0.2); Bilirubin Indirect, Calculated 0.8 mg/dL (0.2-0.8); Magnesium 1.8 mg/dL (1.6-2.4); Potassium 3.7 mEq/L (3.5-5.1); Protein, Total 7.3 g/dL (6.4-8.2); Troponin High Sensitivity 16.1 pg/mL (<58.9)
--- NOTE | 2023-04-19 18:06 | RAD REPORT ---
EXAM DESCRIPTION: RAD - Chest Single View - 04/19/2023 6:00 pm CLINICAL HISTORY: near syncope Chest pain. COMPARISON: <Comparisons> FINDINGS: Portable technique limits examination quality. The lungs are grossly clear. The heart is mildly enlarged in size with a multi lead pacer/defibrillat or device present. No displaced fractures.Sternotomy wires. IMPRESSION: No acute intrathoracic process suspected.
--- NOTE | 2023-04-19 18:31 | RAD REPORT ---
EXAM DESCRIPTION: CTAbdomen Pelvis W Contrast - 04/19/2023 6:24 pm CLINICAL HISTORY: Abdominal pain. ABD PAIN COMPARISON: <Comparisons> TECHNIQUE: Biphasic CT imaging of the abdomen and pelvis was performed with 100 ml non-ionic IV cont rast. All CT scans are performed using dose optimization technique as appropriate and may include automated exposure control or mA/KV adjustment according to patient size. FINDINGS: Mild emphysema. The liver demonstrates small cysts. The spleen, pancreas, adrenal glands and kidneys are within ben l limits. No bowel obstruction, free air, free fluid or abscess. Mild sigmoid diverticulosis coli. The appendix is normal. Aortoiliac atherosclerosis. No evidence of significant lymphadenopathy. Small fat contain ing umbilical hernia. Mild lumbar degenerative changes. IMPRESSION: No acute intra-abdominal or pelvic finding.
--- NOTE | 2023-04-19 19:04 | ER ---
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 Had to sit down, No LOC. Didn't eat much today, drank 2 beers and some water. EMS states: BP 89/56 initially. 20 G R AC 600 ml NS bolus given, BP better now. Coronavirus screen: Vaccine status: Patient reports receiving the 2nd dose of the covid vaccine. Client denies travel out of the [place] in the last 14 days. At this time, the client does not indicate any symptoms associated with coronavirus-19. Ebola Screen: Patient denies travel to an Ebola-affected area in the 21 days before illness onset. Initial Sepsis Screen: Does the patient meet any 2 criteria? No. Patient's initial sepsis screen is negative. Does the patient have a suspected source of infection? No. Patient's initial sepsis screen is negative. Risk Assessment: Do you want to hurt yourself or someone else? Patient reports no desire to harm self or others. Onset of symptoms was April 19, 2023. 17:06 Method Of Arrival: EMS ll1 17:06 Acuity: LEANDER 2 ll1 Triage Assessment: 17:10 General: Appears in no apparent distress. Behavior is calm, cooperative, appropriate ll1 for age. Pain: Complains of pain in B flanks Pain currently is 2 out of 10 on a pain scale. Quality of pain is described as aching. Neuro: Reports dizziness, a syncopal episode weakness. GI: Reports nausea. Historical: - Allergies: 17:09 No Known Allergies; ll1 - PMHx: 17:09 heart disease; High Cholesterol; Hypertension; Myocardial infarction; ll1 - PSHx: 17:09 Coronary artery bypass graft; Coronary Angioplasty; ll1 - Immunization history:: Adult Immunizations up to date. - Social history:: Smoking status: Patient denies any tobacco usage or history of. - Family history:: not pertinent. Screenin:10 [facility] ED Fall Risk Assessment (Adult) Impaired Gait Yes (1 pt) Mobility Assist ll1 Device Used Yes (1 pt) Score/Fall Risk Level 0 - 2 = Low Risk Oriented to surroundings, Maintained a safe environment, Educated pt \T\ family on fall prevention, incl call for assistance when getting out of bed, Hourly rounding (assess needs \T\ fall precautionary measures) done. Abuse screen: Denies threats or abuse. Nutritional screening: No deficits noted. Nutritional screening: No deficits noted. Tuberculosis screening: No symptoms or risk factors identified. Assessment: 17:15 General: See triage assessment.. hb 18:54 Reassessment: Patient appears in no apparent distress at this time. Patient and/or hb family updated on plan of care and expected duration. Pain level reassessed. Patient is alert, oriented x 3, equal unlabored respirations, skin warm/dry/pink. Vital Signs: 17:06 BP 116 / 99; Pulse 87; Resp 18; Temp 97.9; Weight 77.11 kg; Height 5 ft. 8 in. ; Pain ll1 2/10; 18:00 BP 107 / 65; Pulse 83; Resp 22; Pulse Ox 97% on R/A; hb 17:06 Body Mass Index 25.85 (77.11 kg, 172.72 cm) ll1 17:06 Pain Scale: Adult ll1 ED Course: 17:06 Patient arrived in ED. ll1 17:06 Arm band placed on Patient placed in an exam room, on a stretcher. ll1 17:09 Triage completed. ll1 17:10 Elvis Baker MD is Attending Physician. rt 17:11 Patient has correct armband on for positive identification. Bed in low position. Call ll1 light in reach. Side rails up X2. Client placed on continuous cardiac and pulse oximetry monitoring. NIBP monitoring applied. gambling monitor on. 17:11 Maintain EMS IV. Dressing intact. Good blood return noted. Site clean \T\ dry. Gauge \T\ ll 1 site: 20 R AC. 17:30 Brett Kemp, NATY is Primary Nurse. ll1 18:02 XRAY Chest (1 view) In Process Unspecified. EDMS 18:26 CT Abd/Pelvis - IV Contrast Only In Process Unspecified. EDMS 19:48 No provider procedures requiring assistance completed. IV discontinued, intact, ll3 bleeding controlled, No redness/swelling at site. Pressure dressing applied. Administered Medications: No medications were administered Medication: 18:54 VIS not applicable for this client. hb Outcome: 19:04 Discharge ordered by MD. rt 19:48 Discharged to home ambulatory, with significant other. ll3 19:48 Condition: stable 19:48 Discharge instructions given to patient, significant other, Instructed on discharge instructions, follow up and referral plans. Demonstrated understanding of instructions, follow-up care. 19:48 Patient left the ED. ll3 Signatures: Dispatcher [employer] EDMS Medina Quan RN RN Brett Kemp RN RN ll1 Darin Johnson RN RN ll3 Elvis Baker MD MD rt Corrections: (The following items were deleted from the chart) 17:19 17:06 Chief complaint: Patient states: Near syncope event happened after playing music ll1 outside for the past 6 hours. Had to sit down, No LOC. Didn't eat much today, drank 2 beers and some water. EMS states: BP 89/56 initially. 20 G R AC 600 ml NS bolus given, BP better now. ll1
--- NOTE | 2023-04-19 19:04 | EDPHYS ---
Physician Documentation [facility] Name: Sharath Wiggins Age: 77 yrs Sex: Male : 1945 Arrival Date: 04/19/2023 Time: 17:03 Bed 7 Private MD: ED Physician Elvis Baker HPI: 04/19 19:21 This 77 yrs old Male presents to ER via EMS with complaints of Near Syncope. rt 19:21 Patient presents to the ED with dizziness, reported as near syncope after working and rt playing music outside for greater than 6 hours today. Patient states that he cannot drink enough fluids, did not eat anything all day. He did report an abdominal pain. The blood pressure was reportedly low, in the 80s systolic by EMS, they did give him fluids. This completely resolved the patient's symptoms and hypotension. Patient states he believes he may be dehydrated, states that he feels at baseline in the ED. Symptoms are moderate severity, no other aggravating or alleviating factors.. Historical: - Allergies: 17:09 No Known Allergies; ll1 - PMHx: 17:09 heart disease; High Cholesterol; Hypertension; Myocardial infarction; ll1 - PSHx: 17:09 Coronary artery bypass graft; Coronary Angioplasty; ll1 - Immunization history:: Adult Immunizations up to date. - Social history:: Smoking status: Patient denies any tobacco usage or history of. - Family history:: not pertinent. ROS: 19:21 Constitutional: Negative for fever, chills, and weight loss, Cardiovascular: Negative rt for chest pain, palpitations, and edema, Respiratory: Negative for shortness of breath, cough, wheezing, and pleuritic chest pain, MS/Extremity: Negative for injury and deformity, Skin: Negative for injury, rash, and discoloration, Psych: Negative for depression, anxiety, suicide ideation, homicidal ideation, and hallucinations. 19:21 Abdomen/GI: Positive for abdominal pain, Negative for nausea, vomiting, and diarrhea. 19:21 Neuro: Positive for near syncope, Negative for loss of consciousness, syncope. Exam: 19:21 Constitutional: This is a well developed, well nourished patient who is awake, alert, rt and in no acute distress. Head/Face: Normocephalic, atraumatic. Chest/axilla: Normal chest wall appearance and motion. Nontender with no deformity. No lesions are appreciated. Cardiovascular: Regular rate and rhythm with a normal S1 and S2. No gallops, murmurs, or rubs. Normal PMI, no JVD. No pulse deficits. Respiratory: Lungs have equal breath sounds bilaterally, clear to auscultation and percussion. No rales, rhonchi or wheezes noted. No increased work of breathing, no retractions or nasal flaring. Abdomen/GI: Soft, non-tender, with normal bowel sounds. No distension or tympany. No guarding or rebound. No evidence of tenderness throughout. Skin: Warm, dry with normal turgor. Normal color with no rashes, no lesions, and no evidence of cellulitis. MS/ Extremity: Pulses equal, no cyanosis. Neurovascular intact. Full, normal range of motion. Neuro: Awake and alert, GCS 15, oriented to person, place, time, and situation. Cranial nerves II-XII grossly intact. Motor strength 5/5 in all extremities. Sensory grossly intact. Cerebellar exam normal. Normal gait. Psych: Awake, alert, with orientation to person, place and time. Behavior, mood, and affect are within normal limits. 19:21 ECG was reviewed by the Attending Physician. rt Vital Signs: 17:06 BP 116 / 99; Pulse 87; Resp 18; Temp 97.9; Weight 77.11 kg; Height 5 ft. 8 in. ; Pain ll1 2/10; 18:00 BP 107 / 65; Pulse 83; Resp 22; Pulse Ox 97% on R/A; hb 17:06 Body Mass Index 25.85 (77.11 kg, 172.72 cm) ll1 17:06 Pain Scale: Adult ll1 MDM: 17:11 Patient medically screened. rt 19:21 Differential Diagnosis: Dehydration, dysrhythmia, acute kidney injury. Data reviewed: rt vital signs, nurses notes, lab test result(s), EKG, radiologic studies. Consideration of Admission/Observation Escalation of care including admission/observation considered. Patient with somewhat worsening renal function, not meeting criteria for WOOD. Discussed admission for observation with the patient, shared decision-making was employed, patient states that he wishes to go home, will hydrate well as an outpatient., Patient to follow-up closely with his primary care, strict return precautions were discussed.. I considered the following discharge prescriptions or medication management in the emergency department Medications were administered in the Emergency Department. See MAR. Test considered but Not performed: CT: No head trauma, CT scan of the head not indicated. Care significantly affected by the following chronic conditions: Coronary artery disease. Counseling: I had a detailed discussion with the patient and/or guardian regarding: the historical points, exam findings, and any diagnostic results supporting the discharge/admit diagnosis, lab results, radiology results, the need for outpatient follow up, to return to the emergency department if symptoms worsen or persist or if there are any questions or concerns that arise at home. 19:24 ED course: Similar EKG compared to prior. rt 04/19 17:17 Order name: Basic Metabolic Panel; Complete Time: 18:14 ll1 04/19 17:17 Order name: CBC with Diff; Complete Time: 18:14 1 04/19 17:17 Order name: Troponin HS; Complete Time: 18:14 1 04/19 17:42 Order name: Liver (Hepatic) Function; Complete Time: 18:14 EDMS 04/19 17:42 Order name: Magnesium; Complete Time: 18:14 EDMS 04/19 17:17 Order name: XRAY Chest (1 view); Complete Time: 18:14 ll1 04/19 17:29 Order name: CT Abd/Pelvis - IV Contrast Only; Complete Time: 18:33 rt 04/19 17:17 Order name: EKG; Complete Time: 17:18 ll1 04/19 17:17 Order name: Cardiac monitoring; Complete Time: 17:18 1 04/19 17:17 Order name: EKG - Nurse/Tech; Complete Time: 17:18 1 04/19 17:17 Order name: IV Saline Lock; Complete Time: 17:18 ll1 04/19 17:17 Order name: Labs collected and sent; Complete Time: 17:30 ll1 04/19 17:17 Order name: O2 Per Protocol; Complete Time: 17:17 ll1 04/19 17:17 Order name: O2 Sat Monitoring; Complete Time: 17:17 ll1 EC:21 Rate is 89 beats/min. Rhythm is regular, Normal Sinus Rhythm with No ectopy. QRS Cameron rt is Normal. GA interval is normal. QRS interval is normal. QT interval is normal. No Q waves. T waves are Inverted in leads V4, V5, V6. Interpreted by me. Administered Medications: No medications were administered Disposition Summary: 04/19/23 19:04 Discharge Ordered Location: Home rt Problem: new rt Symptoms: have improved rt Condition: Stable rt Diagnosis - Dehydration rt Followup: rt - With: Private Physician - When: 2 - 3 days - Reason: Discharge Instructions: - Discharge Summary Sheet rt - Dehydration, Adult rt Forms: - Medication Reconciliation Form rt - Thank You Letter rt - Antibiotic Education rt - Prescription Opioid Use rt Signatures: Dispatcher [employer] EDMS Brett Kemp, RN RN ll1 Elvis Baker MD MD rt Corrections: (The following items were deleted from the chart) 17:40 17:29 HEPATIC FUNCTION+C.LAB.BRZ ordered. EDMS EDMS 17:40 17:29 MAGNESIUM+C.LAB.BRZ ordered. EDMS EDMS
[2023-04-19 20:07] VITALS: TEMP 97.9
[2023-04-19 20:09] VITALS: BP 107/65; O2SAT 97
--- NOTE | 2023-04-20 15:23 | EKG ---
Test Date: 2023-04-19 Test Time: 17:15:52 Benefits Sales Consultant: SEA MEASUREMENT RESULTS: Intervals: Rate: 89 IN: 190 QRSD: 88 QT: 342 QTc: 416 Cornelius: P: 76 IN: 190 QRS: 74 T: 47 INTERPRETIVE STATEMENTS: Normal sinus rhythm T wave abnormality, consider lateral ischemia Abnormal ECG Compared to ECG 06/25/2010 05:38:49 T-wave abnormality now present Possible ischemia now present Atrial-paced complex(es) or rhythm no longer present Electronically Signed On 04-20-23 15:21:50 CDT by Kevin Brantley
== END 2023-04-19 19:48 | disposition home or self-care (01) ==
LOC: ER 17:03
DX: E86.0 Dehydration (principal); I10 Essential (primary) hypertension; E78.00 Pure hypercholesterolemia, unspecified; I25.2 Old myocardial infarction; Z95.1 Presence of aortocoronary bypass graft
CPT/HCPCS: 93005; 85025; 80048; 36415; 83735; 80076; 84484; 74177; 71045; Q9967

== ENCOUNTER 2023-07-13 08:40 | Day surgery (SDC) | payer OTHER ==
[2023-07-13 09:16] VITALS: TEMP 98.3; BMI 27.3
[2023-07-13 09:17] LABS: MPV 7.8 fL (7.6-11.3); Platelets 164 thou/uL (152-406)
[2023-07-13 09:26] LABS: Protime INR 1.06
[2023-07-13 13:56] VITALS: BP 153/89; O2SAT 97
--- NOTE | 2023-07-13 14:53 | RAD REPORT ---
EXAM DESCRIPTION: CT - Spine Lumbar Wo Con - 07/13/2023 11:46 am CLINICAL HISTORY: SPONDYLOSIS W/RADICULOPATHY COMPARISON: No comparisons TECHNIQUE: Axial noncontrast CT imaging of the lumbar spine was performed following intrathecal admi nistration of iodine contrast. Coronal and sagittal re-formatted images, as well as reformatted axial images aligned to the axis of each lumbar intervertebral disc, were generated and reviewed. Fluorosc opic procedure for myelogram contrast administration is reported separately. All CT scans are performed using dose optimization technique as appropriate and may include automated exposure control or mA/KV adjustment according to patient size. FINDINGS: Inadvertent egress of contrast into the subarachnoid space, most prominently accumulating along the right lateral aspect of the spinal canal opposite T12-L2, and along the dorsal aspect of th e spinal canal throughout the remainder of the lumbar levels and upper sacral spine. A small volume o f contrast does opacify the thecal sac. No acute lumbar spine fracture seen. No aggressive marrow pattern or malalignment. Multilevel degenerative changes with endplate spurring and up to moderate facet arthropathy most pron ounced at L5-S1 and to lesser extent at L4-5. No significant disc height loss. Paraspinal tissues are unremarkable. As best evaluated, in the conus medullaris terminates at lower L1 level. The cauda equina roots show no abnormal thickening or clumping, although effacement of the thecal sac limits evaluation. No findi ngs to suggest an intramedullary or intradural lesion. At T12-L1: No disc herniation, canal stenosis, or neural foraminal narrowing. At L1-2: Broad-based disc bulge with superimposed left subarticular/foraminal disc protrusion. This c ontributes to mild left neural foraminal narrowing. Central canal is patent. At L2-3: Broad-based disc bulge, asymmetric early mildly more pronounced along the subarticular zones contributing to mild bilateral foraminal stenosis. No central canal narrowing. At L3-4: Mild congenital pedicular shortening broad-based disc bulge. Minimal bilateral neural forami nal narrowing. Central canal is otherwise patent. At L4-5: Mild broad-based disc bulge and bilateral facet arthropathy with mild ligamentum flavum cloud ling. No significant central canal stenosis. Mild bilateral neural foraminal narrowing more so on the right. At L5-S1: Disc space is somewhat diminutive. Bilateral facet arthropathy. Circumferential disc bulge with annular mineralization along the right foraminal zone. At least right moderate and left mild to moderate neural foraminal narrowing. Central canal is patent. Evaluation of the intra-abdominal structures reveals moderate to advanced atherosclerotic calcificati ons. No other suspicious findings. IMPRESSION: Inadvertent egress of contrast into the subarachnoid space. Limited contrast opacificati on of the thecal sac, without abnormalities of the conus or cauda equina roots allowing for the degre e of effacement of the thecal sac. Lumbar spine spondylitic changes, overall mild to moderate. Findings contribute to variable degrees o f neural foraminal narrowing, up to moderate on the right at L5-S1. No central canal stenosis.
--- NOTE | 2023-07-13 15:03 | RAD REPORT ---
EXAM DESCRIPTION: RAD - Myelography Lumbar - 07/13/2023 11:43 am CLINICAL HISTORY: No comparisons COMPARISON: None. TECHNIQUE: The procedure, risks and alternatives to the procedure were discussed with the patient in detail. After answering all questions, both oral and written consent were obtained. Time-out procedu re was performed. The patient was placed in an oblique prone position on the fluoroscopic table. The skin of the lower back was prepped and draped in the usual sterile fashion. After anesthetizing the skin and deeper sof t tissues with 1% lidocaine, a 22 gauge needle was advanced into the thecal sac at the L3-4 level. When spontaneous CSF return was observed, 11 mL of Omnipaque 200 were injected into the thecal sac. S atisfactory opacification of the thecal sac was observed at the time of the procedure. AP, oblique, a nd lateral lumbar mammographic views were obtained. At the conclusion of the procedure the needle was withdrawn and a sterile bandage placed over the pun cture site. The patient tolerated the procedure well without immediate complications. Post-procedure care and precaution instructions were discussed with the patient before the myelogram procedure. The patient was then transferred to the CT department for subsequent imaging. This CT lumbar myelogram is reported separately. Fluoroscopy time: 1.2 minutes IMPRESSION: Successful fluoroscopic guided lumbar myelogram.
== END 2023-07-13 13:59 | disposition home or self-care (01) ==
LOC: DS 08:40
PROVIDERS: ATTEND Orthopaedic Surgery Orthopaedic Surgery of the Spine
DX: M47.26 Other spondylosis with radiculopathy, lumbar region (principal); M54.50 Low back pain, unspecified
CPT/HCPCS: 36415; 62304; 72131; 85049; 85610; 85730

== ENCOUNTER 2023-07-23 14:51 | Emergency (ER) | payer OTHER ==
--- OUTSIDE RECORDS SUMMARY | 2023-07-23 14:58 | XMS REPORT | Continuity of Care Document ---
:1945 Author Organization [facility] t Address [address] [place] [address] Care Team Providers Name Role Phone Brooke Erwin Attending Clinician Unavailable KATELYN MCKOEN Attending Clinician Unavailable Dali Attending Clinician Unavailable ELÍAS DIEGO Attending Clinician Unavailable KATELYN MCKEON Admitting Clinician Unavailable Dali Admitting Clinician Unavailable Payers Payer Name Policy Type Policy Number Effective Date Expiration Date S delmy MEDICARE A B [id number] 2009 00:00:00 GENERIC MEDICARE [id number] 2020 SUPPLEMENT 00:00:00 MEDICARE B-[place]: [id number] 2009 [email or web address] 00:00:00 Spacebar [id number] 2018 [employer] 00:00:00 INSURANCE CO Problems Condition Condition Condition Status Onset Resolution [...] ACB x2 ACB x2 Disease Recurre 2019-11 [facility] ( (Dr. lezama 0-25 [facility] Letsou Letsou 00:00: Medical 09/25) 09/25) 00 Center Mixed Mixed Problem Active Common hyperlipid hyperlipid Sp sussy emia emia - [facility] Stented Stented Problem Active Common coronary coronary Spirit artery artery - [facility] Malignant Melanoma Problem Active Comm on melanoma Spirit of skin - [facility] Hypovolemi Hypovolemi Disease Recurre [facility] St c shock c shock [facility] Coronary Coronary Disease Recurre [facility] St artery artery [facility] disease of disease of [place] artery of artery [place] heart 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 carotid carotid Medical artery artery Center Acute Acute Disease Active [facility] St blood loss blood loss Lucie kes anemia anemia [facility] Lactic Lactic Disease Active [facility] St acidosis acidosis [facility] Vasogenic Vasogenic Disease Recurre [facility] shock shock [facility] Allergies, Adverse Reactions, Alerts Allergy Allergy Status Severity Reaction(s) Onset Inactive Treating Comm ents Source Name Type Date Date Clinician NO KNOWN Allergy Active [facility] Social History Social Habit Start Date Stop Date Quantity Comments Source History of [facility] - Tobacco Use [facility] Tobacco use and 2020-10-17 2020-10-17 Former smokeless [facility] exposure 00:00:00 00:00:00 tobacco user [facility] Sex Assigned At [birth year] [facility] 00:00:00 00:00:00 [facility] Smoking Status Start Date Stop Date Source Former Smoker 2022-06-16 00:00:00 2022-06-16 00:00:00 Common S pirit - [facility] Never Smoker Common Spirit [facility] Medications Ordered Filled Start Stop Current Ordering Indication Dosage Frequency Signature Comments Components Source Medication Medication Date Date Medication? Clinician (SIG) Name Name isosorbide 2019-11 Yes 120mg QD Take [address] mononitrate 1-03 mg by [facility] (IMDUR) 120 14:46: mouth Medic al mg 24 hr 26 daily. Center tablet clopidogreL 2019-11 Yes 75mg QD Take [address] (PLAVIX) 75 1-03 by mouth Luke s mg tablet 14:46: daily. Medica l [address] [place] atorvastati 2019-11 Yes 40mg QD Take [address] n (LIPITOR) 1-03 by mouth Luke s 40 MG 14:46: daily. Medical tablet [address] [place] omeprazole 2019-11 Yes 20mg QD Take [address] (PriLOSEC 1-03 by mouth [facility] OTC) 20 MG 14:46: daily. Medic al tablet [address] [place] isosorbide 2019-11 Yes 120mg QD Take [address] mononitrate 1-03 mg by [facility] (IMDUR) 120 14:46: mouth Medic al mg 24 hr 26 daily. [place] tablet clopidogreL 2019-11 Yes 75mg QD Take [address] (PLAVIX) 75 1-03 by mouth Luke s mg tablet 14:46: daily. Medica l [address] [place] atorvastati 2019-11 Yes 40mg QD Take [address] [facility] (LIPITOR) 1-03 by mouth Luke s 40 MG 14:46: daily. Medical tablet [address] [place] omeprazole 2019-11 Yes 20mg QD Take [address] (PriLOSEC 1-03 by mouth [facility] OTC) 20 MG 14:46: daily. Medic al tablet [address] [place] Isosorbide Isosorbide No 1{table QD Isosorbide Mononitrate [...] Spirit OVER 65 OVER 65 09:04:00 - [facility] FLUZONE HIGH DOSE FLUZONE HIGH DOSE 2021-03-13 Completed [facility] OVER 65 OVER 65 09:04:00 - [facility] FLUZONE HIGH DOSE FLUZONE HIGH DOSE 2021-03-13 Completed [facility] OVER 65 OVER 65 09:04:00 - [facility] FLUZONE HIGH DOSE FLUZONE HIGH DOSE 2021-03-13 Completed [facility] OVER 65 OVER 65 09:04:00 - [facility] Prevnar 13 (PCV13) Prevnar 13 (PCV13) 2018-11-29 Completed [facility] 09:05:00 - [facility] Prevnar 13 (PCV13) Prevnar 13 (PCV13) 2018-11-29 Completed [facility] 09:05:00 [facility] Prevnar 13 (PCV13) Prevnar 13 (PCV13) 2018-11-29 Completed [facility] 09:05:00 [facility] Prevnar 13 (PCV13) Prevnar 13 (PCV13) 2018-11-29 Completed [facility] 09:05:00 [facility] Vital Signs Vital Name Observation Time Observation Value Comments Source height 2022-05-16 10:00:00 70 [in_i] [facility] weight 2022-05-16 10:00:00 173.8 [lb_av] [facility] temperature 2022-05-16 10:00:00 97.6 [degF] [facility] bmi 2022-05-16 10:00:00 24.93 kg/m2 [facility] oximetry 2022-05-16 10:00:00 95 % [facility] respiratory rate 2022-05-16 10:00:00 16 /min Comm on [place] [facility] blood pressure 2022-05-16 10:00:00 121 mm[Hg] [facility] - systolic [facility] blood pressure 2022-05-16 10:00:00 63 mm[Hg] [facility] - diastolic [facility] height 2022-05-16 10:00:00 70 [in_i] [facility] weight 2022-05-16 10:00:00 173.8 [lb_av] [facility] temperature 2022-05-16 10:00:00 97.6 [degF] [facility] bmi 2022-05-16 10:00:00 24.93 kg/m2 Common [facility] oximetry 2022-05-16 10:00:00 95 % Common [facility] respiratory rate 2022-05-16 10:00:00 16 /min Comm on [place] [facility] blood pressure 2022-05-16 10:00:00 121 mm[Hg] Common [facility] - systolic [facility] blood pressure 2022-05-16 10:00:00 63 mm[Hg] Common [facility] - diastolic [facility] height 2022-04-15 11:20:00 70 [in_i] Common [facility] weight 2022-04-15 11:20:00 174.6 [lb_av] [facility] temperature 2022-04-15 11:20:00 97.9 [degF] Common [facility] bmi 2022-04-15 11:20:00 25.05 kg/m2 Common [facility] oximetry 2022-04-15 11:20:00 98 % Common [facility] respiratory rate 2022-04-15 11:20:00 16 /min Comm on [place] [facility] blood pressure 2022-04-15 11:20:00 138 mm[Hg] [facility] - systolic [facility] blood pressure 2022-04-15 11:20:00 84 mm[Hg] Common [facility] - diastolic [facility] WEIGHT 2020-09-30 04:27:00 79.788 kg WEIGHT 2020-09-29 [...] [facility] 00:00:00 (Season Ended) [code = Medic al Center INFLUENZA VACCINE (Season Ended)] Future Scheduled 2023-07-31 Influenza Vaccine (#1) [facility] 00:00:00 [code = Influenza Medical Ce nter Vaccine (#1)] Future Scheduled 2022-11-[address] [facility] 00:00:00 (12+) [code = Medical Center DEPRESSION SCREENING (12+)] Future Scheduled 2022-11-30 FALLS RISK SCREENING [facility] Test 00:00:00 [code = FALLS RISK Medical C enter SCREENING] Future Scheduled 2022-11-[address] [...] Cessation Counseling and Screening (12+)] Future Scheduled 2021-10-[address] [facility] Test 00:00:00 Counseling and Medical Cente r Screening (12+) [code = Tobacco Cessation Counseling and Screening (12+)] Future Scheduled 2010-08-[address] [facility] 00:00:00 WELLNESS (YEAR 2 or Medical Center FIRST YEAR if no IPPE) [code = MEDICARE ANNUAL WELLNESS (YEAR 2 or FIRST YEAR if no IPPE)] Future Scheduled 2010-08-[address] [facility] Test 00:00:00 WELLNESS (YEAR 2 or Medical Center FIRST YEAR if no IPPE) [code = MEDICARE ANNUAL WELLNESS (YEAR 2 or FIRST YEAR if no IPPE)] Future Scheduled 1994 SHINGLES VACCINES ([address] [facility] Test 00:00:00 of 2) [code = SHINGLES Medic al Center VACCINES (1 of 2)] Future Scheduled 1994 SHINGLES VACCINES ([address] [facility] Test 00:00:00 of 2) [code = SHINGLES Medic al Center VACCINES (1 of 2)] Future Scheduled 1963 DTAP/TDAP/TD VACCINES [facility] 00:00:00 (1 - Tdap) [code = Medical C enter DTAP/TDAP/TD VACCINES (1 - Tdap)] Future Scheduled 1963 DTAP/TDAP/TD VACCINES [facility] 00:00:00 (1 - Tdap) [code = Medical C enter DTAP/TDAP/TD VACCINES (1 - Tdap)] Future Scheduled 1962 HEPATITIS C SCREENING [facility] 00:00:00 [code = HEPATITIS C Medical Center SCREENING] Future Scheduled 1962 HEPATITIS C [facility]CRE[facility]ING [facility] 00:00:00 [code = HEPATITIS C Medical Center SCREENING] Future Scheduled 1950 PNEUMOCOCCAL 65+ YRS [facility] Test 00:00:00 (1 - PCV) [code = Medical Ce nter PNEUMOCOCCAL 65+ YRS (1 - PCV)] Future Scheduled 1950 PNEUMOCOCCAL 65+ YRS [facility] Test 00:00:00 (1 - PCV) [code = Medical Ce nter PNEUMOCOCCAL 65+ YRS (1 - PCV)] Future Scheduled 1945-03-27 COVID-19 VACCINE (#1) [facility] 00:00:00 [code = COVID-[address] VACCINE (#1)] Future Scheduled 1945-03-27 COVID-19 VACCINE (#1) [facility] 00:00:00 [code = COVID-[address] VACCINE (#1)] Encounters Start End Encounter Admission Attending Care Care Encounter Source Date/Time Date/Time Type Type Clinicians Facility Department ID 2022-05-16 Outpatient Erwin, [facility] [id number] Common 10:44:03 [facility] [place] [facility] 2022-04-15 Outpatient Erwin [facility] [id number] Common 11:02:38 Avnee [facility] - [facility] 2021-09-04 Inpatient LETSOU, [facility] Surgery [id number] [facility] 11:47:01 [facility] 2023-07-23 2023-07-23 Outpatient FOG_Stuckey AOSM AOSM [id number] Chanel 00:00:00 00:00:00 _Brooke [id number] [facility] 2023-07-20 2023-07-20 Outpatient FOG_Stuckey AOSM AOSM [id number] Chanel 00:00:00 00:00:00 _Brooke [id number] [facility] 2023-07-20 2023-07-20 Outpatient FOG_Stuckey AOSM AOSM [id number] Chanel 00:00:00 00:00:00 _Brooke [id number] [facility] 2023-07-08 2023-07-08 Outpatient FOG_Stuckey AOSM AOSM [id number] Chanel 00:00:00 00:00:00 _Brooke [id number] [facility] 2023-06-19 2023-06-19 Outpatient FOG_Stuckey AOSM AOSM [id number] Chanel 00:00:00 00:00:00 _Brooke [id number] [facility] 2023-06-18 2023-06-18 Outpatient FOG_Stuckey AOSM AOSM 656 [id number] Chanel 00:00:00 00:00:00 _Brooke [id number] [facility] 2023-06-16 2023-06-16 Outpatient FOG_Stuckey AOSM AOSM 656 [id number] Chanel 00:00:00 00:00:00 _Brooke [id number] [facility] 2023-06-16 2023-06-16 Outpatient FOG_Stuckey AOSM AOSM 656 [id number] Chanel 00:00:00 00:00:00 _Brooke [id number] [facility] 2023-06-15 2023-06-15 Outpatient FOG_Stuckey AOSM AOSM [id number] Chanel 00:00:00 00:00:00 _Brooke [id number] [facility] 2022-06-19 2022-06-19 (TEL) [facility] [id number] Co mmon 00:00:00 00:00:00 Spirit - [facility] 2022-05-16 2022-05-16 SUB ANNUAL STLMLC STLC [id number] Common 00:00:00 00:00:00 MCR Spirit WELLNESS - CHI VISIT [facility] 2022-05-16 2022-05-16 OFFICE STLC STLC [id number] Co mmon 00:00:00 00:00:00 VISIT EST Spir it PT LEVEL 3 - [facility] 2022-04-15 2022-04-15 [facility]ICE [facility] [id number] Co mmon 00:00:00 00:00:00 VISIT Spirit ESTAB PT - CHI LEVEL 4 [facility] 2020-10-17 2020-10-17 Outpatient MIKE [facility] [id number] [facility] 00:00:00 00:00:00 KATELYN 2020-09-23 2020-09-23 Emergency ER [facility] Emergency [id number] [facility] 08:23:00 08:23:00 Results Test Description Test Time Test Comments Results Result [facility] e Comments Cologuard 2022-06-12 result 00:00:00 TISSUE EXAM 2020-10-08 Surgical Pathology Report 13:34:00 Case: [id number] Authorizing Provider: Katelyn Mckeon, Collected: 10/01/2020 11:57 AM Ordering Location: [facility] Received: 10/01/2020 12:12 PM PERIOPERATIVE SERVICES Pathologist: Lopez Cade MD Specimen: Plaque, RIGHT CAROTID ARTERY PLAQUE ARTERY, RIGHT CAROTID, ENDARTERECTOMY:CALCIFIC ATHEROSCLEROTIC PLAQUE Signing Pathologist Direct Phone Line: [phone] y signed by Lopez Cade MD on 10/08/2020 at 1:34 [id number]; [id number] diagnosis: stenosis of right carotid arteryA. PlaqueReceived in formalin labeled with the patient's name, accession number and "right carotid artery plaque" is a 2.5 cm in length x 0.4 cm in diameter nichols-yellow tubular piece of focally calcified plaque. The specimen is entirely submitted in A1 following decalcification. PA/pl Performed SHORT-LATENCY 2020-10-05 IOM SPE, ALL LIMBS 17:32:00 [facility] 1945 Sex: M INTRAOPERATIVE MONITORING REPORT Patient Name: Gillian Segal [facility] Surgery Date: October 01, 2020 [place] Pro [id number] Monitoring began at 09:41 and ended at 12:27 Surgeon: Katelyn Mckeon M.D. Examining Neurologist: Jared Rosa M.D. Monitoring Technologist: Aaron Connell, [facility] Procedure: Right Carotid Endarterectomy Stimulation Parameters: Median [...] C3-O1, FP1-T3, T3-O1, FP2-C4, C4-O2, FP2-T4, and T4-I1Hrbwfepzxlit electrical Motor Evoked Potentials recorded from Abductor [...] occur throughout the operative procedure. Jared Howell [facility] NeurophysiologistCHI [facility] -[facility]SE [facility]ER 2020-10-02 12:30:00 Test Item Value Reference Range Interpretation Comme nts POC-GLUCOSE METER (BEAKER) 110 mg/dL 70-110 : TESTED AT [address] (test code = 1538) [facility], [id number]: Rfid Strategist/Techni yessy ID = [id number] for Luis MAmber dawson POCT-GLUCOSE [id number] 07:43:00 Test Item Value Reference Range Interpretation Comments POC-GLUCOSE METER 129 mg/dL 70-110 H : TESTED A T [facility] 6720 (BEAKER) (test code = LUZ Tavares [facility], 1538) [address]: Rfid Strategist/Techni yessy ID = [id number] for StefaniAmbre [id number] 06:21:00 Test Item Value Reference Range Interpretation Comments MAGNESIUM (BEAKER) (test code = 1.7 mg/dL 1.6-2.6 627) Rfid Strategist ID - [id number] 06:21:00 Test Item Value Reference Range Interpretation Comments PHOSPHORUS (BEAKER) (test code = 2.6 mg/dL 2.3-4.7 604) Rfid Strategist ID - ADMINBASIC METABOLIC [id number] 06:21:00 Test Item Value Reference Range Interpretation [...] S NOT APPLICABLE FOR DIALYSIS PATIEN TS. Rfid Strategist ID - [id number] 05:42:00 Test Item Value Reference Range Interpretation Comments PARTIAL THROMBOPLASTIN TIME 28.9 seconds 22.5-36.0 (BEAKER) (test code = 760) CBC W/PLT COUNT & AUTO [id number] 05:37:00 Test Item Value Reference Range Interpretation [...] = 2801) RAD, CHEST, 1 VIEW, NON [id number] 04:40:00Reason for exam:->ptxShould this be performed at the bedside?->Yes [facility] : 1945 Sex: MFINAL REPORT CLINICAL INDICATION: Pneumothorax Comparison: 10/01/2020 The cardiomediastinal contours are stable. Bibasilar parenchymal and bilateral pleural opacities are similar withinvariation of acquisition technique. A trace left apical pneumothorax appears slightly decreased on today's examination. Signed: Matthew Bryan Verified Date/Time: 10/02/2020 04:40:20 POCT- GLUCOSE [id number] 22:56:00 Test Item Value Reference Range Interpretation Comments POC-GLUCOSE METER 173 mg/dL 70-110 H : TESTED A T [facility] 6720 ([facility]) (test code = [facility], 153) [address]: Rfid Strategist/Techni yessy ID = [id number] for AG U, LING POCT-GLUCOSE [id number] 17:00:00 Test Item Value Reference Range Interpretation Comments POC-GLUCOSE METER 177 mg/dL 70-110 H : TESTED A T [facility] 6720 (BEAKER) (test code = [facility], 153) 324[address]: Rfid Strategist/Techni yessy ID = [id number] for MICHAEL AMAYA POCT-GLUCOSE [id number] 14:40:00 Test Item Value Reference Range Interpretation Comments POC-GLUCOSE METER 92 mg/dL 70-110 : TESTED A T [facility] 6720 ([facility]) (test code = [facility], 153) [address]: Rfid Strategist/Techni yessy ID = [id number] for ARI S, YUMIKO RAD, CHEST, 1 VIEW, NON [id number] 14:04:00Reason for exam:- >PNEUMOTHORACShould this be performed at the bedside?->Yes [facility] 1945 Sex: MFINAL [...] magnified by technique withsternotomy wires. Signed: Venita Hicksort Verified Date/Time: 10/01/2020 14:04:37 Reading Location: [facility] Radiology Reading Room POCT-GLUCOSE [id number] 08:19:00 Test Item Value Reference Range Interpretation Comments POC-GLUCOSE METER 104 mg/dL 70-110 : TESTED A T [facility] 6720 (BEAKER) (test code = LUZ Tavares [facility], 1538) [address]: Rfid Strategist/Techni yessy ID = [id number] for ELÍAS KAUR [id number] 07:08:00 Test Item Value Reference Range Interpretation Comments MAGNESIUM (BEAKER) 1.6 mg/dL 1.6-2.6 Specimen slightly (test code = 627) hemolyzed Rfid Strategist ID - MIRELLA [id number] 07:08:00 Test Item Value Reference Range Interpretation Comments PHOSPHORUS (BEAKER) 3.3 mg/dL 2.3-4.7 Specimen slightly (test code = 604) hemolyzed Rfid Strategist ID Rosalia MIRELLA FBASIC METABOLIC [id number] 07:08:00 Test Item Value Reference Range Interpretation [...] S NOT APPLICABLE FOR DIALYSIS PATIEN TS. Rfid Strategist ID - MIRELLA FCBC W/PLT COUNT & AUTO [id number] 06:21:00 Test Item Value Reference Range Interpretation [...] 0-1 PERCENT (BEAKER) (test code = 2801) [id number] 05:56:00 Test Item Value Reference Range Interpretation Comments PARTIAL THROMBOPLASTIN TIME 31.0 seconds 22.5-36.0 (BEAKER) (test code = 760) RAD, CHEST, 1 VIEW, NON [id number] 04:58:00Reason for exam:->chest tubesShould this be performed at the bedside?->Yes [facility] 1945 Sex: MFINAL [...] [place] Verified Date/Time: 10/01/2020 04:58:48 POCT- GLUCOSE [id number] 22:03:00 Test Item Value Reference Range Interpretation Comments POC-GLUCOSE METER 108 mg/dL 70-110 : TESTED A T [facility] 6720 (GRIS) (test code = [place], 1538) [address]: Rfid Strategist/Techni yessy ID = [id number] for Re yes, Sairy SARS-COV2/RT-PCR ([facility])2020-09-30 20:08:00 Test Item Value Reference Range Interpretation Comments SARS-COV2/RT-PCR (test Negative Not Detected, Negative, code = 5411906) See external report for linked test SARS-COV-2 PERFORMING LAB [facility] (test code = 9470322) Negative result for this test determines that [...] the [place] SARS-CoV-2 assay.Fact Sheet for Healthcare Providers:https://www.[employer].Inspivia/jayda/RT_SAR C-DyC-0_LOV_Zjyg_Nztua_74-986405.pdfFact Sheet for Healthcare Patients:https://www.Pixspan/s al/PF_MWEF-FkT-4_Krbtlej_Srlf_Qprjn_FS_53-699083M4.pdfPerforming Laboratory:[address] [place] [address] POCT-GLUCOSE [id number] 17:28:00 Test Item Value Reference Range Interpretation Comments POC-GLUCOSE METER 109 mg/dL 70-110 : TESTED A T [facility] 6720 (BEAKER) (test code = [facility], 1538) [address]: Rfid Strategist/Techni yessy ID = [id number] for CASTILLO GUZMAN POCT-GLUCOSE [id number] 12:33:00 Test Item Value Reference Range Interpretation Comments POC-GLUCOSE METER 104 mg/dL 70-110 : TESTED A T [facility] 6720 (BEAKER) (test code = [facility], 1538) 199[address]: Rfid Strategist/Techni yessy ID = [id number] for MAXIME HN, CASTILLO POCT-GLUCOSE [id number] 07:55:00 Test Item Value Reference Range Interpretation Comments POC-GLUCOSE METER 111 mg/dL 70-110 H : TESTED A T [facility] 6720 (BEAKER) (test code = [facility], 1538) 78[address]: Rfid Strategist/Techni yessy ID = [id number] for MAXIME HN, CASTILLO [id number] 05:36:00 Test Item Value Reference Range Interpretation Comments PARTIAL THROMBOPLASTIN TIME 33.4 seconds 22.5-36.0 (BEAKER) (test code = 760) BASIC METABOLIC [id number] 05:22:00 Test Item Value Reference Range Interpretation [...] S NOT APPLICABLE FOR DIALYSIS PATIEN TS. Rfid Strategist ID - [id number] 05:22:00 Test Item Value Reference Range Interpretation Comments MAGNESIUM (BEAKER) (test code = 1.8 mg/dL 1.6-2.6 627) Rfid Strategist ID - [id number] 05:22:00 Test Item Value Reference Range Interpretation Comments PHOSPHORUS (BEAKER) (test code = 2.2 mg/dL 2.3-4.7 L 604) Rfid Strategist ID - [id number] W/PLT COUNT & AUTO [id number] 04:58:00 Test Item Value Reference Range Interpretation [...] = 2801) RAD, CHEST, 1 VIEW, NON [id number] 04:04:00Reason for exam:->chest tubesShould this be performed at the bedside?->Yes [facility] 1945 Sex: MFINAL REPORT CLINICAL INDICATION: Support lines. Comparison: 09/29/2020 The cardiomediastinal contours are stable. Central pulmonary vascular prominence and bilateral parenchymal and right pleural opacities are unchanged. A trace left apical pneumothorax is redemonstrated. A left chest tube and mediastinal drain remain in place. Signed: Matthew Bryan Verified Date/Time: 09/30 04:04:28 POCT-GLUCOSE [id number] 18:35:00 Test Item Value Reference Range Interpretation Comments POC-GLUCOSE METER 123 mg/dL 70-110 H : TESTED A T [facility] 6720 (BEAKER) (test code = [facility], 1538) [address]: Rfid Strategist/Techni yessy ID = [id number] for KIZHAKEKATTIL, NILAM POCT-GLUCOSE [id number] 13:37:00 Test Item Value Reference Range Interpretation Comments POC-GLUCOSE METER 94 mg/dL 70-110 : TESTED A T [facility] 6720 (BEAKER) (test code = [facility], 1538) 87467: Rfid Strategist/Techni yessy ID = [id number] for KIZHAKEKATTIL, NILAM POCT-GLUCOSE [id number] 13:36:00 Test Item Value Reference Range Interpretation Comments POC-GLUCOSE METER 91 mg/dL 70-110 : TESTED A T [facility] 6720 (BEAKER) (test code = [facility], 1538) [address]93: Rfid Strategist/Techni yessy ID = [id number] for KIZHAKEKATTIL, NILAM RAD, CHEST, 1 VIEW, NON [id number] 06:57:00Reason for exam:->chest tubesShould this be performed at the bedside?->Yes [facility] : 1945 Sex: MFINAL REPORT [...] Keen MDReport Verified Date/Time: 09/29/2020 06:5 7:57 [id number] 05:25:00 Test Item Value Reference Range Interpretation Comments PARTIAL THROMBOPLASTIN TIME 36.7 seconds 22.5-36.0 H (BEAKER) (test code = 760) BASIC METABOLIC [id number] 05:12:00 Test Item Value Reference Range Interpretation [...] S NOT APPLICABLE FOR DIALYSIS PATIEN TS. Rfid Strategist ID - FELTON [id number] 05:12:00 Test Item Value Reference Range Interpretation Comments MAGNESIUM (BEAKER) (test code = 1.9 mg/dL 1.6-2.6 627) Rfid Strategist ID - FELTON [id number] 05:12:00 Test Item Value Reference Range Interpretation Comments PHOSPHORUS (BEAKER) (test code = 2.1 mg/dL 2.3-4.7 L 604) Rfid Strategist ID - FELTON MCBC W/PLT COUNT & AUTO [id number] 04:52:00 Test Item Value Reference Range Interpretation [...] PERCENT (BEAKER) (test code = 2801) POCT-GLUCOSE [id number] 17:40:00 Test Item Value Reference Range Interpretation Comments POC-GLUCOSE METER 158 mg/dL 70-110 H : TESTED A T [facility] 6720 (BEAKER) (test code = [place], 1538) [address]: Rfid Strategist/Techni yessy ID = [id number] for Stefani, Amber RAD, CHEST, 1 VIEW, NON [id number] 05:46:00Reason for exam:->chest tubesShould this be performed at the bedside?->Yes [facility] 1945 Sex: MFINAL REPORT [...] small left apical pneumothorax. Signed: Mikhail Keen [facility] Verified Date/Time: 09/28/2020 05:46:22 CBC W/PLT COUNT & AUTO [id number] 04:52:00 Test Item Value Reference Range Interpretation [...] CONCENTRATION Decreased (CELLAVISION)(BEAKER) (test code = 3438) Rfid Strategist ID - [id number] ID - Bismark Barba comments: Slide comments:BASIC METABOLIC [id number] 03:50:00 Test Item Value Reference Range Interpretation [...] S NOT APPLICABLE FOR DIALYSIS PATIEN TS. Rfid Strategist ID - [id number] 03:50:00 Test Item Value Reference Range Interpretation Comments MAGNESIUM (BEAKER) (test code = 2.1 mg/dL 1.6-2.6 627) Rfid Strategist ID - [id number] 03:50:00 Test Item Value Reference Range Interpretation Comments PHOSPHORUS (BEAKER) (test code = 2.4 mg/dL 2.3-4.7 604) Rfid Strategist ID - [id number] 03:42:00 Test Item Value Reference Range Interpretation Comments PARTIAL THROMBOPLASTIN TIME 34.9 seconds 22.5-36.0 (BEAKER) (test code = 760) POCT-GLUCOSE [id number] 00:07:00 Test Item Value Reference Range Interpretation Comments POC-GLUCOSE METER 102 mg/dL 70-110 : TESTED A T [facility] 6720 (BEAKER) (test code = [place], 1538) [address]: Rfid Strategist/Techni yessy ID = [id number] for CHELE MEYER (CELLAVISION MANUAL DIFF)2020-09-27 15:25:00 [...] CONCENTRATION Decreased (CELLAVISION)(BEAKER) (test code = 3438) Rfid Strategist ID - [id number] ID - Vidhya Martinez comments: Slide comments: BASIC METABOLIC [id number] 15:07:00 Test Item Value Reference Range Interpretation [...] S NOT APPLICABLE FOR DIALYSIS PATIEN TS. Rfid Strategist ID - MIRELLA [id number] 15:07:00 Test Item Value Reference Range Interpretation Comments MAGNESIUM (BEAKER) (test code = 2.1 mg/dL 1.6-2.6 627) Rfid Strategist ID - MIRELLA [id number] 15:07:00 Test Item Value Reference Range Interpretation Comments PHOSPHORUS (BEAKER) (test code = 2.2 mg/dL 2.3-4.7 L 604) Rfid Strategist ID - MIRELLA FCBC W/PLT COUNT & AUTO [id number] 14:56:00 Test Item Value Reference Range Interpretation [...] WBC 0-0 (test code = 413) POCT-GLUCOSE [id number] 08:04:00 Test Item Value Reference Range Interpretation Comments POC-GLUCOSE METER 156 mg/dL 70-110 H : TESTED A T [facility] 6720 (BEAKER) (test code = [place], 1538) [address]: Rfid Strategist/Techni yessy ID = [id number] for GA RCIA, MARLY CBC (HEMOGRAM ONLY)2020-09-27 04:34:00 Test Item Value [...] l correlation required.Post s urgery specimen b.no.3 [id number] HEMATOCRIT (BEAKER) 29.5 % 40.1-51.0 L (test [...] (BEAKER) (test code = 413) BASIC METABOLIC [id number] 04:19:00 Test Item Value Reference Range Interpretation [...] S NOT APPLICABLE FOR DIALYSIS PATIEN TS. Rfid Strategist ID - FELTON [id number] 04:19:00 Test Item Value Reference Range Interpretation Comments MAGNESIUM (BEAKER) (test code = 2.0 mg/dL 1.6-2.6 627) Rfid Strategist ID - FELTON [id number] 04:19:00 Test Item Value Reference Range Interpretation Comments PHOSPHORUS (BEAKER) (test code = 2.9 mg/dL 2.3-4.7 604) Rfid Strategist ID - FELTON MCALCIUM, [id number] 04:08:00 Test Item Value Reference Range Interpretation Comments CALCIUM IONIZED (BEAKER) (test 1.10 mmol/L 1.12-1.27 L code = 698) PH, BLOOD (BEAKER) (test code = 7.36 1810) Check serum Ionized Calcium level after 4 hours after IV Calcium replacement. OXYGEN SATURATION, [id number] 04:04:00 Test Item Value Reference Range Interpretation Comments O2 SATURATION (MEASURED) (BEAKER) 67.1 % (test code = 1455) [id number] 04:00:00 Test Item Value Reference Range Interpretation Comments PARTIAL THROMBOPLASTIN TIME 35.6 seconds 22.5-36.0 (BEAKER) (test code = 760) RAD, CHEST, 1 VIEW, NON [id number] 03:09:00Reason for exam:->chest tubesShould this be performed at the bedside?->Yes [facility] 1945 Sex: MFINAL [...] MDReport Verified Date/Time: 09/27/2020 03:09:53 POCT- GLUCOSE [id number] 16:40:00 Test Item Value Reference Range Interpretation Comments POC-GLUCOSE METER 142 mg/dL 70-110 H : TESTED A T [facility] 6720 (BEAKER) (test code = [facility] [employer] [facility], 1538) [address]: Rfid Strategist/Techni yessy ID = [id number] for PH ILIP, BLANCA POCT-GLUCOSE [id number] 09:44:00 Test Item Value Reference Range Interpretation Comments POC-GLUCOSE METER 99 mg/dL 70-110 : TESTED A T [facility] 6720 (BEAKER) (test code = [facility] [employer] [facility], 1538) [address]: Rfid Strategist/Techni yessy ID = [id number] for ARCHIE IP, BLANCA BLOOD GAS, [id number] 08:26:00 Test Item Value Reference Range Interpretation [...] (BEAKER) (test code = 1819) 40.0 POCT-GLUCOSE [id number] 08:04:00 Test Item Value Reference Range Interpretation Comments POC-GLUCOSE METER 73 mg/dL 70-110 : TESTED A T [facility] 6720 (BEAKER) (test code = [place], 1538) [address]: Rfid Strategist/Techni yessy ID = [id number] for BLANCA LANE OXYGEN SATURATION, [id number] 05:03:00 Test Item Value Reference Range Interpretation Comments O2 SATURATION (MEASURED) (BEAKER) 75.7 % (test code = 1455) BASIC METABOLIC [id number] 05:03:00 Test Item Value Reference Range Interpretation [...] S NOT APPLICABLE FOR DIALYSIS PATIEN TS. Rfid Strategist ID - [id number] 05:03:00 Test Item Value Reference Range Interpretation Comments MAGNESIUM (BEAKER) (test code = 1.8 mg/dL 1.6-2.6 627) Rfid Strategist ID - [id number] 05:03:00 Test Item Value Reference Range Interpretation Comments PHOSPHORUS (BEAKER) (test code = 3.5 mg/dL 2.3-4.7 604) Rfid Strategist ID - EDASIBLOOD GAS, [id number] 05:00:00 Test Item Value Reference Range Interpretation [...] (BEAKER) (test code = 1819) 40.0 GLUCOSE-STAT [id number] 05:00:00 Test Item Value Reference Range Interpretation Comments GLUCOSE RANDOM (BEAKER) (test code 147 mg/dL 70-110 H = 652) HGB/HCT (H&H) - STAT [id number] 05:00:00 Test Item Value Reference Range Interpretation Comments HEMOGLOBIN (BEAKER) (test code = 12.7 GM/DL 13.0-16.8 L 410) HEMATOCRIT (BEAKER) (test code = 37.0 % 40.0-50.0 L 411) SODIUM NA-STAT [id number] 04:59:00 Test Item Value Reference Range Interpretation Comments SODIUM (BEAKER) (test code = 381) 140 meq/L 136-145 POTASSIUM-STAT [id number] 04:59:00 Test Item Value Reference Range Interpretation Comments POTASSIUM (BEAKER) (test code = 4.3 meq/L 3.6-5.5 379) LACTIC ACID, [id number] 04:53:00 Test Item Value Reference Range Interpretation Comments LACTATE BLOOD 1.7 mmol/L 0.5-2.2 Specimen sligh tly ARTERIAL (2) (BEAKER) hemoly zed (test code = 2874) Rfid Strategist ID - [id number] 04:50:00 Test Item Value Reference Range Interpretation Comments FIBRINOGEN LEVEL (BEAKER) (test 212 mg/dl 225-434 L code = 658) [id number] 04:50:00 Test Item Value Reference Range Interpretation Comments PARTIAL THROMBOPLASTIN TIME 33.9 seconds 22.5-36.0 (BEAKER) (test code = 760) [id number] 04:50:00 Test Item Value Reference Range Interpretation [...] 2.5-3.5 for patients wiht mechanical heart valves.PROTHROMBIN TIME/[id number] 04:49:00 Test Item Value Reference Range Interpretation [...] = 413) RAD, CHEST, 1 VIEW, NON [id number] 02:55:00Reason for exam:->chest tubesShould this be performed at the bedside?->Yes [facility] 1945 Sex: MFINAL REPORT CLINICAL INDICATION: Support lines. Comparison: 09/25/2020 The cardiomediastinal contours are stable. The lung volumes remain low. Bilateral parenchymal opacities are unchanged. There is no pneumothorax. Support lines are stable. Signed: Matthew Bryan MDReport Verified Date/Time: 2020 02:55:19 -GLUCOSE [id number] 01:53:00 Test Item Value Reference Range Interpretation Comments POC-GLUCOSE METER 112 mg/dL 70-110 H : TESTED A T [facility] 6720 (BEAKER) (test code = [place], 1538) [address]: Rfid Strategist/Techni yessy ID = [id number] for Abraham Floyd LACTIC ACID, [id number] 00:13:00 Test Item Value Reference Range Interpretation Comments LACTATE BLOOD ARTERIAL (2) 2.8 mmol/L 0.5-2.2 H (BEAKER) (test code = 2874) Rfid Strategist ID - YANELYFAUZIA LOXYGEN SATURATION, [id number] 00:08:00 Test Item Value Reference Range Interpretation Comments O2 SATURATION (MEASURED) (BEAKER) 77.4 % (test code = 1455) BLOOD GAS, [id number] 00:08:00 Test Item Value Reference Range Interpretation [...] (test code = 1819) 40.0 LACTIC ACID, [id number] 21:16:00 Test Item Value Reference Range Interpretation Comments LACTATE BLOOD ARTERIAL (2) 4.2 mmol/L 0.5-2.2 HH (BEAKER) (test code = 2874) Rfid Strategist ID - ADMINBLOOD GAS, [id number] 20:45:00 Test Item Value Reference Range Interpretation [...] (BEAKER) (test code = 1819) 40.0 POTASSIUM-STAT [id number] 20:45:00 Test Item Value Reference Range Interpretation Comments POTASSIUM (BEAKER) (test code = 3.2 meq/L 3.6-5.5 L 379) GLUCOSE-STAT [id number] 20:45:00 Test Item Value Reference Range Interpretation Comments GLUCOSE RANDOM (BEAKER) (test code 127 mg/dL 70-110 H = 652) HGB/HCT (H&H) - STAT [id number] 20:45:00 Test Item Value Reference Range Interpretation Comments HEMOGLOBIN (BEAKER) (test code = 13.0 GM/DL 13.0-16.8 410) HEMATOCRIT (BEAKER) (test code = 38.0 % 40.0-50.0 L 411) SODIUM NA-STAT [id number] 20:39:00 Test Item Value Reference Range Interpretation Comments SODIUM (BEAKER) (test code = 381) 140 meq/L 136-145 LACTIC ACID, [id number] 19:30:00 Test Item Value Reference Range Interpretation Comments LACTATE BLOOD ARTERIAL (2) 5.7 mmol/L 0.5-2.2 HH (BEAKER) (test code = 2874) Rfid Strategist ID - BSBLOOD GAS, [id number] 19:05:00 Test Item Value Reference Range Interpretation [...] (BEAKER) (test code = 1819) 40.0 POCT-GLUCOSE [id number] 19:02:00 Test Item Value Reference Range Interpretation Comments POC-GLUCOSE METER 156 mg/dL 70-110 H : TESTED A T [facility] 6720 (BEAKER) (test code = [facility], 1538) [address]: Rfid Strategist/Techni yessy ID = [id number] for MIGUEL WALSH BLOOD GAS, [id number] 18:19:00 Test Item Value Reference Range Interpretation [...] (BEAKER) (test code = 1819) 60.0 POCT-GLUCOSE [id number] 18:17:00 Test Item Value Reference Range Interpretation Comments POC-GLUCOSE METER 146 mg/dL 70-110 H : TESTED A T [facility] 6720 (BEAKER) (test code = [facility], 1538) 6[address]: Rfid Strategist/Techni yessy ID = [id number] for RONAL LDROP, MIGUEL LACTIC ACID, [id number] 18:14:00 Test Item Value Reference Range Interpretation Comments LACTATE BLOOD ARTERIAL (2) 7.5 mmol/L 0.5-2.2 HH (BEAKER) (test code = 2874) Rfid Strategist ID - BSPOCT-GLUCOSE [id number] 18:12:00 Test Item Value Reference Range Interpretation Comments POC-GLUCOSE METER 152 mg/dL 70-110 H : TESTED A T [facility] 6720 (BEAKER) (test code = [facility] [employer] [facility], 1538) 94684: Rfid Strategist/Techni yessy ID = [id number] for MIGUEL WALSH HEMOGLOBIN AND [id number] 17:44:00 Test Item Value Reference Range Interpretation Comments HEMOGLOBIN (BEAKER) (test code = 13.1 GM/DL 13.7-17.5 L 410) HEMATOCRIT (BEAKER) (test code = 39.3 % 40.1-51.0 L 411) Rfid Strategist ID - [id number]-GLUCOSE [id number] 17:40:00 Test Item Value Reference Range Interpretation Comments POC-GLUCOSE METER 144 mg/dL 70-110 H : TESTED A T [facility] 6720 (BEAKER) (test code = [facility], 1538) [address]: Rfid Strategist/Techni yessy ID = [id number] for MIGUEL WALSH BLOOD GAS, [id number] 17:39:00 Test Item Value Reference Range Interpretation [...] (BEAKER) (test code = 1819) 60.0 CALCIUM, [id number] 17:39:00 Test Item Value Reference Range Interpretation Comments CALCIUM IONIZED (BEAKER) (test 1.09 mmol/L 1.12-1.27 L code = 698) PH, BLOOD (BEAKER) (test code = 7.37 1810) Check serum Ionized Calcium level after 4 hours after IV Calcium replacement. LACTIC ACID, [id number] 16:36:00 Test Item Value Reference Range Interpretation Comments LACTATE BLOOD 6.1 mmol/L 0.5-2.2 HH Specimen sligh tly ARTERIAL (2) (BEAKER) hemoly zed (test code = 2874) Rfid Strategist ID - BSBLOOD GAS, [id number] 16:08:00 Test Item Value Reference Range Interpretation [...] 1819) 60.0 CBC W/PLT COUNT & AUTO [id number] 15:36:00 Test Item Value Reference Range Interpretation [...] (BEAKER) (test code = 2801) BASIC METABOLIC [id number] 15:33:00 Test Item Value Reference Range Interpretation [...] S NOT APPLICABLE FOR DIALYSIS PATIEN TS. Rfid Strategist ID - BSHEPATIC FUNCTION [id number] 15:33:00 Test Item Value Reference Range Interpretation [...] Specimen slightly (test code = 347) hemolyzed Rfid Strategist ID - [id number] 15:31:00 Test Item Value Reference Range Interpretation Comments MAGNESIUM (BEAKER) 2.2 mg/dL 1.6-2.6 Specimen slightly (test code = 627) hemolyzed Rfid Strategist ID - BS(CELLAVISION MANUAL DIFF)2020-09-25 15:30:00 Test [...] CONCENTRATION Adequate (CELLAVISION)(BEAKER) (test code = 3438) Rfid Strategist ID - [id number] ID - mary Fontanez comments: Slide comments: [id number] 15:20:00 Test Item Value Reference Range Interpretation Comments FIBRINOGEN LEVEL (BEAKER) (test 164 mg/dl 225-434 L code = 658) LACTIC ACID, [id number] 15:12:00 Test Item Value Reference Range Interpretation Comments LACTATE BLOOD 2.6 mmol/L 0.5-2.2 H Specimen sligh tly ARTERIAL (2) (BEAKER) hemoly zed (test code = 2874) Rfid Strategist ID - [id number] 15:11:00 Test Item Value Reference Range Interpretation Comments PARTIAL THROMBOPLASTIN TIME 36.0 seconds 22.5-36.0 (BEAKER) (test code = 760) PROTHROMBIN [id number] 15:10:00 Test Item Value Reference Range Interpretation [...] 2.5-3.5 for patients wiht mechanical heart valves.GLUCOSE-STAT [id number] 15:08:00 Test Item Value Reference Range Interpretation Comments GLUCOSE RANDOM (BEAKER) (test code 156 mg/dL 70-110 H = 652) BLOOD GAS, [id number] 15:08:00 Test Item Value Reference Range Interpretation [...] (BEAKER) (test code = 1819) 60.0 CALCIUM, [id number] 15:08:00 Test Item Value Reference Range Interpretation Comments CALCIUM IONIZED (BEAKER) (test 1.07 mmol/L 1.12-1.27 L code = 698) PH, BLOOD (BEAKER) (test code = 7.25 1810) OXYGEN SATURATION, [id number] 15:06:00 Test Item Value Reference Range Interpretation Comments O2 SATURATION (MEASURED) (BEAKER) 72.4 % (test code = 1455) SODIUM NA-STAT [id number] 15:06:00 Test Item Value Reference Range Interpretation Comments SODIUM (BEAKER) (test code = 381) 137 meq/L 136-145 POTASSIUM-STAT [id number] 15:06:00 Test Item Value Reference Range Interpretation Comments POTASSIUM (BEAKER) (test code = 3.9 meq/L 3.6-5.5 379) HGB/HCT (H&H) - STAT [id number] 15:06:00 Test Item Value Reference Range Interpretation Comments HEMOGLOBIN (BEAKER) (test code = 14.8 GM/DL 13.0-16.8 410) HEMATOCRIT (BEAKER) (test code = 44.0 % 40.0-50.0 411) CBC W/PLT COUNT & AUTO [id number] 15:05:00 Test Item Value Reference Range Interpretation [...] = 413) RAD, CHEST, 1 VIEW, NON [id number] 15:02:00Reason for exam:->post opShould this be performed at the bedside?->Yes [facility] 1945 Sex: MFINAL [...] MDReport Verified Date/Time: 09/25/2020 15:02:20 Reading Location: [facility] Radiology Reading Room [id number] 14:50:00 Test Item Value Reference Range Interpretation Comments PHOSPHORUS (BEAKER) (test code = 3.9 mg/dL 2.3-4.7 604) Rfid Strategist ID - BSTHROMBOELASTOGRAPH (TEG)2020-09-25 14:28:00 Test Item [...] MM 55.0-65.0 (test code = 1413) PLATELET [id number] 14:15:00 Test Item Value Reference Range Interpretation Comments PLATELET COUNT (BEAKER) (test 134 K/CU MM 150-450 L code = 756) Rfid Strategist ID - [id number] ID - [id number] 14:14:00 Test Item Value Reference Range Interpretation Comments FIBRINOGEN LEVEL (BEAKER) (test 159 mg/dl 225-434 L code = 658) [id number] 14:10:00 Test Item Value Reference Range Interpretation Comments PARTIAL THROMBOPLASTIN TIME 26.8 seconds 22.5-36.0 (BEAKER) (test code = 760) PROTHROMBIN [id number] 14:09:00 Test Item Value Reference Range Interpretation [...] is 2.5-3.5 for patients wiht mechanical heart valves.[id number] 14:04:00 Test Item Value Reference Range Interpretation Comments ACTIVATED CLOTTING TIME 87 sec : 74 -137 seconds, (BEAKER) (test code = Baseli ne: TESTED AT [facility]) [address], [facility] 30: Rfid Strategist/Techni yessy ID = [id number] for HERNANDEZ Y, SAUNDRA [id number] 14:04:00 Test Item Value Reference Range Interpretation Comments ACTIVATED CLOTTING TIME 455 sec : 74 -137 seconds, (BEAKER) (test code = Baseli ne: TESTED AT [facility]) [address], [facility] 30: Rfid Strategist/Techni yessy ID = [id number] for HERNANDEZ Y, SAUNDRA [id number] 14:04:00 Test Item Value Reference Range Interpretation Comments ACTIVATED CLOTTING TIME 439 sec : 74 -137 seconds, (BEAKER) (test code = Baseli ne: TESTED AT [facility]) [address], [facility] 30: Rfid Strategist/Techni yessy ID = [id number] for HERNANDEZ Y, SAUNDRA [id number] 14:04:00 Test Item Value Reference Range Interpretation Comments ACTIVATED CLOTTING TIME 505 sec : 74 -137 seconds, (BEAKER) (test code = Baseli ne: TESTED AT [facility]) [address], [facility] 30: Rfid Strategist/Techni yessy ID = [id number] for HERNANDEZ Y, SAUNDRA [id number] 14:04:00 Test Item Value Reference Range Interpretation Comments ACTIVATED CLOTTING TIME 428 sec : 74 -137 seconds, (BEAKER) (test code = Baseli ne: TESTED AT [facility]) [address], [facility] 30: Rfid Strategist/Techni yessy ID = [id number] for HERNANDEZ Y, SAUNDRA [id number] 14:04:00 Test Item Value Reference Range Interpretation Comments ACTIVATED CLOTTING TIME 362 sec : 74 -137 seconds, (BEAKER) (test code = Baseli ne: TESTED AT [facility]) [address], [facility] 30: Rfid Strategist/Techni yessy ID = [id number] for HERNANDEZ Y, SAUNDRA [id number] 14:03:00 Test Item Value Reference Range Interpretation Comments ACTIVATED CLOTTING TIME 543 sec : 74 -137 seconds, (BEAKER) (test code = Baseli ne: TESTED AT [address] [facility] [address] [place] [place], [address] 30: Rfid Strategist/Techni yessy ID = [id number] for SAUNDRA MARIN BLOOD GAS, [id number] 13:42:00 Test Item Value Reference Range Interpretation [...] (BEAKER) (test code = 1819) 100.0 GLUCOSE-STAT [id number] 13:42:00 Test Item Value Reference Range Interpretation Comments GLUCOSE RANDOM (BEAKER) (test code 239 mg/dL 70-110 H = 652) HGB/HCT (H&H) - STAT [id number] 13:42:00 Test Item Value Reference Range Interpretation Comments HEMOGLOBIN (BEAKER) (test code = 10.6 GM/DL 13.0-16.8 L 410) HEMATOCRIT (BEAKER) (test code = 31.0 % 40.0-50.0 L 411) SODIUM NA-STAT [id number] 13:41:00 Test Item Value Reference Range Interpretation Comments SODIUM (BEAKER) (test code = 381) 135 meq/L 136-145 L POTASSIUM-STAT [id number] 13:41:00 Test Item Value Reference Range Interpretation Comments POTASSIUM (BEAKER) (test code = 4.4 meq/L 3.6-5.5 379) BLOOD GAS, [id number] 12:43:00 Test Item Value Reference Range Interpretation [...] (test code = 1819) 80.0 SODIUM NA-STAT [id number] 12:43:00 Test Item Value Reference Range Interpretation Comments SODIUM (BEAKER) (test code = 381) 134 meq/L 136-145 L GLUCOSE-STAT [id number] 12:43:00 Test Item Value Reference Range Interpretation Comments GLUCOSE RANDOM (BEAKER) (test code 153 mg/dL 70-110 H = 652) HGB/HCT (H&H) - STAT [id number] 12:43:00 Test Item Value Reference Range Interpretation Comments HEMOGLOBIN (BEAKER) (test code = 10.3 GM/DL 13.0-16.8 L 410) HEMATOCRIT (BEAKER) (test code = 30.0 % 40.0-50.0 L 411) POTASSIUM-STAT [id number] 12:43:00 Test Item Value Reference Range Interpretation Comments POTASSIUM (BEAKER) (test code = 6.0 meq/L 3.6-5.5 HH 379) POTASSIUM-STAT [id number] 12:09:00 Test Item Value Reference Range Interpretation Comments POTASSIUM (BEAKER) (test code = 6.3 meq/L 3.6-5.5 HH 379) GLUCOSE-STAT [id number] 12:08:00 Test Item Value Reference Range Interpretation Comments GLUCOSE RANDOM (BEAKER) (test code 156 mg/dL 70-110 H = 652) BLOOD GAS, [id number] 12:08:00 Test Item Value Reference Range Interpretation [...] = 1819) 80.0 HGB/HCT (H&H) - STAT [id number] 12:08:00 Test Item Value Reference Range Interpretation Comments HEMOGLOBIN (BEAKER) (test code = 9.9 GM/DL 13.0-16.8 L 410) HEMATOCRIT (BEAKER) (test code = 29.0 % 40.0-50.0 L 411) SODIUM NA-STAT [id number] 12:07:00 Test Item Value Reference Range Interpretation Comments SODIUM (BEAKER) (test code = 381) 135 meq/L 136-145 L BLOOD GAS, [id number] 11:40:00 Test Item Value Reference Range Interpretation [...] (test code = 1819) 80.0 SODIUM NA-STAT [id number] 11:40:00 Test Item Value Reference Range Interpretation Comments SODIUM (BEAKER) (test code = 381) 132 meq/L 136-145 L POTASSIUM-STAT [id number] 11:40:00 Test Item Value Reference Range Interpretation Comments POTASSIUM (BEAKER) (test code = 5.8 meq/L 3.6-5.5 H 379) GLUCOSE-STAT [id number] 11:40:00 Test Item Value Reference Range Interpretation Comments GLUCOSE RANDOM (BEAKER) (test code 137 mg/dL 70-110 H = 652) HGB/HCT (H&H) - STAT [id number] 11:40:00 Test Item Value Reference Range Interpretation Comments HEMOGLOBIN (BEAKER) (test code = 9.7 GM/DL 13.0-16.8 L 410) HEMATOCRIT (BEAKER) (test code = 29.0 % 40.0-50.0 L 411) POTASSIUM-STAT [id number] 11:12:00 Test Item Value Reference Range Interpretation Comments POTASSIUM (BEAKER) (test code = 4.2 meq/L 3.6-5.5 379) BLOOD GAS, [id number] 11:12:00 Test Item Value Reference Range Interpretation [...] (test code = 1819) 80.0 SODIUM NA-STAT [id number] 11:12:00 Test Item Value Reference Range Interpretation Comments SODIUM (BEAKER) (test code = 381) 134 meq/L 136-145 L GLUCOSE-STAT [id number] 11:12:00 Test Item Value Reference Range Interpretation Comments GLUCOSE RANDOM (BEAKER) (test code 141 mg/dL 70-110 H = 652) HGB/HCT (H&H) - STAT [id number] 11:12:00 Test Item Value Reference Range Interpretation Comments HEMOGLOBIN (BEAKER) (test code = 10.6 GM/DL 13.0-16.8 L 410) HEMATOCRIT (BEAKER) (test code = 31.0 % 40.0-50.0 L 411) GLUCOSE-STAT [id number] 08:51:00 Test Item Value Reference Range Interpretation Comments GLUCOSE RANDOM (BEAKER) (test code 105 mg/dL 70-110 = 652) SODIUM NA-STAT [id number] 08:51:00 Test Item Value Reference Range Interpretation Comments SODIUM (BEAKER) (test code = 381) 138 meq/L 136-145 POTASSIUM-STAT [id number] 08:51:00 Test Item Value Reference Range Interpretation Comments POTASSIUM (BEAKER) (test code = 3.5 meq/L 3.6-5.5 L 379) HGB/HCT (H&H) - STAT [id number] 08:51:00 Test Item Value Reference Range Interpretation Comments HEMOGLOBIN (BEAKER) (test code = 13.7 GM/DL 13.0-16.8 410) HEMATOCRIT (BEAKER) (test code = 40.0 % 40.0-50.0 411) BLOOD GAS, [id number] 08:51:00 Test Item Value Reference Range Interpretation [...] (BEAKER) (test code = 1819) 100.0 CALCIUM, [id number] 08:51:00 Test Item Value Reference Range Interpretation Comments CALCIUM IONIZED (BEAKER) (test 1.17 mmol/L 1.12-1.27 code = 698) PH, BLOOD (BEAKER) (test code = 7.38 1810) BASIC METABOLIC [id number] 05:24:00 Test Item Value Reference Range Interpretation [...] S NOT APPLICABLE FOR DIALYSIS PATIEN TS. Rfid Strategist ID - [id number] 05:24:00 Test Item Value Reference Range Interpretation Comments MAGNESIUM (BEAKER) (test code = 1.8 mg/dL 1.6-2.6 627) Rfid Strategist ID - [id number] 05:06:00 Test Item Value Reference Range Interpretation [...] WBC 0-0 (BEAKER) (test code = 413) [id number] 19:35:00 Test Item Value Reference Range Interpretation Comments PARTIAL THROMBOPLASTIN TIME 72.9 seconds 22.5-36.0 H (BEAKER) (test code = 760) CT, BRAIN, WITHOUT [id number] 13:16:00Unlisted Reason for Exam - Click Yes and Enter Reason Below->YesUnlisted Reason for Exam->Ruleout CVA, R carotid stenosisANAHEIM GENERAL [facility]ITALName: [facility]GAL : 1945 Sex: MFINAL [...] Robert MDReport Verified Date/Time: 09/24/202013:16:36 Reading Location: [facility] C013V Neuro Reading Room [id number] 13:11:00 Test Item Value Reference Range Interpretation Comments PARTIAL THROMBOPLASTIN TIME 71.8 seconds 22.5-36.0 H (BEAKER) (test code = 760) HEMOGLOBIN [id number] 08:50:00 Test Item Value Reference Range Interpretation Comments HEMOGLOBIN A1C (BEAKER) (test code = 5.6 % 4.3-6.1 368) [id number] 07:00:00 Test Item Value Reference Range Interpretation Comments PARTIAL THROMBOPLASTIN TIME 63.8 seconds 22.5-36.0 H (BEAKER) (test code = 760) Prior to initiating heparinPROTHROMBIN TIME/[id number] 06:59:00 Test Item Value Reference Range Interpretation [...] mechanical heart valves.Prior to initiating heparinBASIC METABOLIC [id number] 06:43:00 Test Item Value Reference Range Interpretation [...] S NOT APPLICABLE FOR DIALYSIS PATIEN TS. Rfid Strategist ID - SAMMY [id number] 06:43:00 Test Item Value Reference Range Interpretation Comments MAGNESIUM (BEAKER) (test code = 1.7 mg/dL 1.6-2.6 627) Rfid Strategist ID - SAMMY LLIPID [id number] 06:43:00 Test Item Value Reference Range Interpretation [...] Borderline 130-159 High 160-189 Very High >=190 Rfid Strategist JENNA CHRISTIANSON LCBC (HEMOGRAM ONLY)2020-09-24 06:26:00 Test [...] 0-0 (BEAKER) (test code = 413) PLATELET [id number] 06:26:00 Test Item Value Reference Range Interpretation Comments PLATELET COUNT (BEAKER) (test 165 K/CU MM 150-450 code = 756) [id number] 23:33:00 Test Item Value Reference Range Interpretation Comments PARTIAL THROMBOPLASTIN TIME 72.8 seconds 22.5-36.0 H (BEAKER) (test code = 760) SARS-COV2/RT-PCR ([facility])2020-09-23 15:40:00 Test Item Value Reference Range Interpretation Comments SARS-COV2/RT-PCR (test Negative Not Detected, Negative, code = 0081480) See external report for linked test SARS-COV-2 PERFORMING LAB [facility] (test code = 7037659) Negative result for this test determines that [...] of the Act.Fact Sheet for Healthcare Prov iders:https://www.Gifi/sites/default/files/product/documents/Fact_Sheet_HC _Peuovptiz_Yrvl_KFLW-YkY-2.pdfFact Sheet for Healthcare Patients:https://www.Prepmatic.Doculynx/sites/default/files/product/docume nts/Zpez_Soxfl_Hejbbxwc_Nfyw_MSMS-SwM-8.pdfPerforming Laboratory:[facility], [place] [address]NEK, CHEST, 1 VIEW, NON [id number] 09:56:00Reason for exam:->aobShould this be performed at the bedside?->YesANAHEIM GENERAL [facility]OSPITALName: [facility]ILLIAN SEGAL : 1945 Sex: MFINAL [...] Mercado Verified Date/Time: 09/23/2020 09:56:24 Reading Location: [address] Body Reading Room ONIN [id number] 09:55:00 Test Item Value Reference Range Interpretation [...] failure, acidosis, acute neurological disease, and persistent tachyarrhythmia.Rfid Strategist ID - YANIQUE CB-TYPE NATRIURETIC FACTOR (BNP)2020-09-23 09:55:00 Test Item Value Reference Range Interpretation Comments B-TYPE NATRIURETIC PEPTIDE (BEAKER) 88 pg/mL 0-100 (test code = 700) Rfid Strategist ID - YANIQUE [id number] 09:52:00 Test Item Value Reference Range Interpretation [...] for patients wiht mechanical heart valves.BASIC METABOLIC [id number] 09:49:00 Test Item Value Reference Range Interpretation [...] S NOT APPLICABLE FOR DIALYSIS PATIEN TS. Rfid Strategist ID - YANIQUE CHEPATIC FUNCTION [id number] 09:49:00 Test Item Value Reference Range Interpretation [...] (test code = 14 U/L 6-55 347) Rfid Strategist ID - YANIQUE CCBC W/PLT COUNT & AUTO [id number] 09:22:00 Test Item Value Reference Range Interpretation [...] Note Provider Source 2020-10-01 13:24:22-00:00 KATELYN MCKEON [facility] OPERATIVE/PROCEDURE REPORT SEGAL GILLIAN FACILITY: [facility] Billing #: [id number] Room: [facility] MR #: [id number] : 1945 DATE OF PROCEDURE: 10/01/2020 SURGEON: [...] lessen the risk of stroke over the [place] [facility] and that the operation would not be [...] the recovery area in stable condition. GVL/MODL /[id number] 2020-09-25 16:03:45-00:00 KATELYN MCKEON [facility] OPERATIVE/PROCEDURE REPORT GILLIAN SEGAL FACILITY: [facility] Billing #: [id number] Room: [place] [address] MR #: [id number] : 1945 DATE OF PROCEDURE: 09/25/2020 SURGEON: [...] Endoscopic harvest of right greater saphenous vein. CLINICAL RESEARCH SPECIALIST: Luz Pimentel M.D. SECOND MONOGRAM AND LETTER PASTER: Fox Lebron M.D., (PGY 6). THIRD MONOGRAM AND LETTER PASTER: Kelsie Trejo (ASP). ANESTHESIA: General endotracheal. INDICATIONS: [...] with active rewarming to 36.5 degrees centigrade. Vinegar Maker ss-clamp time 48 minutes with cardiopulmonary bypass [...] elvira lesions, Dr. Luz Pimentel was the video production assistant in order to assure patient's safety and safe conduct of the operati on. Proper performance of the procedure would not have been possible without his assistance. JP/AMITA /[id number] cc: MD Kelsie Sesay
[2023-07-23] MEDS ORDERED: LIDOCAINE 1% MPF 5 ML VIAL ONE (15:33)
--- NOTE | 2023-07-23 16:05 | RAD REPORT ---
EXAM DESCRIPTION: CT - Head C Spine Mpr Wo Con - 07/23/2023 3:38 pm CLINICAL HISTORY: Head and neck injury status post fall. Head and neck pain COMPARISON: None. TECHNIQUE: Computed axial tomography of the head and cervical spine was obtained. Sagittal and coronal reconstruction was performed. All CT scans are performed using dose optimization technique as appropriate and may include automated exposure control or mA/KV adjustment according to patient size. FINDINGS: An intracranial bleed is not seen. The ventricles are normal in caliber. Small low-density area left occipital lobe. An extra-axial fluid collection is not noted. Fluid within the visualized sinuses and mastoids is not seen A cervical fracture is not visualized. No dislocation is noted. Slight anterior subluxation C3 on C4 of C4 on C5. Mild posterior subluxation C5 on C6. Marked spondylosis C5-6. IMPRESSION: Small low-density left occipital lobe probably an infarction. It has more of the appeara nce of being chronic than acute A cervical fracture is not visualized. If the patient continues to have symptoms to suggest acute intracranial /spinal cord/ligamentous path ology then MRI would be recommended
--- NOTE | 2023-07-23 16:25 | EDPHYS ---
Physician Documentation [facility] Name: Sharath Wiggins Age: 77 yrs Sex: Male : 1945 Arrival Date: 07/23/2023 Time: 14:51 Bed 5 Private MD: ED Physician Elvis Baker HPI: 07/23 17:38 This 77 yrs old Male presents to ER via Ambulatory with complaints of Fall Injury, rt Headache, Laceration To Head. 17:38 Patient presents to the ED with a slip and fall with scalp laceration. The patient was rt in the shower, when he slipped getting out of it, falling backwards and hitting his head on a corner causing laceration. Denies any preceding symptoms, denies any loss of consciousness. States that initially blood but has since stopped. Patient denies other acute complaints at this time. He did have initial headache which is since resolved. Symptoms are mild in severity, no other aggravating or alleviating factors. Historical: - Allergies: 15:09 No Known Allergies; hb - Home Meds: 15:09 Altace 10 mg oral capsule daily [Active]; Imdur Oral 120 mg daily [Active]; Lipitor 20 hb mg oral tablet daily [Active]; Plavix 75 mg oral tablet daily [Active]; - PMHx: 15:09 heart disease; High Cholesterol; Hypertension; Myocardial infarction; hb - PSHx: 15:09 Coronary Angioplasty; Coronary artery bypass graft; hb - Immunization history:: Adult Immunizations up to date. - Social history:: Smoking status: . - Family history:: not pertinent. ROS: 17:38 Constitutional: Negative for fever, chills, and weight loss, Cardiovascular: Negative rt for chest pain, palpitations, and edema, Respiratory: Negative for shortness of breath, cough, wheezing, and pleuritic chest pain, Abdomen/GI: Negative for abdominal pain, nausea, vomiting, diarrhea, and constipation, MS/Extremity: Negative for injury and deformity, Neuro: Negative for headache, weakness, numbness, tingling, and seizure, Psych: Negative for depression, anxiety, suicide ideation, homicidal ideation, and hallucinations. 17:38 Skin: Positive for laceration(s), Negative for ecchymosis. Exam: 17:38 Constitutional: This is a well developed, well nourished patient who is awake, alert, rt and in no acute distress. Head/Face: Normocephalic, atraumatic. Chest/axilla: Normal chest wall appearance and motion. Nontender with no deformity. No lesions are appreciated. Cardiovascular: Regular rate and rhythm with a normal S1 and S2. No gallops, murmurs, or rubs. Normal PMI, no JVD. No pulse deficits. Respiratory: Lungs have equal breath sounds bilaterally, clear to auscultation and percussion. No rales, rhonchi or wheezes noted. No increased work of breathing, no retractions or nasal flaring. Abdomen/GI: Soft, non-tender, with normal bowel sounds. No distension or tympany. No guarding or rebound. No evidence of tenderness throughout. Skin: Warm, dry with normal turgor. Normal color with no rashes, no lesions, and no evidence of cellulitis. MS/ Extremity: Pulses equal, no cyanosis. Neurovascular intact. Full, normal range of motion. Neuro: Awake and alert, GCS 15, oriented to person, place, time, and situation. Cranial nerves II-XII grossly intact. Motor strength 5/5 in all extremities. Sensory grossly intact. Cerebellar exam normal. Normal gait. Psych: Awake, alert, with orientation to person, place and time. Behavior, mood, and affect are within normal limits. 17:38 Head/face: 8 cm U-shaped laceration to the posterior scalp, no active bleeding, no foreign bodies, no galeal involvement. Vital Signs: 15:07 BP 167 / 92; Pulse 88; Resp 16; Temp 98; Pulse Ox 97% on R/A; Weight 81.65 kg; Height 5 hb ft. 8 in. ; Pain 3/10; 16:38 BP 156 / 89; Pulse 80; Resp 18; Pulse Ox 100% on R/A; Pain 0/10; mb9 15:07 Body Mass Index 27.37 (81.65 kg, 172.72 cm) hb 15:07 Pain Scale: Adult hb 16:38 Pain Scale: Adult mb9 Laceration: 17:38 Wound Repair of 8cm ( 3.1in ) subcutaneous laceration to scalp. Hemostasis noted.. "U" rt shaped. Distal neuro/vascular/tendon intact. Anesthesia: Wound infiltrated with 5 mls of 1% lidocaine. Wound prep: Copious irrigation. Skin closed with 10 staple Carmelo using staple gun. Dressed with non-adherent dressing. Patient tolerated well. MDM: 15:12 Patient medically screened. rt 17:38 Differential diagnosis: Laceration, skull fracture, intracranial hemorrhage. Data rt reviewed: vital signs, nurses notes, radiologic studies. I considered the following discharge prescriptions or medication management in the emergency department Medications were administered in the Emergency Department. See MAR. Independent interpretation of the following test(s) in the Emergency Department CT Scan: My interpretation is No hemorrhage seen on interpretation of the CT scan image. Test considered but Not performed: EKG: Denies syncopal or near syncopal symptoms, EKG, labs not indicated. Care significantly affected by the following chronic conditions: Hypertension. Counseling: I had a detailed discussion with the patient and/or guardian regarding the historical points, exam findings, and any diagnostic results supporting the discharge/admit diagnosis, radiology results, the need for outpatient follow up, to return to the emergency department if symptoms worsen or persist or if there are any questions or concerns that arise at home. Response to treatment: the patient's symptoms have markedly improved after treatment. 07/23 15:20 Order name: CT Head C Spine; Complete Time: 16:10 rt 07/23 15:20 Order name: Wound Care; Complete Time: 15:22 rt Administered Medications: 16:36 Drug: Lidocaine Infiltration (1 %) 5 ml Volume: 5 ml; Route: Infiltration; mb9 16:38 Follow up: Response: No adverse reaction mb9 Disposition Summary: 07/23/23 16:25 Discharge Ordered Location: Home rt Problem: new rt Symptoms: have improved rt Condition: Stable rt Diagnosis - Mechanical fall rt - Scalp laceration rt Followup: rt - With: Private Physician - When: 10 - 14 days - Reason: Staple/Suture removal Discharge Instructions: - Discharge Summary Sheet rt - Laceration Care, Adult rt - Sutures, [place], or Adhesive Wound Closure rt Forms: - Medication Reconciliation Form rt - Thank You Letter rt - Antibiotic Education rt - Prescription Opioid Use rt - Patient Portal Instructions rt - Leadership Thank You Letter rt Signatures: Dispatcher [employer] Medina Leo RN RN Quin Castellon RN RN mb9 Elvis Baker MD MD rt
--- NOTE | 2023-07-23 16:25 | ER ---
Nurse's Notes [facility] Name: Sharath Wiggins Age: 77 yrs Sex: Male : 1945 Arrival Date: 07/23/2023 Time: 14:51 Bed 5 Private MD: Diagnosis: Mechanical fall;Scalp laceration Presentation: 07/23 15:07 Chief complaint: Slipped getting gout of th shower, hit head on corner of counter, c/o hb headache 02/06. Negative LOC. Laceration noted to top h=of head, bleeding controlled. Coronavirus screen: At this time, the client does not indicate any symptoms associated with coronavirus-19. Ebola Screen: No symptoms or risks identified at this time. Initial Sepsis Screen: Does the patient meet any 2 criteria? No. Patient's initial sepsis screen is negative. Does the patient have a suspected source of infection? No. Patient's initial sepsis screen is negative. Risk Assessment: Do you want to hurt yourself or someone else? Patient reports no desire to harm self or others. Onset of symptoms was July 23, 2023. 15:07 Method Of Arrival: Ambulatory hb 15:07 Acuity: LEANDER 4 hb Historical: - Allergies: 15:09 No Known Allergies; hb - Home Meds: 15:09 Altace 10 mg oral capsule daily [Active]; Imdur Oral 120 mg daily [Active]; Lipitor 20 hb mg oral tablet daily [Active]; Plavix 75 mg oral tablet daily [Active]; - PMHx: 15:09 heart disease; High Cholesterol; Hypertension; Myocardial infarction; hb - PSHx: 15:09 Coronary Angioplasty; Coronary artery bypass graft; hb - Immunization history:: Adult Immunizations up to date. - Social history:: Smoking status: . - Family history:: not pertinent. Screenin:30 [facility] ED Fall Risk Assessment (Adult) History of falling in the last 3 months, mb9 including since admission Yes- single mechanical fall (1 pt) Confusion or Disorientation No (0 pts) Intoxicated or Sedated No (0 pts) Impaired Gait No (0 pts) Mobility Assist Device Used No (0 pt) Altered Elimination No (0 pt) Score/Fall Risk Level 0 - 2 = Low Risk Oriented to surroundings, Maintained a safe environment, Educated pt \T\ family on fall prevention, incl call for assistance when getting out of bed. Abuse screen: Denies threats or abuse. Nutritional screening: No deficits noted. Tuberculosis screening: No symptoms or risk factors identified. Assessment: 15:28 General: Appears in no apparent distress. Behavior is calm, cooperative. Pain: Denies mb9 pain. Neuro: Foreman Agitation-Sedation Scale (RASS): 0 - Alert and Calm Level of Consciousness is awake, alert, obeys commands, Oriented to person, place, time, situation, Appropriate for age Pupils are PERRLA. Cardiovascular: Patient's skin is warm and dry. Respiratory: Airway is patent Respiratory effort is even, unlabored, Respiratory pattern is regular, symmetrical. GI: No signs and/or symptoms were reported involving the gastrointestinal system. : No signs and/or symptoms were reported regarding the genitourinary system. Derm: Skin is pink, warm \T\ dry. Musculoskeletal: Range of motion: intact in all extremities. Injury Description: Laceration sustained to head is clean, 2.6 to 7.5 cm long, not bleeding, was sustained 1-2 hours ago. 15:37 Reassessment: pt taken to CT via stretcher. mb9 16:18 Reassessment: No changes from previously documented assessment. Patient and/or family mb9 updated on plan of care and expected duration. Pain level reassessed. Patient is alert, oriented x 3, equal unlabored respirations, skin warm/dry/pink. Vital Signs: 15:07 BP 167 / 92; Pulse 88; Resp 16; Temp 98; Pulse Ox 97% on R/A; Weight 81.65 kg; Height 5 hb ft. 8 in. ; Pain 3/10; 16:38 BP 156 / 89; Pulse 80; Resp 18; Pulse Ox 100% on R/A; Pain 0/10; mb9 15:07 Body Mass Index 27.37 (81.65 kg, 172.72 cm) hb 15:07 Pain Scale: Adult hb 16:38 Pain Scale: Adult mb9 ED Course: 14:55 Patient arrived in ED. mg5 15:09 Triage completed. hb 15:10 Arm band placed on. hb 15:12 Elvis Baker MD is Attending Physician. rt 15:21 Quin Castellon RN is Primary Nurse. mb9 15:29 Bed in low position. Call light in reach. Side rails up X 1. Client placed on mb9 continuous cardiac and pulse oximetry monitoring. NIBP monitoring applied. 15:30 Patient did not have IV access during this emergency room visit. mb9 15:39 CT Head C Spine In Process Unspecified. EDMS 16:44 Provided Education on: N/A. bp 16:44 No provider procedures requiring assistance completed. bp Administered Medications: 16:36 Drug: Lidocaine Infiltration (1 %) 5 ml Volume: 5 ml; Route: Infiltration; mb9 16:38 Follow up: Response: No adverse reaction mb9 Medication: 15:30 VIS not applicable for this client. mb9 Outcome: 16:25 Discharge ordered by MD. rt 16:44 Discharged to home ambulatory. bp 16:44 Condition: good 16:44 Discharge instructions given to patient, Instructed on discharge instructions, follow up and referral plans. wound care, Demonstrated understanding of instructions, follow-up care, wound care. 16:45 Patient left the ED. bp Signatures: Dispatcher [employer] EDDE Medina Quan RN RN hb Peltier, Brian, RN RN Quin Angeles RN RN mb9 Elvis Baker MD MD rt Odalys Mcdaniel mg5
[2023-07-23 16:50] VITALS: TEMP 98
[2023-07-23 16:51] VITALS: BP 156/89; O2SAT 100
== END 2023-07-23 16:45 | disposition home or self-care (01) ==
LOC: ER 14:51
PROC: 0HQ0XZZ Repair Scalp Skin, External Approach (ICD-10-PCS; principal; 2023-07-23)
DX: S01.01XA Laceration without foreign body of scalp, initial encounter (principal); W18.2XXA Fall in (into) shower or empty bathtub, initial encounter; I10 Essential (primary) hypertension; Z95.1 Presence of aortocoronary bypass graft; Z79.01 Long term (current) use of anticoagulants
CPT/HCPCS: 70450; 72125; 99283; 12004; J2001

== ENCOUNTER 2023-11-09 19:57 | Observation (INO) | payer OTHER ==
[2023-11-09 20:30] LABS: Absolute Lymphocytes (CBC) 2.5 K/uL (0.7-4.9); Hematocrit 47.5 % (39.6-49.0); Lymphocytes % 17.2 % (15.3-44.8); MCV 94.1 fL (80-100); MPV 8.4 fL (7.6-11.3); Platelets 186 thou/uL (152-406); RBC Red Blood Cell Count 5.04 M/uL (4.33-5.43)
[2023-11-09 20:36] LABS: Protime INR 1.14
[2023-11-09] MEDS ORDERED: ONDANSETRON 4 MG/2 ML VIAL ONE (20:38)
[2023-11-09] MEDS ORDERED: MORPHINE 4 MG/ML SYR ONE (20:38)
[2023-11-09] MEDS ORDERED: ASPIRIN EC 81 MG TAB PO ONE (20:38)
[2023-11-09 20:45] LABS: Albumin 3.6 g/dL (3.4-5.0); Bilirubin Direct 0.2 mg/dL (0-0.2); Bilirubin Indirect, Calculated 0.4 mg/dL (0.2-0.8); Bilirubin Total 0.6 mg/dL (0.2-1.0); Magnesium 1.8 mg/dL (1.6-2.4); Potassium 3.6 mEq/L (3.5-5.1); Protein, Total 8.5 g/dL (6.4-8.2); Troponin High Sensitivity 11.3 pg/mL (<58.9)
--- NOTE | 2023-11-09 20:46 | RAD REPORT ---
EXAM DESCRIPTION: [place] Single View11/09/2023 8:37 pm CLINICAL HISTORY: Chest pain COMPARISON: March 2023 FINDINGS: The lungs appear clear of acute infiltrate. The heart is mildly enlarged. Pacemaker leads in place. Heart is mildly enlarged IMPRESSION: No acute abnormalities displayed
[2023-11-09] MEDS ORDERED: ASPIRIN 81 MG CHEWABLE TABLET ONE (20:48)
[2023-11-09] MEDS ORDERED: NA CHLORIDE 0.9% 500 ML ONE (21:26)
[2023-11-09] MEDS ORDERED: ALBUMIN HUMAN 25% 100 ML IV ONE (21:26)
[2023-11-09] MEDS ORDERED: D5 0.9 NS 1,000 ML IV ONE (21:27)
--- NOTE | 2023-11-09 21:29 | EDPHYS ---
Physician Documentation [facility] Name: Shaarth Wiggins Age: 78 yrs Sex: Male : 1945 Arrival Date: 11/09/2023 Time: 19:57 Bed 20 Private MD: ED Physician Dustin Gambino HPI: 11/09 20:00 This 78 yrs old Male presents to ER via Unassigned with complaints of Dyspnea sp4 . 20:02 PMH - Allergies: 15:09 No Known Allergies; Home Meds: Altace 10 mg oral capsule daily; sp4 Imdur Oral 120 mg daily; Lipitor 20 mg oral tablet daily; Plavix 75 mg oral tablet daily PMHx: 15:09 heart disease; High Cholesterol; Hypertension; Myocardial infarction PSHx: 15:09 Coronary Angioplasty; Coronary artery bypass graft; . 21:22 78-year-old male very pleasant patient with history of CABG, pacemaker, coronary artery sp4 disease, hypertension, [place], on Plavix 75 daily, presents with acute onset midsternal chest pain associated with radiation to the left arm associated with shortness of breath starting 30 minutes ago. Arrival patient has Garcia sign. . 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 Last tetanus immunization: < 5 years ago Flu vaccine is not up to date. - Social history:: Smoking status: Patient denies any tobacco usage or history of. Patient uses alcohol, occasionally. Patient/guardian denies using street drugs. - Family history:: not pertinent. ROS: 21:22 Constitutional: Negative for fever, chills, and weight loss, Cardiovascular: Positive sp4 acute chest pain positive shortness of breath, positive radiation into left arm 21:22 All other systems are negative, Exam: 21:22 Constitutional: This is a well developed, well nourished patient who is awake, alert, sp4 uncomfortable appearing male, generalized pallor Head/Face: Normocephalic, atraumatic. Eyes: Pupils equal round and reactive to light, extra-ocular motions intact. Lids and lashes normal. Conjunctiva and sclera are not injected. Cornea within normal limits. Periorbital areas with no swelling, redness, or edema. ENT: Nares patent. No nasal discharge, no septal abnormalities noted. Tympanic membranes are normal and external auditory canals are clear. Oropharynx with no redness, swelling, or masses, exudates, or evidence of obstruction, uvula midline. Mucous membranes moist. Neck: Trachea midline, no thyromegaly or masses palpated, and no cervical lymphadenopathy. Supple, full range of motion without nuchal rigidity, or vertebral point tenderness. Chest/axilla: Normal chest wall appearance and motion. Nontender with no deformity. No lesions are appreciated. Cardiovascular: Regular rate and rhythm with a normal S1 and S2. No gallops, murmurs, or rubs. Normal PMI, no JVD. No pulse deficits. Respiratory: Lungs have equal breath sounds bilaterally, clear to auscultation and percussion. No rales, rhonchi or wheezes noted. No increased work of breathing, no retractions or nasal flaring. Abdomen/GI: Soft, non-tender, with normal bowel sounds. No distension or tympany. No guarding or rebound. No evidence of tenderness throughout. Back: No spinal tenderness. No costovertebral tenderness. Skin: Warm, dry with normal turgor. Normal color with no rashes, no lesions, and no evidence of cellulitis. MS/ Extremity: Pulses equal, no cyanosis. Neurovascular intact. Full, normal range of motion. Neuro: Awake and alert, GCS 15, oriented to person, place, time, and situation. Cranial nerves II-XII grossly intact. Motor strength 5/5 in all extremities. Sensory grossly intact. Psych: Awake, alert, with orientation to person, place and time. Behavior, mood, and affect are within normal limits 21:22 ECG was reviewed by the Attending Physician. There is EKG at 2006, paced rhythm at the sp4 rate of 70, otherwise unremarkable Vital Signs: 20:01 BP 147 / 72; Pulse 84; Resp 18; Temp 97.8; Pulse Ox 95% on R/A; Weight 79.38 kg; Height pf1 5 ft. 8 in. ; Pain 7/10; 21:01 BP 78 / 49; Pulse 74; me1 21:25 BP 87 / 55; Pulse 74; Resp 17; Pulse Ox 100% ; me1 21:35 BP 107 / 63; Pulse 77; Resp 15; Pulse Ox 100% on R/A; me1 21:38 Weight 81.19 kg; me1 21:55 BP 129 / 68; Pulse 78; Resp 13; Pulse Ox 97% on R/A; me1 22:30 BP 114 / 53; Pulse 84; Resp 12; Pulse Ox 97% on R/A; me1 23:42 BP 108 / 59; Pulse 76; Resp 15; Pulse Ox 96% ; nw1 20:01 Body Mass Index 26.61 (81.19 kg, 172.72 cm) pf1 20:01 Pain Scale: Adult pf1 MDM: 20:44 Patient medically screened. sp4 21:26 Differential Diagnosis altered mental status, sepsis, flu. Data reviewed: vital signs, sp4 nurses notes, lab test result(s), EKG, radiologic studies, plain films. Consideration of Admission/Observation Patient was admitted/placed on observation. Escalation of care including admission/observation considered. Management of patient was discussed with the following: Ore Tester: Yuriy GARCIA and Eze GARCIA . 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 Troponin negative at this time. Patient stable for admission however considering symptomatology will order IV heparin bolus and infusion. We expect troponin to rise. 11/09 20:08 Order name: Basic Metabolic Panel; Complete Time: 20:50 sp4 11/09 20:08 Order name: CBC with Diff; Complete Time: 20:50 sp4 11/09 20:08 Order name: LFT's; Complete Time: 20:50 sp4 11/09 20:08 Order name: Magnesium; Complete Time: 20:50 sp4 11/09 20:08 Order name: NT PRO-BNP; Complete Time: 20:50 sp4 11/09 20:08 Order name: PT-INR; Complete Time: 20:50 sp4 11/09 20:08 Order name: Troponin HS; Complete Time: 20:50 sp4 11/09 20:21 Order name: CRP; Complete Time: 21:26 sp4 11/09 20:21 Order name: COVID-19 SARS RT PCR; Complete Time: 06:51 sp4 11/09 20:46 Order name: Influenza Screen (a \T\ B); Complete Time: 06:51 pf1 11/09 21:19 Order name: Ptt, Activated; Complete Time: 21:49 kl 11/09 21:37 Order name: Basic Metabolic Panel EDMS 11/09 21:37 Order name: Basic Metabolic Panel EDMS 11/09 21:37 Order name: CBC with Automated Diff EDMS 11/09 21:37 Order name: CBC with Automated Diff EDMS 11/09 21:37 Order name: Lipid Profile EDMS 11/09 21:37 Order name: Lipid Profile EDMS 11/09 21:37 Order name: Troponin High Sensitivity EDMS 11/09 21:37 Order name: Troponin High Sensitivity; Complete Time: 06:51 EDMS 11/09 21:37 Order name: Troponin High Sensitivity [place] 11/09 21:37 Order name: Troponin High Sensitivity [place] 11/10 02:24 Order name: Ptt, Activated lg3 11/10 02:49 Order name: PTT, Activated Partial Thromb; Complete Time: 06:51 EDMS 11/10 06:59 Order name: PTT, Activated Partial Thromb EDMS 11/10 07:29 Order name: Troponin High Sensitivity [facility] 11/09 20:08 Order name: XRAY Chest (1 view); Complete Time: 20:50 [facility] 11/09 20:08 Order name: EKG; Complete Time: 20:09 [facility] 11/09 20:08 Order name: Cardiac monitoring; Complete Time: 20:16 [facility] 11/09 20:08 Order name: EKG - Nurse/Tech; Complete Time: 20:10 [facility] 11/09 20:08 Order name: IV Saline Lock; Complete Time: 20:10 4 11/09 20:08 Order name: Labs collected and sent; Complete Time: 22:15 [facility] 11/09 20:08 Order name: O2 Per Protocol; Complete Time: 20:10 [facility] 11/09 20:08 Order name: O2 Sat Monitoring; Complete Time: 20:10 sp4 EC:22 Rate is 70 beats/min. Rhythm is regular, Paced. No ST changes noted. Interpreted by me. sp4 Reviewed by me. Administered Medications: 20:30 Drug: Aspirin PO Chewable Tablet 324 mg PO once; 81 mg tablets x 4 Route: PO; tm6 21:22 Follow up: Response: No adverse reaction me1 20:30 Drug: morphine IVP or IV 4 mg IVP once over 4 mins Route: IVP; Infused Over: 4 mins; tm6 Site: right antecubital; 21:22 Follow up: Response: No adverse reaction me1 20:30 Drug: Ondansetron IVP 4 mg IVP once; over 2 minutes Route: IVP; Site: right antecubital;tm6 21:22 Follow up: Response: No adverse reaction me1 21:21 Drug: Albumin IVPB 25 grams 100 ml IVPB once; (Note: Albumin 25% concentration) Volume: me1 100 ml; Route: IVPB; Site: right antecubital; 21:36 Follow up: Response: No adverse reaction; IV Status: Completed infusion me1 21:21 Drug: NS 0.9% IV 500 ml IV at bolus once Route: IV; Rate: bolus; Site: right me1 antecubital; 22:00 Follow up: IV Status: Completed infusion me1 21:30 Drug: D5-NS IV 1000 ml IV at 125 ml/hr continuous Route: IV; Rate: 125 ml/hr; Site: or1 right antecubital; 11/10 14:22 Follow up: Response: No adverse reaction; IV Status: Completed infusion; IV Intake: ll1 1000ml 11/09 22:02 Drug: HEParin IV 5000 units IV at bolus once {Co-Signature: melly (Dolores Peace RN).} Route: IV; Rate: bolus; Site: right antecubital; 11/10 14:22 Follow up: Response: No adverse reaction; IV Status: Completed infusion; IV Intake: 1ml ll1 11/09 22:02 Drug: Heparin ([place] Drip) 12 units/kg/[place] - ([place] [address] units, D5W IV 500 ml) IV at kl calculated rate Per protocol; Max initial rate 1000 units/hr {Co-Signature: melly (Dolores Peace RN).} Route: IV; Rate: calculated rate; Site: right antecubital; 11/10 14:22 Follow up: Response: No adverse reaction; IV Status: Order to discontinue infusion ll1 Disposition Summary: 11/09/23 21:29 Hospitalization Ordered Notes: Hospitalization Status: Observation sp4 Provider: Omitogun, Eze sp4 Condition: Stable sp4 Problem: new sp4 Symptoms: have improved sp4 Bed/Room Type: Standard sp4 Location: Telemetry/MedSurg (observation)(11/10/23 13:51) ja1 Room Assignment: 209(11/10/23 13:51) [facility] Diagnosis - Unstable angina sp4 Forms: - Medication Reconciliation Form sp4 - SBAR form sp4 - Leadership Thank You Letter sp4 Signatures: Dispatcher [employer] EDMS Yuli Sibley Kimberly, RN RN Shay Dennis, RN RN ja1 Mariaelena Rogers, RN RN pf1 Mita Trevino rv1 Dustin Gambino MD MD sp4 Dolores Peace RN RN or1 Paula Henriquez RN RN 6 Justo, Brett ALFONSO 1 Dolores Peace RN or1 Corrections: (The following items were deleted from the chart) 11/09 20:52 20:48 PSHx: cataracts (Coronary artery bypass graft); pf1 pf1 23:47 21:29 Telemetry/MedSurg (observation) sp4 rv1 23:47 21:29 sp4 rv1 11/10 13:13 12 23:47 [facility] ER HOLD rv1 bd 11/10 13:13 12 23:47 ERHOLD- rv1 11/10 13:35 13:13 Telemetry/MedSurg (observation) bd ja1 13:35 13:13 209 ja1 13:51 13:35 [facility] ER HOLD ja1 [facility] 13:51 13:35 ERHOLD- ja1 1
--- NOTE | 2023-11-09 21:29 | ER ---
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 20:01 Coronavirus screen: Vaccine status: Patient reports receiving the 1st dose of the Covid pf1 vaccine. Client denies travel out of the [place] in the last 14 days. Client presents with at least one sign or symptom that may indicate coronavirus-19. Ebola Screen: Patient negative for fever greater than or equal to 101.5 degrees Fahrenheit, and additional compatible Ebola Virus Disease symptoms. 20:01 Method Of Arrival: Wheelchair pf1 20:01 Initial Sepsis Screen: Does the patient meet any 2 criteria? No. Patient's initial pf1 sepsis screen is negative. Does the patient have a suspected source of infection? No. Patient's initial sepsis screen is negative. Risk Assessment: Do you want to hurt yourself or someone else? Patient reports no desire to harm self or others. 20:01 Acuity: LEANDER 2 pf1 11/10 14:21 Onset of symptoms was November 09, 2023. ll1 14:22 Onset of symptoms was November 09, 2023. 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 Last tetanus immunization: < 5 years ago Flu vaccine is not up to date. - Social history:: Smoking status: Patient denies any tobacco usage or history of. Patient uses alcohol, occasionally. Patient/guardian denies using street drugs. - Family history:: not pertinent. Screenin:[facility] ED Fall Risk Assessment (Adult) History of falling in the last 3 months, me1 including since admission No falls in past 3 months (0 pts) Confusion or Disorientation No (0 pts) Intoxicated or Sedated No (0 pts) Impaired Gait No (0 pts) Mobility Assist Device Used No (0 pt) Altered Elimination No (0 pt) Score/Fall Risk Level 0 - 2 = Low Risk Maintained a safe environment, Hourly rounding (assess needs \T\ fall precautionary measures) done, Used ambulatory aids as needed (educated on \T\ assisted with). Abuse screen: Denies threats or abuse. Nutritional screening: No deficits noted. Tuberculosis screening: No symptoms or risk factors identified. 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 Pain: Complains of pain in chest Pain radiates to left arm Pain at worst was 7 out of 10 on a pain scale. Quality of pain is described as heavy, shooting, Pain began suddenly, Is continuous. Neuro: Level of Consciousness is awake, alert, obeys commands, Oriented to person, place, time, situation, Appropriate for age. Cardiovascular: Reports chest pain, lightheadedness, nausea, shortness of breath, Capillary refill < 3 seconds Patient's skin is warm and dry. Respiratory: Airway is patent Respiratory effort is even, unlabored, Respiratory pattern is regular, symmetrical. 11/10 07:06 Reassessment: Heparin gtts stopped per Dr. Gambino at this time (0655). Patient is to nw1 receive therapeutic lovenox and plavix. Oncoming nurse made aware of changes to POC. Vital Signs: 11/09 20:01 BP 147 / 72; Pulse 84; Resp 18; Temp 97.8; Pulse Ox 95% on R/A; Weight 79.38 kg; Height pf1 5 ft. 8 in. ; Pain 7/10; 21:01 BP 78 / 49; Pulse 74; me1 21:25 BP 87 / 55; Pulse 74; Resp 17; Pulse Ox 100% ; me1 21:35 BP 107 / 63; Pulse 77; Resp 15; Pulse Ox 100% on R/A; me1 21:38 Weight 81.19 kg; me1 21:55 BP 129 / 68; Pulse 78; Resp 13; Pulse Ox 97% on R/A; me1 22:30 BP 114 / 53; Pulse 84; Resp 12; Pulse Ox 97% on R/A; me1 23:42 BP 108 / 59; Pulse 76; Resp 15; Pulse Ox 96% ; nw1 20:01 Body Mass Index 26.61 (81.19 kg, 172.72 cm) pf1 20:01 Pain Scale: Adult pf1 ED Course: 20:00 Patient arrived in ED. jj6 20:00 Dustin Gambino MD is Attending Physician. sp4 20:08 Inserted saline lock: 18 gauge in right antecubital area, using aseptic technique. jb4 Blood collected. 20:08 EKG done, by ED staff, reviewed by Dustin Gambino MD. jb4 20:15 No provider procedures requiring assistance completed. me1 20:15 Patient has correct armband on for positive identification. Bed in low position. Call me1 light in reach. Side rails up X 1. Provided Education on: POC. Verbalized understanding. . 20:38 XRAY Chest (1 view) In Process Unspecified. EDMS 20:48 Triage completed. pf1 20:54 Dolores Peace, RN is Primary Nurse. me1 21:01 Influenza Screen (a \T\ B) Sent. me1 21:01 COVID-19 SARS RT PCR Sent. me1 21:28 Eze Tinsley MD is Hospitalizing Provider. sp4 21:56 Inserted saline lock: 20 gauge in left forearm, using aseptic technique. me1 12/12 14:21 Patient admitted, IV remains in place. ll1 14:21 Patient placed. ll1 Administered Medications: 11/09 20:30 Drug: Aspirin PO Chewable Tablet 324 mg PO once; 81 mg tablets x 4 Route: PO; tm6 21:22 Follow up: Response: No adverse reaction me1 20:30 Drug: morphine IVP or IV 4 mg IVP once over 4 mins Route: IVP; Infused Over: 4 mins; tm6 Site: right antecubital; 21:22 Follow up: Response: No adverse reaction me1 20:30 Drug: Ondansetron IVP 4 mg IVP once; over 2 minutes Route: IVP; Site: right antecubital;tm6 21:22 Follow up: Response: No adverse reaction nj1 21:21 Drug: Albumin IVPB 25 grams 100 ml IVPB once; (Note: Albumin 25% concentration) Volume: me1 100 ml; Route: IVPB; Site: right antecubital; 21:36 Follow up: Response: No adverse reaction; IV Status: Completed infusion nj1 21:21 Drug: NS 0.9% IV 500 ml IV at bolus once Route: IV; Rate: bolus; Site: right me1 antecubital; 22:00 Follow up: IV Status: Completed infusion me1 21:30 Drug: D5-NS IV 1000 ml IV at 125 ml/hr continuous Route: IV; Rate: 125 ml/hr; Site: nj1 right antecubital; 11/10 14:22 Follow up: Response: No adverse reaction; IV Status: Completed infusion; IV Intake: ll1 1000ml 11/09 22:02 Drug: HEParin IV 5000 units IV at bolus once {Co-Signature: melly (Dolores Peace RN).} Route: IV; Rate: bolus; Site: right antecubital; 11/10 14:22 Follow up: Response: No adverse reaction; IV Status: Completed infusion; IV Intake: 1ml 1 11/09 22:02 Drug: Heparin ([place] Drip) 12 units/kg/[place] - ([place] [address] units, D5W IV 500 ml) IV at kl calculated rate Per protocol; Max initial rate 1000 units/hr {Co-Signature: melly (Dolores Peace RN).} Route: IV; Rate: calculated rate; Site: right antecubital; 11/10 14:22 Follow up: Response: No adverse reaction; IV Status: Order to discontinue infusion ll1 Medication: 11/09 20:15 VIS not applicable for this client. me1 Intake: 11/10 14:22 IV: 1ml; Total: 1ml. ll1 14:22 IV: 1000ml; Total: 1001ml. ll1 Outcome: 11/09 21:29 Decision to Hospitalize by Provider. sp4 11/10 14:20 Patient left the ED. ll1 14:21 Admitted to Med/surg accompanied by tech, via wheelchair, room 209, with chart, Report ll1 called to Rani Isaacs RN 14:21 Condition: stable 14:21 Instructed on the need for admit, Signatures: Dispatcher [employer] Evelyn Salinas, Andrea Monae RN RN RN jb4 Brett Kemp RN RN ll1 Ileana Hopkinsj6 Mariaelena Rogers RN RN pf1 Dustin Gambino MD MD sp4 Dolores Peace RN RN me1 Paula Henriquez RN NATY 6 Shadia Ng RN RN 1 Dolores Peace RN nj1 Corrections: (The following items were deleted from the chart) 11/09 20:52 20:48 PSHx: cataracts (Coronary artery bypass graft); pf1 pf1 22:11 20:01 Chief complaint: Patient states: chest pain of 7 with SOB and nausea,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 pf1
[2023-11-09] MEDS ORDERED: ONDANSETRON 4 MG/2 ML VIAL IV PRN (21:32)
[2023-11-09] MEDS ORDERED: ACETAMINOPHEN 325 MG TABLET PO PRN (21:32)
--- NOTE | 2023-11-09 21:32 | P.HP ---
Certification for Inpatient Patient admitted to: Observation With expected LOS: <2 Midnights Practitioner: I am a practitioner with admitting privileges, knowledge of patient current condition, hospital course, and medical plan of care. Services: Services provided to patient in accordance with Admission requirements found in Title 42 Section 412.3 of the Code of Federal Regulations Patient History Date of Service: 11/10/23 Reason for admission: Chest pain History of Present Illness: 69-year-old male patient was medical history for coronary artery disease status post stent placement x 2 and bypass of 2 vessels, hypertension, hyperlipidemia, reflux esophagitis admitted for management of chest pain. He had complained of chest pain radiating to the left arm with heaviness in the chest. He has no episode of nausea, vomiting, dizzy spells but he felt unwell. He decided to come to the hospital because of concerns for heart attack. He denies overt episode of cough, fever, congestion. Allergies No Known Allergies Allergy (Verified 07/13/23 09:13) Home Medications: Atorvastatin Calcium [Lipitor] 40 mg PO BEDTIME 09/18/20 Clopidogrel Bisulfate [Plavix] 75 mg PO DAILY 09/18/20 Isosorbide Mononitrate [Isosorbide Mononitrate ER] 120 mg PO DAILY 09/18/20 ramipriL [Altace] 5 mg PO DAILY 09/18/20 Omeprazole 20 mg PO DAILY 07/13/23 Review of Systems General: Unremarkable Eyes: Unremarkable ENT: Unremarkable Respiratory: Unremarkable Cardiovascular: Chest Pain Gastrointestinal: Unremarkable Genitourinary: Unremarkable Musculoskeletal: Unremarkable Integumentary: Unremarkable Neurological: Unremarkable Physical Examination - Physical Exam General: Alert, Oriented x3 HEENT: Normocephalic Neck: Supple Respiratory: Normal air movement Cardiovascular: Regular rate/rhythm, Normal S1 S2 Gastrointestinal: Soft and benign Musculoskeletal: No swelling Neurological: Normal speech - Studies Laboratory Data (last 24 hrs) 11/09/23 11/09/23 11/09/23 20:10 20:10 20:10 WBC 14.70 H Hgb 15.8 Hct 47.5 Plt Count 186 PT 12.5 INR 1.14 Sodium 133 L Potassium 3.6 BUN 20 H Creatinine 1.26 Glucose 115 H Magnesium 1.8 Total Bilirubin 0.6 AST 18 ALT 22 Alkaline Phosphatase 83 Assessment and Plan - Plan Chest pain: Patient has significant clinical symptoms. He is status post stent placement x 2 and bypass graft surgery of 2 vessels in the heart. Will continue patient on Plavix, and have him on baby aspirin dose. Will obtain echocardiogram to assess cardiac function. Cardiology evaluate. Will obtain lipid panel Hypertension: Will continue antihypertensive medication and monitor vital signs per unit protocol Hyperlipidemia: Continue statin therapy Prophylaxis: Lovenox for DVT prophylaxis CODE STATUS: Full code Disposition: Will workup chest pain and he will be discharged once he is cleared by human services professional. Discharge Plan: Home - Advance Directives Does patient have a Living Will: No Does patient have a Durable POA for Healthcare: No Time Spent Managing Pts Care (In Minutes): 60
[2023-11-09] MEDS ORDERED: MORPHINE 2 MG/ML SYR IV PRN (21:35)
[2023-11-09] MEDS ORDERED: HEPARIN/D5W 25,000 UNIT/500 ML BAG IV ONE (21:59)
[2023-11-09] MEDS ORDERED: HEPARIN 5000 UNIT/ML 1 ML VIAL ONE (22:00)
[2023-11-10 02:21] VITALS: BMI 27.1
[2023-11-10] MEDS ORDERED: D5 0.9 NS 1,000 ML IV ONE (05:10)
[2023-11-10 06:53] LABS: Absolute Lymphocytes (CBC) 0.9 K/uL (0.7-4.9); Hematocrit 38.5 % (39.6-49.0); Lymphocytes % 7.8 % (15.3-44.8); MCV 93.8 fL (80-100); MPV 8.4 fL (7.6-11.3); Platelets 135 thou/uL (152-406)
[2023-11-10 07:29] LABS: Potassium 3.8 mEq/L (3.5-5.1); Troponin High Sensitivity 9.1 pg/mL (<58.9)
[2023-11-10] MEDS ORDERED: ASPIRIN 81 MG CHEWABLE TABLET ONE (08:59)
[2023-11-10] MEDS ORDERED: CLOPIDOGREL 75 MG TABLET ONE (09:00)
[2023-11-10] MEDS ORDERED: ENOXAPARIN 40 MG/0.4 ML SQ ONE (09:00)
[2023-11-10] MEDS: ENOXAPARIN 40 MG/0.4 ML SQ SCH (09:00)
[2023-11-10] MEDS: CLOPIDOGREL 75 MG TABLET PO SCH (09:00)
[2023-11-10] MEDS: ASPIRIN EC 81 MG TAB PO SCH (09:00)
--- NOTE | 2023-11-10 13:41 | EKG ---
Test Date: 2023-11-09 Test Time: 20:06:18 Warehouse Shipper: ALIYA MEASUREMENT RESULTS: Intervals: Rate: 70 MI: QRSD: 86 QT: 378 QTc: 408 [place]: P: MI: QRS: 60 T: 237 INTERPRETIVE STATEMENTS: Accelerated Junctional rhythm with frequent ventricular-paced complexes and with occasional premature ventricular complexes Cannot rule out Anterior infarct, age undetermined ST & T wave abnormality, consider inferior ischemia Abnormal ECG Compared to ECG 04/19/2023 17:15:52 Accelerated junctional rhythm now present Ventricular premature complex(es) now present Myocardial infarct finding now present ST (T wave) deviation now present Sinus rhythm no longer present T-wave abnormality no longer present Possible ischemia still present Electronically Signed On 11-10-23 13:39:18 MANAGER BILLING by Esteban Yan
--- NOTE | 2023-11-10 13:48 | ECHO ---
HEIGHT: 5 ft 8 in WEIGHT: 178 lb 9.6 oz DATE OF STUDY: 11/10/[address]: Eze Tinsley MD 2-DIMENSIONAL: YES M.MODE: YES DOPPLER: YS COLOR FLOW: YES TDS: PORTABLE: YES DEFINITY: BUBBLE STUDY: DIAGNOSIS: EVALUATION OF CHEST PAIN CARDIAC HISTORY: CATHERIZATION: YES SURGERY: YES PROSTHETIC VALVE: NO PACEMAKER: YES MEASUREMENTS (cm) DIASTOLIC (NORMALS) SYSTOLIC (NORMALS) IVSd 1.1 (0.6-1.2) LA Diam 3.7 (1.9-4.0) LVEF 57% LVIDd 5.1 (3.5-5.7) LVIDs 3.5 (2.0-3.5) %FS 30% LVPWd 1.1 (0.6-1.2) Ao Diam 2.5 (2.0-3.7) 2 DIMENSIONAL ASSESSMENT: RIGHT ATRIUM: NORMAL LEFT ATRIUM: NORMAL RIGHT VENTRICLE: NORMAL LEFT VENTRICLE: NORMAL TRICUSPID VALVE: NORMAL MITRAL VALVE: MILD MITRAL REGURGITATION PULMONIC VALVE: NORMAL AORTIC VALVE: NORMAL PERICARDIAL EFFUSION: NONE AORTIC ROOT: NORMAL LEFT VENTRICULAR WALL MOTION: UNABLE TO EVALUATE DUE TO POOR WINDOWS DOPPLER/COLOR FLOW: SEE BELOW COMMENTS: 1. POOR WINDOWS 2. OVERALL LEFT VENTRICULAR EJECTION FRACTION APPEARS NORMAL 3. MILD MITRAL REGURGITATION TECHNOLOGIST: ESTRELLA CROW
[2023-11-11 02:35] VITALS: O2SAT 96
[2023-11-11] MEDS: CLOPIDOGREL 75 MG TABLET PO SCH (09:14)
[2023-11-11] MEDS: ASPIRIN EC 81 MG TAB PO SCH (09:14)
[2023-11-11] MEDS: ENOXAPARIN 40 MG/0.4 ML SQ SCH (09:14)
[2023-11-11 09:19] VITALS: BP 176/92; TEMP 97.9
== END 2023-11-11 11:30 | disposition home or self-care (01) ==
LOC: ER 19:57 → ERHOLD 21:32 → 2ND 11-10 14:18
PROVIDERS: ADMIT Internal Medicine Nephrology; ATTEND Hospitalist
DX: R07.9 Chest pain, unspecified (principal); I25.10 Atherosclerotic heart disease of native coronary artery without angina pectoris; I10 Essential (primary) hypertension; E78.5 Hyperlipidemia, unspecified; K21.00 Gastro-esophageal reflux disease with esophagitis, without bleeding; I25.2 Old myocardial infarction; Z95.0 Presence of cardiac pacemaker; Z95.5 Presence of coronary angioplasty implant and graft; Z11.52 Encounter for screening for COVID-19
CPT/HCPCS: 96365; 93005; 93306; 85025 ×2; 80048 ×2; 36415; 83735; 85610; 80061; 80076; 85730 ×3; 84484 ×3; 83880; 87635; 86140; 87804 ×2; 71045; 96375; 99285; 96366; J1644; J1650 ×2; J2405; P9047; J7042 ×2; J7040; G0378 ×5